=== PATIENT | female | born 1935 | race Caucasian/White ===

== ENCOUNTER → 2016-09-02 | Outpatient (CLI) | payer MEDICARE, BC ==
--- NOTE | 2016-09-02 13:47 | MR ---
EXAMINATION TYPE: MR brain wo con DATE OF EXAM: 09/02/2016 1:38 PM COMPARISON: Prior MRI brain March 26, 2013. HISTORY: Cerebral meningioma per order. TECHNIQUE: Multiplanar, multisequence imaging of the brain and brainstem is performed without IV cont rast. FINDINGS: Diffusion weighted images demonstrate no evidence of a recent infarct or other diffusion abnormality. There is no worrisome extra-axial fluid collection. There is ventricular and sulcal prominence consis tent with mild diffuse age-related cerebral atrophy. There are scattered foci of T2 hyperintensity se en throughout the white matter bilaterally. Lesions are nonspecific in appearance and distribution bu t most likely on basis of product of chronic small vessel ischemic change. There is stable 1.1 x 0.9 cm high right frontal extra-axial lesion on axial image 27 felt to reflect small meningioma. Midline structures demonstrate normal morphology. The craniocervical junction appears within normal limits. Normal vascular flow voids are present. The visualized sinuses are clear and the globes are i ntact. IMPRESSION: 1. Mild diffuse cerebral atrophy with mild to moderate chronic small vessel ischemic change redemonst rated felt stable. Small 1 cm high right frontal extra-axial lesion presumed meningioma felt stable.
== END ==
LOC: RADMRIMAIN 13:00
PROVIDERS: ATTEND Psychiatry & Neurology Neurology
DX: D32.0 Benign neoplasm of cerebral meninges (principal); G31.9 Degenerative disease of nervous system, unspecified; I67.82 Cerebral ischemia
CPT/HCPCS: 70551

== ENCOUNTER 2016-12-16 20:01 | Observation (INO) | payer MEDICARE, BC ==
[2016-12-16] MEDS ORDERED: SODIUM CHLORIDE 0.9% 1,000 ML IV STA (20:45)
[2016-12-16] MEDS ORDERED: LORazepam 0.5 MG TAB PO SCH (21:00)
--- NOTE | 2016-12-16 21:33 | XR ---
EXAMINATION TYPE: XR chest 2V DATE OF EXAM: 12/16/2016 COMPARISON: 02/11/2016 HISTORY: Shortness of breath TECHNIQUE: Frontal and lateral views of the chest are obtained. FINDINGS: Scattered senescent parenchymal changes noted. Hyperinflation compatible with COPD. No evidence for infiltrate. No evidence for atelectasis. Heart size is stable. Mediastinal structures are stable and grossly unremarkable. No evidence for hilar prominence. Degenerative changes dorsal spine. IMPRESSION: 1. No evidence for acute pulmonary disease.
[2016-12-16] MEDS ORDERED: LORazepam 0.5 MG TAB PO STA (22:25)
[2016-12-16 22:27] LABS: Basophils % (A) 0 %; CH 30.4; CHCM 33.6; Eosinophils # (A) 0.4 k/uL (0-0.7); Eosinophils % (A) 4 %; HCT 43.5 % (34.0-46.0); HDW 2.23; HGB 14.5 gm/dL (11.4-16.0); Luc # (Auto) 0.14; Luc % (Auto) 2; Lymphocytes # (A) 2.4 k/uL (1.0-4.8); Lymphocytes % (A) 25 %; MCH 30.2 pg (25.0-35.0); MCHC 33.3 g/dL (31.0-37.0); MCV 90.7 fL (80.0-100.0); Mean Platelet Volume 6.6; Monocytes # (A) 0.6 k/uL (0-1.0); Monocytes % (A) 7 %; Neutrophils # (A) 5.8 k/uL (1.3-7.7); Neutrophils % (A) 63 %; RDW 14.8 % (11.5-15.5); WBC 9.3 k/uL (3.8-10.6); WBC (Perox) 8.99
[2016-12-16 22:39] LABS: INR 0.9 (<1.2); Partial Thromboplastin Time 25.4 sec (22.0-30.0); Prothrombin Time 9.7 sec (9.0-12.0)
[2016-12-16 22:45] LABS: ALT 20 U/L (9-52); AST 26 U/L (14-36); Alkaline Phosphatase 75 U/L (38-126); Anion Gap 8 mmol/L; Blood Urea Nitrogen 20 mg/dL (7-17); Calcium 8.6 mg/dL (8.4-10.2); Carbon Dioxide 20 mmol/L (22-30); Chloride 103 mmol/L (98-107); Glucose 92 mg/dL (74-99); Non-African American GFR(MDRD) 52 (>60 ml/min/1.73 sqM); Potassium 4.4 mmol/L (3.5-5.1); Sodium 131 mmol/L (137-145); Total Bilirubin 0.4 mg/dL (0.2-1.3); Total Protein 6.1 g/dL (6.3-8.2)
--- NOTE | 2016-12-16 23:00 | ED ---
General Adult HPI - General Chief complaint: Extremity Problem,Nontraumatic Stated complaint: lightheaded/nausea/SOB Time Seen by Provider: 12/16/16 20:32 Source: patient Mode of arrival: ambulatory Limitations: no limitations - History of Present Illness Initial comments: Complaining of shortness of breath, nausea, pedal or swelling. He stated that shortness of breath is minimal exertion also with deep breaths she denies any chest pain as such it only happens when she takes a deep breath. Pressure has been high she was being treated for high blood pressure in the past and she did discontinue her Catapres Catapres back in September. Her blood pressure at home is around 1:30 systolic. She denies any headaches or neck stiffness does have a chest pain no abdominal pain no frequency urgency dysuria - Related Data Home Medications Medication Instructions Recorded Confirmed Aspirin [Adult Low Dose Aspirin EC] 162 mg PO DAILY 02/04/16 12/16/16 Cholecalciferol [Vitamin D3] 5,000 unit PO DAILY 02/04/16 12/16/16 Cyanocobalamin [Vitamin B-12] 1,000 mcg PO DAILY 02/04/16 12/16/16 Famotidine 20 mg PO BID 02/04/16 12/16/16 Thyroid,Pork [[place] Thyroid] 60 mg PO DAILY 02/04/16 12/16/16 Pravastatin Sodium [Pravachol] 40 mg PO HS 02/05/16 12/16/16 ALPRAZolam [Xanax] 0.125 mg PO DAILY PRN 12/16/16 12/16/16 Multivitamins, Thera [Multivitamin 1 tab PO DAILY 12/16/16 12/16/16 (formulary)] Allergies Allergy/AdvReac Type Severity Reaction Status Date / Time Iodinated Contrast- Oral and AdvReac Severe kidney Verified 12/16/16 20:16 IV Dye failure [Iodinated Contrast Media - IV Dye] omeprazole [From Prilosec] AdvReac Severe kidney Verified 12/16/16 20:16 failure omeprazole magnesium AdvReac Severe kidney Verified 12/16/16 20:16 [From Prilosec] failure Review of Systems ROS Statement: Those systems with pertinent positive or pertinent negative responses have been documented in the HPI. ROS Other: All systems not noted in ROS Statement are negative. 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 History of Any Multi-Drug Resistant Organisms: None Reported Past Surgical History: Appendectomy, Hysterectomy Past Anesthesia/Blood Transfusion Reactions: No Reported Reaction Past Psychological History: Anxiety Smoking Status: Former smoker Past Alcohol Use History: None Reported Past Drug Use History: None Reported - Past Family History Mother Family Medical History: No Reported History Additional Family Medical History / Comment(s): of heart disease "hole in the heart" at age 29 Father Family Medical History: Myocardial Infarction ([place]) Additional Family Medical History / Comment(s): at age 67 of heart attack General Exam - General Exam Comments Initial Comments: General: The patient is awake and alert, in no distress, and does not appear acutely ill. She has is 15 Skin: Skin is warm and dry and no rashes or lesions are noted. Eye: Pupils are equal, round and reactive to light, extra-ocular movements are intact; there is normal conjunctiva bilaterally. Ears, nose, mouth and throat: There are moist mucous membranes and no oral lesions. Neck: The neck is supple, there is no tenderness or JVD. Cardiovascular: There is a regular rate and rhythm. No murmur, rub or gallop is appreciated. Respiratory: To auscultation bilateral, decrease breath sounds Gastrointestinal: Soft, non-distended, non-tender abdomen without masses or organomegaly noted. There is no rebound or guarding present. Bowel sounds are unremarkable. Back: There is no tenderness to palpation in the midline. There is no obvious deformity. Musculoskeletal: Normal ROM, no tenderness, There is no pedal edema. There is no calf tenderness or swelling. No cords were appreciated. Neurological: CN II-XII intact, Cranial nerves III through XII are intact. There are no obvious motor or sensory deficits. Coordination appears grossly intact. Speech is normal. Psychiatric: Cooperative, appropriate mood & affect, normal judgment. Limitations: no limitations Course Vital Signs 12/16/16 12/16/16 12/16/16 20:03 20:23 22:18 Temperature 98.4 F 97.7 F 97.3 F L Pulse Rate 88 77 68 Respiratory 18 17 18 Rate Blood Pressure 186/89 172/82 O2 Sat by Pulse 96 97 97 Oximetry 12/16/16 22:41 Temperature Pulse Rate 73 Respiratory 17 Rate Blood Pressure 175/81 O2 Sat by Pulse 96 Oximetry [birth year]1929 she continued to feel a bit of a chest pressure no her troponin and d -dimer are unremarkable social chest x-ray and considering her risk factors she be observed in the next 24 hours Lovenox 1 mg/kg instead of heparinizing and cardiology consult and warm EKG Findings - EKG Comments: EKG Findings:: EKG is sinus rhythm with a first-degree AV block, ventricular rate is 80 FL interval is 218 QRS duration is 142 QT/QTc is 44/464 and 56 EKG shows some left axis axis deviation right bundle branch block medical hypertrophy with repolarization abnormalities noticed T-wave inversion in lead aVF I do notice some widening of the QRS complex was normal right bundle branch block as well no ST elevation or ST depression noticed this EKG Medical Decision Making - Lab Data Result diagrams: 12/16/16 22:05 12/16/16 22:05 Lab Results 12/16/16 12/16/16 12/16/16 Range/Units 22:00 22:05 22:05 WBC 9.3 (3.8-10.6) k/uL RBC 4.80 (3.80-5.40) m/uL Hgb 14.5 (11.4-16.0) gm/dL Hct 43.5 (34.0-46.0) % MCV 90.7 (80.0-100.0) fL MCH 30.2 (25.0-35.0) pg MCHC 33.3 (31.0-37.0) g/dL RDW 14.8 (11.5-15.5) % Plt Count 232 (150-450) k/uL Neutrophils % 63 % Lymphocytes % 25 % Monocytes % 7 % Eosinophils % 4 % Basophils % 0 % Neutrophils # 5.8 (1.3-7.7) k/uL Lymphocytes # 2.4 (1.0-4.8) k/uL Monocytes # 0.6 (0-1.0) k/uL Eosinophils # 0.4 (0-0.7) k/uL Basophils # 0.0 (0-0.2) k/uL PT (9.0-12.0) sec INR (<1.2) APTT (22.0-30.0) sec D-Dimer 0.28 (<0.60) mg/L FEU Sodium (137-145) mmol/L Potassium (3.5-5.1) mmol/L Chloride (98-107) mmol/L Carbon Dioxide (22-30) mmol/L Anion Gap mmol/L BUN (7-17) mg/dL Creatinine (0.52-1.04) mg/dL Est GFR (MDRD) Af Amer (>60 ml/min/1.73 sqM) Est GFR (MDRD) Non-Af (>60 ml/min/1.73 sqM) Glucose (74-99) mg/dL Calcium (8.4-10.2) mg/dL Total Bilirubin (0.2-1.3) mg/dL AST (14-36) U/L ALT (9-52) U/L Alkaline Phosphatase (38-126) U/L Total Creatine Kinase 42 (30-135) U/L CK-MB (CK-2) 0.7 (0.0-2.4) ng/mL CK-MB (CK-2) Rel Index 1.7 Troponin I <0.012 (0.000-0.034) ng/mL NT-Pro-B Natriuret Pep pg/mL Total Protein (6.3-8.2) g/dL Albumin (3.5-5.0) g/dL 12/16/16 12/16/16 12/16/16 Range/Units 22:05 22:05 22:05 WBC (3.8-10.6) k/uL RBC (3.80-5.40) m/uL Hgb (11.4-16.0) gm/dL Hct (34.0-46.0) % MCV (80.0-100.0) fL MCH (25.0-35.0) pg MCHC (31.0-37.0) g/dL RDW (11.5-15.5) % Plt Count (150-450) k/uL Neutrophils % % Lymphocytes % % Monocytes % % Eosinophils % % Basophils % % Neutrophils # (1.3-7.7) k/uL Lymphocytes # (1.0-4.8) k/uL Monocytes # (0-1.0) k/uL Eosinophils # (0-0.7) k/uL Basophils # (0-0.2) k/uL PT 9.7 (9.0-12.0) sec INR 0.9 (<1.2) APTT 25.4 (22.0-30.0) sec D-Dimer (<0.60) mg/L FEU Sodium 131 L (137-145) mmol/L Potassium 4.4 (3.5-5.1) mmol/L Chloride 103 (98-107) mmol/L Carbon Dioxide 20 L (22-30) mmol/L Anion Gap 8 mmol/L BUN 20 H (7-17) mg/dL Creatinine 1.02 (0.52-1.04) mg/dL Est GFR (MDRD) Af Amer >60 (>60 ml/min/1.73 sqM) Est GFR (MDRD) Non-Af 52 (>60 ml/min/1.73 sqM) Glucose 92 (74-99) mg/dL Calcium 8.6 (8.4-10.2) mg/dL Total Bilirubin 0.4 (0.2-1.3) mg/dL AST 26 (14-36) U/L ALT 20 (9-52) U/L Alkaline Phosphatase 75 (38-126) U/L Total Creatine Kinase (30-135) U/L CK-MB (CK-2) (0.0-2.4) ng/mL CK-MB (CK-2) Rel Index Troponin I (0.000-0.034) ng/mL NT-Pro-B Natriuret Pep 200 pg/mL Total Protein 6.1 L (6.3-8.2) g/dL Albumin 3.4 L (3.5-5.0) g/dL Disposition Clinical Impression: Dyspnea, Chest pressure Clinical Impression: (Ruled Out): Pleuritic chest pain Disposition: ADMITTED IP TO THIS [facility] Condition: Good Referrals: Josh Don MD [Primary Care Provider] - 1-2 days
[2016-12-16 23:25] LABS: Creatine Kinase 42 U/L (30-135)
[2016-12-16 23:37] LABS: Creatine Kinase MB 0.7 ng/mL (0.0-2.4); Troponin I <0.012 ng/mL (0.000-0.034)
[2016-12-16] MEDS ORDERED: SODIUM CHLORIDE 0.9% 1,000 ML IV SCH (23:45)
[2016-12-16] MEDS ORDERED: NITROGLYCERIN SL TABS 0.4 MG TAB SUBLINGUAL PRN (23:49)
[2016-12-16] MEDS ORDERED: MORPHINE SULFATE 2 MG/ML SYRINGE IVP PRN (23:49)
[2016-12-16] MEDS ORDERED: ALPRAZolam 0.25 MG TAB PO PRN (23:54)
[2016-12-16] MEDS ORDERED: ENOXAPARIN 80 MG/0.8 ML SYRINGE SQ STA (23:55)
[2016-12-17] MEDS: SODIUM CHLORIDE 0.9% 1,000 ML IV SCH ×2 (00:14→14:00)
[2016-12-17 01:06] VITALS: BMI 29.0
[2016-12-17 04:15] LABS: Cholesterol 167 mg/dL (<200); HDL Cholesterol 77 mg/dL (40-60)
[2016-12-17 04:16] VITALS: RESP 18
[2016-12-17 04:33] LABS: Creatine Kinase MB 0.9 ng/mL (0.0-2.4); Troponin I 0.012 ng/mL (0.000-0.034)
--- NOTE | 2016-12-17 08:18 | P.CRDCN ---
History of Present Illness Consult date: 12/17/16 History of present illness: This is a 81-year-old female with history of hypercholesterolemia and POTT syndrome, comes to the hospital with complaints of exertional shortness of breath and chest tightness. She claims that the symptoms have been going on for a while. Yesterday patient was at daughter's house and one of her relatives who works at [facility] suggested that she have cardiac evaluation. She also complains of some pedal swelling. She seemed to be comfortable at rest. No history of hypertension or diabetes. No history of any previous myocardial infarctions or strokes. Her EKGs showed evidence of right bundle-branch block with some intraventricular conduction delay. Cardiac enzymes 2 are negative. Patient is being scheduled for a nuclear stress test and echocardiogram. Further recommendations depend upon the findings and about test Review of Systems REVIEW OF SYSTEMS: CONSTITUTIONAL:. Patient is doing well. No complaints of fever or chills EYES: Denies diplopia, blurring of vision EARS, NOSE, MOUTH, THROAT: Denies headaches, denies sore throat. CARDIOVASCULAR: As per HPI RESPIRATORY: Denies shortness of breath, denies cough. GASTROINTESTINAL: Denies change in appetite, denies abdominal pain, denies diarrhea GENITOURINARY: Denies hematuria, denies infections. MUSKULOSKELETAL: Denies pain, denies swelling. Denies any cramps or claudication INTEGUMENTARY: Denies rash, denies eczema. NEUROLOGICAL: Denies focal weakness, or visual disturbance. Denies any dizziness or syncope PSYCHIATRIC: Denies anxiety, denies depression. HEMATOLOGIC/LYMPHATIC: Denies any bleeding, denies enlarged lymph nodes. 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 History of Any Multi-Drug Resistant Organisms: None Reported Past Surgical History: Appendectomy, Hysterectomy Past Anesthesia/Blood Transfusion Reactions: No Reported Reaction Smoking Status: Former smoker - Past Family History Mother Family Medical History: No Reported History Additional Family Medical History / Comment(s): of heart disease "hole in the heart" at age 29 Father Family Medical History: Myocardial Infarction ([place]) Additional Family Medical History / Comment(s): at age 67 of heart attack Medications and Allergies Home Medications Medication Instructions Recorded Confirmed Type Aspirin [Adult Low Dose Aspirin EC] 162 mg PO HS 02/04/16 12/17/16 History Cholecalciferol [Vitamin D3] 5,000 unit PO DAILY 02/04/16 12/17/16 History Cyanocobalamin [Vitamin B-12] 1,000 mcg PO DAILY 02/04/16 12/17/16 History Famotidine 20 mg PO BID 02/04/16 12/17/16 History Thyroid,Pork [[place] Thyroid] 60 mg PO DAILY 02/04/16 12/17/16 History Pravastatin Sodium [Pravachol] 40 mg PO HS 02/05/16 12/17/16 History ALPRAZolam [Xanax] 0.125 mg PO DAILY PRN 12/16/16 12/17/16 History Multivitamins, Thera [Multivitamin 1 tab PO DAILY 12/16/16 12/17/16 History (formulary)] Allergies Allergy/AdvReac Type Severity Reaction Status Date / Time Iodinated Contrast- Oral and AdvReac Severe kidney Verified 12/17/16 00:52 IV Dye failure [Iodinated Contrast Media - IV Dye] omeprazole [From Prilosec] AdvReac Severe kidney Verified 12/17/16 00:52 failure omeprazole magnesium AdvReac Severe kidney Verified 12/17/16 00:52 [From Prilosec] failure Physical Exam Vitals: Vital Signs Temp Pulse Pulse Resp BP BP Pulse Ox 12/17/16 07:47 98.1 F 63 18 131/71 94 L 12/17/16 04:00 98.1 F 71 18 140/73 93 L 12/17/16 00:12 97.5 F L 67 16 136/78 95 12/17/16 00:00 97.9 F 71 16 164/89 96 12/16/16 22:41 73 17 175/81 96 12/16/16 22:18 97.3 F L 68 18 172/82 97 12/16/16 20:23 97.7 F 77 17 97 12/16/16 20:03 98.4 F 88 18 186/89 96 Intake and Output 0712/17/16 12/17/16 22:59 06:59 14:59 Other: # Voids 1 Weight 81.647 kg 81.6 kg GENERAL EXAM: Patient is alert and oriented and doesn't appear to be in any acute distress HEENT: Normocephalic. Normal reaction of pupils, equal size, normal range of extraocular motion. No erythema or exudates in the throat. NECK: No masses, no nuchal rigidity. CHEST: No chest wall deformity. LUNGS: . Axid the falls HEART: S1 and S2 normal with no audible mumurs or gallops. Regular rhythm, femorals equal on both sides.. ABDOMEN: No hepatosplenomegaly, normal bowel sounds, no guarding or rigidity. SKIN: No rashes CENTRAL NERVOUS SYSTEM: No focal deficits. EXTREMITIES: No cyanosis, clubbing or edema. Results 12/16/16 22:05 12/16/16 22:05 Cardiac Enzymes 12/16/16 12/16/16 12/17/16 Range/Units 22:05 22:05 03:41 AST 26 (14-36) U/L CK-MB (CK-2) 0.7 0.9 (0.0-2.4) ng/mL Troponin I <0.012 0.012 (0.000-0.034) ng/mL Coagulation 12/16/16 Range/Units 22:05 PT 9.7 (9.0-12.0) sec APTT 25.4 (22.0-30.0) sec Lipids 12/17/16 Range/Units 03:41 Triglycerides 126 (<150) mg/dL Cholesterol 167 (<200) mg/dL HDL Cholesterol 77 H (40-60) mg/dL CBC 12/16/16 Range/Units 22:05 WBC 9.3 (3.8-10.6) k/uL RBC 4.80 (3.80-5.40) m/uL Hgb 14.5 (11.4-16.0) gm/dL Hct 43.5 (34.0-46.0) % Plt Count 232 (150-450) k/uL Comprehensive Metabolic Panel 12/16/16 Range/Units 22:05 Sodium 131 L (137-145) mmol/L Potassium 4.4 (3.5-5.1) mmol/L Chloride 103 (98-107) mmol/L Carbon Dioxide 20 L (22-30) mmol/L BUN 20 H (7-17) mg/dL Creatinine 1.02 (0.52-1.04) mg/dL Glucose 92 (74-99) mg/dL Calcium 8.6 (8.4-10.2) mg/dL AST 26 (14-36) U/L ALT 20 (9-52) U/L Alkaline Phosphatase 75 (38-126) U/L Total Protein 6.1 L (6.3-8.2) g/dL Albumin 3.4 L (3.5-5.0) g/dL Current Medications Generic Name Dose Route Start Last Admin Trade Name Freq PRN Reason Stop Dose Admin Alprazolam 0.125 mg 12/16/16 23:54 Xanax PO DAILY PRN Anxiety Aspirin 325 mg 12/17/16 09:00 Aspirin PO DAILY [facility] Cholecalciferol 5,000 unit 12/17/16 09:00 Vitamin D3 PO DAILY [facility] Cyanocobalamin 1,000 mcg 12/17/16 09:00 Vitamin B-12 PO DAILY [facility] Famotidine 20 mg 12/17/16 09:00 Pepcid PO BID [facility] Sodium Chloride 1,000 mls @ 50 mls/hr 12/16/16 20:45 12/16/16 21:40 Saline 0.9% IV 12/17/16 16:44 50 mls/hr .Q20H STA Administration Sodium Chloride 1,000 mls @ 100 mls/hr 12/16/16 23:15 12/17/16 00:14 Saline 0.9% IV 100 mls/hr .Q10H [facility] Administration Sodium Chloride 1,000 mls @ 100 mls/hr 12/16/16 23:45 12/17/16 01:10 Saline 0.9% IV Not Given .Q10H [facility] Morphine Sulfate 2 mg 12/16/16 23:49 Morphine Sulfate (Inj) IVP Q5M PRN Chest Pain Multivitamins 1 each 12/17/16 09:00 Theragran PO DAILY [facility] Nitroglycerin 0.4 mg 12/16/16 23:49 Nitrostat SUBLINGUAL Q5M PRN Chest Pain Pravastatin Sodium 40 mg 12/17/16 21:00 Pravachol PO HS [facility] Thyroid 60 mg 12/17/16 09:00 [place] Thyroid PO DAILY [facility] Intake and Output 12/16/16 12/17/16 12/17/16 22:59 06:59 14:59 Other: # Voids 1 Weight 81.647 kg 81.6 kg 12/16/16 22:05 12/16/16 22:05 EKG Interpretations (text) Sinus rhythm with a right bundle block and intraventricular conduction delay Assessment and Plan (1) Chest pressure Status: Acute (2) Dyspnea Status: Acute (3) Hyperlipidemia Status: Acute (4) Pott disease Status: Acute Plan: Patient's symptoms of exertional shortness of breath and chest tightness, may be suggestive of exertional angina. Patient is going to be evaluated to a nuclear stress test and echocardiogram. Further recommendation will depend on the clinical course.
[2016-12-17] MEDS ORDERED: AMINOPHYLLINE 500 MG/20 ML VIAL IV PRN (08:22)
[2016-12-17] MEDS ORDERED: REGADENOSON 0.4 MG/5 ML SYRINGE IV ONE (08:22)
[2016-12-17] MEDS ORDERED: MULTIVITAMINS, THERA 1 EACH TAB PO SCH (09:00)
[2016-12-17] MEDS ORDERED: CYANOCOBALAMIN 500 MCG TAB PO SCH (09:00)
[2016-12-17] MEDS ORDERED: THYROID, PORK 30 MG TAB PO SCH (09:00)
[2016-12-17] MEDS ORDERED: ASPIRIN 325 MG TAB PO SCH (09:00)
[2016-12-17] MEDS ORDERED: FAMOTIDINE 20 MG TAB PO SCH (09:00)
[2016-12-17] MEDS ORDERED: CHOLECALCIFEROL 1,000 UNIT TAB PO SCH (09:00)
--- NOTE | 2016-12-17 12:21 | P.STRESS ---
- Stress Test Note Stress Test Results/Findings: Exam Performed: NM stress lexiscan cardiolite Exam Date: 12/17/16 Reason for Exam: CP Height: 5 ft 6 in Weight: 81.6 kg Protocol: Lexiscan/Cardiolite Stage: Duration of Exercise: Resting Heart Rate: 83 Resting Blood Pressure: 133/82 Maximum Achieved Heart Rate: 118 Maximum Achieved Blood Pressure: 152/94 85% PMHR: 100% PMHR: METS: Technologist Comment: Stress Test Results/Findings: Patient received Lexiscan injection over a period of [address] segment depression suggestive of ischemia was noted resting EKG shows normal sinus rhythm with a QRS morphology suggestive for right bundle branch block pattern was noted the results of the nuclear study will follow.
[2016-12-17 12:55] VITALS: BP 185/83; PULSE 69; TEMP 97.8
--- NOTE | 2016-12-17 13:07 | NM ---
EXAMINATION TYPE: NM stress lexiscan cardiolite DATE OF EXAM: 12/17/2016 COMPARISON: Chest x-ray 12/16/2016 HISTORY: Exertional chest pain and shortness of breath TECHNIQUE: After the intravenous administration of 10.2 mCi Tc 99m Sestamibi - Cardiolite resting SP ECT images acquired 45 minutes post injection. The patient received 0.4mg Lexiscan, 26.4 mCi Tc 99m Sestamibi - Stress images obtained [address] injection FINDINGS: Review of stress and rest SPECT images demonstrates decreased uptake along the inferolateral left michael tricle on stress and rest images more so on rest than on stress. Gated analysis shows normal wall mot ion with an estimated left ventricular ejection fraction of 73 %. IMPRESSION: No scintigraphic evidence for reversible ischemia. Findings suggest previous infarction. The consider echocardiographic correlation for elevated ejection fraction.
[2016-12-17 13:19] LABS: Creatine Kinase 46 U/L (30-135)
--- NOTE | 2016-12-17 13:32 | ECHOF ---
Referral Reason:Chest pain and cardiomyopathy MEASUREMENTS -------- HEIGHT: 167.6 cm WEIGHT: 81.6 kg BP: IVSd: 1.2 cm (0.6 - 1.1) LVIDd: 2.1 cm (3.9 - 5.3) LVPWd: 1.2 cm (0.6 - 1.1) IVSs: 1.3 cm LVIDs: 1.6 cm LVPWs: 1.3 cm Ao Diam: 3.6 cm (2.0 - 3.7) AV Cusp: 2.0 cm (1.5 - 2.6) LA Diam: 2.3 cm (2.7 - 3.8) MV E Mack: 0.47 m/s MV DecT: 139 ms MV A Mack: 0.83 m/s MV E/A Ratio: 0.57 AR PHT: 306 ms RAP: 5.00 mmHg RVSP: 8.86 mmHg FINDINGS -------- Sinus rhythm. This was a technically difficult study with suboptimal views. There is mild concentric left ventricular hypertrophy. Overall left ventricular systolic function is low-normal with, an EF between 50 - 55 %. The right ventricle is normal in size and function. The left atrium is normal in size. The right atrium is normal in size. 1.5mg of Definity was utilized for enhancement of images The aortic valve is trileaflet, and appears structurally normal. No aortic stenosis or regurgitation. Trace amount of aortic regurgitation. The mitral valve leaflets are mildly thickened. There is trace mitral regurgitation. Trace tricuspid regurgitation present. The right ventricular systolic pressure, as measured by Doppler, is 8.86mmHg. Pulmonic valve appears structurally normal. The aortic root size is normal. The pericardium is normal. CONCLUSIONS -------- 1. Sinus rhythm. 2. Trace amount of aortic regurgitation. 3. The mitral valve leaflets are mildly thickened. 4. There is trace mitral regurgitation. 5. Trace tricuspid regurgitation present. 6. The right ventricular systolic pressure, as measured by Doppler, is 8.86mmHg. 7. Pulmonic valve appears structurally normal. 8. The aortic root size is normal. 9. The pericardium is normal. 10. This was a technically difficult study with suboptimal views. 11. There is mild concentric left ventricular hypertrophy. 12. Overall left ventricular systolic function is low-normal with, an EF between 50 - 55 %. 13. The right ventricle is normal in size and function. 14. The left atrium is normal in size. 15. The right atrium is normal in size. 16. 1.5mg of Definity was utilized for enhancement of images 17. The aortic valve is trileaflet, and appears structurally normal. No aortic stenosis or regurgitation. [employer] BED WORKER: Francine Ritchie RDCS
[2016-12-17 13:33] LABS: Creatine Kinase MB 0.9 ng/mL (0.0-2.4); Troponin I <0.012 ng/mL (0.000-0.034)
--- NOTE | 2016-12-17 14:12 | P.HPIM ---
History of Present Illness This is a 81-year-old female with history of hypercholesterolemia and POTT syndrome, comes to the hospital with complaints of exertional shortness of breath and chest tightness. Patient's symptoms has been going on for more than any of his face, patient also has some lightheadedness mild chest pain very likely pains.. Yesterday patient was at daughter's house and one of her relatives who works at [facility] suggested that she have cardiac evaluation. She also complains of some pedal edema. She seemed to be comfortable at rest. No history of hypertension or diabetes. No history of any previous myocardial infarctions or strokes. Her EKGs showed evidence of right bundle-branch block with some intraventricular conduction delay. Cardiac enzymes 3 are negative. Patient underwent stress test which did not show any new inducible ischemia. If cleared by cardiology after these results patient will be discharged today. Patient's chest pain is noncardiac in nature not associated with food, denied any excessive diaphoresis associated with chest pain. Review of Systems REVIEW OF SYSTEMS: CONSTITUTIONAL: No fever, no malaise, no fatigue. HEENT: No recent visual problems or hearing problems. Denied any sore throat. CARDIOVASCULAR: As mentioned in HPI PULMONARY: no cough, no hemoptysis. GASTROINTESTINAL: No diarrhea, no nausea, no vomiting, no abdominal pain. Normoactive bowel sounds. NEUROLOGICAL: No headaches, no weakness, no numbness. HEMATOLOGICAL: Denies any bleeding or petechiae. GENITOURINARY: Denies any burning micturition, frequency, or urgency. MUSCULOSKELETAL/RHEUMATOLOGICAL: Denies any joint pain, swelling, or any muscle pain. ENDOCRINE: Denies any polyuria or polydipsia. The rest of the 14-point review of systems is negative. 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 History of Any Multi-Drug Resistant Organisms: None Reported Past Surgical History: Appendectomy, Hysterectomy Past Anesthesia/Blood Transfusion Reactions: No Reported Reaction Smoking Status: Former smoker - Past Family History Mother Family Medical History: No Reported History Additional Family Medical History / Comment(s): of heart disease "hole in the heart" at age 29 Father Family Medical History: Myocardial Infarction ([place]) Additional Family Medical History / Comment(s): at age 67 of heart attack Medications and Allergies Home Medications Medication Instructions Recorded Confirmed Type Aspirin [Adult Low Dose Aspirin EC] 162 mg PO HS 02/04/16 12/17/16 History Cholecalciferol [Vitamin D3] 5,000 unit PO DAILY 02/04/16 12/17/16 History Cyanocobalamin [Vitamin B-12] 1,000 mcg PO DAILY 02/04/16 12/17/16 History Famotidine 20 mg PO BID 02/04/16 12/17/16 History Thyroid,Pork [[place] Thyroid] 60 mg PO DAILY 02/04/16 12/17/16 History Pravastatin Sodium [Pravachol] 40 mg PO HS 02/05/16 12/17/16 History ALPRAZolam [Xanax] 0.125 mg PO DAILY PRN 12/16/16 12/17/16 History Multivitamins, Thera [Multivitamin 1 tab PO DAILY 12/16/16 12/17/16 History (formulary)] Allergies Allergy/AdvReac Type Severity Reaction Status Date / Time Iodinated Contrast- Oral and AdvReac Severe kidney Verified 12/17/16 00:52 IV Dye failure [Iodinated Contrast Media - IV Dye] omeprazole [From Prilosec] AdvReac Severe kidney Verified 12/17/16 00:52 failure omeprazole magnesium AdvReac Severe kidney Verified 12/17/16 00:52 [From Prilosec] failure Physical Exam Vitals: Vital Signs Temp Pulse Pulse Resp BP BP BP 12/17/16 12:00 97.8 F 69 18 185/83 12/17/16 07:47 98.1 F 63 18 131/71 12/17/16 04:00 98.1 F 71 18 140/73 12/17/16 00:12 97.5 F L 67 16 136/78 12/17/16 00:00 97.9 F 71 16 164/89 12/16/16 22:41 73 17 175/81 12/16/16 22:18 97.3 F L 68 18 172/82 12/16/16 20:23 97.7 F 77 17 12/16/16 20:03 98.4 F 88 18 186/89 Pulse Ox 12/17/16 12:00 95 12/17/16 07:47 94 L 12/17/16 04:00 93 L 12/17/16 00:12 95 12/17/16 00:00 96 12/16/16 22:41 96 12/16/16 22:18 97 12/16/16 20:23 97 12/16/16 20:03 96 Intake and Output 12/16/16 12/17/16 12/17/16 22:59 06:59 14:59 Other: # Voids 1 Weight 81.647 kg 81.6 kg PHYSICAL EXAMINATION: GENERAL: The patient is alert and oriented x3, not in any acute distress. Well developed, well nourished. HEENT: Pupils are round and equally reacting to light. EOMI. No scleral icterus. No conjunctival pallor. Normocephalic, atraumatic. No pharyngeal erythema. No thyromegaly. CARDIOVASCULAR: S1 and S2 present. No murmurs, rubs, or gallops. PULMONARY: Chest is clear to auscultation, no wheezing or crackles. ABDOMEN: Soft, nontender, nondistended, normoactive bowel sounds. No palpable organomegaly. MUSCULOSKELETAL: No joint swelling or deformity. EXTREMITIES: No cyanosis, clubbing, or pedal edema. NEUROLOGICAL: Gross neurological examination did not reveal any focal deficits. SKIN: No rashes. Results CBC & Chem 7: 12/16/16 22:05 12/16/16 22:05 Labs: Abnormal Lab Results - Last 24 Hours (Table) 12/16/16 12/17/16 Range/Units 22:05 03:41 Sodium 131 L (137-145) mmol/L Carbon Dioxide 20 L (22-30) mmol/L BUN 20 H (7-17) mg/dL Total Protein 6.1 L (6.3-8.2) g/dL Albumin 3.4 L (3.5-5.0) g/dL HDL Cholesterol 77 H (40-60) mg/dL Thrombosis Risk Factor Assmnt - Choose All That Apply Each Risk Factor Represents 2 Points: Age 61-74 years Thrombosis Risk Factor Assessment Total Risk Factor Score: 2 Thrombosis Risk Factor Assessment Level: Low Risk Assessment and Plan Plan: #1 multiple nonspecific symptoms including minimal chest pain, shortness of breath, mild lightheadedness: Rule out acute coronary syndromes patient underwent stress test which appears to be negative her symptoms may be related to her postural orthostatic tachycardia syndrome. #2 mild hyponatremia: Etiology is unknown and appears to have chronic hyponatremia patient will followed nephrology as outpatient. #3 CVA /TIA in the past next and #4 hypothyroidism #5 gastroesophageal reflux disease For above-mentioned chronic medical problems patient will continue her home medications and patient will follow-up with Dr. Rodrigez and primary care physician as an outpatient.
--- NOTE | 2016-12-17 14:13 | P.DS ---
Providers Date of admission: 12/16/16 23:54 Attending physician: Sung Simental Consults: 12/16/16 23:49 Consult Physician Urgent Consulting Provider: Christina Delgado Consult Reason/Comments: chest pressure, shortness of breath Do you want consulting provider notified?: Yes Primary care physician: Josh Sifuentes [facility] Course: Please refer to HPI Patient Condition at Discharge: Good Plan - Discharge Summary New Discharge Prescriptions: No Action Cyanocobalamin [Vitamin B-12] 1,000 mcg PO DAILY Cholecalciferol [Vitamin D3] 5,000 unit PO DAILY Famotidine 20 mg PO BID Aspirin [Adult Low Dose Aspirin EC] 162 mg PO HS Thyroid,Pork [[place] Thyroid] 60 mg PO DAILY Pravastatin Sodium [Pravachol] 40 mg PO HS Multivitamins, Thera [Multivitamin (formulary)] 1 tab PO DAILY ALPRAZolam [Xanax] 0.125 mg PO DAILY PRN PRN Reason: Anxiety Discharge Medication List Aspirin [Adult Low Dose Aspirin EC] 162 mg PO HS 02/04/16 [History] Cholecalciferol [Vitamin D3] 5,000 unit PO DAILY 02/04/16 [History] Cyanocobalamin [Vitamin B-12] 1,000 mcg PO DAILY 02/04/16 [History] Famotidine 20 mg PO BID 02/04/16 [History] Thyroid,Pork [[place] Thyroid] 60 mg PO DAILY 02/04/16 [History] Pravastatin Sodium [Pravachol] 40 mg PO HS 02/05/16 [History] ALPRAZolam [Xanax] 0.125 mg PO DAILY PRN 12/16/16 [History] Multivitamins, Thera [Multivitamin (formulary)] 1 tab PO DAILY 12/16/16 [History ] Follow up Appointment(s)/Referral(s): Josh Don MD [Primary Care Provider] - 3 Days Discharge Disposition: HOME SELF-CARE
[2016-12-17] MEDS ORDERED: PRAVASTATIN SODIUM 40 MG TAB PO SCH (21:00)
[2016-12-18] MEDS ORDERED: FAMOTIDINE 20 MG TAB PO SCH (09:00)
== END 2016-12-17 15:15 | disposition home or self-care (01) ==
LOC: EC 20:01 → 3OBS 23:54
PROVIDERS: ADMIT Hospitalist; ATTEND Hospitalist
DX: R07.89 Other chest pain (principal); R06.02 Shortness of breath; E78.5 Hyperlipidemia, unspecified; R42 Dizziness and giddiness; K21.9 Gastro-esophageal reflux disease without esophagitis; G43.909 Migraine, unspecified, not intractable, without status migrainosus; F41.9 Anxiety disorder, unspecified; K58.9 Irritable bowel syndrome, unspecified; E87.1 Hypo-osmolality and hyponatremia; E03.9 Hypothyroidism, unspecified; E78.00 Pure hypercholesterolemia, unspecified; Z79.82 Long term (current) use of aspirin; Z79.899 Other long term (current) drug therapy; Z88.8 Allergy status to other drugs, medicaments and biological substances; Z91.041 Radiographic dye allergy status; Z86.73 Personal history of transient ischemic attack (TIA), and cerebral infarction without residual deficits; Z87.891 Personal history of nicotine dependence; Z82.49 Family history of ischemic heart disease and other diseases of the circulatory system; R00.0 Tachycardia, unspecified
CPT/HCPCS: 96372; 99285; 36415; 93005; 93017; 85379; 83880; 80061; 80053; 82550 ×2; 82553 ×2; 84484 ×2; 85025; 85610; 85730; 71020; 78452; G0378 ×2; C8929; A9500; J1650; Q9957; J2785; 93306

== ENCOUNTER 2016-12-19 10:52 | Observation (INO) | payer MEDICARE, BC ==
[2016-12-19] MEDS ORDERED: ASPIRIN 81 MG CHEW PO STA (11:21)
[2016-12-19] MEDS ORDERED: METOCLOPRAMIDE 5 MG/ML 2 ML VIAL IVP STA (11:21)
[2016-12-19] MEDS ORDERED: NITROGLYCERIN OINT 1 INCH/GM PACKET TOPICAL STA (11:21)
--- NOTE | 2016-12-19 11:29 | ED ---
General Adult HPI - General Chief complaint: Chest Pain Stated complaint: Chest pain Time Seen by Provider: 12/19/16 11:14 Source: patient, family, RN notes reviewed Mode of arrival: wheelchair Limitations: no limitations - History of Present Illness Initial comments: Patient is a pleasant 81-year-old female presenting to the emergency department for not feeling well. Patient states symptoms started 5 days ago. Symptoms are somewhat worse. Patient has tightness in her chest under the breast that radiates posteriorly. Patient states it is only mild at this time. Patient was short of breath this morning, that has resolved. Patient is somewhat nauseated. No diaphoresis. Patient does have a headache. Headache is chronic for over 4 years. Patient has had previous MRI of the brain. - Related Data Home Medications Medication Instructions Recorded Confirmed Aspirin [Adult Low Dose Aspirin EC] 162 mg PO HS 02/04/16 12/17/16 Cholecalciferol [Vitamin D3] 5,000 unit PO DAILY 02/04/16 12/17/16 Cyanocobalamin [Vitamin B-12] 1,000 mcg PO DAILY 02/04/16 12/17/16 Famotidine 20 mg PO BID 02/04/16 12/17/16 Thyroid,Pork [[place] Thyroid] 60 mg PO DAILY 02/04/16 12/17/16 Pravastatin Sodium [Pravachol] 40 mg PO HS 02/05/16 12/17/16 ALPRAZolam [Xanax] 0.125 mg PO DAILY PRN 12/16/16 12/17/16 Multivitamins, Thera [Multivitamin 1 tab PO DAILY 12/16/16 12/17/16 (formulary)] Allergies Allergy/AdvReac Type Severity Reaction Status Date / Time Iodinated Contrast- Oral and AdvReac Severe kidney Verified 12/19/16 11:08 IV Dye failure [Iodinated Contrast Media - IV Dye] omeprazole [From Prilosec] AdvReac Severe kidney Verified 12/19/16 11:08 failure omeprazole magnesium AdvReac Severe kidney Verified 12/19/16 11:08 [From Prilosec] failure Review of Systems ROS Statement: Those systems with pertinent positive or pertinent negative responses have been documented in the HPI. ROS Other: All systems not noted in ROS Statement are negative. Constitutional: Denies: fever Eyes: Denies: eye pain ENT: Denies: ear pain Respiratory: Reports: dyspnea. Denies: cough Cardiovascular: Reports: chest pain Endocrine: Reports: fatigue Gastrointestinal: Reports: nausea. 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 History of Any Multi-Drug Resistant Organisms: None Reported Past Surgical History: Appendectomy, Hysterectomy Past Anesthesia/Blood Transfusion Reactions: No Reported Reaction Past Psychological History: Anxiety Smoking Status: Former smoker Past Alcohol Use History: None Reported Past Drug Use History: None Reported - Past Family History Mother Family Medical History: No Reported History Additional Family Medical History / Comment(s): of heart disease "hole in the heart" at age 29 Father Family Medical History: Myocardial Infarction ([place]) Additional Family Medical History / Comment(s): at age 67 of heart attack General Exam Limitations: no limitations General appearance: alert, in no apparent distress Head exam: Present: atraumatic Eye exam: Present: normal appearance, PERRL, EOMI. Absent: nystagmus ENT exam: Present: normal oropharynx Neck exam: Present: normal inspection Respiratory exam: Present: normal lung sounds bilaterally. Absent: chest wall tenderness Cardiovascular Exam: Present: regular rate, normal rhythm Expanded Peripheral pulses: 2+: Radial (R), Radial (L), Dorsalis Pedis (R), Dorsalis Pedis (L) GI/Abdominal exam: Present: soft. Absent: distended, tenderness Extremities exam: Present: normal inspection. Absent: pedal edema, calf tenderness Neurological exam: Present: alert, CN II-XII intact. Absent: motor sensory deficit Expanded Speech: Present: fluid speech Cranial nerves: EOM's Intact: Normal, Facial Sensation: Normal Sensory exam: Upper Extremity Light Touch: Normal, Lower Extremity Light Touch: Normal Motor strength exam: RUE: 5, LUE: 5, RLE: 5, LLE: 5 Eye Response: (4) open spontaneously Motor Response: (6) obeys commands Verbal Response: (5) oriented Psychiatric exam: Present: normal affect, normal mood Skin exam: Present: normal color Course Vital Signs 12/19/16 12/19/16 11:05 12:43 Temperature 98.2 F 97.0 F L Pulse Rate 75 76 Respiratory 18 17 Rate Blood Pressure 175/84 192/88 O2 Sat by Pulse 97 95 Oximetry EKG Findings - EKG Comments: EKG Findings:: Normal sinus rhythm 77. WA 200. QRS 142. QT 408. QTC 461. Left axis. Right bundle branch block. Left anterior fascicular block. LVH. No acute ST change. Medical Decision Making - Medical Decision Making Patient reevaluated and resting comfortably in bed. Patient states she does feel better. Patient and family updated on results and plan. Case was discussed with Dr. Simental, who will admit for Dr. Don. - Lab Data Result diagrams: 12/19/16 11:32 12/19/16 11:32 Lab Results 12/19/16 12/19/16 12/19/16 Range/Units 11:32 11:32 11:32 WBC 8.3 (3.8-10.6) k/uL RBC 5.00 (3.80-5.40) m/uL Hgb 14.8 (11.4-16.0) gm/dL Hct 45.5 (34.0-46.0) % MCV 91.1 (80.0-100.0) fL MCH 29.5 (25.0-35.0) pg MCHC 32.4 (31.0-37.0) g/dL RDW 14.6 (11.5-15.5) % Plt Count 236 (150-450) k/uL Neutrophils % 64 % Lymphocytes % 25 % Monocytes % 5 % Eosinophils % 4 % Basophils % 0 % Neutrophils # 5.3 (1.3-7.7) k/uL Lymphocytes # 2.1 (1.0-4.8) k/uL Monocytes # 0.5 (0-1.0) k/uL Eosinophils # 0.3 (0-0.7) k/uL Basophils # 0.0 (0-0.2) k/uL PT (9.0-12.0) sec INR (<1.2) APTT (22.0-30.0) sec D-Dimer (<0.60) mg/L FEU Sodium 132 L (137-145) mmol/L Potassium 4.3 (3.5-5.1) mmol/L Chloride 103 (98-107) mmol/L Carbon Dioxide 20 L (22-30) mmol/L Anion Gap 9 mmol/L BUN 21 H (7-17) mg/dL Creatinine 0.99 (0.52-1.04) mg/dL Est GFR (MDRD) Af Amer >60 (>60 ml/min/1.73 sqM) Est GFR (MDRD) Non-Af 54 (>60 ml/min/1.73 sqM) Glucose 89 (74-99) mg/dL Calcium 9.0 (8.4-10.2) mg/dL Magnesium 2.0 (1.6-2.3) mg/dL Total Bilirubin 0.5 (0.2-1.3) mg/dL AST 27 (14-36) U/L ALT 22 (9-52) U/L Alkaline Phosphatase 72 (38-126) U/L Total Creatine Kinase 62 (30-135) U/L CK-MB (CK-2) 1.1 (0.0-2.4) ng/mL CK-MB (CK-2) Rel Index 1.8 Troponin I <0.012 (0.000-0.034) ng/mL NT-Pro-B Natriuret Pep pg/mL Total Protein 6.4 (6.3-8.2) g/dL Albumin 3.7 (3.5-5.0) g/dL Amylase 101 (30-110) U/L Lipase 76 (23-300) U/L 12/19/16 12/19/16 Range/Units 11:32 11:32 WBC (3.8-10.6) k/uL RBC (3.80-5.40) m/uL Hgb (11.4-16.0) gm/dL Hct (34.0-46.0) % MCV (80.0-100.0) fL MCH (25.0-35.0) pg MCHC (31.0-37.0) g/dL RDW (11.5-15.5) % Plt Count (150-450) k/uL Neutrophils % % Lymphocytes % % Monocytes % % Eosinophils % % Basophils % % Neutrophils # (1.3-7.7) k/uL Lymphocytes # (1.0-4.8) k/uL Monocytes # (0-1.0) k/uL Eosinophils # (0-0.7) k/uL Basophils # (0-0.2) k/uL PT 9.9 (9.0-12.0) sec INR 1.0 (<1.2) APTT 26.2 (22.0-30.0) sec D-Dimer 0.23 (<0.60) mg/L FEU Sodium (137-145) mmol/L Potassium (3.5-5.1) mmol/L Chloride (98-107) mmol/L Carbon Dioxide (22-30) mmol/L Anion Gap mmol/L BUN (7-17) mg/dL Creatinine (0.52-1.04) mg/dL Est GFR (MDRD) Af Amer (>60 ml/min/1.73 sqM) Est GFR (MDRD) Non-Af (>60 ml/min/1.73 sqM) Glucose (74-99) mg/dL Calcium (8.4-10.2) mg/dL Magnesium (1.6-2.3) mg/dL Total Bilirubin (0.2-1.3) mg/dL AST (14-36) U/L ALT (9-52) U/L Alkaline Phosphatase (38-126) U/L Total Creatine Kinase (30-135) U/L CK-MB (CK-2) (0.0-2.4) ng/mL CK-MB (CK-2) Rel Index Troponin I (0.000-0.034) ng/mL NT-Pro-B Natriuret Pep 139 pg/mL Total Protein (6.3-8.2) g/dL Albumin (3.5-5.0) g/dL Amylase (30-110) U/L Lipase (23-300) U/L - Radiology Data Radiology results: image reviewed (Chest x-ray shows no acute process.) Disposition Clinical Impression: Chest pain Disposition: ADMITTED IP TO THIS [facility] Referrals: Josh Don MD [Primary Care Provider] - 1-2 days Decision Time: 12:48
[2016-12-19 11:49] LABS: Basophils % (A) 0 %; CH 30.3; CHCM 33.4; Eosinophils # (A) 0.3 k/uL (0-0.7); Eosinophils % (A) 4 %; HCT 45.5 % (34.0-46.0); HDW 2.25; HGB 14.8 gm/dL (11.4-16.0); Luc # (Auto) 0.14; Luc % (Auto) 2; Lymphocytes # (A) 2.1 k/uL (1.0-4.8); Lymphocytes % (A) 25 %; MCH 29.5 pg (25.0-35.0); MCHC 32.4 g/dL (31.0-37.0); MCV 91.1 fL (80.0-100.0); Mean Platelet Volume 6.8; Monocytes # (A) 0.5 k/uL (0-1.0); Monocytes % (A) 5 %; Neutrophils # (A) 5.3 k/uL (1.3-7.7); Neutrophils % (A) 64 %; RDW 14.6 % (11.5-15.5); WBC 8.3 k/uL (3.8-10.6); WBC (Perox) 8.14
[2016-12-19 12:00] LABS: ALT 22 U/L (9-52); AST 27 U/L (14-36); Alkaline Phosphatase 72 U/L (38-126); Amylase 101 U/L (30-110); Anion Gap 9 mmol/L; Blood Urea Nitrogen 21 mg/dL (7-17); Carbon Dioxide 20 mmol/L (22-30); Chloride 103 mmol/L (98-107); Glucose 89 mg/dL (74-99); Non-African American GFR(MDRD) 54 (>60 ml/min/1.73 sqM); Potassium 4.3 mmol/L (3.5-5.1); Sodium 132 mmol/L (137-145); Total Bilirubin 0.5 mg/dL (0.2-1.3); Total Protein 6.4 g/dL (6.3-8.2)
[2016-12-19 12:02] LABS: Partial Thromboplastin Time 26.2 sec (22.0-30.0); Prothrombin Time 9.9 sec (9.0-12.0)
[2016-12-19 12:11] LABS: Creatine Kinase 62 U/L (30-135)
[2016-12-19 12:25] LABS: Creatine Kinase MB 1.1 ng/mL (0.0-2.4); Troponin I <0.012 ng/mL (0.000-0.034)
--- NOTE | 2016-12-19 12:37 | XR ---
EXAMINATION TYPE: XR chest 2V DATE OF EXAM: 12/19/2016 COMPARISON: Prior chest x-ray 12/16/2016 HISTORY: Chest pain TECHNIQUE: Frontal and lateral views of the chest are obtained. FINDINGS: Heart size is noted to be prominent. Patient is rotated which may accentuate appearance. N o pneumonia, pneumothorax, or pleural effusion. There are overlying cardiac leads. IMPRESSION: No acute cardiopulmonary process.
[2016-12-19] MEDS ORDERED: NITROGLYCERIN SL TABS 0.4 MG TAB SUBLINGUAL PRN (12:48)
[2016-12-19 14:20] VITALS: BMI 28.6
[2016-12-19] MEDS ORDERED: ALPRAZolam 0.25 MG TAB PO PRN (15:31)
[2016-12-19] MEDS: NITROGLYCERIN OINT 1 INCH/GM PACKET TOPICAL SCH (18:42)
[2016-12-19 19:17] LABS: Creatine Kinase 56 U/L (30-135)
[2016-12-19 19:31] LABS: Creatine Kinase MB 1.2 ng/mL (0.0-2.4); Troponin I <0.012 ng/mL (0.000-0.034)
[2016-12-19] MEDS: FAMOTIDINE 20 MG TAB PO SCH (20:44)
[2016-12-19] MEDS: FLUDROCORTISONE 0.1 MG TAB PO SCH (20:45)
[2016-12-19] MEDS: SODIUM CHLORIDE TAB 1 GM TAB PO SCH (20:45)
[2016-12-19] MEDS ORDERED: PRAVASTATIN SODIUM 40 MG TAB PO SCH (21:00)
[2016-12-19] MEDS ORDERED: NON-FORMULARY DRUG (Aspirin [Adult Low Dose Aspirin Ec] 162 MG) PO SCH (21:00)
[2016-12-20 00:46] LABS: Creatine Kinase 48 U/L (30-135)
[2016-12-20 01:00] LABS: Creatine Kinase MB 1.3 ng/mL (0.0-2.4); Troponin I <0.012 ng/mL (0.000-0.034)
[2016-12-20 03:15] LABS: Cholesterol 185 mg/dL (<200); HDL Cholesterol 80 mg/dL (40-60)
[2016-12-20] MEDS: NITROGLYCERIN OINT 1 INCH/GM PACKET TOPICAL SCH ×2 (06:27→15:26)
[2016-12-20] MEDS ORDERED: THYROID, PORK 30 MG TAB PO SCH (06:30)
[2016-12-20] MEDS ORDERED: ENOXAPARIN 40 MG/0.4 ML SYRINGE SQ SCH (09:00)
[2016-12-20] MEDS ORDERED: ASPIRIN 325 MG TAB PO SCH (09:00)
[2016-12-20] MEDS ORDERED: HYDROCHLOROTHIAZIDE 12.5 MG CAP PO SCH (09:00)
--- NOTE | 2016-12-20 10:05 | HP ---
DATE OF ADMISSION: 12/19/16 PRESENTING COMPLAINT: Chest pressure. HISTORY OF PRESENTING COMPLAINT: This is a very pleasant 81 [address] of Dr[address] Don. The patient was initially seen here in the hospital back in December of last year. The patient has been orthostatic for several years. The patient did have a tilt table test done then. It was positive. Diagnosed to have autonomic dysfunction. Put on Catapres patch. The patient was then sent down to see someone in the [place] area by her family doctor and was then taken off the Catapres patch. The patient remains to be significantly orthostatic. ( ) no other medications were added. The patient was here four days ago in the hospital. Episode of chest pressure, shortness of breath. Did undergo nuclear stress test that was negative and an echocardiogram showed preserved LV function. The patient yet again today presented with episodes of shortness of breath, some chest pressure, felt dizzy, lightheaded and decided to come in to see if anything else was coming on. The pressure was in the center of the chest going to the left side. Lasted for a short few minutes. No perspiration. The patients other chronic stable medical conditions include GERD, hypothyroid, hypercholesterolemia, urine incontinence. REVIEW OF SYSTEMS: Constitutional: Tired. HEENT: None. Respiratory: None. Cardiovascular: As above. Gastrointestinal: Heartburn. Genitourinary: As above. Musculoskeletal: None. Dermatological: None. Hematological: None. Lymphatics: None. Psychiatric: None. Neurological: As above. PAST MEDICAL HISTORY: GERD. Hypothyroid. Hypercholesterolemia. Urinary stress incontinence. Autonomic dysfunction. PAST SURGICAL: Appendectomy. Hysterectomy. SOCIAL HISTORY: The patient stopped smoking 30 years ago. Smoked for about 10 years. . No alcohol. FAMILY HISTORY: Heart disease. Home medications: 1. [place] thyroid 60 mg po daily. 2. Pravachol 40 mg q.h.s. 3. Multivitamins one tablet po daily. 4. Pepcid 20 mg b.i.d. 5. Vitamin B12 500 mcg po daily. 6. Vitamin D3 500 units po daily. 7. Aspirin 162 mg q.h.s. 8. Xanax 0.25 po daily prn. ALLERGIES: IV CONTRAST DYE, PRILOSEC, MAGNESIUM. On examination, vital signs on presentation: Temperature 98.2. Pulse 75. Respiratory rate 18. Blood pressure 135/84. Pulse ox 97% on room air. GENERAL APPEARANCE: Average build. BMI 28%. Sitting up in bed. Comfortable. EYES: Pupils equal. Conjunctivae normal. Oral cavity normal. NECK: JVD not raised. Mass not palpable. RESPIRATORY: Effort normal. LUNGS: Clear. CARDIOVASCULAR: First and second sounds normal. No edema. ABDOMEN: Soft, nontender. Liver and spleen not palpable. LYMPHATICS: No lymph nodes palpable in the neck and axillae. PSYCHIATRIC: Alert and oriented times three. Mood and affect normal. NEUROLOGICAL: Pupils equal. Cranial nerves grossly intact. Power and sensation grossly intact. INVESTIGATIONS: White count 8.3, hemoglobin 14.8. Sodium 132. Potassium 4.3. BUN 21. Creatinine 0.99. ASSESSMENT: 1. Episode of chest pain, shortness of breath, in a patient who recently had a negative stress test. Cannot have a cardiac catheterization because of severe contrast dye and does not want to have the same. 2. Mild hyponatremia, could be hyposmolar. 3. Chronic orthostatic hypotension with autonomic dysfunction. 4. Gastroesophageal reflux disease. 5. Hypothyroidism. 6. Hypercholesterolemia. 7. Chronic urinary stress incontinence. PLAN: The patients home medications will be resumed. We will add Florinef again to see if that helps. Actually maybe add some salt tablets to see if that helps. Care was discussed with the patient and family at the bedside. Cardiology was consulted. Copy to Dr. Don. JULIAN
[2016-12-20] MEDS: FLUDROCORTISONE 0.1 MG TAB PO SCH (11:07)
[2016-12-20] MEDS: SODIUM CHLORIDE TAB 1 GM TAB PO SCH (11:09)
[2016-12-20] MEDS: FAMOTIDINE 20 MG TAB PO SCH (11:09)
[2016-12-20] MEDS ORDERED: CYANOCOBALAMIN 500 MCG TAB PO SCH (12:00)
[2016-12-20] MEDS ORDERED: CHOLECALCIFEROL 1,000 UNIT TAB PO SCH (12:00)
[2016-12-20] MEDS ORDERED: MULTIVITAMINS, THERA 1 EACH TAB PO SCH (12:00)
[2016-12-20 12:06] VITALS: BP 158/82; PULSE 81; RESP 16; TEMP 98
--- NOTE | 2016-12-20 16:26 | P.CRDCN ---
History of Present Illness Consult date: 12/20/16 History of present illness: This 81-year-old female was recently in the hospital with complaints of chest pain. Patient was evaluated by echocardiogram and nuclear stress test which showed normal function. Patient was discharged home in a stable condition. Patient came back with complaints of left-sided chest pain which is located on the left lower chest radiating to the back. Patient was looking very pale. She is also very sweaty. Because of ongoing symptoms patient came to the emergency room. EKGs and cardiac enzymes are so far negative. Patient is given option of having cardiac catheterization for definitive diagnosis. She is also advised to consider a computed tomography scan to rule out pulmonary emboli. Patient and family refused to have any more tests. Patient decided to go home. Follow-up with Dr. 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, hypothyroid History of Any Multi-Drug Resistant Organisms: None Reported Past Surgical History: Appendectomy, Hysterectomy Additional Past Surgical History / Comment(s): partial hysterectomy Past Anesthesia/Blood Transfusion Reactions: No Reported Reaction Past Psychological History: Anxiety, Depression Additional Psychological History / Comment(s): "anxiety attacks" Smoking Status: Former smoker Past Alcohol Use History: None Reported Additional Past Alcohol Use History / Comment(s): smoked for 10 years, quit age 29 Past Drug Use History: None Reported - Past Family History Mother Family Medical History: No Reported History Additional Family Medical History / Comment(s): of heart disease "hole in the heart" at age 29 Father Family Medical History: Myocardial Infarction ([place]) Additional Family Medical History / Comment(s): at age 67 of heart attack Medications and Allergies Home Medications Medication Instructions Recorded Confirmed Type Aspirin [Adult Low Dose Aspirin EC] 162 mg PO HS 02/04/16 12/19/16 History Cholecalciferol [Vitamin D3] 5,000 unit PO DAILY 02/04/16 12/19/16 History Cyanocobalamin [Vitamin B-12] 500 mcg PO DAILY 02/04/16 12/19/16 History Famotidine 20 mg PO BID 02/04/16 12/19/16 History Thyroid,Pork [[place] Thyroid] 60 mg PO DAILY 02/04/16 12/19/16 History Pravastatin Sodium [Pravachol] 40 mg PO HS 02/05/16 12/19/16 History ALPRAZolam [Xanax] 0.25 mg PO TID PRN 12/16/16 12/19/16 History Multivitamins, Thera [Multivitamin 1 tab PO DAILY 12/16/16 12/19/16 History (formulary)] Allergies Allergy/AdvReac Type Severity Reaction Status Date / Time Iodinated Contrast- Oral and AdvReac Severe kidney Verified 12/19/16 11:08 IV Dye failure [Iodinated Contrast Media - IV Dye] omeprazole [From Prilosec] AdvReac Severe kidney Verified 12/19/16 11:08 failure omeprazole magnesium AdvReac Severe kidney Verified 12/19/16 11:08 [From [facility]] failure Physical Exam Vitals: Vital Signs Temp Pulse Resp BP Pulse Ox 12/20/16 12:00 98.0 F 81 16 158/82 96 12/20/16 08:00 97.9 F 73 18 162/85 95 12/20/16 07:51 66 18 12/20/16 04:00 97.5 F L 66 18 151/86 95 12/20/16 00:00 98.0 F 90 18 165/89 95 12/19/16 20:00 97.8 F 68 18 167/91 95 Intake and Output 12/20/16 12/20/16 12/20/16 06:59 14:59 22:59 Other: Voiding Method Toilet Toilet # Voids 0 Weight 80.6 kg GENERAL EXAM: Patient is alert and oriented and doesn't appear to be in any acute distress HEENT: Normocephalic. Normal reaction of pupils, equal size, normal range of extraocular motion. No erythema or exudates in the throat. NECK: No masses, no nuchal rigidity. CHEST: No chest wall deformity. LUNGS: Equal air entry with no crackles or wheeze. HEART: S1 and S2 normal with no audible mumurs or gallops. Regular rhythm, femorals equal on both sides.. ABDOMEN: No hepatosplenomegaly, normal bowel sounds, no guarding or rigidity. SKIN: No rashes CENTRAL NERVOUS SYSTEM: No focal deficits. EXTREMITIES: No cyanosis, clubbing or edema. Results 12/19/16 11:32 12/19/16 11:32 Cardiac Enzymes 12/19/16 12/20/16 Range/Units 18:44 00:04 CK-MB (CK-2) 1.2 1.3 (0.0-2.4) ng/mL Troponin I <0.012 <0.012 (0.000-0.034) ng/mL Lipids 12/19/16 Range/Units 11:32 Triglycerides 149 (<150) mg/dL Cholesterol 185 (<200) mg/dL HDL Cholesterol 80 H (40-60) mg/dL Intake and Output 12/20/16 12/20/16 12/20/16 06:59 14:59 22:59 Other: Voiding Method Toilet Toilet # Voids 0 Weight 80.6 kg 12/19/16 11:32 12/19/16 11:32 EKG Interpretations (text) Sinus rhythm with a right bundle branch block and left axis deviation Assessment and Plan (1) Chest pain Status: Acute (2) Dyspnea Status: Acute (3) Pott disease Status: Acute Plan: Patient's EKGs and cardiac enzymes are stable. Patient doesn't want to have any other testing or evaluation. Patient could be discharged home. Follow-up with in the cardiology office.
--- NOTE | 2016-12-20 19:37 | P.DS ---
Providers Date of admission: 12/19/16 12:48 Expected date of discharge: 12/20/16 Attending physician: Woody Starr Consults: 12/19/16 12:48 Consult Physician Urgent Consulting Provider: Doug Dale Consult Reason/Comments: cp Do you want consulting provider notified?: Yes Primary care physician: [facility] Course: FINAL DIAGNOSES: -Chest pain, shortness of breath, and a patient who recently had negative stress test. Unable to have a cardiac catheterization due to severe contrast dye ALLERGY does not want the same. -Mild hyponatremia, could be hypoosmolar. -Chronic orthostatic hypotension with autonomic discussed function. -Gastroesophageal reflux disease. -Hypothyroidism. -Hypercholesterolemia. -Chronic urinary stress incontinence HOSPTIAL COURSE: This an 81-year-old female who presented to the emergency department with chest pressure and shortness of breath, dizzy lightheadedness. Patient had been seen 4 days earlier for the same received a stress test which was negative and an echocardiogram showed preserved LV function. Home medications were resumed, Florinef was added along with sodium tabs, cardiology was consulted. Patient did not feel as though she wanted to take the Florinef or the sodium tabs and refused both. EKG and cardiac enzymes are stable and patient does not want to have any further testing or evaluation done per cardiology. Patient was noted to have a small amount of lower extremity edema for which Toby wraps were recommended or support hosiery's. Patient is ambulatory in the room and delcid is tolerating her diet moving her bowels and as such patient is stable for discharge home PHYSICAL EXAM: CARDIOVASCULAR: First and second sounds noted trace edema to lower extremities RESPIRATORY: Respiratory effort normal, lung sounds diminished bilaterally. DISPOSITION: Stable for discharge to the care of her family Patient was seen and examined by nurse practitioner Kristen Ambrose in all elements of the case discussed with attending Dr. Starr Patient Condition at Discharge: Stable Plan - Discharge Summary New Discharge Prescriptions: New Nitroglycerin Sl Tabs [Nitrostat] 0.4 mg SUBLINGUAL Q5M PRN #20 tab PRN Reason: Chest Pain Lisinopril [Prinivil] 10 mg PO BID #60 tab Continue Cyanocobalamin [Vitamin B-12] 500 mcg PO DAILY Cholecalciferol [Vitamin D3] 5,000 unit PO DAILY Famotidine 20 mg PO BID Aspirin [Adult Low Dose Aspirin EC] 162 mg PO HS Thyroid,Pork [[place] Thyroid] 60 mg PO DAILY Pravastatin Sodium [Pravachol] 40 mg PO HS Multivitamins, Thera [Multivitamin (formulary)] 1 tab PO DAILY ALPRAZolam [Xanax] 0.25 mg PO TID PRN PRN Reason: Anxiety Discharge Medication List Aspirin [Adult Low Dose Aspirin EC] 162 mg PO HS 02/04/16 [History] Cholecalciferol [Vitamin D3] 5,000 unit PO DAILY 02/04/16 [History] Cyanocobalamin [Vitamin B-12] 500 mcg PO DAILY 02/04/16 [History] Famotidine 20 mg PO BID 02/04/16 [History] Thyroid,Pork [[place] Thyroid] 60 mg PO DAILY 02/04/16 [History] Pravastatin Sodium [Pravachol] 40 mg PO HS 02/05/16 [History] ALPRAZolam [Xanax] 0.25 mg PO TID PRN 12/16/16 [History] Multivitamins, Thera [Multivitamin (formulary)] 1 tab PO DAILY 12/16/16 [History ] Lisinopril [Prinivil] 10 mg PO BID #60 tab 12/20/16 [Rx] Nitroglycerin Sl Tabs [Nitrostat] 0.4 mg SUBLINGUAL Q5M PRN #20 tab 12/20/16 [Rx ] Follow up Appointment(s)/Referral(s): Doug Dale MD [STAFF PHYSICIAN] - 1 Week Josh Don MD [Primary Care Provider] - 1-2 days Ambulatory/Diagnostic Orders: Basic Metabolic Panel [LAB.AMB] Time Frame: 1 Week, Location: Determined By Patient Discharge Disposition: HOME SELF-CARE
--- NOTE | 2016-12-23 22:13 | DS ---
ATTENDING NOTE: This patient seen and examined by me today. Discussed the care with my nurse practitioner, Marco Ajoe. The patient presented with chest pain. She was seen by cardiology. ( ) to have cardiac catheterization because of her renal failure in the past. The patient was given Florinef. Did not want to take that. She was blood pressure going too high. She has had extensive workup with orthostatic including positive tilt table test in the past. Seen by Dr. Delgado. The patient will follow-up with cardiology in the office. No further episodes of chest pain. Could be esophageal spasm too. Care was discussed with the patient and the family at the bedside. On examination, lungs are clear. First and second sounds normal. Follow-up with Dr. Dale and Dr. Don. D/C planning more than 35 minutes. JULIAN
== END 2016-12-20 15:30 | disposition home or self-care (01) ==
LOC: EC 10:52 → 3OBS 12:48
PROVIDERS: ADMIT Hospitalist; ATTEND Hospitalist
DX: R07.89 Other chest pain (principal); R06.02 Shortness of breath; E87.1 Hypo-osmolality and hyponatremia; E03.9 Hypothyroidism, unspecified; K21.9 Gastro-esophageal reflux disease without esophagitis; E78.00 Pure hypercholesterolemia, unspecified; I95.1 Orthostatic hypotension; N39.3 Stress incontinence (female) (male); F41.9 Anxiety disorder, unspecified; G43.909 Migraine, unspecified, not intractable, without status migrainosus; K58.9 Irritable bowel syndrome, unspecified; I45.2 Bifascicular block; R42 Dizziness and giddiness; Z79.82 Long term (current) use of aspirin; Z91.041 Radiographic dye allergy status; Z79.899 Other long term (current) drug therapy; Z88.8 Allergy status to other drugs, medicaments and biological substances; Z86.73 Personal history of transient ischemic attack (TIA), and cerebral infarction without residual deficits; Z87.891 Personal history of nicotine dependence; Z82.49 Family history of ischemic heart disease and other diseases of the circulatory system
CPT/HCPCS: 96372; 96374; 99285; 36415; 93005; 85379; 83880; 80061; 80053; 82150; 82550 ×2; 82553 ×2; 83690; 83735; 84484 ×2; 85025; 85610; 85730; 71020; G0378 ×2; J2765; J1650

== ENCOUNTER → 2017-09-09 | Outpatient (CLI) | payer MEDICARE, BC ==
[2017-09-09 15:44] LABS: HCT 45.5 % (34.0-46.0); HGB 14.8 gm/dL (11.4-16.0); MCH 29.2 pg (25.0-35.0); MCHC 32.5 g/dL (31.0-37.0); MCV 89.9 fL (80.0-100.0); Mean Platelet Volume 6.6; Platelet Count 269 k/uL (150-450); RBC 5.07 m/uL (3.80-5.40); RDW 14.2 % (11.5-15.5)
[2017-09-09 15:49] LABS: Appearance,Urine Clear (Clear); Bilirubin,Urine Negative (Negative); Blood,Urine Negative (Negative); Color,Urine Light Yellow; Glucose,Urine (UA) Negative (Negative); Ketones,Urine Negative (Negative); Leukocyte Esterase,Urine Trace (Negative); Nitrite,Urine Negative (Negative); PH, Urine 6.5 (5.0-8.0); Protein,Urine Negative (Negative); Specific Gravity,Urine 1.006 (1.001-1.035); Urobilinogen,Urine <2.0 mg/dL (<2.0); WBC,Urine <1 /hpf (0-5)
[2017-09-09 15:53] LABS: Calcium 9.5 mg/dL (8.4-10.2); Magnesium 2.2 mg/dL (1.6-2.3); Potassium 5.1 mmol/L (3.5-5.1); Uric Acid 4.5 mg/dL (3.7-7.4)
[2017-09-09 18:21] LABS: Creatinine,Urine Random 33.5 mg/dL
[2017-09-09 18:42] LABS: Iron Saturation 19.81 (12.00-45.00)
[2017-09-09 18:51] LABS: Vitamin D 25 Hydroxy 30.9 ng/mL (30.0-100.0)
[2017-09-09 20:42] LABS: Parathyroid Hormone Intact 35.5 pg/mL (14.0-72.0)
== END | disposition home or self-care (01) ==
LOC: LABWHC1 15:14
PROVIDERS: ATTEND Nurse Practitioner Family
DX: E55.9 Vitamin D deficiency, unspecified (principal); N18.3 Chronic kidney disease, stage 3 (moderate); D63.1 Anemia in chronic kidney disease; M10.9 Gout, unspecified; R80.9 Proteinuria, unspecified; N39.0 Urinary tract infection, site not specified; E21.3 Hyperparathyroidism, unspecified
CPT/HCPCS: 36415; 80048; 81001; 82306; 82570; 82728; 83540; 83550; 83735; 83970; 84100; 84156; 84550; 85027

== ENCOUNTER → 2017-10-15 | Outpatient (CLI) | payer MEDICARE, BC ==
[2017-10-15 14:17] LABS: Calcium 9.4 mg/dL (8.4-10.2); Potassium 4.6 mmol/L (3.5-5.1)
== END | disposition home or self-care (01) ==
LOC: LABWHC1 13:17
PROVIDERS: ATTEND Internal Medicine Nephrology
DX: N18.3 Chronic kidney disease, stage 3 (moderate) (principal)
CPT/HCPCS: 36415; 80048

== ENCOUNTER 2018-06-07 19:30 | Emergency (ER) | payer BC, MEDICARE ==
--- NOTE | 2018-06-07 21:12 | ED ---
General Adult HPI - General Chief complaint: Abdominal Pain Stated complaint: Constipated Time Seen by Provider: 06/07/18 20:50 Source: patient, family, RN notes reviewed Mode of arrival: wheelchair Limitations: no limitations - History of Present Illness Initial comments: Patient is a pleasant 82-year-old female presenting to the emergency department complaining of constipation. Last bowel movement was approximately 5-6 days ago. Patient is having some cramping of her lower abdomen. Patient is starting to get some minimal nausea. No vomiting. No fevers. This is not a chronic problem for her. Patient has not tried medication home. - Related Data Home Medications Medication Instructions Recorded Confirmed Aspirin [Adult Low Dose Aspirin EC] 162 mg PO HS 02/04/16 06/07/18 Cholecalciferol [Vitamin D3] 5,000 unit PO DAILY 02/04/16 06/07/18 Cyanocobalamin [Vitamin B-12] 500 mcg PO DAILY 02/04/16 06/07/18 Famotidine 20 mg PO BID 02/04/16 06/07/18 Thyroid,Pork [[place] Thyroid] 60 mg PO DAILY 02/04/16 06/07/18 Pravastatin Sodium [Pravachol] 40 mg PO HS 02/05/16 06/07/18 Cefuroxime Axetil [Ceftin] 500 mg PO BID 06/07/18 06/07/18 Clonidine (Unknown Dose) 1 tab PO BID 06/07/18 06/07/18 Testosterone Cypionate 100 mg IM Q21D 06/07/18 06/07/18 [Depo-Testosterone] Allergies Allergy/AdvReac Type Severity Reaction Status Date / Time Iodinated Contrast- Oral and AdvReac Severe kidney Verified 06/07/18 20:31 IV Dye failure [Iodinated Contrast Media - IV Dye] omeprazole [From Prilosec] AdvReac Severe kidney Verified 06/07/18 20:31 failure omeprazole magnesium AdvReac Severe kidney Verified 06/07/18 20:31 [From Prilosec] failure ciprofloxacin [From Cipro] AdvReac Kidney Verified 06/07/18 20:31 Failure Review of Systems ROS Statement: Those systems with pertinent positive or pertinent negative responses have been documented in the HPI. ROS Other: All systems not noted in ROS Statement are negative. 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, hypothyroid, History of Any Multi-Drug Resistant Organisms: None Reported Past Surgical History: Appendectomy, Hysterectomy Additional Past Surgical History / Comment(s): partial hysterectomy Past Anesthesia/Blood Transfusion Reactions: No Reported Reaction Past Psychological History: Anxiety, Depression Smoking Status: Former smoker Past Alcohol Use History: None Reported Past Drug Use History: None Reported - Past Family History Mother Family Medical History: No Reported History Additional Family Medical History / Comment(s): of heart disease "hole in the heart" at age 29 Father Family Medical History: Myocardial Infarction ([place]) Additional Family Medical History / Comment(s): at age 67 of heart attack General Exam Limitations: no limitations General appearance: alert, in no apparent distress Head exam: Present: atraumatic Eye exam: Present: normal appearance, PERRL ENT exam: Present: normal oropharynx Neck exam: Present: normal inspection Respiratory exam: Present: normal lung sounds bilaterally Cardiovascular Exam: Present: regular rate, normal rhythm Expanded Peripheral pulses: 2+: Dorsalis Pedis (R), Dorsalis Pedis (L) GI/Abdominal exam: Present: tenderness (Mild suprapubic tenderness), hyperactive bowel sounds. Absent: soft, distended, guarding, rebound, rigid, pulsatile mass Rectal exam: Present: hemorrhoids (Nonthrombosed large external hemorrhoid), other (Patient does have high stool in the vault that is unable to be removed with manual disimpaction.). Absent: bloody stool, tenderness Extremities exam: Present: normal inspection. Absent: pedal edema, calf tenderness Neurological exam: Present: alert Psychiatric exam: Present: normal affect, normal mood Skin exam: Present: normal color Course Vital Signs 06/07/18 19:32 Temperature 97.9 F Pulse Rate 112 H Respiratory 17 Rate Blood Pressure 186/90 O2 Sat by Pulse 97 Oximetry Medical Decision Making - Medical Decision Making Following enema patient had a large bowel movement and does feel much better. Abdomen is soft and nontender. Patient is comfortable with discharge home. Daughter adds that this is a somewhat chronic condition for her. - Radiology Data Radiology results: image reviewed (Abdominal x-ray shows constipation pattern) Disposition Clinical Impression: Constipation Disposition: HOME SELF-CARE Condition: Stable Instructions: High Fiber Diet (ED), Constipation (ED) Additional Instructions: Please follow-up with primary care physician in the next couple days for recheck. Continue prunes as needed. Consider Metamucil or Colace. Return for fever, abdominal pain, unable to have bowel movement, worsening symptoms or other concerns. Is patient prescribed a controlled substance at d/c from ED?: No Referrals: Josh Don MD [Primary Care Provider] - 1-2 days Time of Disposition: 23:21
--- NOTE | 2018-06-07 21:13 | XR ---
EXAMINATION TYPE: XR abdomen 2V DATE OF EXAM: 06/07/2018 COMPARISON: 06/11/2013 HISTORY: Constipation for 5 days, pain TECHNIQUE: 2 upright views FINDINGS: The visualized lung bases and pleural spaces are negative. No pneumoperitoneum. No pneumatosis. The bowel gas pattern is unremarkable. However, there appears to be rectal stool impaction, and also excessive sigmoid and descending colon stool. No definite acute soft tissue or skeletal findings. IMPRESSION: Constipation pattern.
[2018-06-07 23:40] VITALS: BP 168/94; PULSE 96; RESP 18; TEMP 98.2
== END 2018-06-07 23:30 | disposition home or self-care (01) ==
LOC: EC 19:30
DX: K59.00 Constipation, unspecified (principal); K21.9 Gastro-esophageal reflux disease without esophagitis; E03.9 Hypothyroidism, unspecified; Z87.19 Personal history of other diseases of the digestive system; Z86.73 Personal history of transient ischemic attack (TIA), and cerebral infarction without residual deficits; Z90.49 Acquired absence of other specified parts of digestive tract; Z90.710 Acquired absence of both cervix and uterus; Z87.891 Personal history of nicotine dependence; Z79.82 Long term (current) use of aspirin; Z79.890 Hormone replacement therapy; Z79.899 Other long term (current) drug therapy; Z91.041 Radiographic dye allergy status; Z88.8 Allergy status to other drugs, medicaments and biological substances; Z88.1 Allergy status to other antibiotic agents
CPT/HCPCS: 74018; 99284

== ENCOUNTER 2022-08-28 13:03 | Emergency (ER) | payer MEDICARE, BC ==
[2022-08-28 13:18] VITALS: TEMP 98.1
--- NOTE | 2022-08-28 14:03 | ED ---
General Adult HPI - General Chief complaint: Recheck/Abnormal Lab/Rx Stated complaint: abnormal EKG - sent by pcp Time Seen by Provider: 08/28/22 13:21 Source: patient, RN notes reviewed, old records reviewed Mode of arrival: ambulatory Limitations: no limitations - History of Present Illness Initial comments: 86 yo female presenting for abnormal EKG. She was seen by her primary care physician for generalized achiness and swelling to the left leg and left arm. Patient was noted to have an abnormal EKG which is a paced rhythm and the patient does have a history of pacemaker. - Related Data Home Medications Medication Instructions Recorded Confirmed Famotidine [Pepcid] 20 mg PO QAM 04/25/19 08/28/22 Apixaban [Eliquis] 5 mg PO BID 08/28/22 08/28/22 Cholecalciferol [Vitamin D3 (125 125 mcg PO DAILY 08/28/22 08/28/22 Mcg = 5000 Iu)] Docusate [Colace] 100 mg PO DAILY 08/28/22 08/28/22 Levothyroxine Sodium [Synthroid] 88 mcg PO DAILY 08/28/22 08/28/22 amLODIPine [Norvasc] 5 mg PO DAILY 08/28/22 08/28/22 bisacodyL [Dulcolax] 10 mg RECTAL DIRECTED 08/28/22 08/28/22 carvediloL [Coreg] 6.25 mg PO BID 08/28/22 08/28/22 Allergies Allergy/AdvReac Type Severity Reaction Status Date / Time nitroglycerin Allergy Unknown Verified 08/28/22 14:56 Iodinated Contrast Media AdvReac Severe kidney Verified 08/28/22 14:56 [Iodinated Contrast Media - failure IV Dye] omeprazole [From Prilosec] AdvReac Severe kidney Verified 08/28/22 14:56 failure omeprazole magnesium AdvReac Severe kidney Verified 08/28/22 14:56 [From Prilosec] failure ciprofloxacin [From Cipro] AdvReac Kidney Verified 08/28/22 14:56 Failure fludrocortisone AdvReac KIDNEY Verified 08/28/22 14:56 [From Florinef] ISSUES Iodine and Iodide Containing AdvReac kidney Verified 08/28/22 14:56 Produc issues sodium phosphate AdvReac Unknown Verified 08/28/22 14:56 [From Fleet Enema] Review of Systems ROS Statement: Those systems with pertinent positive or pertinent negative responses have been documented in the HPI. ROS Other: All systems not noted in ROS Statement are negative. Past Medical History Past Medical History: CVA/TIA, Eye Disorder, GERD/Reflux, Hyperlipidemia, Hypertension, Renal Disease, Sleep Apnea/CPAP/BIPAP, Thyroid Disorder Additional Past Medical History / Comment(s): See Dr Moreno's H&P. "heart skips a beat once in a while" palpitations. TIA's, POTS syndrome,dysotonia. R enal disease stage 3. sleep apnea has machine. macular degeneration lt eye History of Any Multi-Drug Resistant Organisms: None Reported Past Surgical History: Appendectomy, Hysterectomy Additional Past Surgical History / Comment(s): cataract surgery, bowel resection Past Anesthesia/Blood Transfusion Reactions: No Reported Reaction Past Psychological History: Anxiety, Depression Smoking Status: Never smoker Past Alcohol Use History: None Reported Past Drug Use History: None Reported - Past Family History Mother Family Medical History: No Reported History Additional Family Medical History / Comment(s): of heart disease "hole in the heart" at age 29 Father Family Medical History: Myocardial Infarction ([place]) Additional Family Medical History / Comment(s): at age 67 of heart attack General Exam Limitations: no limitations General appearance: alert, in no apparent distress Head exam: Present: atraumatic, normocephalic Eye exam: Present: normal appearance, PERRL ENT exam: Present: normal exam Neck exam: Present: normal inspection. Absent: tenderness, meningismus Respiratory exam: Present: normal lung sounds bilaterally. Absent: respiratory distress, wheezes Cardiovascular Exam: Present: regular rate, normal rhythm GI/Abdominal exam: Present: soft. Absent: distended, tenderness, guarding Extremities exam: Present: other (Edema to the left upper extremity and left lower extremity) Neurological exam: Present: alert, oriented X3, CN II-XII intact. Absent: motor sensory deficit Psychiatric exam: Present: normal affect, normal mood Skin exam: Present: warm, dry, intact Course Vital Signs 08/28/22 13:14 Temperature 98.1 F Pulse Rate 77 Respiratory 16 Rate Blood Pressure 171/77 O2 Sat by Pulse 97 Oximetry EKG Findings - EKG Comments: EKG Findings:: EKG: Paced rhythm rate of 80, atrial pacer with IN interval 127, QRS duration 209, QTC 490 Medical Decision Making - Medical Decision Making Was pt. sent in by a medical professional or institution (NELY Gutierrez, [employer], urgent care, hospital, or [facility]...) When possible be specific @ -No Did you speak to anyone other than the patient for history (EMS, parent, family, police, friend...)? What history was obtained from this source @ -No Did you review nursing and triage notes (agree or disagree)? Why? @ -I reviewed and agree with nursing and triage notes Were old charts reviewed (outside hosp., previous admission, EMS record, old EKG, old radiological studies, urgent care reports/EKG's, [facility] records)? Report findings @ -No old charts were reviewed Differential Diagnosis (chest pain, altered mental status, abdominal pain women, abdominal pain men, vaginal bleeding, weakness, fever, dyspnea, syncope, headache, dizziness, GI bleed, back pain, seizure, CVA, palpatations, mental health, musculoskeletal)? @ -[Fluid overload, DVT EKG interpreted by me (3pts min.). @ -As above X-rays interpreted by me (1pt min.). @ -None done CT interpreted by me (1pt min.). @ -None done U/S interpreted by me (1pt. min.). @ -Negative for DVT What testing was considered but not performed or refused? (CT, X-rays, U/S, labs)? Why? @ -None What meds were considered but not given or refused? Why? @ -None Did you discuss the management of the patient with other professionals (professionals i.e. NELY Gutierrez, [employer], lab, RT, psych nurse, rn social services, shellfish weigher, teacher, school resource officer, rn case management)? Give summary @ -No Was smoking cessation discussed for >3mins.? @ -No Was critical care preformed (if so, how long)? @ -No Were there social determinants of health that impacted care today? How? (Homelessness, low income, unemployed, alcoholism, drug addiction, transportation, low edu. Level, literacy, decrease access to med. care, prison, rehab)? @ -No Was there de-escalation of care discussed even if they declined (Discuss DNR or withdrawal of care, Hospice)? DNR status @ -No What co-morbidities impacted this encounter? (DM, HTN, Smoking, COPD, CAD, Cancer, CVA, ARF, Chemo, Hep., AIDS, mental health diagnosis, sleep apnea, morbi d obesity)? @ -None Was patient admitted / discharged? Hospital course, mention meds given and route, prescriptions, significant lab abnormalities, going to OR and other pertinent info. @ -86-year-old female with edema to the left arm and left leg. Negative for DVT. She was sent in for abnormal EKG but this is a paced rhythm and prior EKGs were sinus prior to the placement of her pacemaker. She has normal CBC, normal CMP, normal kidney function. Her swelling is been present for several months. I do feel she can continue to follow as an outpatient she has referral to both urology and nephrology. Undiagnosed new problem with uncertain prognosis? @ -No Drug Therapy requiring intensive monitoring for toxicity (Heparin, Nitro, Insulin, Cardizem)? @ -No Were any procedures done? @ -No Diagnosis/symptom? @ -Dependent edema Acute, or Chronic, or Acute on Chronic? @ -Acute Uncomplicated (without systemic symptoms) or Complicated (systemic symptoms)? @ -Complicated Side effects of treatment? @ -No Exacerbation, Progression, or Severe Exacerbation? @ -No Poses a threat to life or bodily function? How? (Chest pain, [place], [place], pneumonia, PE, COPD, DKA, ARF, appy, cholecystitis, CVA, Diverticulitis, Homicidal, Suicidal, threat to staff... and all critical care pts) @ -No - Lab Data Result diagrams: 08/28/22 14:30 08/28/22 14:30 Lab Results 08/28/22 08/28/22 08/28/22 Range/Units 14:30 14:30 14:30 WBC 6.8 (3.8-10.6) k/uL RBC 4.26 (3.80-5.40) m/uL Hgb 12.9 (11.4-16.0) gm/dL Hct 39.5 (34.0-46.0) % MCV 92.8 (80.0-100.0) fL MCH 30.4 (25.0-35.0) pg MCHC 32.7 (31.0-37.0) g/dL RDW 13.8 (11.5-15.5) % Plt Count 220 (150-450) k/uL MPV 6.8 Neutrophils % 62 % Lymphocytes % 28 % Monocytes % 7 % Eosinophils % 3 % Basophils % 0 % Neutrophils # 4.2 (1.3-7.7) k/uL Lymphocytes # 1.9 (1.0-4.8) k/uL Monocytes # 0.4 (0-1.0) k/uL Eosinophils # 0.2 (0-0.7) k/uL Basophils # 0.0 (0-0.2) k/uL Sodium 137 (137-145) mmol/L Potassium 4.0 (3.5-5.1) mmol/L Chloride 106 (98-107) mmol/L Carbon Dioxide 25 (22-30) mmol/L Anion Gap 6 mmol/L BUN 21 H (7-17) mg/dL Creatinine 0.98 (0.52-1.04) mg/dL Est GFR (CKD-EPI)AfAm 60 (>60 ml/min/1.73 sqM) Est GFR (CKD-EPI)NonAf 52 (>60 ml/min/1.73 sqM) Glucose 95 (74-99) mg/dL Calcium 8.8 (8.4-10.2) mg/dL Total Bilirubin 0.5 (0.2-1.3) mg/dL AST 25 (14-36) U/L ALT 13 (4-34) U/L Alkaline Phosphatase 56 (38-126) U/L NT-Pro-B Natriuret Pep 1600 pg/mL Total Protein 6.3 (6.3-8.2) g/dL Albumin 3.5 (3.5-5.0) g/dL Disposition Clinical Impression: Dependent edema Disposition: HOME SELF-CARE Condition: Fair Instructions (If sedation given, give patient instructions): Edema (ED) Is patient prescribed a controlled substance at d/c from ED?: No Referrals: Josh Don MD [Primary Care Provider] - 1-2 days Time of Disposition: 16:14
[2022-08-28 14:41] LABS: Basophils % (A) 0 %; Eosinophils # (A) 0.2 k/uL (0-0.7); Eosinophils % (A) 3 %; HCT 39.5 % (34.0-46.0); HGB 12.9 gm/dL (11.4-16.0); Lymphocytes # (A) 1.9 k/uL (1.0-4.8); Lymphocytes % (A) 28 %; MCH 30.4 pg (25.0-35.0); MCHC 32.7 g/dL (31.0-37.0); MCV 92.8 fL (80.0-100.0); Mean Platelet Volume 6.8; Monocytes # (A) 0.4 k/uL (0-1.0); Monocytes % (A) 7 %; Neutrophils # (A) 4.2 k/uL (1.3-7.7); Neutrophils % (A) 62 %; Platelet Count 220 k/uL (150-450); RBC 4.26 m/uL (3.80-5.40); RDW 13.8 % (11.5-15.5); WBC 6.8 k/uL (3.8-10.6)
[2022-08-28 14:59] LABS: Albumin 3.5 g/dL (3.5-5.0); Calcium 8.8 mg/dL (8.4-10.2); Total Bilirubin 0.5 mg/dL (0.2-1.3); Total Protein 6.3 g/dL (6.3-8.2)
--- NOTE | 2022-08-28 15:51 | US ---
EXAMINATION TYPE: US venous doppler duplex LE LT DATE OF EXAM: 08/28/2022 3:43 PM COMPARISON: NONE CLINICAL HISTORY: swelling. No redness. Patient states swelling. On blood thinners. SIDE PERFORMED: Left TECHNIQUE: The lower extremity deep venous system is examined utilizing real time linear array sonog contreras with graded compression, doppler sonography and color-flow sonography. VESSELS IMAGED: Common Femoral Vein Deep Femoral Vein Greater Saphenous Vein * Femoral Vein Popliteal Vein Small Saphenous Vein * Proximal Calf Veins (* superficial vessels) Grayscale, color doppler, spectral doppler imaging performed of the deep veins of the lower extremity . There is normal flow, compressibility, vascular waveforms. Left Leg: Negative for DVT IMPRESSION: No ultrasound evidence for deep venous thrombosis of the left lower extremity.
--- NOTE | 2022-08-28 15:52 | US ---
EXAMINATION TYPE: US venous doppler duplex UE LT DATE OF EXAM: 08/28/2022 COMPARISON: NONE CLINICAL HISTORY: swelling. Patient states swelling. No redness. On blood thinners. SIDE PERFORMED: Left Grayscale, color doppler, spectral doppler imaging performed of the deep veins of the upper extremity including internal jugular, subclavian, axillary, brachial, basilic, cephalic, radial, ulnar veins. There is normal flow, compressibility and vascular waveforms. Left Arm: Negative for DVT IMPRESSION: No ultrasound evidence for deep venous thrombosis of the left upper cavity.
[2022-08-28 17:02] VITALS: BP 160/81; PULSE 72; RESP 18
== END 2022-08-28 17:02 | disposition home or self-care (01) ==
LOC: EC 13:03
DX: R60.9 Edema, unspecified (principal); I10 Essential (primary) hypertension; E07.9 Disorder of thyroid, unspecified; G47.30 Sleep apnea, unspecified; F41.9 Anxiety disorder, unspecified; F32.A Depression, unspecified; Z86.73 Personal history of transient ischemic attack (TIA), and cerebral infarction without residual deficits; Z79.01 Long term (current) use of anticoagulants; Z79.890 Hormone replacement therapy; Z79.899 Other long term (current) drug therapy; Z88.6 Allergy status to analgesic agent; Z88.8 Allergy status to other drugs, medicaments and biological substances; Z91.041 Radiographic dye allergy status
CPT/HCPCS: 36415; 80053; 83880; 85025; 93005; 99284

== ENCOUNTER 2023-03-11 14:49 | Inpatient (IN) | payer MEDICARE, BC ==
[2023-03-11 16:03] LABS: Basophils % (A) 0 %; Eosinophils # (A) 0.2 k/uL (0-0.7); Eosinophils % (A) 3 %; HCT 44.6 % (34.0-46.0); HGB 14.6 gm/dL (11.4-16.0); Lymphocytes # (A) 2.3 k/uL (1.0-4.8); Lymphocytes % (A) 29 %; MCH 30.9 pg (25.0-35.0); MCHC 32.7 g/dL (31.0-37.0); MCV 94.6 fL (80.0-100.0); Mean Platelet Volume 8.2; Monocytes # (A) 0.5 k/uL (0-1.0); Monocytes % (A) 6 %; Neutrophils # (A) 4.8 k/uL (1.3-7.7); Neutrophils % (A) 60 %; Platelet Count 189 k/uL (150-450); RBC 4.71 m/uL (3.80-5.40); RDW 14.1 % (11.5-15.5)
[2023-03-11 16:14] LABS: Partial Thromboplastin Time 27.3 sec (22.0-30.0); Prothrombin Time 10.7 sec (10.0-12.5)
[2023-03-11 16:22] LABS: ALT 13 U/L (4-34); AST 26 U/L (14-36); African American GFR (CKD) 55 (>60 ml/min/1.73 sqM); Albumin 3.8 g/dL (3.5-5.0); Alkaline Phosphatase 65 U/L (38-126); Anion Gap 10 mmol/L; Blood Urea Nitrogen 28 mg/dL (7-17); Calcium 9.1 mg/dL (8.4-10.2); Carbon Dioxide 21 mmol/L (22-30); Chloride 105 mmol/L (98-107); Glucose 91 mg/dL (74-99); Magnesium 2.1 mg/dL (1.6-2.3); Non-African American GFR(CKD) 48 (>60 ml/min/1.73 sqM); Potassium 4.6 mmol/L (3.5-5.1); Sodium 136 mmol/L (137-145); Total Bilirubin 0.5 mg/dL (0.2-1.3); Total Protein 6.6 g/dL (6.3-8.2)
--- NOTE | 2023-03-11 16:29 | XR ---
EXAMINATION TYPE: XR chest 2V DATE OF EXAM: 03/11/2023 COMPARISON: 04/28/2019 HISTORY: Shortness of breath TECHNIQUE: Frontal and lateral views of the chest are obtained. FINDINGS: Scattered senescent parenchymal changes noted. Hyperinflation compatible with COPD. No evidence for infiltrate. No evidence for atelectasis. Heart size is stable. Mediastinal structures are stable and grossly unremarkable. No evidence for hilar prominence. Degenerative changes dorsal spine. IMPRESSION: 1. No evidence for acute pulmonary disease.
[2023-03-11] MEDS ORDERED: MORPHINE SULFATE 4 MG/ML SYRINGE IV PRN (17:44)
[2023-03-11] MEDS ORDERED: NALOXONE 0.4 MG/ML 1 ML VIAL IV PRN (17:44)
[2023-03-11] MEDS ORDERED: ONDANSETRON 4 MG/2 ML VIAL IVP PRN (17:44)
--- NOTE | 2023-03-11 17:49 | ED ---
Chest Pain HPI - General Chief Complaint: Chest Pain Stated Complaint: possible heart blockage Source: patient, RN notes reviewed, old records reviewed, Caregiver Mode of arrival: ambulatory Limitations: no limitations - History of Present Illness Initial Comments: This is a 79-year-old female to the emergency department for evaluation today. Patient presents today for evaluation regards to chest pain. Patient has no persistent chest pain here in the ER. Patient does have chest pain shortness of breath without other significant findings. Patient was sent to the ER for e valuation regards to need for cardiac catheterization MD Complaint: chest pain -: days(s) Onset: during rest, during exertion Pain Location: substernal, left chest Severity: moderate Severity scale (1-10): 7 Quality: heaviness Consistency: intermittent Improves With: nothing Worsens With: exertion Anginal Symptoms: diaphoresis, dyspnea Other Symptoms: palpitations Treatments Prior to Arrival: none - Related Data Home Medications Medication Instructions Recorded Confirmed Famotidine [Pepcid] 20 mg PO DAILY 04/25/19 03/11/23 Apixaban [Eliquis] 5 mg PO BID 08/28/22 03/11/23 Docusate [Colace] 100 mg PO DAILY 08/28/22 03/11/23 Levothyroxine Sodium [Synthroid] 100 mcg PO DAILY 03/11/23 03/11/23 Pravastatin Sodium [Pravachol] 40 mg PO HS 03/11/23 03/11/23 Previous Rx's Medication Instructions Recorded Aspirin 81 mg PO DAILY #30 tab 03/18/23 Dapagliflozin Propanediol [Farxiga] 10 mg PO DAILY #30 tablet 03/18/23 Sacubitril/Valsartan [Entresto 24 1 each PO BID #60 tab 03/18/23 mg-26 mg Tablet] Allergies Allergy/AdvReac Type Severity Reaction Status Date / Time nitroglycerin Allergy Unknown Verified 03/11/23 19:18 Iodinated Contrast Media AdvReac Severe kidney Verified 03/11/23 19:18 [Iodinated Contrast Media - failure IV Dye] omeprazole [From Prilosec] AdvReac Severe kidney Verified 03/11/23 19:18 failure omeprazole magnesium AdvReac Severe kidney Verified 03/11/23 19:18 [From Prilosec] failure ciprofloxacin [From Cipro] AdvReac Kidney Verified 03/11/23 19:18 Failure fludrocortisone AdvReac KIDNEY Verified 03/11/23 19:18 [From Florinef] ISSUES Iodine and Iodide Containing AdvReac kidney Verified 03/11/23 19:18 Produc issues sodium phosphate AdvReac Unknown Verified 03/11/23 19:18 [From Fleet Enema] Review of Systems ROS Statement: Those systems with pertinent positive or pertinent negative responses have been documented in the HPI. ROS Other: All systems not noted in ROS Statement are negative. Past Medical History Past Medical History: CVA/TIA, Eye Disorder, GERD/Reflux, Hyperlipidemia, Hypertension, Renal Disease, Sleep Apnea/CPAP/BIPAP, Thyroid Disorder Additional Past Medical History / Comment(s): "heart skips a beat once in a while" palpitations. TIA's, POTS syndrome,dysotonia. Renal disease stage 3. sleep apnea has machine. macular degeneration lt eye History of Any Multi-Drug Resistant Organisms: None Reported Past Surgical History: Appendectomy, Hysterectomy Additional Past Surgical History / Comment(s): cataract surgery, bowel resection Past Anesthesia/Blood Transfusion Reactions: No Reported Reaction Past Psychological History: Anxiety, Depression Smoking Status: Never smoker Past Alcohol Use History: None Reported Past Drug Use History: None Reported - Past Family History Mother Family Medical History: No Reported History Additional Family Medical History / Comment(s): of heart disease "hole in the heart" at age 29 Father Family Medical History: Myocardial Infarction ([place]) Additional Family Medical History / Comment(s): at age 67 of heart attack General Exam Limitations: no limitations General appearance: alert, in no apparent distress, anxious Head exam: Present: atraumatic, normocephalic, normal inspection Eye exam: Present: normal appearance, PERRL, EOMI. Absent: scleral icterus, conjunctival injection, periorbital swelling ENT exam: Present: normal exam, mucous membranes moist Neck exam: Present: normal inspection. Absent: tenderness, meningismus, lymphadenopathy Respiratory exam: Present: normal lung sounds bilaterally. Absent: respiratory distress, wheezes, rales, rhonchi, stridor Cardiovascular Exam: Present: regular rate, normal rhythm, normal heart sounds. Absent: systolic murmur, diastolic murmur, rubs, gallop, clicks GI/Abdominal exam: Present: soft, normal bowel sounds. Absent: distended, tenderness, guarding, rebound, rigid Extremities exam: Present: normal inspection, full ROM, normal capillary refill. Absent: tenderness, pedal edema, joint swelling, calf tenderness Back exam: Present: normal inspection Neurological exam: Present: alert, oriented X3, CN II-XII intact Psychiatric exam: Present: normal affect, normal mood Skin exam: Present: warm, dry, intact, normal color. Absent: rash Course Vital Signs 03/11/23 14:56 Temperature 98.2 F Pulse Rate 78 Respiratory 16 Rate Blood Pressure 184/115 O2 Sat by Pulse 97 Oximetry - Reevaluation(s) Reevaluation #1: 03/11/23 17:46 Medical records reviewed Reevaluation #2: 03/11/23 17:46 Patient symptoms unchanged Reevaluation #3: 03/11/23 17:46 Patient informed results questions answered Reevaluation #4: 03/11/23 17:46 Was pt. sent in by a medical professional or institution (, PA, STORE TEAM MEMBER, urgent care, hospital, or skilled nursing...) When possible be specific @ -no Did you speak to anyone other than the patient for history (EMS, parent, family, police, friend...)? What history was obtained from this source @ -no Did you review nursing and triage notes (agree or disagree)? Why? @ -agree Are old charts reviewed (outside hosp., previous admission, EMS record, old EKG, old radiological studies, urgent care reports/EKG's, skilled nursing records)? Report findings @ -yes Differential Diagnosis (chest pain, altered mental status, abdominal pain women, abdominal pain men, vaginal bleeding, weakness, fever, dyspnea, syncope, headache, dizziness, GI bleed, back pain, seizure, CVA, palpatations, mental health, musculoskeletal)? @ -prior EKG interpreted by me (3pts min.). @ -yes X-rays interpreted by me (1pt min.). @ -yes CT interpreted by me (1pt min.). @ -no U/S interpreted by me (1pt. min.). @ -no What testing was considered but not performed or refused? (CT, X-rays, U/S, labs)? Why? @ -none What meds were considered but not given or refused? Why? @ -none Did you discuss the management of the patient with other professionals (professionals i.e. , PA, STORE TEAM MEMBER, lab, RT, psych nurse, addiction social worker, online marketing analyst, teacher, credit compliance officer, counseling case manager)? Give summary @ -no Was smoking cessation discussed for >3mins.? @ -no Was critical care preformed (if so, how long)? @ -yes31 Were there social determinants of health that impacted care today? How? (Homelessness, low income, unemployed, alcoholism, drug addiction, transportation, low edu. Level, literacy, decrease access to med. care, alf, rehab)? @ -none Was there de-escalation of care discussed even if they declined (Discuss DNR or withdrawal of care, Hospice)? DNR status @ -no What co-morbidities impacted this encounter? (DM, HTN, Smoking, COPD, CAD, Cancer, CVA, ARF, Chemo, Hep., AIDS, mental health diagnosis, sleep apnea, morbid obesity)? @ -none Was patient admitted / discharged? Hospital course, mention meds given and route, prescriptions, significant lab abnormalities, going to OR and other pertinent info. @ - 87 female to the emergency department for evaluation. Patient sent in for cardiac catheterization. Patient does have mild troponin leak here in the ER persistent chest pain and unstable angina and outpatient basis. Patient is having persistent chest pain or exertional shortness of breath Admitted Undiagnosed new problem with uncertain prognosis? @ -no Drug Therapy requiring intensive monitoring for toxicity (Heparin, Nitro, Insulin, Cardizem)? @ -no Were any procedures done? @ -no Diagnosis/symptom? @ -Chest pain, ACS Acute, or Chronic, or Acute on Chronic? @ -Acute Uncomplicated (without systemic symptoms) or Complicated (systemic symptoms)? @ -Complicated Side effects of treatment? @ -no Exacerbation, Progression, or Severe Exacerbation? @ -exacerbation Poses a threat to life or bodily function? How? (Chest pain, [place], [place], pneumonia, PE, COPD, DKA, ARF, appy, cholecystitis, CVA, Diverticulitis, Homicidal, Suicidal, threat to staff... and all critical care pts) @ -yes if ACS Reevaluation #5: 03/11/23 17:46 Differential Chest Pain: Stable Angina, Unstable Angina, STEMI, NSTEMI Aortic Dissection, Pneumothorax, Musculoskeletal, Esophageal Spasm GERD, Cholecystitis, Pancreatitis, Zoster, this is not meant to be an all-inclusive list. - Consultations Consultation #1: Spoke with sound physicians who agree to admit this patient Chest Pain MDM - MDM 87 female to the emergency department for evaluation. Patient sent in for cardiac catheterization. Patient does have mild troponin leak here in the ER persistent chest pain and unstable angina and outpatient basis. Patient is having persistent chest pain or exertional shortness of breath Critical Care Time Critical Care Time: Yes Total Critical Care Time: 31 Disposition Clinical Impression: Chest pain, Chest pressure, Pre-syncope, Dyspnea, Unstable angina Disposition: ADMITTED IP TO THIS HOSP Condition: Stable Is patient prescribed a controlled substance at d/c from ED?: No Time of Disposition: 17:45
[2023-03-11] MEDS: SODIUM CHLORIDE 0.9% 1,000 ML IV SCH (18:14)
[2023-03-11] MEDS ORDERED: HEPARIN SODIUM 1,000 UN/ML (10ML VL) IV PRN (18:32)
[2023-03-11] MEDS ORDERED: HEPARIN SODIUM 1,000 UN/ML (10ML VL) IV ONE (18:32)
[2023-03-11] MEDS ORDERED: ASPIRIN 81 MG PO STA (18:32)
[2023-03-11] MEDS ORDERED: HEPARIN SOD,PORK IN 0.45% NACL 25,000 UNIT in 0.45% NACL 1 250ML.BAG IV SCH (18:45)
[2023-03-11] MEDS: carvediloL 6.25 MG TAB PO SCH (23:13)
[2023-03-11] MEDS: VALSARTAN 80 MG TAB PO SCH (23:13)
[2023-03-11] MEDS: APIXABAN 5 MG TAB PO SCH (23:13)
[2023-03-11] MEDS: PRAVASTATIN SODIUM 40 MG TAB PO SCH (23:14)
--- NOTE | 2023-03-12 01:20 | P.HPIM ---
History of Present Illness H&P Date: 03/11/23 Chief Complaint: chest pain 87 year old female with hypertension , hypothyroid , history of CVA she is coming in today for sudden onset chest pain. She reports a one-month h istory of progressively getting weaker with progressive exertional dyspnea. However today she experienced epigastric pain 6 out of 10 in severity which was later radiating to the jaw was not associated with any nausea vomiting or profuse sweating. Denies any palpitations patient does have a pacemaker. Pain resolved on its own after a few minutes however she grew concerned and decided to come in for evaluation to rule out an acute coronary syndrome patient denies any recent travel or diagnoses of cancer denies any history of blood clots. Patient denies any tobacco smoking illicit drugs or heavy alcohol. Patient does have history of A. fib for which she takes Eliquis she status post pacemaker She otherwise denies any fevers or chills denies any upper respiratory infection symptoms denies any cough or any nose denies any nausea vomiting changes in bowel or urinary habits denies any GI bleeding She is feeling fine at time of my evaluation however concerned regarding that episode of epigastric pain that she was complaining about this morning review of systems Pertinent positives as noted in HPI. All other systems were reviewed and are negative on exam Constitutional: No acute distress, conversant, pleasant Eyes: Anicteric sclerae, moist conjunctiva, Pupils equal round reactive to light ENMT: NC/AT Oropharynx clear, no erythema, or exudates Neck: Supple, no masses, or JVD No carotid bruits No thyromegaly Lungs: Clear to auscultation Clear to percussion Normal respiratory effort, no accessory muscle use Cardiovascular: Heart regular in rate and rhythm, No murmurs, gallops, or rubs No peripheral edema Abdominal: Soft Nontender, no guarding, rebound or rigidity Abdomen moving with respiration Normoactive bowel sounds No hepatomegaly, No splenomegaly No palpable mass No abdominal wall hernia noted Extremities: No digital cyanosis No clubbing Pedal pulses intact and symmetrical Radial pulses intact and symmetrical No calf tenderness Psychiatric: Alert and oriented to person, place and time Appropriate affect fair judgement Neuro Muscles Strength 5/5 in all 4 extremities Sensation to light touch grossly present throughout Cranial nerves II-XII grossly intact Lymphatics: no palpable cervical or supraclavicular lymph nodes 87-year-old female with A. fib status post pacemaker on Eliquis, hypertension coming in for epigastric pain radiating to the jaws with progressive shortness of breath I discussed the case with the ED doctor I accepted the admission for chest pain to rule out acute coronary syndrome with anticipated length of stay more than 2 midnights Atypical chest pain Rule out acute coronary syndrome EKG showing paced rhythm Troponins flat 0.382 Cardiology consult Discontinue heparin drip initiated in the ED. Restart patient Eliquis 5 mg by mouth twice a day Continue with aspirin and Park statin Continue with Coreg 6.25 mg by mouth twice a day Chest x-ray showing no acute pathology Hypertension, uncontrolled Continue with Coreg 6.25 mg by mouth twice a day Continue with Cozaar 1080 mg by mouth twice a day When necessary clonidine for systolic blood pressure above 180 Paroxysmal A. fib status post pacemaker Continue with Eliquis 5 mg by mouth twice a day Continue with Coreg Chronic kidney disease stage III, stable Blood work overall unremarkable showing sodium 136 potassium 4.6 BUN 28 creatinine 1.05 Monitor urine output Avoid nephrotoxic meds Full code DVT prophylaxis currently on Eliquis for A. fib Past Medical History Past Medical History: CVA/TIA, Eye Disorder, GERD/Reflux, Hyperlipidemia, Hypertension, Renal Disease, Sleep Apnea/CPAP/BIPAP, Thyroid Disorder Additional Past Medical History / Comment(s): "heart skips a beat once in a while" palpitations. TIA's, POTS syndrome,dysotonia. Renal disease stage 3. sleep apnea has machine. macular degeneration lt eye History of Any Multi-Drug Resistant Organisms: None Reported Past Surgical History: Appendectomy, Hysterectomy Additional Past Surgical History / Comment(s): cataract surgery, bowel resection Past Anesthesia/Blood Transfusion Reactions: No Reported Reaction Past Psychological History: Anxiety, Depression Smoking Status: Never smoker Past Alcohol Use History: None Reported Past Drug Use History: None Reported - Past Family History Mother Family Medical History: No Reported History Additional Family Medical History / Comment(s): of heart disease "hole in the heart" at age 29 Father Family Medical History: Myocardial Infarction ([place]) Additional Family Medical History / Comment(s): at age 67 of heart attack Medications and Allergies Home Medications Medication Instructions Recorded Confirmed Type Famotidine [Pepcid] 20 mg PO DAILY 04/25/19 03/11/23 History Apixaban [Eliquis] 5 mg PO BID 08/28/22 03/11/23 History Docusate [Colace] 100 mg PO DAILY 08/28/22 03/11/23 History carvediloL [Coreg] 6.25 mg PO BID 08/28/22 03/11/23 History Valsartan [Diovan] 80 mg PO BID 10/08/22 03/11/23 History Levothyroxine Sodium [Synthroid] 100 mcg PO DAILY 03/11/23 03/11/23 History Pravastatin Sodium [Pravachol] 40 mg PO HS 03/11/23 03/11/23 History Allergies Allergy/AdvReac Type Severity Reaction Status Date / Time nitroglycerin Allergy Unknown Verified 03/11/23 19:18 Iodinated Contrast Media AdvReac Severe kidney Verified 03/11/23 19:18 [Iodinated Contrast Media - failure IV Dye] omeprazole [From Prilosec] AdvReac Severe kidney Verified 03/11/23 19:18 failure omeprazole magnesium AdvReac Severe kidney Verified 03/11/23 19:18 [From Prilosec] failure ciprofloxacin [From Cipro] AdvReac Kidney Verified 03/11/23 19:18 Failure fludrocortisone AdvReac KIDNEY Verified 03/11/23 19:18 [From Florinef] ISSUES Iodine and Iodide Containing AdvReac kidney Verified 03/11/23 19:18 Produc issues sodium phosphate AdvReac Unknown Verified 03/11/23 19:18 [From Fleet Enema] Physical Exam Vitals: Vital Signs Temp Pulse Resp BP Pulse Ox 03/11/23 14:56 98.2 F 78 16 184/115 97 Intake and Output 03/11/23 03/11/23 03/11/23 06:59 14:59 22:59 Other: Weight 74.843 kg Results CBC & Chem 7: 03/11/23 15:02 03/11/23 15:02 Labs: Abnormal Lab Results - Last 24 Hours (Table) 03/11/23 03/11/23 03/11/23 Range/Units 15:02 15:02 18:08 Sodium 136 L (137-145) mmol/L Carbon Dioxide 21 L (22-30) mmol/L BUN 28 H (7-17) mg/dL Creatinine 1.05 H (0.52-1.04) mg/dL Troponin I 0.038 H* 0.038 H* (0.000-0.034) ng/mL 03/11/23 Range/Units 20:55 Sodium (137-145) mmol/L Carbon Dioxide (22-30) mmol/L BUN (7-17) mg/dL Creatinine (0.52-1.04) mg/dL Troponin I 0.061 H* (0.000-0.034) ng/mL
[2023-03-12] MEDS: LEVOTHYROXINE 100 MCG TAB PO SCH (06:05)
[2023-03-12] MEDS: APIXABAN 5 MG TAB PO SCH (07:41)
[2023-03-12] MEDS ORDERED: ASPIRIN 325 MG TAB PO SCH (09:00)
[2023-03-12 09:16] LABS: Basophils % (A) 0 %; Eosinophils # (A) 0.2 k/uL (0-0.7); Eosinophils % (A) 3 %; HGB 13.8 gm/dL (11.4-16.0); Lymphocytes # (A) 1.7 k/uL (1.0-4.8); Lymphocytes % (A) 30 %; MCH 30.4 pg (25.0-35.0); MCHC 32.1 g/dL (31.0-37.0); MCV 94.5 fL (80.0-100.0); Mean Platelet Volume 7.6; Monocytes # (A) 0.4 k/uL (0-1.0); Monocytes % (A) 7 %; Neutrophils # (A) 3.4 k/uL (1.3-7.7); Neutrophils % (A) 59 %; Platelet Count 170 k/uL (150-450); RBC 4.55 m/uL (3.80-5.40); RDW 14.1 % (11.5-15.5); WBC 5.7 k/uL (3.8-10.6)
[2023-03-12] MEDS: carvediloL 6.25 MG TAB PO SCH ×2 (09:30→20:23)
[2023-03-12] MEDS: FAMOTIDINE 20 MG TAB PO SCH (09:30)
[2023-03-12] MEDS: DOCUSATE 100 MG CAP PO SCH (09:30)
[2023-03-12 09:31] LABS: ALT 12 U/L (4-34); AST 23 U/L (14-36); African American GFR (CKD) 55 (>60 ml/min/1.73 sqM); Albumin 3.2 g/dL (3.5-5.0); Alkaline Phosphatase 47 U/L (38-126); Anion Gap 7 mmol/L; Blood Urea Nitrogen 25 mg/dL (7-17); Calcium 8.8 mg/dL (8.4-10.2); Carbon Dioxide 21 mmol/L (22-30); Chloride 107 mmol/L (98-107); Glucose 92 mg/dL (74-99); Magnesium 2.1 mg/dL (1.6-2.3); Non-African American GFR(CKD) 48 (>60 ml/min/1.73 sqM); Potassium 4.2 mmol/L (3.5-5.1); Sodium 135 mmol/L (137-145); Total Bilirubin 0.6 mg/dL (0.2-1.3); Total Protein 5.9 g/dL (6.3-8.2)
[2023-03-12] MEDS: VALSARTAN 80 MG TAB PO SCH ×2 (09:31→20:23)
[2023-03-12] MEDS ORDERED: HEPARIN SODIUM 1,000 UN/ML (10ML VL) IV PRN (09:49)
--- NOTE | 2023-03-12 10:29 | P.CRDCN ---
History of Present Illness History of present illness: HISTORY OF PRESENT ILLNESS: This is a 87-year-old female with a past medical history significant for sinus bradycardia with previous pacemaker, nonobstructive coronary artery disease, hypertension, hyperlipidemia, paroxysmal atrial fibrillation, and valvular heart disease. Patient follows in the office with Dr. Moreno. We have been asked to see the patient in consultation for unstable angina. Patient examined at the bedside. Patient states she has been feeling short of breath for the past couple weeks. She states over the last 2 days her breathing has gotten worse the point where she feels that she is gasping for air. She stopped into her PCP office yesterday with her daughter to see if she could be evaluated and she was directed to come to the emergency room. The patient continues to report mild shortness of breath this morning. She denies any chest pain or pressure. It is noted that the patient saw Dr. Moreno in October 2022 and patient was recommended to undergo cardiac catheterization secondary to decreased LV function of 30% as well as progression of her aortic insufficiency. The patient states she was unsure if she wanted to have this performed as she developed acute renal failure with her prior cardiac catheter irritation in 2008 and she sought a second opinion. [facility] a [facility] and apparently a stress test was recommended. * EKG reveals paced rhythm * Chest xray negative for acute process * Laboratory data: WBC 5.7. Hemoglobin 13.8. Platelet count 170. Sodium 136. Potassium 4.6. BUN 28. Creatinine 1.05. Magnesium 2.1. Troponin 0.038. 0.03. 0.061. * Current home cardiac medications include Eliquis 5 mg twice a day, valsartan 80 mg twice a day, carvedilol 6.25 mg twice a day, Pravachol 40 mg at night * Most recent echocardiogram obtained in September 2022 revealed ejection fraction 30%, global LV hypokinesis, moderate aortic regurgitation, trace to mild tricuspid regurgitation, and moderate mitral regurgitation * Cardiac catheterization history: 2008 revealing 40% lesion of the mid LAD REVIEW OF SYSTEMS: At the time of my exam: CONSTITUTIONAL: Denies fever or chills. HEENT: Denies blurred vision, vision changes, or eye pain. Denies hemoptysis CARDIOVASCULAR: Denies chest pain. + orthopnea. Denies PND. Denies palpitations RESPIRATORY: + shortness of breath. GASTROINTESTINAL: Denies abdominal pain. Denies nausea or vomiting. HEMATOLOGIC: Denies bleeding disorders. GENITOURINARY: Denies any blood in urine. SKIN: Denies pruitis. Denies rash. PHYSICAL EXAM: VITAL SIGNS: Reviewed. GENERAL: Well-developed in no acute distress. HEENT: Head is normocephalic. Pupils are equal, round. Sclerae anicteric. Mucous membranes of the mouth are moist. Neck supple. No JVD or thyromegaly LUNGS: Respirations even and unlabored. Lungs with bibasilar crackles noted HEART: Regular rate and rhythm. S1 and S2 heard. Systolic and diastolic murmur noted. ABDOMEN: Soft. Nondistended. Nontender. EXTREMITIES: Normal range of motion. No clubbing or cyanosis. Peripheral pulses intact. No lower extremity edema NEUROLOGIC: Awake and alert. Oriented x 3. ASSESSMENT: Progressive shortness of breath Cardiomyopathy, EF 30%, ischemic versus nonischemic Acute CHF with decreased EF Nonobstructive coronary artery disease with known 40% mid LAD lesion Abnormal troponins, flat, do not suspect Type I [place] Paroxysmal atrial fibrillation History of biventricular pacemaker implantation Hypertension Hyperlipidemia Valvular heart disease including moderate AI and moderate MR PLAN: Repeat 2D echo to assess LV function and severity of valvular disease Continue current cardiac medications Hold Eliquis. Begin IV Heparin. Begin IV Lasix 40 mg every 12 hours Daily weights, accurate I&O, and monitoring of kidney function Obtain BNP Add aspirin 81 mg daily and Farxiga 10mg daily Patient and her daughter would like to think about proceeding with cardiac catheterization and will let us know when they make a decision Further recommendations pending patient's course Nurse practitioner note has been reviewed by physician. Signing provider agrees with the documented findings, assessment, and plan of care. Past Medical History Past Medical History: CVA/TIA, Eye Disorder, GERD/Reflux, Hyperlipidemia, Hypertension, Renal Disease, Sleep Apnea/CPAP/BIPAP, Thyroid Disorder Additional Past Medical History / Comment(s): "heart skips a beat once in a while" palpitations. TIA's, POTS syndrome,dysotonia. Renal disease stage 3. sleep apnea has machine. macular degeneration lt eye History of Any Multi-Drug Resistant Organisms: None Reported Past Surgical History: Appendectomy, Hysterectomy Additional Past Surgical History / Comment(s): cataract surgery, bowel resection Past Anesthesia/Blood Transfusion Reactions: No Reported Reaction Type of Cardiac Device: Biventricular Pacemaker Device Placement Date:: 05/04/2022 Past Psychological History: Anxiety, Depression Smoking Status: Never smoker Past Alcohol Use History: None Reported Past Drug Use History: None Reported - Past Family History Mother Family Medical History: No Reported History Additional Family Medical History / Comment(s): of heart disease "hole in the heart" at age 29 Father Family Medical History: Myocardial Infarction ([place]) Additional Family Medical History / Comment(s): at age 67 of heart attack Medications and Allergies Home Medications Medication Instructions Recorded Confirmed Type Famotidine [Pepcid] 20 mg PO DAILY 04/25/19 03/11/23 History Apixaban [Eliquis] 5 mg PO BID 08/28/22 03/11/23 History Docusate [Colace] 100 mg PO DAILY 08/28/22 03/11/23 History carvediloL [Coreg] 6.25 mg PO BID 08/28/22 03/11/23 History Valsartan [Diovan] 80 mg PO BID 10/08/22 03/11/23 History Levothyroxine Sodium [Synthroid] 100 mcg PO DAILY 03/11/23 03/11/23 History Pravastatin Sodium [Pravachol] 40 mg PO HS 03/11/23 03/11/23 History Allergies Allergy/AdvReac Type Severity Reaction Status Date / Time nitroglycerin Allergy Unknown Verified 03/11/23 19:18 Iodinated Contrast Media AdvReac Severe kidney Verified 03/11/23 19:18 [Iodinated Contrast Media - failure IV Dye] omeprazole [From Prilosec] AdvReac Severe kidney Verified 03/11/23 19:18 failure omeprazole magnesium AdvReac Severe kidney Verified 03/11/23 19:18 [From Prilosec] failure ciprofloxacin [From Cipro] AdvReac Kidney Verified 03/11/23 19:18 Failure fludrocortisone AdvReac KIDNEY Verified 03/11/23 19:18 [From Florinef] ISSUES Iodine and Iodide Containing AdvReac kidney Verified 03/11/23 19:18 Produc issues sodium phosphate AdvReac Unknown Verified 03/11/23 19:18 [From Fleet Enema] Physical Exam Vitals: Vital Signs Temp Pulse Pulse Resp BP BP Pulse Ox 03/12/23 04:00 98 F 60 16 160/88 95 03/12/23 02:00 60 16 03/12/23 00:00 98.1 F 60 16 146/63 96 03/11/23 21:43 98 F 65 16 151/73 95 03/11/23 14:56 98.2 F 78 16 184/115 97 Intake and Output 03/11/23 03/12/23 03/12/23 22:59 06:59 14:59 Other: # Voids 1 Weight 74.843 kg Results 03/12/23 08:15 03/12/23 08:15 Cardiac Enzymes 03/11/23 03/11/23 03/11/23 Range/Units 15:02 15:02 18:08 AST 26 (14-36) U/L Troponin I 0.038 H* 0.038 H* (0.000-0.034) ng/mL 03/11/23 Range/Units 20:55 AST (14-36) U/L Troponin I 0.061 H* (0.000-0.034) ng/mL Coagulation 03/11/23 Range/Units 15:02 PT 10.7 (10.0-12.5) sec APTT 27.3 (22.0-30.0) sec CBC 03/11/23 Range/Units 15:02 WBC 8.0 (3.8-10.6) k/uL RBC 4.71 (3.80-5.40) m/uL Hgb 14.6 (11.4-16.0) gm/dL Hct 44.6 (34.0-46.0) % Plt Count 189 (150-450) k/uL Comprehensive Metabolic Panel 03/11/23 Range/Units 15:02 Sodium 136 L (137-145) mmol/L Potassium 4.6 (3.5-5.1) mmol/L Chloride 105 (98-107) mmol/L Carbon Dioxide 21 L (22-30) mmol/L BUN 28 H (7-17) mg/dL Creatinine 1.05 H (0.52-1.04) mg/dL Glucose 91 (74-99) mg/dL Calcium 9.1 (8.4-10.2) mg/dL AST 26 (14-36) U/L ALT 13 (4-34) U/L Alkaline Phosphatase 65 (38-126) U/L Total Protein 6.6 (6.3-8.2) g/dL Albumin 3.8 (3.5-5.0) g/dL Current Medications Generic Name Dose Route Start Last Admin Trade Name Freq PRN Reason Stop Dose Admin Apixaban 5 mg 03/11/23 22:00 03/12/23 07:41 Apixaban 5 Mg Tab PO Not Given BID [facility] Protocol Carvedilol 6.25 mg 03/11/23 22:00 03/11/23 23:13 Carvedilol 6.25 Mg Tab PO 6.25 mg BID UZMA Administration Docusate Sodium 100 mg 03/12/23 09:00 Docusate 100 Mg Cap PO DAILY UZMA Famotidine 20 mg 03/12/23 09:00 Famotidine 20 Mg Tab PO DAILY [facility] Sodium Chloride 1,000 mls @ 20 mls/hr 03/11/23 17:45 03/11/23 18:14 Saline 0.9% IV 20 mls/hr .Q24H UZMA Administration Levothyroxine Sodium 100 mcg 03/12/23 06:30 03/12/23 06:05 Levothyroxine 100 Mcg Tab PO 100 mcg DAILY@0630 U[facility]MA Administration Morphine Sulfate 4 mg 03/11/23 17:44 Morphine Sulfate 4 Mg/Ml Syringe IV Q4HR PRN Severe Pain (Scale 7 to 10) Naloxone HCl 0.2 mg 03/11/23 17:44 Naloxone 0.4 Mg/Ml 1 Ml Vial IV Q2M PRN Opioid Reversal Ondansetron HCl 4 mg 03/11/23 17:44 Ondansetron 4 Mg/2 Ml Vial IVP Q8HR PRN Nausea And Vomiting Pravastatin Sodium 40 mg 03/11/23 22:00 03/11/23 23:14 Pravastatin Sodium 40 Mg Tab PO 40 mg HS [facility]ZMA Administration Valsartan 80 mg 03/11/23 22:00 03/11/23 23:13 Valsartan 80 Mg Tab PO 80 mg BID UZMA Administration Intake and Output 03/11/23 03/12/23 03/12/23 22:59 06:59 14:59 Other: # Voids 1 Weight 74.843 kg 03/11/23 15:02 03/11/23 15:02
--- NOTE | 2023-03-12 10:42 | P.NPCON ---
History of Present Illness - Reason for Consult chronic renal failure - History of Present Illness Patient is an 87-year-old female with history of chronic kidney disease NKF stage IIIa with baseline creatinine around 0.9-1 mg/dL. Etiology is nephrosclerosis and history of acute interstitial nephritis status post treatment with prednisone many years ago. Next Patient is admitted to the hospital with complaints of increased fatigue, shortness of breath and occasional chest pain after exertion. Serum creatinine staying at 1.0 mg/dL. Troponin was borderline at 0.038 and 0.061. Patient is being for followed by cardiology. IV heparin is discontinued. No significant complaints today. Cardiology awaiting records from [facility]. Review of Systems As per HPI Past Medical History Past Medical History: CVA/TIA, Eye Disorder, GERD/Reflux, Hyperlipidemia, Hypertension, Renal Disease, Sleep Apnea/CPAP/BIPAP, Thyroid Disorder Additional Past Medical History / Comment(s): "heart skips a beat once in a while" palpitations. TIA's, POTS syndrome,dysotonia. Renal disease stage 3. sleep apnea has machine. macular degeneration lt eye History of Any Multi-Drug Resistant Organisms: None Reported Past Surgical History: Appendectomy, Hysterectomy Additional Past Surgical History / Comment(s): cataract surgery, bowel resection Past Anesthesia/Blood Transfusion Reactions: No Reported Reaction Type of Cardiac Device: Biventricular Pacemaker Device Placement Date:: 05/04/2022 Past Psychological History: Anxiety, Depression Smoking Status: Never smoker Past Alcohol Use History: None Reported Past Drug Use History: None Reported - Past Family History Mother Family Medical History: No Reported History Additional Family Medical History / Comment(s): of heart disease "hole in the heart" at age 29 Father Family Medical History: Myocardial Infarction ([place]) Additional Family Medical History / Comment(s): at age 67 of heart attack Medications and Allergies Home Medications Medication Instructions Recorded Confirmed Type Famotidine [Pepcid] 20 mg PO DAILY 04/25/19 03/11/23 History Apixaban [Eliquis] 5 mg PO BID 08/28/22 03/11/23 History Docusate [Colace] 100 mg PO DAILY 08/28/22 03/11/23 History carvediloL [Coreg] 6.25 mg PO BID 08/28/22 03/11/23 History Valsartan [Diovan] 80 mg PO BID 10/08/22 03/11/23 History Levothyroxine Sodium [Synthroid] 100 mcg PO DAILY 03/11/23 03/11/23 History Pravastatin Sodium [Pravachol] 40 mg PO HS 03/11/23 03/11/23 History Allergies Allergy/AdvReac Type Severity Reaction Status Date / Time nitroglycerin Allergy Unknown Verified 03/11/23 19:18 Iodinated Contrast Media AdvReac Severe kidney Verified 03/11/23 19:18 [Iodinated Contrast Media - failure IV Dye] omeprazole [From Prilosec] AdvReac Severe kidney Verified 03/11/23 19:18 failure omeprazole magnesium AdvReac Severe kidney Verified 03/11/23 19:18 [From Prilosec] failure ciprofloxacin [From Cipro] AdvReac Kidney Verified 03/11/23 19:18 Failure fludrocortisone AdvReac KIDNEY Verified 03/11/23 19:18 [From Florinef] ISSUES Iodine and Iodide Containing AdvReac kidney Verified 03/11/23 19:18 Produc issues sodium phosphate AdvReac Unknown Verified 03/11/23 19:18 [From Fleet Enema] Physical Exam Vitals: Vital Signs Temp Pulse Pulse Resp BP BP Pulse Ox 03/12/23 10:27 68 17 03/12/23 08:00 98.1 F 61 18 155/71 94 L 03/12/23 04:00 98 F 60 16 160/88 95 03/12/23 02:00 60 16 03/12/23 00:00 98.1 F 60 16 146/63 96 03/11/23 21:43 98 F 65 16 151/73 95 03/11/23 14:56 98.2 F 78 16 184/115 97 Intake and Output 03/11/23 03/12/23 03/12/23 22:59 06:59 14:59 Other: # Voids 1 2 Weight 74.843 kg Patient is awake, comfortable, no acute distress Examination of the heart S1 and S2 Examination of the lungs bilateral breath sounds are heard Abdomen is soft nontender Examination of the lower extremities shows no evidence of edema DESIGN VERIFICATION ENGINEER exam grossly intact Results - Lab Results Most recent lab results Calcium 8.8 mg/dL (8.4-10.2) 03/12/23 08:15 Phosphorus 4.0 mg/dL (2.5-4.5) 03/12/23 08:15 Magnesium 2.1 mg/dL (1.6-2.3) 03/12/23 08:15 03/12/23 08:15 03/12/23 08:15 Assessment and Plan Assessment: 1. Chronic kidney disease NKF stage III secondary to nephrosclerosis and history of acute interstitial nephritis status post prednisone many years ago. Serum creatinine at baseline 2. Chest pain rule out cardiac ischemia. Troponins at 0.061. Patient is being followed by cardiology. Awaiting records from outside facility. 3. Hypertension with CK D stage IIIa Plan: Repeat labs in a.m. Patient is maintained on IV Lasix. Monitor electrolytes and renal function closely. Okay to proceed with cardiac catheterization if indicated from cardiology standpoint. Thank you for the consultation. We will continue to follow the patient with you during her hospitalization.
[2023-03-12] MEDS: DAPAGLIFLOZIN PROPANEDIOL 10 MG TABLET PO SCH (10:48)
[2023-03-12] MEDS: FUROSEMIDE 10 MG/ML 4 ML VIAL IV SCH ×2 (10:48→20:22)
[2023-03-12] MEDS: HEPARIN SOD,PORK IN 0.45% NACL 25,000 UNIT in 0.45% NACL 1 250ML.BAG IV SCH (10:52)
[2023-03-12] MEDS: ASPIRIN 81 MG PO SCH (10:59)
--- NOTE | 2023-03-12 11:44 | P.PN ---
Subjective Progress Note Date: 03/12/23 Hospital course: Patient is a very pleasant 87-year-old female with a past medical history of paroxysmal atrial fibrillation status post pacemaker placement on anticoagulation with Eliquis, HFrEFwith EF of 30%,, hypertension, hyperlipidemia, GERD, hypothyroidism, stage IIIa CKD, obstructive sleep apnea CPAP dependent nightly, macular degeneration, and previous TIAs. She presented to the emergency department with a chief complaint of chest pain. Patient reports progressively worsening chest pain 1 month progressively worsening. She underwent full evaluation in the emergency department. CBC and coagulation profile were unremarkable. BMP showing mild hypocarbia with bicarb of 21 and renal function consistent with stage III chronic kidney disease with BUN of 28, creatinine of 1.05, and GFR 48 with baseline creatinine of 1.0. Liver profile unremarkable. Magnesium normal findings at 2.1. Troponin was elevated at 0.038. EKG revealing a ventricular paced rhythm at 69 bpm upon personal review and interpretation. Chest x-ray completed in radiology report reviewed stating no evidence for acute cardiopulmonary process. Outpatient Echocardiogram completed September 2022 revealed severely reduced EF of 30% with global left ventricular hypokinesis, dilated left atrium, moderate aortic regurgitation, and moderate mitral regurgitation. Patient admitted under our services with consultation to cardiology. Physical exam: Vital signs reviewed and stable. General: Nontoxic, no distress and appears stated age. Derm: Skin warm and dry, normal coloration for ethnicity. Head: Atraumatic, normocephalic and symmetric. Eyes: EOMs intact, no lid lag, and anicteric sclera Mouth: no lip lesions, mucus membranes moist Cardiovascular: regular rate and rhythm with normal S1S2, systolic murmur, positive posterior tibial pulses bilaterally, and cap refill < 2 seconds. Lungs: Respirations even, regular, and unlabored on room air. Lungs CTA bilaterally, no rhonchi, no rales, no wheezing, and no accessory muscle usage. Abdominal: soft, nontender to palpation, no guarding, no appreciable organomegaly Ext: ROM intact. No gross muscle atrophy, no edema, no contractures Neuro: Speech clear, face symmetrical and CN II-XII grossly intact with no noted focal neuro deficits Psych: Alert and oriented to person, place, time, and situation. Appropriate and pleasant affect. Assessment and Plan of Care: Acute on chronic HFrEF with EF of 30% Elevated troponins Paroxysmal atrial fibrillation status post pacemaker placement Hypertension Hyperlipidemia Moderate aortic regurgitation Moderate mitral regurgitation Hypothyroidism Stage IIIa chronic kidney disease Previous TIAs -Cardiology following, appreciate further recommendations -Patient to remain on continuous Telemetry monitoring -Continue low intensity heparin infusion at 12 units/kg/hour -Troponins trended overnight resulting in 0.038, 0.038, and 0.061. -ProBNP elevated at 4210 -Patient to continue daily medication regimen with valsartan 80 mg twice daily, levothyroxine 100 g daily, Farxiga 10 mg daily, Coreg 6.25 mg twice daily, and aspirin 81 mg daily. -Cardiology started patient on Lasix 40 mg IVP every 12 hours. -Patient placed on strict I's and O's and daily weights. -Echocardiogram to be completed -Renal function currently at baseline with BUN of 28, creatinine 1.05, and GFR 48 with baseline creatinine around 1.0. We will continue to monitor renal function and electrolytes closely while patient remains on IV diuresis. Orders place for morning BMP and magnesium. We will follow up with these results and place additional orders as indicated based upon these findings. Obstructive sleep apnea -Order placed for patient to continue CPAP nightly and while napping. Data and imaging reviewed: Vital signs reviewed. Blood pressure 155/71, heart rate 61, respiratory rate 18, temp 98.1F, SpO2 of 94% on room air. Labs reviewed. CBC unremarkable. BMP showing hypocarbia with bicarb of 21 and stable renal function with BUN of 25, creatinine 1.05, and GFR 40 with baseline creatinine of 1.0. Liver profile normal findings. Troponins trended overnight resulting in 0.038, 0.038, and 0.061. ProBNP was elevated at 4210. CODE STATUS: Full code DVT prophylaxis: Heparin Discussed with: Patient, patient's daughter at bedside, and RN Anticipated discharge date: Clinical course to determine Anticipated discharge place: Home Patient was seen independently by Nurse Pracitioner. This document was prepared using [employer]Water dictation software. Please allow for errors in radiologic technology teacher, while rare they do occur. I reviewed the documentation as provided by the AARTI above, who is the original author of this note. I agree with the documented assessment and plan, with the following changes: none Objective - Vital Signs Vital signs: Vital Signs Temp 98.1 F 03/12/23 08:00 Pulse 61 03/12/23 08:00 Resp 18 03/12/23 08:00 BP 155/71 03/12/23 08:00 Pulse Ox 94 L 03/12/23 08:00 FiO2 Intake & Output 03/11/23 03/12/23 03/12/23 18:59 06:59 18:59 Weight 74.843 kg 74.843 kg Other: # Voids 1 - Labs CBC & Chem 7: 03/12/23 08:15 03/12/23 08:15 Labs: Abnormal Lab Results - Last 24 Hours (Table) 03/11/23 03/11/23 03/11/23 Range/Units 15:02 15:02 18:08 Sodium 136 L (137-145) mmol/L Carbon Dioxide 21 L (22-30) mmol/L BUN 28 H (7-17) mg/dL Creatinine 1.05 H (0.52-1.04) mg/dL Troponin I 0.038 H* 0.038 H* (0.000-0.034) ng/mL Total Protein (6.3-8.2) g/dL Albumin (3.5-5.0) g/dL 03/11/23 03/12/23 Range/Units 20:55 08:15 Sodium 135 L (137-145) mmol/L Carbon Dioxide 21 L (22-30) mmol/L BUN 25 H (7-17) mg/dL Creatinine 1.05 H (0.52-1.04) mg/dL Troponin I 0.061 H* (0.000-0.034) ng/mL Total Protein 5.9 L (6.3-8.2) g/dL Albumin 3.2 L (3.5-5.0) g/dL
[2023-03-12 13:51] LABS: Partial Thromboplastin Time 31.3 sec (22.0-30.0); Prothrombin Time 11.3 sec (10.0-12.5)
--- NOTE | 2023-03-12 18:28 | CA ---
Transthoracic Echo Report Name: Lissa Ma Age: 87 Gender: F : 1935 Exam Date: 03/12/2023 15:44 Exam Location: [place] [facility] Ht (in): 65 Wt (lb): 165 Ordering Physician: Candy Gamboa Attending/Referring Phys: [id number], [employer] Classroom Teacher Quynh Leung RDCS Procedure CPT: Indications: LV function, elevated trops, hx AI Cardiac Hx: Technical Quality: Fair Contrast 1: Total Dose (mL): Contrast 2: Total Dose (mL): MEASUREMENTS (Male / Female) Normal Values 2D ECHO LV Diastolic Diameter PLAX 5.5 cm 4.2 - 5.9 / 3.9 - 5.3 cm LV Systolic Diameter PLAX 4.0 cm IVS Diastolic Thickness 1.3 cm 0.6 - 1.0 / 0.6 - 0.9 cm LVPW Diastolic Thickness 1.2 cm 0.6 - 1.0 / 0.6 - 0.9 cm LV Relative Wall Thickness 0.5 RV Internal Dim ED PLAX 2.7 cm LA Systolic Diameter LX 4.0 cm 3.0 - 4.0 / 2.7 - 3.8 cm LV Diastolic Volume MOD 4C 105.9 cm??? LV Systolic Volume MOD 4C 67.8 cm??? LV Ejection Fraction MOD 4C 36.0 % LV Cardiac Index MOD 4C 1242.8 cm???/min???m??? LV Diastolic Length 4C 7.7 cm LV Systolic Length 4C 7.6 cm LV Diastolic Volume MOD 2C 78.8 cm??? LV Systolic Volume MOD 2C 42.5 cm??? LV Ejection Fraction MOD 2C 46.1 % LV Cardiac Index MOD 2C 1184.0 cm???/min???m??? LV Diastolic Length 2C 8.5 cm LV Systolic Length 2C 7.8 cm LA Volume 47.0 cm??? 18 - 58 / 22 - 52 cm??? LA Volume Index 25.1 cm???/m??? 16 - 28 cm???/m??? M-MODE Aortic Root Diameter MM 3.8 cm MV E Point Septal Separation 0.8 cm AV Cusp Separation MM 1.9 cm DOPPLER AV Peak Velocity 116.0 cm/s AV Peak Gradient 5.4 mmHg AI Peak Velocity 292.1 cm/s AI Peak Gradient 34.1 mmHg AI Pressure Half Time 891.3 ms MV Area PHT 1.7 cm??? Mitral E Point Velocity 31.6 cm/s Mitral A Point Velocity 82.4 cm/s Mitral E to A Ratio 0.4 MV Deceleration Time 455.4 ms MV E' Velocity 3.4 cm/s Mitral E to MV E' Ratio 9.2 TR Peak Velocity 33.6 cm/s TR Peak Gradient 0.5 mmHg FINDINGS Left Ventricle Left ventricular ejection fraction is estimated at 25-30 %. Moderately increased septal wall thickness. Mildly increased posterior wall thickness. Mildly increased left ventricular diastolic diameter. Right Ventricle Normal right ventricular size. Unable to estimate the right ventricular systolic pressure. Right Atrium Normal right atrial size. Left Atrium Mildly increased left atrial diameter. Mitral Valve Moderate thickening/calcification of the posterior mitral valve leaflet. Mild mitral regurgitation. Aortic Valve Trileaflet aortic valve. Aortic valve sclerosis. Mild aortic regurgitation. Tricuspid Valve Structurally normal tricuspid valve. No tricuspid regurgitation. Pulmonic Valve Structurally normal pulmonic valve. Trace to mild pulmonic regurgitation. Pericardium No pericardial effusion. Aorta Mild aortic dilatation at the level of the sinuses of valsalva 38 mm CONCLUSIONS Severe LV dysfunction Previewed by: Dr. Colt Moreno MD (Electronically Signed) Final Date: 12 March 2023 18:27
[2023-03-12] MEDS: SODIUM CHLORIDE 0.9% 1,000 ML IV SCH (18:48)
[2023-03-12] MEDS: PRAVASTATIN SODIUM 40 MG TAB PO SCH (20:23)
[2023-03-13] MEDS: LEVOTHYROXINE 100 MCG TAB PO SCH (06:01)
[2023-03-13] MEDS: carvediloL 6.25 MG TAB PO SCH ×2 (07:48→20:00)
[2023-03-13] MEDS: ASPIRIN 81 MG PO SCH (07:48)
[2023-03-13] MEDS: VALSARTAN 80 MG TAB PO SCH (07:48)
[2023-03-13] MEDS: DOCUSATE 100 MG CAP PO SCH (07:48)
[2023-03-13] MEDS: DAPAGLIFLOZIN PROPANEDIOL 10 MG TABLET PO SCH (07:48)
[2023-03-13] MEDS: HEPARIN SOD,PORK IN 0.45% NACL 25,000 UNIT in 0.45% NACL 1 250ML.BAG IV SCH (07:49)
[2023-03-13] MEDS: FUROSEMIDE 10 MG/ML 4 ML VIAL IV SCH (07:49)
[2023-03-13] MEDS: FAMOTIDINE 20 MG TAB PO SCH (07:49)
--- NOTE | 2023-03-13 12:06 | P.PN ---
Subjective Patient is seen for follow-up for chronic kidney disease NKF stage IIIa with baseline creatinine around 0.9-1 mg/dL. Renal function is at baseline No significant complaints today. Currently maintained on IV Lasix Echocardiogram showed ejection fraction 25-30%. Currently maintained on farxiga and angiotensin receptor blockers. Objective - Vital Signs Vital signs: Vital Signs Temp 97.5 F L 03/13/23 11:30 Pulse 86 03/13/23 11:30 Resp 16 03/13/23 11:30 BP 111/72 03/13/23 11:30 Pulse Ox 96 03/13/23 11:30 FiO2 Intake & Output 03/12/23 03/13/23 03/13/23 18:59 06:59 18:59 Intake Total 655.262 74.743 78.631 Output Total 1500 1725 Balance -844.738 -1650.257 78.631 Weight 71.1 kg 68.2 kg Intake: IV 10 Invasive Line 1 10 Intake, IV Titration 65.262 74.743 68.631 Amount Heparin Sod,Pork in 0.45% 65.262 74.743 68.631 NaCl 25,000 unit In 0.45 % NaCl 1 250ml.bag @ 12 UNITS/KG/HR 8.981 mls/hr IV .Q24H [facility] Rx#: [id number] Oral 590 Output: Urine 1500 1725 Other: # Voids 2 - Exam Patient is awake, comfortable, no acute distress Examination of the heart S1 and S2 Examination of the lungs bilateral breath sounds are heard Abdomen is soft nontender Examination of the lower extremities shows no evidence of edema PRODUCTION CREW SUPERVISOR exam grossly intact - Labs CBC & Chem 7: 03/12/23 08:15 03/12/23 08:15 Labs: Abnormal Lab Results - Last 24 Hours (Table) 03/12/23 03/12/23 03/13/23 Range/Units 12:22 17:11 00:36 APTT 31.3 H 37.9 H 49.4 H (22.0-30.0) sec Assessment and Plan Assessment: 1. Chronic kidney disease NKF stage III secondary to nephrosclerosis and history of acute interstitial nephritis status post prednisone many years ago. Serum creatinine at baseline 2. Chest pain rule out cardiac ischemia. Troponins at 0.061. Patient is being followed by cardiology. Awaiting records from outside facility. 3. Hypertension with CK D stage IIIa 4. Mild volume overload maintained on IV Lasix 5. 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 Okay to proceed with cardiac catheterization if indicated from cardiology standpoint.
[2023-03-13 12:32] LABS: Basophils % (A) 0 %; Eosinophils # (A) 0.2 k/uL (0-0.7); Eosinophils % (A) 2 %; HCT 46.4 % (34.0-46.0); Lymphocytes % (A) 26 %; MCH 30.7 pg (25.0-35.0); MCHC 32.3 g/dL (31.0-37.0); MCV 95.3 fL (80.0-100.0); Mean Platelet Volume 8.3; Monocytes # (A) 0.6 k/uL (0-1.0); Monocytes % (A) 8 %; Neutrophils # (A) 4.6 k/uL (1.3-7.7); Neutrophils % (A) 61 %; Platelet Count 166 k/uL (150-450); RBC 4.87 m/uL (3.80-5.40); RDW 14.4 % (11.5-15.5); WBC 7.5 k/uL (3.8-10.6)
[2023-03-13 12:45] LABS: Partial Thromboplastin Time 52.2 sec (22.0-30.0)
[2023-03-13 13:18] LABS: African American GFR (CKD) 45 (>60 ml/min/1.73 sqM); Anion Gap 11 mmol/L; Blood Urea Nitrogen 34 mg/dL (7-17); Carbon Dioxide 21 mmol/L (22-30); Chloride 102 mmol/L (98-107); Glucose 112 mg/dL (74-99); Magnesium 2.1 mg/dL (1.6-2.3); Non-African American GFR(CKD) 39 (>60 ml/min/1.73 sqM); Sodium 134 mmol/L (137-145)
[2023-03-13 13:31] LABS: Potassium 3.7 mmol/L (3.5-5.1)
--- NOTE | 2023-03-13 15:49 | P.PN ---
Subjective Progress Note Date: 03/13/23 Hospital course: Patient is a very pleasant 87-year-old female with a past medical history of paroxysmal atrial fibrillation status post pacemaker placement on anticoagulation with Eliquis, HFrEFwith EF of 30%,, hypertension, hyperlipidemia, GERD, hypothyroidism, stage IIIa CKD, obstructive sleep apnea CPAP dependent nightly, macular degeneration, and previous TIAs. She presented to the emergency department with a chief complaint of chest pain. Patient reports progressively worsening chest pain 1 month progressively worsening. She underwent full evaluation in the emergency department. CBC and coagulation profile were unremarkable. BMP showing mild hypocarbia with bicarb of 21 and renal function consistent with stage III chronic kidney disease with BUN of 28, creatinine of 1.05, and GFR 48 with baseline creatinine of 1.0. Liver profile unremarkable. Magnesium normal findings at 2.1. Troponin was elevated at 0.038. EKG revealing a ventricular paced rhythm at 69 bpm upon personal review and interpretation. Chest x-ray completed in radiology report reviewed stating no evidence for acute cardiopulmonary process. Outpatient Echocardiogram completed September 2022 revealed severely reduced EF of 30% with global left ventricular hypokinesis, dilated left atrium, moderate aortic regurgitation, and moderate mitral regurgitation. Patient admitted under our services with consultation to cardiology. Physical exam: Patient was seen and fully evaluated at bedside this morning. She was sitting in chair visiting with daughter. Patient reports 2 episodes this morning of feeling a pressure in her chest. She reports one episode was just after taking her morning medications and one episode was while sitting in the chair talking with her daughter. Currently patient denies having any complaints including headache, lightheadedness, dizziness, chest pain, palpitations, or shortness of breath. She remains on IV heparin. Vital signs reviewed and stable. General: Nontoxic, no distress and appears stated age. Derm: Skin warm and dry, normal coloration for ethnicity. Head: Atraumatic, normocephalic and symmetric. Eyes: EOMs intact, no lid lag, and anicteric sclera Mouth: no lip lesions, mucus membranes moist Cardiovascular: regular rate and rhythm with normal S1S2, systolic murmur, positive posterior tibial pulses bilaterally, and cap refill < 2 seconds. Lungs: Respirations even, regular, and unlabored on room air. Lungs CTA bilaterally, no rhonchi, no rales, no wheezing, and no accessory muscle usage. Abdominal: soft, nontender to palpation, no guarding, no appreciable organomegaly Ext: ROM intact. No gross muscle atrophy, no edema, no contractures Neuro: Speech clear, face symmetrical and CN II-XII grossly intact with no noted focal neuro deficits Psych: Alert and oriented to person, place, time, and situation. Appropriate and pleasant affect. Assessment and Plan of Care: Acute on chronic HFrEF with EF of 25-30% Elevated troponins Paroxysmal atrial fibrillation status post pacemaker placement Hypertension Hyperlipidemia Moderate aortic regurgitation Moderate mitral regurgitation Previous TIAs -Cardiology following, appreciate further recommendations -Patient to remain on continuous Telemetry monitoring -Continue low intensity heparin infusion at 12 units/kg/hour with continued close monitoring of PTT to maintain a goal therapeutic range between 44 and 79 seconds. PTT currently therapeutic at 52.2. -Patient to continue daily medication regimen with valsartan 80 mg twice daily, Farxiga 10 mg daily, Coreg 6.25 mg twice daily, and aspirin 81 mg daily. -Continue Lasix 40 mg IVP every 12 hours. -Continue close monitoring of I's and O's and daily weights. -Echocardiogram revealed severe systolic dysfunction with EF of 25-30%. Obstructive sleep apnea -Order placed for patient to continue CPAP nightly and while napping. Hypothyroidism -Continue daily medication regimen with levothyroxine 100 g daily, Stage IIIa chronic kidney disease, stable and at baseline Data and imaging reviewed: Vital signs reviewed. Blood pressure 133/77, heart rate 60, respiratory rate 16, temp 97.8F, SpO2 93% on room air. Labs reviewed. CBC unremarkable. PTT therapeutic at 52.2. BMP revealing mild hyponatremia with sodium of 134, hypocarbia with bicarb of 21, and slight elevation of renal function with BUN of 34, creatinine 1.24, GFR of 39. CODE STATUS: Full code DVT prophylaxis: Heparin Discussed with: Patient and RN Anticipated discharge date: Clinical course to determine Anticipated discharge place: Home Patient was seen independently by Nurse Pracitioner. This document was prepared using [employer] dictation software. Please allow for errors in fuse coiler, while rare they do occur. Agustín Masterson NP rendered care for this patient independently, reviewed the findings and plan as documented in the note above. I did not physically speak with or examine the patient on this date. Objective - Vital Signs Vital signs: Vital Signs Temp 97.8 F 03/13/23 07:45 Pulse 60 03/13/23 07:46 Resp 16 03/13/23 07:46 BP 133/77 03/13/23 07:45 Pulse Ox 93 L 03/13/23 07:45 FiO2 Intake & Output 03/12/23 03/13/23 03/13/23 18:59 06:59 18:59 Intake Total 655.262 74.743 78.631 Output Total 1500 1725 Balance -844.738 -1650.257 78.631 Weight 71.1 kg 68.2 kg Intake: IV 10 Invasive Line 1 10 Intake, IV Titration 65.262 74.743 68.631 Amount Heparin Sod,Pork in 0.45% 65.262 74.743 68.631 NaCl 25,000 unit In 0.45 % NaCl 1 250ml.bag @ 12 UNITS/KG/HR 8.981 mls/hr IV .Q24H [facility] Rx#: [id number] Oral 590 Output: Urine 1500 1725 Other: # Voids 2 - Labs CBC & Chem 7: 03/13/23 10:47 03/13/23 10:47 Labs: Abnormal Lab Results - Last 24 Hours (Table) 03/12/23 03/12/23 03/12/23 Range/Units 08:15 12:22 17:11 APTT 31.3 H 37.9 H (22.0-30.0) sec Sodium 135 L (137-145) mmol/L Carbon Dioxide 21 L (22-30) mmol/L BUN 25 H (7-17) mg/dL Creatinine 1.05 H (0.52-1.04) mg/dL Total Protein 5.9 L (6.3-8.2) g/dL Albumin 3.2 L (3.5-5.0) g/dL 03/13/23 Range/Units 00:36 APTT 49.4 H (22.0-30.0) sec Sodium (137-145) mmol/L Carbon Dioxide (22-30) mmol/L BUN (7-17) mg/dL Creatinine (0.52-1.04) mg/dL Total Protein (6.3-8.2) g/dL Albumin (3.5-5.0) g/dL
--- NOTE | 2023-03-13 16:08 | P.PN ---
Subjective Progress Note Date: 03/13/23 SUBJECTIVE: Patient is seen and examined at bedside the same. He she is hemodynamics stable. Blood pressure 98/63, heart rate 64 beats minute. Hemoglobin 11, creatinine 1.2 On admission she had mildly elevated troponin 0.03, 0.03, 0.08 Echo Showed an EF of 25-30%, moderate aortic regurgitation PHYSICAL EXAMINATION Vital signs reviewed. Head: Normocephalic. Eyes: Sclerae nonicteric. Neck: Brisk carotid upstroke, no jugular venous distention. Lungs: Clear to auscultation. Heart: Regular rate and rhythm, S1-S2, diastolic murmur left sternal border. Abdomen: Soft nontender, positive bowel sounds no organomegaly. 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 EF 25-30% Moderate aortic insufficiency, moderate MR Paroxysmal atrial fibrillation Status post PPM next and hypertension excellent his lipidemia next line PLAN Continue IV heparin drip Continue aspirin, atorvastatin The IV Lasix after today's dose. Start torsemide 20 mg by mouth from tomorrow Discontinue losartan. Start Entresto bid Continue Farxiga Plan for heart catheterization Wednesday with Dr. Paulino Objective - Vital Signs Vital signs: Vital Signs Temp 98.0 F 03/13/23 15:53 Pulse 85 03/13/23 15:53 Resp 16 03/13/23 15:53 BP 125/79 03/13/23 15:53 Pulse Ox 96 03/13/23 15:53 FiO2 Intake & Output 03/12/23 03/13/23 03/13/23 18:59 06:59 18:59 Intake Total 655.262 74.743 88.631 Output Total 1500 1725 600 Balance -844.738 -1650.257 -511.369 Weight 71.1 kg 68.2 kg Intake: IV 20 Invasive Line 1 20 Intake, IV Titration 65.262 74.743 68.631 Amount Heparin Sod,Pork in 0.45% 65.262 74.743 68.631 NaCl 25,000 unit In 0.45 % NaCl 1 250ml.bag @ 12 UNITS/KG/HR 8.981 mls/hr IV .Q24H [facility] Rx#: [id number] Oral 590 Output: Urine 1500 1725 600 Other: # Voids 2 - Labs CBC & Chem 7: 03/13/23 10:47 03/13/23 10:47 Labs: Abnormal Lab Results - Last 24 Hours (Table) 03/12/23 03/13/23 03/13/23 Range/Units 17:11 00:36 10:47 Hct (34.0-46.0) % APTT 37.9 H 49.4 H (22.0-30.0) sec Sodium 134 L (137-145) mmol/L Carbon Dioxide 21 L (22-30) mmol/L BUN 34 H (7-17) mg/dL Creatinine 1.24 H (0.52-1.04) mg/dL Glucose 112 H (74-99) mg/dL 03/13/23 03/13/23 Range/Units 10:47 10:47 Hct 46.4 H (34.0-46.0) % APTT 52.2 H (22.0-30.0) sec Sodium (137-145) mmol/L Carbon Dioxide (22-30) mmol/L BUN (7-17) mg/dL Creatinine (0.52-1.04) mg/dL Glucose (74-99) mg/dL
[2023-03-13] MEDS: SODIUM CHLORIDE 0.9% 1,000 ML IV SCH (18:07)
[2023-03-13] MEDS: PRAVASTATIN SODIUM 40 MG TAB PO SCH (20:00)
[2023-03-13] MEDS: SACUBITRIL/VALSARTAN 24 MG-26 MG TABLET PO SCH (20:00)
[2023-03-14] MEDS: LEVOTHYROXINE 100 MCG TAB PO SCH (06:34)
[2023-03-14] MEDS: SACUBITRIL/VALSARTAN 24 MG-26 MG TABLET PO SCH ×2 (07:32→20:13)
[2023-03-14] MEDS: ASPIRIN 81 MG PO SCH (07:32)
[2023-03-14] MEDS: DOCUSATE 100 MG CAP PO SCH (07:33)
[2023-03-14] MEDS: DAPAGLIFLOZIN PROPANEDIOL 10 MG TABLET PO SCH (07:33)
[2023-03-14] MEDS: carvediloL 6.25 MG TAB PO SCH ×2 (07:33→20:13)
[2023-03-14] MEDS ORDERED: TORSEMIDE 20 MG TAB PO SCH (09:00)
[2023-03-14] MEDS: HEPARIN SOD,PORK IN 0.45% NACL 25,000 UNIT in 0.45% NACL 1 250ML.BAG IV SCH (10:02)
[2023-03-14 10:33] LABS: African American GFR (CKD) 28 (>60 ml/min/1.73 sqM); Anion Gap 14 mmol/L; Blood Urea Nitrogen 49 mg/dL (7-17); Carbon Dioxide 20 mmol/L (22-30); Chloride 102 mmol/L (98-107); Glucose 165 mg/dL (74-99); Magnesium 2.2 mg/dL (1.6-2.3); Non-African American GFR(CKD) 24 (>60 ml/min/1.73 sqM); Potassium 3.8 mmol/L (3.5-5.1); Sodium 136 mmol/L (137-145)
--- NOTE | 2023-03-14 11:31 | P.PN ---
Subjective Patient is seen for follow-up for chronic kidney disease NKF stage IIIa with baseline creatinine around 0.9-1 mg/dL. Patient is complaining of increased weakness today. Blood pressure is on the lower side. Patient also states that she is not able to void/empty bladder completely. Serum creatinine increased to 1.8 mg/dL today. There are plans for possible cardiac catheterization tomorrow. At this time given the significant worsening in renal function I would hold cardiac cath in a.m. unless absolutely indicated. Objective - Vital Signs Vital signs: Vital Signs Temp 98.6 F 03/14/23 07:29 Pulse 73 03/14/23 07:30 Resp 16 03/14/23 07:30 BP 111/70 03/14/23 07:29 Pulse Ox 95 03/14/23 07:29 FiO2 Intake & Output 03/13/23 03/14/23 03/14/23 18:59 06:59 18:59 Intake Total 88.631 20 440 Output Total 600 200 Balance -511.369 20 240 Intake: IV 20 20 10 Invasive Line 1 20 20 10 Intake, IV Titration 68.631 250 Amount Heparin Sod,Pork in 0.45% 68.631 250 NaCl 25,000 unit In 0.45 % NaCl 1 250ml.bag @ 12 UNITS/KG/HR 8.981 mls/hr IV .Q24H [facility] Rx#: [id number] Oral 180 Output: Urine 600 200 - Exam Patient is awake, comfortable, no acute distress Examination of the heart S1 and S2 Examination of the lungs bilateral breath sounds are heard Abdomen is soft nontender Examination of the lower extremities shows no evidence of edema PNEUMATIC TESTER exam grossly intact - Labs CBC & Chem 7: 03/13/23 10:47 03/14/23 07:28 Labs: Abnormal Lab Results - Last 24 Hours (Table) 03/13/23 03/13/23 03/13/23 Range/Units 10:47 10:47 10:47 Hct 46.4 H (34.0-46.0) % APTT 52.2 H (22.0-30.0) sec Sodium 134 L (137-145) mmol/L Carbon Dioxide 21 L (22-30) mmol/L BUN 34 H (7-17) mg/dL Creatinine 1.24 H (0.52-1.04) mg/dL Glucose 112 H (74-99) mg/dL 03/14/23 03/14/23 Range/Units 07:28 07:28 Hct (34.0-46.0) % APTT 60.8 H (22.0-30.0) sec Sodium 136 L (137-145) mmol/L Carbon Dioxide 20 L (22-30) mmol/L BUN 49 H (7-17) mg/dL Creatinine 1.86 H (0.52-1.04) mg/dL Glucose 165 H (74-99) mg/dL Assessment and Plan Assessment: 1. Chronic kidney disease NKF stage III secondary to nephrosclerosis and history of acute interstitial nephritis status post prednisone many years ago. 2. Chest pain rule out cardiac ischemia. Troponins at 0.061. Patient is being followed by cardiology. Awaiting records from outside facility. 3. Hypertension with CK D stage IIIa 4. Mild volume overload maintained on IV Lasix 5. Cardiomyopathy with EF of 25-30% maintained on farxiga and ARBs 6. Acute kidney injury, multifactorial including some degree of hypoperfusion in the setting of use of ARBs and SGLT2 i as well as diuresis. Plan: Hold diuretics Hold for farxiga Recommend to hold cardiac catheterization in a.m. given the significant worsening in renal function. We can possibly proceed with it on 05/16/2023 Repeat labs in a.m. Check orthostatics Check post void residual
--- NOTE | 2023-03-14 14:17 | P.PN ---
Subjective Progress Note Date: 03/14/23 Hospital course: Patient is a very pleasant 87-year-old female with a past medical history of paroxysmal atrial fibrillation status post pacemaker placement on anticoagulation with Eliquis, HFrEFwith EF of 30%,, hypertension, hyperlipidemia, GERD, hypothyroidism, stage IIIa CKD, obstructive sleep apnea CPAP dependent nightly, macular degeneration, and previous TIAs. She presented to the emergency department with a chief complaint of chest pain. Patient reports progressively worsening chest pain 1 month progressively worsening. She underwent full evaluation in the emergency department. CBC and coagulation profile were unremarkable. BMP showing mild hypocarbia with bicarb of 21 and renal function consistent with stage III chronic kidney disease with BUN of 28, creatinine of 1.05, and GFR 48 with baseline creatinine of 1.0. Liver profile unremarkable. Magnesium normal findings at 2.1. Troponin was elevated at 0.038. EKG revealing a ventricular paced rhythm at 69 bpm upon personal review and interpretation. Chest x-ray completed in radiology report reviewed stating no evidence for acute cardiopulmonary process. Outpatient Echocardiogram completed September 2022 revealed severely reduced EF of 30% with global left ventricular hypokinesis, dilated left atrium, moderate aortic regurgitation, and moderate mitral regurgitation. Patient admitted under our services with consultation to cardiology. Physical exam: Patient was seen and fully evaluated at bedside this morning. Currently patient denies having any complaints including headache, lightheadedness, dizziness, chest pain, palpitations, or shortness of breath. She remains on IV heparin. Vital signs reviewed and stable. General: Nontoxic, no distress and appears stated age. Derm: Skin warm and dry, normal coloration for ethnicity. Head: Atraumatic, normocephalic and symmetric. Eyes: EOMs intact, no lid lag, and anicteric sclera Mouth: no lip lesions, mucus membranes moist Cardiovascular: regular rate and rhythm with normal S1S2, systolic murmur, positive posterior tibial pulses bilaterally, and cap refill < 2 seconds. Lungs: Respirations even, regular, and unlabored on room air. Lungs CTA bilaterally, no rhonchi, no rales, no wheezing, and no accessory muscle usage. Abdominal: soft, nontender to palpation, no guarding, no appreciable organomegaly Ext: ROM intact. No gross muscle atrophy, no edema, no contractures Neuro: Speech clear, face symmetrical and CN II-XII grossly intact with no noted focal neuro deficits Psych: Alert and oriented to person, place, time, and situation. Appropriate and pleasant affect. Assessment and Plan of Care: Acute on chronic HFrEF with EF of 25-30% Elevated troponins Acute kidney injury on stage IIIa chronic kidney disease Paroxysmal atrial fibrillation status post pacemaker placement Hypertension Hyperlipidemia Moderate aortic regurgitation Moderate mitral regurgitation Previous TIAs -Cardiology following, patient was initially scheduled for cardiac cath tomorrow morning, however secondary to acute kidney injury, nephrology recommending holding cardiac cath tommor morning unless absolutely indicated. recommending continuation of heparin infusion and discontinuing valsartan and starting patient on Entresto 24/26 mg tablets twice daily. -Nephrology following for acute kidney injury recommending to hold off on cardiac cath and hold diuretics and Farxiga. -Patient to remain on continuous Telemetry monitoring -Continue low intensity heparin infusion at 12 units/kg/hour with continued close monitoring of PTT to maintain a goal therapeutic range between 44 and 79 seconds. PTT is therapeutic at 60.8 -Patient to continue daily medication regimen with Entresto 24/26 mg tablets twice daily, Coreg 6.25 mg twice daily, and aspirin 81 mg daily. -Continue close monitoring of I's and O's and daily weights. -Echocardiogram revealed severe systolic dysfunction with EF of 25-30%. Obstructive sleep apnea -Continue CPAP nightly and while napping. Hypothyroidism -Continue daily medication regimen with levothyroxine 100 g daily, Data and imaging reviewed: Vital signs reviewed. Blood pressure 111/70, heart rate 73, respiratory rate 16, temp 98.6 to be chronic, and SpO2 of 95% on room air. Labs reviewed. PTT is therapeutic at 60.8. BMP revealing worsening renal function with BUN of 49, creatinine 1.86, and GFR of 24, patient was started on Entresto yesterday and discussed with cardiology and instructed to hold diuretics and Farxiga and continue with Entresto at this time. Nephrology following as well. CODE STATUS: Full code DVT prophylaxis: Heparin Discussed with: Patient, Change Management Administrator and RN Anticipated discharge date: Clinical course to determine Anticipated discharge place: Home Patient was seen independently by Nurse Pracitioner. This document was prepared using [employer] dictation software. Please allow for errors in associate brand manager, while rare they do occur. Agustín Masterson NP rendered care for this patient independently, reviewed the findings and plan as documented in the note above. I did not physically speak with or examine the patient on this date. Objective - Vital Signs Vital signs: Vital Signs Temp 98.6 F 03/14/23 07:29 Pulse 73 03/14/23 07:30 Resp 16 03/14/23 07:30 BP 111/70 03/14/23 07:29 Pulse Ox 95 03/14/23 07:29 FiO2 Intake & Output 03/13/23 03/14/23 03/14/23 18:59 06:59 18:59 Intake Total 88.631 20 10 Output Total 600 Balance -511.369 20 10 Intake: IV 20 20 10 Invasive Line 1 20 20 10 Intake, IV Titration 68.631 Amount Heparin Sod,Pork in 0.45% 68.631 NaCl 25,000 unit In 0.45 % NaCl 1 250ml.bag @ 12 UNITS/KG/HR 8.981 mls/hr IV .Q[facility]H [facility] Rx#: [id number] Output: Urine 600 - Labs CBC & Chem 7: 03/13/23 10:47 03/14/23 07:28 Labs: Abnormal Lab Results - Last 24 Hours (Table) 03/13/23 03/13/23 03/13/23 Range/Units 10:47 10:47 10:47 Hct 46.4 H (34.0-46.0) % APTT 52.2 H (22.0-30.0) sec Sodium 134 L (137-145) mmol/L Carbon Dioxide 21 L (22-30) mmol/L BUN 34 H (7-17) mg/dL Creatinine 1.24 H (0.52-1.04) mg/dL Glucose 112 H (74-99) mg/dL 03/14/23 Range/Units 07:28 Hct (34.0-46.0) % APTT 60.8 H (22.0-30.0) sec Sodium (137-145) mmol/L Carbon Dioxide (22-30) mmol/L BUN (7-17) mg/dL Creatinine (0.52-1.04) mg/dL Glucose (74-99) mg/dL
[2023-03-14] MEDS: SODIUM CHLORIDE 0.9% 1,000 ML IV SCH (17:16)
--- NOTE | 2023-03-14 19:06 | P.PN ---
Subjective Progress Note Date: 03/14/23 SUBJECTIVE: Patient is seen and examined at bedside the same. He she is hemodynamics stable. BBP 127/78, heart rate 70 beats a minute Lab shows creatinine of 1.86. Yesterday it was 1.24 On admission she had mildly elevated troponin 0.03, 0.03, 0.08 Echo Showed an EF of 25-30%, moderate aortic regurgitation PHYSICAL EXAMINATION Vital signs reviewed. Head: Normocephalic. Eyes: Sclerae nonicteric. Neck: Brisk carotid upstroke, no jugular venous distention. Lungs: Clear to auscultation. Heart: Regular rate and rhythm, S1-S2, diastolic murmur left sternal border. Abdomen: Soft nontender, positive bowel sounds no organomegaly. 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 EF 25-30% Moderate aortic insufficiency, moderate MR Paroxysmal atrial fibrillation Status post PPM next and hypertension excellent his lipidemia next line PLAN Discontinue IV heparin drip as she is completed 48 hours Continue aspirin, atorvastatin Hold diuretics and Farxiga due to worsening kidney function Continue interest 24/26 mg twice a day Due to worsening creatinine function, we will defer cardiac catheterization until kidney function improves. Cardiac cath with Dr. Paulino once kidney function is better Objective - Vital Signs Vital signs: Vital Signs Temp 97.3 F L 03/14/23 15:06 Pulse 63 03/14/23 15:06 Resp 16 03/14/23 15:06 BP 94/59 03/14/23 15:06 Pulse Ox 94 L 03/14/23 15:06 FiO2 Intake & Output 03/14/23 03/14/23 03/15/23 06:59 18:59 06:59 Intake Total 20 630 Output Total 500 Balance 20 130 Intake: IV 20 20 Invasive Line 1 20 20 Intake, IV Titration 250 Amount Heparin Sod,Pork in 0.45% 250 NaCl 25,000 unit In 0.45 % NaCl 1 250ml.bag @ 12 UNITS/KG/HR 8.981 mls/hr IV .Q24H [facility] Rx#: [id number] Oral 360 Output: Urine 500 - Labs CBC & Chem 7: 03/13/23 10:47 03/14/23 07:28 Labs: Abnormal Lab Results - Last 24 Hours (Table) 03/14/23 03/14/23 Range/Units 07:28 07:28 APTT 60.8 H (22.0-30.0) sec Sodium 136 L (137-145) mmol/L Carbon Dioxide 20 L (22-30) mmol/L BUN 49 H (7-17) mg/dL Creatinine 1.86 H (0.52-1.04) mg/dL Glucose 165 H (74-99) mg/dL
[2023-03-14] MEDS: PRAVASTATIN SODIUM 40 MG TAB PO SCH (20:13)
[2023-03-15] MEDS: LEVOTHYROXINE 100 MCG TAB PO SCH (06:07)
[2023-03-15 08:24] LABS: HCT 47.6 % (34.0-46.0); HGB 15.1 gm/dL (11.4-16.0); MCH 30.2 pg (25.0-35.0); MCHC 31.8 g/dL (31.0-37.0); Mean Platelet Volume 8.2; Platelet Count 187 k/uL (150-450); RBC 5.01 m/uL (3.80-5.40); RDW 14.6 % (11.5-15.5); WBC 8.9 k/uL (3.8-10.6)
[2023-03-15 08:31] LABS: ALT 11 U/L (4-34); AST 23 U/L (14-36); African American GFR (CKD) 30 (>60 ml/min/1.73 sqM); Albumin 3.6 g/dL (3.5-5.0); Alkaline Phosphatase 47 U/L (38-126); Anion Gap 11 mmol/L; Blood Urea Nitrogen 52 mg/dL (7-17); Calcium 8.8 mg/dL (8.4-10.2); Carbon Dioxide 22 mmol/L (22-30); Chloride 102 mmol/L (98-107); Glucose 110 mg/dL (74-99); Magnesium 2.4 mg/dL (1.6-2.3); Non-African American GFR(CKD) 26 (>60 ml/min/1.73 sqM); Potassium 3.9 mmol/L (3.5-5.1); Sodium 135 mmol/L (137-145); Total Bilirubin 0.7 mg/dL (0.2-1.3); Total Protein 6.4 g/dL (6.3-8.2)
[2023-03-15] MEDS: DOCUSATE 100 MG CAP PO SCH (09:13)
[2023-03-15] MEDS: ASPIRIN 81 MG PO SCH (09:13)
[2023-03-15] MEDS: carvediloL 6.25 MG TAB PO SCH (10:13)
[2023-03-15] MEDS: SACUBITRIL/VALSARTAN 24 MG-26 MG TABLET PO SCH (10:14)
--- NOTE | 2023-03-15 10:31 | P.PN ---
Subjective Progress Note Date: 03/15/23 SUBJECTIVE: Patient is seen and examined at bedside the same. He she is hemodynamics stable. BBP 127/78, heart rate 70 beats a minute Lab shows creatinine of 1.86. Yesterday it was 1.24 On admission she had mildly elevated troponin 0.03, 0.03, 0.08 Echo Showed an EF of 25-30%, moderate aortic regurgitation 03/15 Patient is seen today in follow-up. Blood pressure 129/81, heart rate is in the 70s and 80s, pulse ox 92% on 3 L and patient is afebrile. Telemetry is sinus rhythm. She states she has a tiny bit of chest pain that comes ang goes but in general is feeling much better. Discussed option of stress test tomorrow if renal function remains abnormal. PHYSICAL EXAMINATION Vital signs reviewed. Head: Normocephalic. Eyes: Sclerae nonicteric. Neck: Brisk carotid upstroke, no jugular venous distention. Lungs: Clear to auscultation. Heart: Regular rate and rhythm, S1-S2, diastolic murmur left sternal border. Abdomen: Soft nontender, positive bowel sounds no organomegaly. 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 EF 25-30% Moderate aortic insufficiency, moderate MR Paroxysmal atrial fibrillation Status post PPM next and hypertension excellent his lipidemia next line PLAN Continue aspirin, atorvastatin Hold diuretics and Farxiga due to worsening kidney function Entresto discontinued by nephrology due to kidney failure Coreg discontinued by nephrology due to hypotension Due to worsening creatinine function, we will defer cardiac catheterization until kidney function improves. Cardiac cath with Dr. Paulino once kidney function is better or possible stress test tomorrow. NPO after midnight. Nurse practitioner note has been reviewed, I agree with the documented findings and plan of care. Patient was seen and examined. Objective - Vital Signs Vital signs: Vital Signs Temp 97.8 F 03/15/23 04:00 Pulse 70 03/15/23 04:00 Resp 17 03/15/23 04:00 BP 116/66 03/15/23 04:00 Pulse Ox 95 03/15/23 04:00 FiO2 Intake & Output 03/14/23 03/15/23 03/15/23 18:59 06:59 18:59 Intake Total 630 Output Total 500 Balance 130 Weight 68.9 kg Intake: IV 20 Invasive Line 1 20 Intake, IV Titration 250 Amount Heparin Sod,Pork in 0.45% 250 NaCl 25,000 unit In 0.45 % NaCl 1 250ml.bag @ 12 UNITS/KG/HR 8.981 mls/hr IV .Q24H [facility] Rx#: [id number] Oral 360 Output: Urine 500 - Labs CBC & Chem 7: 03/15/23 07:12 03/15/23 07:12 Labs: Abnormal Lab Results - Last 24 Hours (Table) 03/14/23 03/14/23 Range/Units 07:28 07:28 APTT 60.8 H (22.0-30.0) sec Sodium 136 L (137-145) mmol/L Carbon Dioxide 20 L (22-30) mmol/L BUN 49 H (7-17) mg/dL Creatinine 1.86 H (0.52-1.04) mg/dL Glucose 165 H (74-99) mg/dL
[2023-03-15] MEDS: SODIUM CHLORIDE 0.9% 1,000 ML IV SCH (15:31)
--- NOTE | 2023-03-15 16:01 | P.PN ---
Subjective Progress Note Date: 03/15/23 (delayed charting seen at 1015) Patient is an 87-year-old female with known paroxysmal atrial fibrillation status post pacemaker on anticoagulation with Eliquis, HFrEF with ejection fraction 30%, hypertension, dyslipidemia, GERD, chronic kidney disease stage III, and multiple other comorbid conditions who presented to the emergency department with complaints of chest pain. The ER she underwent an extensive evaluation. Her initial troponin was 0.038, and EKG showed no signs of acute ischemia. She was subsequently admitted for further monitoring. Cardiology was consulted. Repeat echocardiogram showed worsening of her ejection fraction at 25-30% and plans were made for cardiac catheterization, unfortunately her creatinine began to increase necessitating nephrology consultation. Patient seen and examined at bedside with daughter present. She denies any chest pain, shortness breath, nausea, vomiting. She states her lower study edema is better than usual. Daughter reports her breathing is much better than at presentation. Vital signs reviewed General: [nontoxic], [no distress], [appears at stated age] Cardiovascular: [S1S2 reg], [no murmur], [positive posterior tibial pulse bilateral], Lungs: [CTA bilateral], [no rhonchi, no rales] , [no accessory muscle use] Abdominal: [soft], [ nontender to palpation], [no guarding], [no appreciable organomegaly] Ext: [no gross muscle atrophy], [trace edema b/l lower extremities], [no contractures] Neuro: [ CN II-XI grossly intact], [no focal neuro deficits] Psych: [Alert], [oriented], [appropriate affect] Assessment/Plan: Acute on chronic HFrEF with EF of 25-30% CHest Pain with elevated troponin Acute kidney injury on chronic kidney disease stage IIIa Paroxysmal atrial fibrillation status post pacemaker placement-- eliquis on hold pending cath Hypertension hx with decrease BP this morning. Hyperlipidemia - case discussed with cardio- stress test if unable to have cath in AM due to renal disfucntion, they agree with discontinuing entresto and will d/c coreg as well due to low BP - Nephrology note reviewed from 03/14: Hold off on cath until renal function stabilizes, cold Farxiga and diuretics, check orthostatics, check post-void residual - Pravachol 40 mg oral at night and aspirin 81 mg daily. - Strict I's and O's and daily weights. -Echocardiogram revealed severe systolic dysfunction with EF of 25-30%. - completed heparin gtt Obstructive sleep apnea -Continue CPAP with sleeping Hypothyroidism - levothyroxine 100 g daily, Imaging: None new Data Review: Labs reviewed included CBC, basic metabolic profile for sodium 135, BUN 52, creatinine 1.73, glucose of 110 DVT prophylaxis: Lovenox Anticipated discharge date: 24-[address]: Home This dictation was prepared using [employer] voice recognition software. Though every attempt is made to correct errors during dictation some may still exist. Objective - Vital Signs Vital signs: Vital Signs Temp 97.5 F L 03/15/23 15:30 Pulse 65 03/15/23 15:30 Resp 17 03/15/23 15:30 BP 117/77 03/15/23 15:30 Pulse Ox 95 03/15/23 15:30 FiO2 Intake & Output 03/14/23 03/15/23 03/15/23 18:59 06:59 18:59 Intake Total 630 360 Output Total 500 Balance 130 360 Weight 68.9 kg Intake: IV 20 Invasive Line 1 20 Intake, IV Titration 250 Amount Heparin Sod,Pork in 0.45% 250 NaCl 25,000 unit In 0.45 % NaCl 1 250ml.bag @ 12 UNITS/KG/HR 8.981 mls/hr IV .Q24H [facility] Rx#: [id number] Oral 360 360 Output: Urine 500 - Labs CBC & Chem 7: 03/15/23 07:12 03/15/23 07:12 Labs: Abnormal Lab Results - Last 24 Hours (Table) 03/15/23 03/15/23 Range/Units 07:12 07:12 Hct 47.6 H (34.0-46.0) % Sodium 135 L (137-145) mmol/L BUN 52 H (7-17) mg/dL Creatinine 1.73 H (0.52-1.04) mg/dL Glucose 110 H (74-99) mg/dL Magnesium 2.4 H (1.6-2.3) mg/dL
[2023-03-15] MEDS: PRAVASTATIN SODIUM 40 MG TAB PO SCH (20:01)
[2023-03-16] MEDS: LEVOTHYROXINE 100 MCG TAB PO SCH (05:51)
[2023-03-16] MEDS ORDERED: CAFFEINE CITRATE 60 MG/3 ML VIAL IV PRN (07:01)
[2023-03-16] MEDS ORDERED: AMINOPHYLLINE 500 MG/20 ML VIAL IV PRN (07:01)
[2023-03-16] MEDS ORDERED: REGADENOSON 0.4 MG/5 ML SYRINGE IV PRN (07:01)
[2023-03-16] MEDS: ENOXAPARIN 30 MG/0.3 ML SYRINGE SQ SCH (08:15)
[2023-03-16] MEDS: DOCUSATE 100 MG CAP PO SCH (08:15)
[2023-03-16] MEDS: ASPIRIN 81 MG PO SCH (08:15)
[2023-03-16 08:59] LABS: HCT 42.8 % (34.0-46.0); HGB 13.9 gm/dL (11.4-16.0); MCH 30.9 pg (25.0-35.0); MCHC 32.5 g/dL (31.0-37.0); MCV 94.9 fL (80.0-100.0); Mean Platelet Volume 8.3; Platelet Count 173 k/uL (150-450); RDW 14.6 % (11.5-15.5); WBC 7.2 k/uL (3.8-10.6)
[2023-03-16] MEDS ORDERED: ENOXAPARIN 40 MG/0.4 ML SYRINGE SQ SCH (09:00)
[2023-03-16 09:08] LABS: African American GFR (CKD) 35 (>60 ml/min/1.73 sqM); Anion Gap 8 mmol/L; Blood Urea Nitrogen 49 mg/dL (7-17); Calcium 8.4 mg/dL (8.4-10.2); Carbon Dioxide 24 mmol/L (22-30); Chloride 103 mmol/L (98-107); Glucose 97 mg/dL (74-99); Non-African American GFR(CKD) 30 (>60 ml/min/1.73 sqM); Potassium 3.6 mmol/L (3.5-5.1); Sodium 135 mmol/L (137-145)
--- NOTE | 2023-03-16 11:11 | P.PN ---
Subjective Patient is seen for follow-up for chronic kidney disease NKF stage IIIa with baseline creatinine around 0.9-1 mg/dL. Patient refused a stress test as she has had 2 previous bad experiences with episodes of syncope. Renal function continues to improve with serum creatinine down to 1.5 today. No significant complaints today. Objective - Vital Signs Vital signs: Vital Signs Temp 98 F 03/16/23 08:08 Pulse 78 03/16/23 08:08 Resp 15 03/16/23 08:08 BP 151/82 03/16/23 08:08 Pulse Ox 95 03/16/23 08:08 FiO2 Intake & Output 03/15/23 03/16/23 03/16/23 18:59 06:59 18:59 Intake Total 540 Balance 540 Weight 69.7 kg Intake: Oral 540 - Exam Patient is awake, comfortable, no acute distress Examination of the lower extremities shows no evidence of edema BUSINESS OBJECTS ARCHITECT exam grossly intact - Labs CBC & Chem 7: 03/16/23 06:44 03/16/23 06:44 Labs: Abnormal Lab Results - Last 24 Hours (Table) 03/16/23 Range/Units 06:44 Sodium 135 L (137-145) mmol/L BUN 49 H (7-17) mg/dL Creatinine 1.52 H (0.52-1.04) mg/dL Assessment and Plan Assessment: 1. Chronic kidney disease NKF stage III secondary to nephrosclerosis and history of acute interstitial nephritis status post prednisone many years ago. Baseline creatinine around 0.9-1 mg/dL 2. Chest pain rule out cardiac ischemia. Troponins at 0.061. Patient is being followed by cardiology. Awaiting records from outside facility. 3. Hypertension with CK D stage IIIa 4. Mild volume overload maintained on IV Lasix 5. Cardiomyopathy with EF of 25-30% entresto and farxiga on hold due to low BP and DARIAN 6. Acute kidney injury, multifactorial including some degree of hypoperfusion in the setting of use of ARBs and SGLT2 i as well as diuresis. Currently improving
--- NOTE | 2023-03-16 12:13 | P.PN ---
Subjective Progress Note Date: 03/16/23 SUBJECTIVE: Patient is seen and examined at bedside the same. He she is hemodynamics stable. BBP 127/78, heart rate 70 beats a minute Lab shows creatinine of 1.86. Yesterday it was 1.24 On admission she had mildly elevated troponin 0.03, 0.03, 0.08 Echo Showed an EF of 25-30%, moderate aortic regurgitation 03/15 Patient is seen today in follow-up. Blood pressure 129/81, heart rate is in the 70s and 80s, pulse ox 92% on 3 L and patient is afebrile. Telemetry is sinus rhythm. She states she has a tiny bit of chest pain that comes ang goes but in general is feeling much better. Discussed option of stress test tomorrow if renal function remains abnormal. 03/16 Repeat Creat 1.52. Patient was scheduled for Anabelle stress test but refused as she remembers having a bad reaction in the past with a stress test. BP 116/68, HR 69-70s, PO 96%. Patient states she still gets a little chest discomfort with activity. PHYSICAL EXAMINATION Vital signs reviewed. Head: Normocephalic. Eyes: Sclerae nonicteric. Neck: Brisk carotid upstroke, no jugular venous distention. Lungs: Clear to auscultation. Heart: Regular rate and rhythm, S1-S2, diastolic murmur left sternal border. Abdomen: Soft nontender, positive bowel sounds no organomegaly. 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 EF 25-30% Moderate aortic insufficiency, moderate MR Paroxysmal atrial fibrillation Status post PPM next and hypertension excellent his lipidemia next line PLAN Continue aspirin, atorvastatin Hold diuretics and Farxiga due to worsening kidney function Entresto discontinued by nephrology due to kidney failure Coreg discontinued by nephrology due to hypotension Cardiac cath with Dr. Paulino once kidney function is improved possibly tomorrow. NPO after midnight. Nurse practitioner note has been reviewed, I agree with the documented findings and plan of care. Patient was seen and examined. Objective - Vital Signs Vital signs: Vital Signs Temp 98 F 03/16/23 08:08 Pulse 78 03/16/23 08:08 Resp 15 03/16/23 08:08 BP 151/82 03/16/23 08:08 Pulse Ox 95 03/16/23 08:08 FiO2 Intake & Output 03/15/23 03/16/23 03/16/23 18:59 06:59 18:59 Intake Total 540 Balance 540 Weight 69.7 kg Intake: Oral 540 - Labs CBC & Chem 7: 03/16/23 06:44 03/16/23 06:44 Labs: Abnormal Lab Results - Last 24 Hours (Table) 03/16/23 Range/Units 06:44 Sodium 135 L (137-145) mmol/L BUN 49 H (7-17) mg/dL Creatinine 1.52 H (0.52-1.04) mg/dL
[2023-03-16] MEDS ORDERED: bisacodyL 10 MG SUPP RECTAL STA (16:34)
--- NOTE | 2023-03-16 19:31 | P.PN ---
Subjective Progress Note Date: 03/16/23 (delayed charting seen at 1110) Patient is an 87-year-old female with known paroxysmal atrial fibrillation status post pacemaker on anticoagulation with Eliquis, HFrEF with ejection fraction 30%, hypertension, dyslipidemia, GERD, chronic kidney disease stage III, and multiple other comorbid conditions who presented to the emergency department with complaints of chest pain. The ER she underwent an extensive evaluation. Her initial troponin was 0.038, and EKG showed no signs of acute ischemia. She was subsequently admitted for further monitoring. Cardiology was consulted. Repeat echocardiogram showed worsening of her ejection fraction at 25-30% and plans were made for cardiac catheterization, unfortunately her creatinine began to increase necessitating nephrology consultation. Patient seen and examined at bedside with daughter present. Her hearing aids are wet and currently not working. She denies any chest pain or shortness of breath. Plan is for cardiac cath in AM. Vital signs reviewed General: nontoxic, no distress, appears at stated age, [id number] Cardiovascular: S1S2 reg, no murmur, positive posterior tibial pulse bilateral, Lungs: CTA bilateral, no rhonchi, no rales , no accessory muscle use Abdominal: soft, nontender to palpation, no guarding, no appreciable organomegaly Ext: no gross muscle atrophy, trace edema b/l lower extremities, no contractures Neuro: CN II-XI grossly intact, no focal neuro deficits Psych: Alert, oriented, appropriate affect Assessment/Plan: Acute on chronic HFrEF with EF of 25-30% Chest Pain with elevated troponin Acute kidney injury on chronic kidney disease stage IIIa Paroxysmal atrial fibrillation status post pacemaker placement-- eliquis on hold pending cath Hypertension hx with decrease BP this morning. Hyperlipidemia -Nephrology note reviewed: Renal function improving, Entresto restarted -Cardiology note reviewed: Cardiac cath with Dr. Paulino possibly tomorrow if renal function continues to improve -Start low-dose IV fluids at 0.9 normal saline 50 mL/h at 2300 in anticipation of possible cardiac catheterization - Pravachol 40 mg oral at night and aspirin 81 mg daily. - Strict I's and O's and daily weights. - completed heparin gtt Constipation - dulcolax 10 gm ID X 1 now Obstructive sleep apnea -Continue CPAP with sleeping Hypothyroidism - levothyroxine 100 g daily, Imaging: None new Data Review: Lab report reviewed from today includes CBC and basic metabolic profile which are remarkable for sodium 135, creatinine 1.52 (down from 1.73), BUN of 49. DVT prophylaxis: Lovenox Anticipated discharge date: 24-[address]: Home This dictation was prepared using [employer] voice recognition software. Though every attempt is made to correct errors during dictation some may still exist. Objective - Vital Signs Vital signs: Vital Signs Temp 97.6 F 03/16/23 16:45 Pulse 68 03/16/23 16:45 Resp 18 03/16/23 16:45 BP 129/68 03/16/23 16:45 Pulse Ox 95 03/16/23 16:45 FiO2 Intake & Output 03/16/23 03/16/23 03/17/23 06:59 18:59 06:59 Intake Total 730 Balance 730 Weight 69.7 kg Intake: IV 10 Invasive Line 2 10 Oral 720 - Labs CBC & Chem 7: 03/16/23 06:44 03/16/23 06:44 Labs: Abnormal Lab Results - Last 24 Hours (Table) 03/16/23 Range/Units 06:44 Sodium 135 L (137-145) mmol/L BUN 49 H (7-17) mg/dL Creatinine 1.52 H (0.52-1.04) mg/dL
[2023-03-16] MEDS: SACUBITRIL/VALSARTAN 24 MG-26 MG TABLET PO SCH (20:13)
[2023-03-16] MEDS: PRAVASTATIN SODIUM 40 MG TAB PO SCH (20:13)
[2023-03-16] MEDS ORDERED: SODIUM CHLORIDE 0.9% 1,000 ML IV SCH (23:00)
[2023-03-17] MEDS: LEVOTHYROXINE 100 MCG TAB PO SCH (06:01)
[2023-03-17] MEDS: ENOXAPARIN 30 MG/0.3 ML SYRINGE SQ SCH (08:37)
[2023-03-17] MEDS: DOCUSATE 100 MG CAP PO SCH (08:37)
[2023-03-17] MEDS: ASPIRIN 81 MG PO SCH (08:37)
[2023-03-17] MEDS: SACUBITRIL/VALSARTAN 24 MG-26 MG TABLET PO SCH ×2 (08:37→20:31)
[2023-03-17 10:19] LABS: African American GFR (CKD) 43 (>60 ml/min/1.73 sqM); Anion Gap 12 mmol/L; Blood Urea Nitrogen 39 mg/dL (7-17); Carbon Dioxide 13 mmol/L (22-30); Chloride 110 mmol/L (98-107); Glucose 119 mg/dL (74-99); Non-African American GFR(CKD) 37 (>60 ml/min/1.73 sqM); Sodium 135 mmol/L (137-145)
[2023-03-17 10:20] LABS: Glucose,Whole Blood 100 mg/dL (70-110)
[2023-03-17 10:31] LABS: Potassium 4.6 mmol/L (3.5-5.1)
[2023-03-17] MEDS ORDERED: ATORVASTATIN 80 MG TAB PO STA (10:48)
[2023-03-17] MEDS ORDERED: ASPIRIN 325 MG TAB PO STA (10:48)
[2023-03-17] MEDS ORDERED: ALPRAZolam 0.5 MG TAB PO PRN (10:48)
[2023-03-17] MEDS ORDERED: ALPRAZolam 0.25 MG TAB PO PRN (10:48)
[2023-03-17] MEDS ORDERED: NITROGLYCERIN SL TABS 0.4 MG TAB SUBLINGUAL PRN (10:48)
[2023-03-17] MEDS ORDERED: ASPIRIN 81 MG PO STA (11:04)
[2023-03-17] MEDS ORDERED: VERAPAMIL 2.5 MG/ML 2 ML AMP ONE (11:47)
[2023-03-17] MEDS ORDERED: fentaNYL (PF) 50 MCG/ML 2 ML AMP ONE (11:47)
[2023-03-17] MEDS ORDERED: methylPREDNISolone SOD SUCCI 125 MG/2 ML VIAL ONE (12:10)
[2023-03-17] MEDS ORDERED: fentaNYL (PF) 50 MCG/ML 2 ML AMP IVP ONE (12:16)
[2023-03-17] MEDS ORDERED: methylPREDNISolone SOD SUCCI 125 MG/2 ML VIAL IVP ONE (12:16)
[2023-03-17] MEDS ORDERED: IV FLUID CONTINUATION 950 ML IV ONE (12:17)
[2023-03-17] MEDS ORDERED: LIDOCAINE 1% INJ 10MG/ML (5 ML VIAL-PF) SQ ONE (12:18)
[2023-03-17] MEDS ORDERED: HEPARIN SODIUM 1,000 UN/ML (10ML VL) ONE (12:19)
[2023-03-17] MEDS ORDERED: VERAPAMIL SYRINGE (5 MG/10 ML) INTRAARTER ONE (12:20)
[2023-03-17] MEDS ORDERED: MIDAZOLAM 2 MG/2 ML VIAL IVP ONE (12:20)
[2023-03-17] MEDS ORDERED: HEPARIN SODIUM 1,000 UN/ML (10ML VL) IVP ONE (12:27)
[2023-03-17] MEDS ORDERED: IOPAMIDOL-300 50ML BTL INJ ONE (12:30)
[2023-03-17] MEDS ORDERED: RX INFO: IV CONTRAST WAS GIVEN 1 EACH MISC MISCELLANE PRN (12:48)
--- NOTE | 2023-03-17 12:55 | P.CARDCATH ---
Date of Procedure: 03/17/23 Description of Procedure: Cardiac Catheterization: The patient is an 87-year-old female with a history of hypertension, hyperlipidemia who recently had evidence of worsening LV function and presented with CHF and mild troponin elevation. She had mild worsening in the renal functions after diuresis that improved gradually. Recommendations were made regarding cardiac catheterization, the risks and the complications were discussed with the patient who is in full understanding and agreement. 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 Using Xylocaine Anesthesia and modified Seldinger technique, a 6-Libyan sheath was introduced in the right radial artery . Subsequently, selective coronary angiography was performed using a 5-Libyan 3.5 bend Curtis catheter. Multiple views of the coronary artery including hemiaxial views were obtained. The 5-Libyan pigtail catheter was used to cross the aortic valve and LVEDP was calculated. Following that, catheter and sheath were remov ed. Hemostasis was obtained with deployment of vascular band . There was no immediate complication. Patient was returned to room in stable condition. Of note, the patient received a total of 3500 units of intravenous heparin as well as intra-arterial verapamil. Findings: Fluoroscopy: Significant calcification of the LAD was noted Left main: This is a large size vessel, bifurcating into LAD and left circumflex, left main has no obstructive disease LAD: This is a large size vessel, reaching to the apex with a wraparound the apex segment giving rise to a large diagonal branch. In the mid segment of the LAD there is a 20-30% plaque with mild aneurysmal formation after the diagonal branch takeoff, there is no significant progression compared to 2013 Left circumflex: This is a nondominant vessel, giving rise to 2 large obtuse marginal branch, the left circumflex has no obstructive disease RCA: This is a large vessel, bifurcating distally into PDA and PLV. The right coronary artery and its branches have no obstructive disease Left Ventriculogram: Not performed Hemodynamics: There was no gradient across the aortic valve, LVEDP was 12-16 mmHg Conclusion: 1. Calcified coronary arteries 2. Mild disease in the mid LAD with no progression compared to 2013 3. Right dominance 4. Normal LVEDP Recommendations: The patient cardiomyopathy appears to be nonischemic, I would maximize her medical therapy and depending on her renal functions further adjustment will be made. The findings and the recommendations were discussed with the patient and the family and they were in full understanding and agreement. Duration of sedation is 16 minutes.
[2023-03-17] MEDS: SODIUM CHLORIDE 0.9% 1,000 ML IV SCH ×3 (14:03→20:53)
--- NOTE | 2023-03-17 14:13 | P.PN ---
Subjective Progress Note Date: 03/17/23 (delayed charting seen at 0930) Patient is an 87-year-old female with known paroxysmal atrial fibrillation status post pacemaker on anticoagulation with Eliquis, HFrEF with ejection fraction 30%, hypertension, dyslipidemia, GERD, chronic kidney disease stage III, and multiple other comorbid conditions who presented to the emergency department with complaints of chest pain. The ER she underwent an extensive evaluation. Her initial troponin was 0.038, and EKG showed no signs of acute ischemia. She was subsequently admitted for further monitoring. Cardiology was consulted. Repeat echocardiogram showed worsening of her ejection fraction at 25-30% and plans were made for cardiac catheterization, unfortunately her creatinine began to increase necessitating nephrology consultation. With medication changes including holding her entresto, coreg, and farxiga. Her entresto was able to be restarted and Cr improved enough to proceed with cardiac cath. Patient seen and examined at bedside with daughter present. She does report some dizziness. She denies any chest pain or shortness of breath. Vital signs reviewed General: nontoxic, no distress, appears at stated age, YOCHA DEHE Cardiovascular: S1S2 reg, no murmur, positive posterior tibial pulse bilateral, Lungs: CTA bilateral, no rhonchi, no rales , no accessory muscle use Abdominal: soft, nontender to palpation, no guarding, no appreciable organomegaly Ext: no gross muscle atrophy, trace edema b/l lower extremities, no contractures Neuro: CN II-XI grossly intact, no focal neuro deficits Psych: Alert, oriented, appropriate affect Assessment/Plan: Acute on chronic HFrEF with EF of 25-30% Chest Pain with elevated troponin Acute kidney injury on chronic kidney disease stage IIIa, improving Paroxysmal atrial fibrillation status post pacemaker placement-- eliquis on hold pending cath Hypertension Hyperlipidemia -Await further nephro recs -Plan is for cardiac cath today - repeat BMP in AM - Pravachol 40 mg oral at night and aspirin 81 mg daily. - Strict I's and O's and daily weights. - entresot 24-46 mg twice daily - completed heparin gtt Obstructive sleep apnea -Continue CPAP with sleeping Hypothyroidism - levothyroxine 100 g daily, Imaging: None new Data Review: Labs reviewed included basic metabolic profile which was remarkable for chloride 110, carbon dioxide 13, BUN 39, creatinine 1.29 DVT prophylaxis: Lovenox Anticipated discharge date: 24-[address]: Home This dictation was prepared using [email or web address] voice recognition software. Though every attempt is made to correct errors during dictation some may still exist. Objective - Vital Signs Vital signs: Vital Signs Temp 97.8 F 03/17/23 11:30 Pulse 64 03/17/23 13:33 Resp 17 03/17/23 13:33 BP 137/51 03/17/23 13:33 Pulse Ox 98 03/17/23 13:33 FiO2 Intake & Output 03/16/23 03/17/23 03/17/23 18:59 06:59 18:59 Intake Total 730 20 210 Output Total 250 Balance 730 20 -40 Intake: IV 10 20 100 Invasive Line 2 10 20 Oral 720 110 Output: Urine 250 - Labs CBC & Chem 7: 03/16/23 06:44 03/17/23 08:43 Labs: Abnormal Lab Results - Last 24 Hours (Table) 03/17/23 Range/Units 08:43 Sodium 135 L (137-145) mmol/L Chloride 110 H (98-107) mmol/L Carbon Dioxide 13 L (22-30) mmol/L BUN 39 H (7-17) mg/dL Creatinine 1.29 H (0.52-1.04) mg/dL Glucose 119 H (74-99) mg/dL
--- NOTE | 2023-03-17 19:53 | P.PN ---
Subjective Patient is seen for follow-up for chronic kidney disease NKF stage IIIa with baseline creatinine around 0.9-1 mg/dL. Renal function continues to improve with serum creatinine down to 1.5 yesterday. Labs pending from today. No significant complaints today. Awaiting labs to decide regarding cath Objective - Vital Signs Vital signs: Vital Signs Temp 97.8 F 03/17/23 11:30 Pulse 67 03/17/23 16:00 Resp 16 03/17/23 16:00 BP 108/65 03/17/23 16:00 Pulse Ox 96 03/17/23 16:00 FiO2 Intake & Output 03/17/23 03/17/23 03/18/23 06:59 18:59 06:59 Intake Total 20 450 Output Total 250 Balance 20 200 Intake: IV 20 100 Invasive Line 2 20 Oral 350 Output: Urine 250 Other: # Bowel Movements 1 - Exam Patient is awake, comfortable, no acute distress Examination of the lower extremities shows no evidence of edema [employer]PER[employer]OR exam grossly intact - Labs CBC & Chem 7: 03/16/23 06:44 03/17/23 08:43 Labs: Abnormal Lab Results - Last 24 Hours (Table) 03/17/23 Range/Units 08:43 Sodium 135 L (137-145) mmol/L Chloride 110 H (98-107) mmol/L Carbon Dioxide 13 L (22-30) mmol/L BUN 39 H (7-17) mg/dL Creatinine 1.29 H (0.52-1.04) mg/dL Glucose 119 H (74-99) mg/dL Assessment and Plan Assessment: 1. Chronic kidney disease NKF stage III secondary to nephrosclerosis and history of acute interstitial nephritis status post prednisone many years ago. Baseline creatinine around 0.9-1 mg/dL 2. Chest pain rule out cardiac ischemia. Troponins at 0.061. Patient is being followed by cardiology. Cardiac cath today if cr is lower. 3. Hypertension with CK D stage IIIa 4. Mild volume overload maintained on IV Lasix 5. Cardiomyopathy with EF of 25-30% entresto and farxiga on hold due to low BP and DARIAN. Restarted Farxiga 2 days ago. 6. Acute kidney injury, multifactorial including some degree of hypoperfusion in the setting of use of ARBs and SGLT2 i as well as diuresis. Currently improving Plan: Continue farxiga Monitor for volume overload.
[2023-03-17] MEDS: PRAVASTATIN SODIUM 40 MG TAB PO SCH (20:31)
[2023-03-17] MEDS ORDERED: DEXTROSE 5% IN WATER 1,000 ML with SODIUM BICARB (1 MEQ/ML) 150 ML IV SCH (22:00)
[2023-03-18] MEDS: LEVOTHYROXINE 100 MCG TAB PO SCH (06:07)
[2023-03-18] MEDS ORDERED: HEPARIN SODIUM,PORCINE 10,000 UNIT in SODIUM CHLORIDE 0.9% 1,000 ML IRRIGATION PRN (07:00)
[2023-03-18] MEDS ORDERED: HEPARIN SODIUM,PORCINE (1 ML) 2,500 UNIT in SODIUM CHLORIDE 0.9% 250 ML IRRIGATION PRN (07:00)
[2023-03-18 07:37] LABS: African American GFR (CKD) 44 (>60 ml/min/1.73 sqM); Anion Gap 9 mmol/L; Blood Urea Nitrogen 40 mg/dL (7-17); Calcium 8.4 mg/dL (8.4-10.2); Carbon Dioxide 20 mmol/L (22-30); Chloride 105 mmol/L (98-107); Glucose 133 mg/dL (74-99); Non-African American GFR(CKD) 38 (>60 ml/min/1.73 sqM); Potassium 4.1 mmol/L (3.5-5.1); Sodium 134 mmol/L (137-145)
[2023-03-18 07:45] VITALS: RESP 18; TEMP 97.7
[2023-03-18] MEDS: DOCUSATE 100 MG CAP PO SCH (08:15)
[2023-03-18] MEDS: SACUBITRIL/VALSARTAN 24 MG-26 MG TABLET PO SCH (08:15)
[2023-03-18] MEDS: ENOXAPARIN 30 MG/0.3 ML SYRINGE SQ SCH (08:15)
[2023-03-18] MEDS: ASPIRIN 81 MG PO SCH (08:15)
[2023-03-18] MEDS ORDERED: DAPAGLIFLOZIN PROPANEDIOL 10 MG TABLET PO SCH (09:00)
[2023-03-18 11:11] VITALS: BMI 25.5
--- NOTE | 2023-03-18 11:33 | P.PN ---
Subjective Patient is seen for follow-up for chronic kidney disease NKF stage IIIa with baseline creatinine around 0.9-1 mg/dL. Renal function continues to improve with serum creatinine down to 1.2 yesterday. Status post cardiac cath which showed calcified coronary arteries with mild disease in LAD. No stent needed. No significant complaints today. Labs showed evidence of metabolic acidosis yesterday and patient was started on bicarb drip last night. Due to is improved to 20 today. Objective - Vital Signs Vital signs: Vital Signs Temp 97.7 F 03/18/23 07:38 Pulse 66 03/18/23 07:38 Resp 18 03/18/23 07:38 BP 113/60 03/18/23 07:38 Pulse Ox 93 L 03/18/23 07:38 FiO2 Intake & Output 03/17/23 03/18/23 03/18/23 18:59 06:59 18:59 Intake Total 450 118 Output Total 250 Balance 200 118 Weight 69.7 kg Intake: IV 100 Oral 350 118 Output: Urine 250 Other: # Bowel Movements 1 - Exam Patient is awake, comfortable, no acute distress Examination of the heart S1 and S2 Examination of the lungs bilateral breath sounds are heard Abdomen is soft nontender Examination of the lower extremities shows no evidence of edema [employer]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 Chronic kidney disease NKF stage III secondary to nephrosclerosis and history of acute interstitial nephritis status post prednisone many years ago. Baseline creatinine around 0.9-1 mg/dL 2. Chest pain rule out cardiac ischemia. Troponins at 0.061. Patient is being followed by cardiology. Cardiac cath today if cr is lower. 3. Hypertension with CK D stage IIIa 4. Mild volume overload maintained on IV Lasix 5. Cardiomyopathy with EF of 25-30% entresto and farxiga on hold due to low BP and DARIAN. Restarted Farxiga 2 days ago. 6. Acute kidney injury, multifactorial including some degree of hypoperfusion in the setting of use of ARBs and SGLT2 i as well as diuresis. Currently improving 7. Metabolic acidosis improved post bicarb drip Plan: Continue farxiga DC bicarb drip Follow-up as outpatient in 1 week with repeat labs to be done in one week. Patient is advised to monitor blood pressure at home. Monitor for volume overload as well .
[2023-03-18 12:32] VITALS: BP 110/66; PULSE 60
--- NOTE | 2023-03-18 18:08 | P.DS ---
Providers Date of admission: 03/11/23 17:45 Expected date of discharge: 03/18/23 Attending physician: Sushil Antonio MD Consults: 03/11/23 17:44 Consult Physician Routine Consulting Provider: Scooter Paulino Consult Reason/Comments: UA Do you want consulting provider notified?: Yes Consult Physician Routine Consulting Provider: Mary Alice Richardson Consult Reason/Comments: known Do you want consulting provider notified?: Yes Primary care physician: Josh Don Hospital Course: Discharge Diagnosis: Acute on chronic HFrEF with EF of 25-30% Chest Pain with elevated troponin Acute kidney injury on chronic kidney disease stage IIIa, improving Paroxysmal atrial fibrillation status post pacemaker placement Hypertension Hyperlipidemia Obstructive sleep apnea Hypothyroidism Hospital Course: Patient is an 87-year-old female with known paroxysmal atrial fibrillation status post pacemaker on anticoagulation with Eliquis, HFrEF with ejection fraction 30%, hypertension, dyslipidemia, GERD, chronic kidney disease stage III, and multiple other comorbid conditions who presented to the emergency department with complaints of chest pain. The ER she underwent an extensive evaluation. Her initial troponin was 0.038, and EKG showed no signs of acute ischemia. She was subsequently admitted for further monitoring. Cardiology was consulted. Repeat echocardiogram showed worsening of her ejection fraction at 25-30% and plans were made for cardiac catheterization, unfortunately her creatinine began to increase necessitating nephrology consultation. With medication changes including holding her entresto, coreg, and farxiga. Her entresto was able to be restarted and Cr improved enough to proceed with cardiac cath. She underwent cardiac catheterization on 03/17 which showed mild disease in the mid LAD with no progression compared to 2022. On the morning after Her renal function remained stable and she was determined appropriate for discharge. Follow-up: Patient will have a BMP in 1 week, Dr. Don in 2 days, Dr. Richardson in 1 week, Dr. Moreno in 1 week. New medications included aspirin 81 mg daily, Etresto, and Farxiga 10 mg daily. Patient seen and examined at bedside. Doing well, mild dizziness while stand that quickly resolves. No chest pain, no shortness of breath. Daughter at bedside and multiple questions answered. Vital signs reviewed and stable. General: nontoxic, no distress, appears at stated age Cardiovascular: S1S2 reg, no murmur, positive posterior tibial pulse bilateral, Lungs: CTA bilateral, no rhonchi, no rales , no accessory muscle use Abdominal: soft, nontender to palpation, no guarding, no appreciable organomegaly Ext: no gross muscle atrophy, no edema b/l lower extremities, no contractures Neuro: CN II-XI grossly intact, no focal neuro deficits Psych: Alert, oriented, appropriate affect A total of 42 minutes of time were spent preparing this complex discharge summary. Patient was discharged on 03/18/23. This dictation was prepared using [employer] voice recognition software. Though every attempt is made to correct errors during dictation some may still exist. Patient Condition at Discharge: Stable Plan - Discharge Summary New Discharge Prescriptions: New Aspirin 81 mg PO DAILY #30 tab Sacubitril/Valsartan [Entresto 24 mg-26 mg Tablet] 1 each PO BID #60 tab Dapagliflozin Propanediol [Farxiga] 10 mg PO DAILY #30 tablet Continue Famotidine [Pepcid] 20 mg PO DAILY Docusate [Colace] 100 mg PO DAILY Levothyroxine Sodium [Synthroid] 100 mcg PO DAILY Apixaban [Eliquis] 5 mg PO BID Pravastatin Sodium [Pravachol] 40 mg PO HS Discontinued Valsartan [Diovan] 80 mg PO BID carvediloL [Coreg] 6.25 mg PO BID Discharge Medication List Famotidine [Pepcid] 20 mg PO DAILY 04/25/19 [History] Apixaban [Eliquis] 5 mg PO BID 08/28/22 [History] Docusate [Colace] 100 mg PO DAILY 08/28/22 [History] Levothyroxine Sodium [Synthroid] 100 mcg PO DAILY 03/11/23 [History] Pravastatin Sodium [Pravachol] 40 mg PO HS 03/11/23 [History] Aspirin 81 mg PO DAILY #30 tab 03/18/23 [Rx] Dapagliflozin Propanediol [Farxiga] 10 mg PO DAILY #30 tablet 03/18/23 [Rx] Sacubitril/Valsartan [Entresto 24 mg-26 mg Tablet] 1 each PO BID #60 tab 03/18/23 [Rx] Follow up Appointment(s)/Referral(s): Colt Moreno MD [STAFF PHYSICIAN] - 03/25/23 11:00 am Mary Alice Richardson MD [STAFF PHYSICIAN] - 03/24/23 2:00 pm (Follow up at [place] office with [facility]. Appoitment from 04/07/2023 has been cancelled and changed to this appoitment. ) Josh Don MD [Primary Care Provider] - 03/26/23 1:30 pm Ambulatory/Diagnostic Orders: Basic Metabolic Panel [LAB.AMB] Time Frame: 1 Week, Location: None Selected Patient Instructions/Handouts: *Sur[facility] - After Heart Catheterization - License Inspector Instructions, Heart Healthy Diet (ED) Activity/Diet/Wound Care/Special Instructions: Activity: As tolerated Diet: Heart Healthy Special Instructions: Check weight daily and make a log Repeat kidney labs in 1 week Discharge Disposition: HOME SELF-CARE
== END 2023-03-18 13:31 | disposition home or self-care (01) | DRG 286 ==
LOC: EC 14:49 → 3SCARD 17:45
PROVIDERS: ADMIT Internal Medicine; ATTEND Internal Medicine
PROC: B2111ZZ Fluoroscopy of Multiple Coronary Arteries using Low Osmolar Contrast (ICD-10-PCS; principal; 2023-03-17 16:35)
PROC: 4A023N7 Measurement of Cardiac Sampling and Pressure, Left Heart, Percutaneous Approach (ICD-10-PCS; principal; 2023-03-17 16:35)
DX: I13.0 Hypertensive heart and chronic kidney disease with heart failure and stage 1 through stage 4 chronic kidney disease, or unspecified chronic kidney disease (principal); I50.23 Acute on chronic systolic (congestive) heart failure; N17.9 Acute kidney failure, unspecified; E87.20 Acidosis, unspecified; I25.110 Atherosclerotic heart disease of native coronary artery with unstable angina pectoris; I42.9 Cardiomyopathy, unspecified; I48.0 Paroxysmal atrial fibrillation; K59.00 Constipation, unspecified; N18.31 Chronic kidney disease, stage 3a; I25.84 Coronary atherosclerosis due to calcified coronary lesion; G47.33 Obstructive sleep apnea (adult) (pediatric); G90.A Postural orthostatic tachycardia syndrome [POTS]; I08.0 Rheumatic disorders of both mitral and aortic valves; E03.9 Hypothyroidism, unspecified; E78.5 Hyperlipidemia, unspecified; F32.A Depression, unspecified; R79.89 Other specified abnormal findings of blood chemistry; F41.9 Anxiety disorder, unspecified; Z79.01 Long term (current) use of anticoagulants; Z79.82 Long term (current) use of aspirin; Z79.890 Hormone replacement therapy; Z79.899 Other long term (current) drug therapy; Z82.49 Family history of ischemic heart disease and other diseases of the circulatory system; Z86.73 Personal history of transient ischemic attack (TIA), and cerebral infarction without residual deficits; Z95.0 Presence of cardiac pacemaker; Z71.3 Dietary counseling and surveillance; Z88.0 Allergy status to penicillin; Z91.041 Radiographic dye allergy status
CPT/HCPCS: 36415; 71046; 80048; 80053; 83735; 83880; 84100; 84484; 85025; 85027; 85610; 85730; 93005; 93306; 93458; 96374; 99291

== ENCOUNTER → 2023-05-12 | Outpatient (CLI) | payer MEDICARE, BC ==
[2023-05-12 18:40] LABS: ALT 12 U/L (8-44); AST 21 U/L (13-35); Albumin 3.9 g/dL (3.8-4.9); Albumin/Globulin Ratio 1.56 Ratio (1.60-3.17); Alkaline Phosphatase 55 U/L (41-126); BUN/Creat Ratio 21.15 Ratio (12.00-20.00); Blood Urea Nitrogen 27.5 mg/dL (9.0-27.0); Calcium 9.3 mg/dL (8.7-10.3); Carbon Dioxide 23.7 mmol/L (21.6-31.8); Chloride 105 mmol/L (96-109); Globulin 2.5 g/dL (1.6-3.3); Glucose 94 mg/dL (70-110); Potassium 4.1 mmol/L (3.5-5.5); Sodium 141 mmol/L (135-145); Total Bilirubin 0.4 mg/dL (0.3-1.2); Total Protein 6.4 g/dL (6.2-8.2)
== END | disposition home or self-care (01) ==
LOC: LABWHC1 14:01
PROVIDERS: ATTEND Family Medicine
DX: N18.30 Chronic kidney disease, stage 3 unspecified (principal)
CPT/HCPCS: 36415; 80053

== ENCOUNTER 2023-08-18 04:59 | Inpatient (IN) | payer MEDICARE, BC ==
--- NOTE | 2023-08-18 05:16 | ED ---
General Adult HPI - General Source: patient, EMS Mode of arrival: EMS <Sae Matos - Last Filed: 08/18/23 07:55> <Shady Coleman - Last Filed: 08/18/23 12:42> - General Chief complaint: Abdominal Pain Stated complaint: Abdominal Pain Time Seen by Provider: 08/18/23 05:10 - History of Present Illness Initial comments: Dictation was produced using [employer] dictation software. please excuse any grammatical, word or spelling errors. Chief Complaint: 87-year-old female with 1 day of epigastric abdominal pain History of Present Illness: Patient is an 87-year-old female presents to the emergency department 1 day of epigastric abdominal pain. Patient states that the pain started approximately 12 PM yesterday. Denies any nausea or vomiting. She has had 2 bowel movements since the onset of her pain. She localizes the pain to the epigastric area. Nonradiating. No associated diaphoresis. The ROS documented in this emergency department record has been reviewed and confirmed by me. Those systems with pertinent positive or negative responses have been documented in the HPI. All other systems are other negative and/or noncontributory. (Sae Matos) - Related Data Home Medications Medication Instructions Recorded Confirmed Famotidine [Pepcid] 20 mg PO DAILY 04/25/19 08/18/23 Apixaban [Eliquis] 5 mg PO BID 08/28/22 08/18/23 Pravastatin Sodium [Pravachol] 40 mg PO HS 03/11/23 08/18/23 Dibucaine 1 applic TOPICAL TID PRN 08/18/23 08/18/23 Furosemide [Lasix] 20 mg PO DAILY 08/18/23 08/18/23 Levothyroxine Sodium [Synthroid] 125 mcg PO DAILY 08/18/23 08/18/23 Sacubitril/Valsartan [Entresto 24 1 tab PO BID 08/18/23 08/18/23 mg-26 mg Tablet] Sodium Bicarbonate Tab 650 mg PO DAILY 08/18/23 08/18/23 carvediloL [Coreg] 3.125 mg PO BID 08/18/23 08/18/23 Previous Rx's Medication Instructions Recorded Dapagliflozin Propanediol [Farxiga] 10 mg PO DAILY #30 tablet 03/18/23 Allergies Allergy/AdvReac Type Severity Reaction Status Date / Time nitroglycerin Allergy Unknown Verified 08/18/23 09:51 Iodinated Contrast Media AdvReac Severe kidney Verified 08/18/23 09:51 [Iodinated Contrast Media - failure IV Dye] omeprazole [From Prilosec] AdvReac Severe kidney Verified 08/18/23 09:51 failure omeprazole magnesium AdvReac Severe kidney Verified 08/18/23 09:51 [From Prilosec] failure ciprofloxacin [From Cipro] AdvReac Kidney Verified 08/18/23 09:51 Failure fludrocortisone AdvReac KIDNEY Verified 08/18/23 09:51 [From Florinef] ISSUES Iodine and Iodide Containing AdvReac kidney Verified 08/18/23 09:51 Produc issues sodium phosphate AdvReac Unknown Verified 08/18/23 09:51 [From Fleet Enema] Review of Systems ROS Other: All systems not noted in ROS Statement are negative. <Sae Matos - Last Filed: 08/18/23 07:55> ROS Other: All systems not noted in ROS Statement are negative. <Shady Coleman - Last Filed: 08/18/23 12:42> ROS Statement: Those systems with pertinent positive or pertinent negative responses have been documented in the HPI. Past Medical History Past Medical History: CVA/TIA, Eye Disorder, GERD/Reflux, Hyperlipidemia, Hypertension, Renal Disease, Sleep Apnea/CPAP/BIPAP, Thyroid Disorder Additional Past Medical History / Comment(s): "heart skips a beat once in a while" palpitations. TIA's, POTS syndrome,dysotonia. Renal disease stage 3. sleep apnea has machine. macular degeneration lt eye History of Any Multi-Drug Resistant Organisms: None Reported Past Surgical History: Appendectomy, Hysterectomy Additional Past Surgical History / Comment(s): cataract surgery, bowel resection Past Anesthesia/Blood Transfusion Reactions: No Reported Reaction Type of Cardiac Device: Biventricular Pacemaker Device Placement Date:: 05/04/2022 Past Psychological History: Anxiety, Depression Smoking Status: Never smoker Past Alcohol Use History: None Reported Past Drug Use History: None Reported - Past Family History Mother Family Medical History: No Reported History Additional Family Medical History / Comment(s): of heart disease "hole in the heart" at age 29 Father Family Medical History: Myocardial Infarction (NM) Additional Family Medical History / Comment(s): at age 67 of heart attack <Sae Matos - Last Filed: 08/18/23 07:55> General Exam <Sae Matos - Last Filed: 08/18/23 07:55> - General Exam Comments Initial Comments: PHYSICAL EXAM: General Impression: Alert and oriented x3, not in acute distress HEENT: Normocephalic atraumatic, extra-ocular movements intact, pupils equal and reactive to light bilaterally, mucous membranes moist. Cardiovascular: Heart regular rate and rhythm Chest: Able to complete full sentences, no retractions, no tachypnea Abdomen: abdomen soft, no mild palpatory tenderness to the epigastric abdomen r, non-distended, no organomegaly Musculoskeletal: Pulses present and equal in all extremities, no peripheral edema Motor: no focal deficits noted Neurological: CN II-XII grossly intact, no focal motor or sensory deficits noted Skin: Intact with no visualized rashes Psych: Normal affect and mood (Sae Matos) Course Vital Signs 08/18/23 08/18/23 08/18/23 05:13 08:23 11:27 Temperature 97.6 F 97.9 F 97.8 F Pulse Rate 77 82 75 Respiratory 13 16 16 Rate Blood Pressure 161/92 120/66 129/84 O2 Sat by Pulse 96 92 L 95 Oximetry EKG Findings - EKG Comments: EKG Findings:: My EKG interpretation: Ventricular rate 76, paced rhythm, QRS 171, QTc 475. No TN prolongation, no QTC prolongation, no ST or T-wave changes noted. Significant artifact seen in the lateral precordial leads otherwise rest of EKG within acceptable limits <Sae Matos - Last Filed: 08/18/23 07:55> Medical Decision Making - Lab Data Result diagrams: 08/18/23 05:38 08/18/23 05:38 <Sae Matos - Last Filed: 08/18/23 07:55> - Lab Data Result diagrams: 08/18/23 05:38 08/18/23 05:38 <Shady Coleman - Last Filed: 08/18/23 12:42> - Medical Decision Making Was pt. sent in by a medical professional or institution (Dr., PA, TANK OFFICER, urgent care, hospital, or halfway...) When possible be specific @ -No Did you speak to anyone other than the patient for history (EMS, parent, family, police, friend...)? What history was obtained from this source @ -No Did you review nursing and triage notes (agree or disagree)? Why? @ -I reviewed and agree with nursing and triage notes Were old charts reviewed (outside hosp., previous admission, EMS record, old EKG , old radiological studies, urgent care reports/EKG's, halfway records)? Report findings @ -No old charts were reviewed Differential Diagnosis (chest pain, altered mental status, abdominal pain women, abdominal pain men, vaginal bleeding, musculoskeletal, weakness, fever, dyspnea, syncope, headache, dizziness, GI bleed, back pain, seizure, CVA, palpatations, mental health)? @ -Differential Abdominal Pain Women: Appendicitis, Cholecystitis, diverticulosis, ischemic bowel, pancreatitis, h epatitis, UTI, gastroenteritis, AAA, incarcerated hernia, bowel obstruction, constipation, inflammatory bowel, hepatitis, peptic ulcer disease, splenic infarction, perforated viscus, vulvitis, ovarian torsion, PID, kidney stone, placenta abruption, this is not meant to be an all-inclusive list EKG interpreted by me (3pts min.). @ -See above X-rays interpreted by me (1pt min.). @ -Chest x-ray is nonacute CT interpreted by me (1pt min.). @ -None done U/S interpreted by me (1pt. min.). @ -None done What testing was considered but not performed or refused? (CT, X-rays, U/S, labs)? Why? @ -None What meds were considered but not given or refused? Why? @ -None Did you discuss the management of the patient with other professionals (professionals i.e. NELY Gutierrez, TANK OFFICER, lab, RT, psych nurse, psychosocial rehabilitation counselor, wood form builder, teacher, ecological technical officer, sample case porter)? Give summary @ -No Was smoking cessation discussed for >3mins.? @ -No Was critical care preformed (if so, how long)? @ -No Were there social determinants of health that impacted care today? How? (Homelessness, low income, unemployed, alcoholism, drug addiction, transportation, low edu. Level, literacy, decrease access to med. care, fpc, rehab)? @ -No Was there de-escalation of care discussed even if they declined (Discuss DNR or withdrawal of care, Hospice)? DNR status @ -No What co-morbidities impacted this encounter? (DM, HTN, Smoking, COPD, CAD, Cancer, CVA, ARF, Chemo, Hep., AIDS, mental health diagnosis, sleep apnea, morbid obesity)? @ -None Was patient admitted / discharged? Hospital course, mention meds given and route , prescriptions, significant lab abnormalities, going to OR and other pertinent info. @ -87-year-old female presents to the emergency department with epigastric pain. Vital signs upon arrival are within acceptable limits. Laboratory evaluation obtained. Troponin elevated at 0.052. Patient does have recent elevated troponin. Pending CT imaging. Patient care signed out to Dr. Coleman at 8:00 AM Undiagnosed new problem with uncertain prognosis? @ -No Drug Therapy requiring intensive monitoring for toxicity (Heparin, Nitro, Insulin, Cardizem)? @ -No Were any procedures done? @ -No Diagnosis/symptom? Acute, or Chronic, or Acute on Chronic? Uncomplicated (without systemic symptoms) or Complicated (systemic symptoms)? @ -Epigastric pain (Sae Matos) Signed out to me pending results of imaging. Presents with epigastric abdominal pain. Labs returned remarkable for mild leukocytosis of 12.3. Patient has CKD which is at baseline. Troponin is minimally elevated to 0.052 which patient does have a recent history of dating to February 2023. She has no active chest pain. EKG was interpreted by prior physician as showing no signs of acute ischemia as it is a paced rhythm. Chest x-ray returned and was interpreted by myself as showing no obvious acute cardiopulmonary process. CT imaging of the abdomen pelvis also returned as interpreted by myself as showing no obvious acute process of the abdomen. Patient is having some prominent small bowel loops near the asked anastomoses. However patient is denying any change in bowel movements. Had 2 bowel movements yesterday that were normal for her. This could be chronic. Radiology was concerned that there may be some hydronephrosis and recommends ultrasound of the kidneys. Cholelithiasis present. No other obvious findings. On reevaluation, patient is pain-free with no symptoms. Abdomen is soft and not distended or tender at this time. I discussed with the patient and due to the elevated troponin I recommended admission. We also obtain ultrasound of the kidneys and bladder. Urinalysis and lactic acid also added on. Patient already received 324 mg of aspirin. Patient was in agreement this plan. Cardiology will be consulted. I spoke with the admitting physician, Dr. Grier of [facility] who accepted the admission. Diagnosis/symptom? @ -Elevated troponin, abdominal pain of unknown etiology Acute, or Chronic, or Acute on Chronic? @ -Acute Uncomplicated (without systemic symptoms) or Complicated (systemic symptoms)? @ -Complicated Side effects of treatment? @ -None Exacerbation, Progression, or Severe Exacerbation] @ -No Poses a threat to life or bodily function? @ -Yes (Shady Coleman) - Lab Data Lab Results 08/18/23 08/18/23 08/18/23 Range/Units 05:38 05:38 05:38 WBC 12.3 H (3.8-10.6) k/uL RBC 4.85 (3.80-5.40) m/uL Hgb 14.4 (11.4-16.0) gm/dL Hct 46.6 H (34.0-46.0) % MCV 96.3 (80.0-100.0) fL MCH 29.7 (25.0-35.0) pg MCHC 30.9 L (31.0-37.0) g/dL RDW 14.0 (11.5-15.5) % Plt Count 169 (150-450) k/uL MPV 8.3 Neutrophils % 78 % Lymphocytes % 15 % Monocytes % 5 % Eosinophils % 1 % Basophils % 0 % Neutrophils # 9.6 H (1.3-7.7) k/uL Lymphocytes # 1.9 (1.0-4.8) k/uL Monocytes # 0.6 (0-1.0) k/uL Eosinophils # 0.2 (0-0.7) k/uL Basophils # 0.0 (0-0.2) k/uL Sodium 138 (137-145) mmol/L Potassium 4.8 (3.5-5.1) mmol/L Chloride 111 H (98-107) mmol/L Carbon Dioxide 18 L (22-30) mmol/L Anion Gap 9 mmol/L BUN 32 H (7-17) mg/dL Creatinine 1.32 H (0.52-1.04) mg/dL Est GFR (CKD-EPI)AfAm 42 (>60 ml/min/1.73 sqM) Est GFR (CKD-EPI)NonAf 36 (>60 ml/min/1.73 sqM) Glucose 129 H (74-99) mg/dL Calcium 8.8 (8.4-10.2) mg/dL Total Bilirubin 1.1 (0.2-1.3) mg/dL AST 28 (14-36) U/L ALT 10 (4-34) U/L Alkaline Phosphatase 62 (38-126) U/L Troponin I 0.052 H* (0.000-0.034) ng/mL Total Protein 6.9 (6.3-8.2) g/dL Albumin 3.8 (3.5-5.0) g/dL Lipase 56 (23-300) U/L Disposition <Sae Matos - Last Filed: 08/18/23 07:55> Time of Disposition: 08:37 <Shady Coleman - Last Filed: 08/18/23 12:42> Clinical Impression: Abdominal pain of unknown etiology, Elevated troponin Disposition: ADMITTED IP TO THIS HOSP Condition: Stable
[2023-08-18 06:00] LABS: Basophils % (A) 0 %; Eosinophils # (A) 0.2 k/uL (0-0.7); Eosinophils % (A) 1 %; HCT 46.6 % (34.0-46.0); HGB 14.4 gm/dL (11.4-16.0); Lymphocytes # (A) 1.9 k/uL (1.0-4.8); Lymphocytes % (A) 15 %; MCH 29.7 pg (25.0-35.0); MCHC 30.9 g/dL (31.0-37.0); MCV 96.3 fL (80.0-100.0); Mean Platelet Volume 8.3; Monocytes # (A) 0.6 k/uL (0-1.0); Monocytes % (A) 5 %; Neutrophils # (A) 9.6 k/uL (1.3-7.7); Neutrophils % (A) 78 %; Platelet Count 169 k/uL (150-450); RBC 4.85 m/uL (3.80-5.40); WBC 12.3 k/uL (3.8-10.6)
[2023-08-18 06:10] LABS: ALT 10 U/L (4-34); AST 28 U/L (14-36); African American GFR (CKD) 42 (>60 ml/min/1.73 sqM); Albumin 3.8 g/dL (3.5-5.0); Alkaline Phosphatase 62 U/L (38-126); Anion Gap 9 mmol/L; Blood Urea Nitrogen 32 mg/dL (7-17); Calcium 8.8 mg/dL (8.4-10.2); Carbon Dioxide 18 mmol/L (22-30); Chloride 111 mmol/L (98-107); Glucose 129 mg/dL (74-99); Lipase 56 U/L (23-300); Non-African American GFR(CKD) 36 (>60 ml/min/1.73 sqM); Sodium 138 mmol/L (137-145); Total Bilirubin 1.1 mg/dL (0.2-1.3); Total Protein 6.9 g/dL (6.3-8.2)
[2023-08-18] MEDS: ONDANSETRON 4 MG/2 ML VIAL IVP STA (06:52)
[2023-08-18 06:53] LABS: Potassium 4.8 mmol/L (3.5-5.1)
[2023-08-18] MEDS: MORPHINE SULFATE 4 MG/ML SYRINGE IV STA (07:04)
[2023-08-18] MEDS: ASPIRIN 81 MG PO STA (07:05)
--- NOTE | 2023-08-18 07:17 | XR ---
EXAMINATION TYPE: XR chest 1V portable DATE OF EXAM: 08/18/2023 COMPARISON: 03/11/2023 INDICATION: Abdomen pain epigastric pain TECHNIQUE: Single frontal view of the chest is obtained. FINDINGS: The heart size is normal. Pacemaker overlies left chest. The pulmonary vasculature is normal. The lungs are clear. IMPRESSION: 1. No acute pulmonary process.
--- NOTE | 2023-08-18 08:12 | CT ---
EXAMINATION TYPE: CT abdomen pelvis wo con DATE OF EXAM: 08/18/2023 COMPARISON: None INDICATION: EPIGASTRIC PAIN DLP: 478.4 mGycm, Automated exposure control for dose reduction was used. CONTRAST: 0 mL of Isovue 300. Study performed without Oral Contrast TECHNIQUE: Axial images were obtained from above the diaphragm to the pubic rami in the axial plane a t 5 mm thick sections. Reconstructed images are reviewed on the computer in the coronal plane. FINDINGS: Limited CT sections are obtained the lung bases. Minimal bilateral pleural effusions are present, gr eater on the left. Some minimal adjacent compressive atelectasis may be present. Note is made of cor onary artery calcification. CT ABDOMEN: Liver: Normal Spleen: Normal Pancreas: Atrophic Adrenal glands: The adrenal glands are normal. Gallbladder: Gallstones present within the dependent gallbladder. Kidneys: No masses are evident. No hydronephrosis is present. Some inferior pole peripelvic cyst ma y be present on the right. Inferior pole left. Pelvic cysts versus hydronephrosis is present. No hydr oureter is evident. Aorta: Vascular calcification is within the aorta. Inferior vena cava: Normal. CT PELVIS: There is evidence of prior bowel surgery. There is mild prominence of small bowel loops in the left u pper quadrant. No focal stenosis is identified. The anastomosis however does appear to be a zone of t ransition without persistent stenosis. The study is without oral contrast limiting bowel evaluation. Scattered diverticuli within the sigmoid colon. Some mild diffuse increased mesenteric stranding with in the mid left pelvis of uncertain etiology. This does not appear directly related to the diverticul osis or a specific bowel. Appendix: Normal as visualized. This does not appear related to the mesenteric inflammatory changes w hich are more to the left of midline. Urinary bladder: Normal. Genitourinary structures: Uterus is not identified. Adnexal regions appear unremarkable. Osseous structures: No suspicious lytic or sclerotic lesions. Small amount of free fluid within the pelvis. IMPRESSION: 1. Prominent small bowel loops to the anastomosis. Focal stenosis is not identified although a calib er change and zone transition at the anastomosis appears to be present. 2. Nonspecific mesenteric stranding within the left hemipelvis not directly associated with the diver ticulosis of the appendix in the right hemipelvis. 3. Small amount of free fluid within the pelvis. 4. Cholelithiasis. 5. Pelvic cysts within the inferior poles bilateral kidneys. Hydronephrosis is not excluded on the le ft. Consider follow-up ultrasound kidneys.
[2023-08-18] MEDS ORDERED: NALOXONE 0.4 MG/ML 1 ML VIAL IV PRN (08:36)
[2023-08-18] MEDS ORDERED: HEPARIN SODIUM,PORCINE 5,000 UNIT/ML 1 ML VIAL SQ SCH (09:00)
[2023-08-18] MEDS: SODIUM CHLORIDE 0.9% 1,000 ML IV SCH (09:03)
--- NOTE | 2023-08-18 09:53 | US ---
EXAMINATION TYPE: US renals and bladder DATE OF EXAM: 08/18/2023 COMPARISON: 08/18/2023 CLINICAL INDICATION: Female, 87 years old with history of eval for hydronephrosis; Eval for hydro. Ab dominal pain. EXAM MEASUREMENTS: Right Kidney: 10.4 x 3.8 x 5.5 cm Left Kidney: 10.0 x 3.8 x 4.4 cm Limited due to overlying gas and patient bladder not very full for evaluation. Right Kidney: Small anechoic areas seen within the inferior pole, probable parapelvic cyst, hydroneph rosis vs other etiology. Left Kidney: Hydronephrosis seen Bladder: wnl as best seen Bilateral Jets seen: No IMPRESSION: Left hydronephrosis. Possible right hydronephrosis versus parapelvic cyst versus other etiology.
--- NOTE | 2023-08-18 10:18 | P.HPIM ---
History of Present Illness H&P Date: 08/18/23 History of Presenting Illness: Patient is a very pleasant 87-year-old female with a past medical history of CAD, chronic systolic heart failure with EF of 25 to 30%, nonischemic cardiomyopathy status post permanent pacemaker placement, paroxysmal atrial fibrillation on anticoagulation with Eliquis, hypertension, hyperlipidemia, hypothyroidism, GERD, previous TIA, stage IIIb chronic kidney disease, obstructive sleep apnea CPAP dependent, and history of bowel obstruction status post resection.. Patient presented to the emergency department with a chief complaint of abdominal pain. She reports awakening from sleep around midnight with severe pain in her upper abdomen accompanied by nausea and vomiting. Patient reports her bowel movements have never been normal sometimes going 3 to 4 days between, but states they have been at her baseline normal. She denies having any fevers, chills, diaphoresis, chest pain, palpitations, or shortness of breath. Patient reports pain is severe and persistent and despite given pain medication and antiemetic in the emergency department remains nauseous and had emesis in basin at bedside. She underwent evaluation in the emergency department. Vital signs upon arrival show blood pressure 161/92, heart rate 77, respiratory rate 13, temp 97.6 F, and SpO2 of 96% on room air. EKG was com pleted showing a ventricular paced rhythm at 76 bpm. Chest x-ray completed negative for acute cardiopulmonary process. CT abdomen and pelvis without contrast was completed revealing prominent small bowel loops near anastomosis, focal stenosis was not identified although a caliber change in zone transition at the anastomosis appears to be present, nonspecific mesenteric stranding within the left hemipelvis, small amount of free fluid within the pelvis, cholelithiasis, and renal cysts within the inferior poles of bilateral kidneys with concerns of hydronephrosis to the left kidney. Labs completed and reviewed. CBC showing leukocytosis with WBC count of 12.3. BMP revealing chloride 111, bicarb 18, anion gap 9, BUN 32, and creatinine of 1.32. Blood glucose was 129. Liver profile unremarkable. Troponin elevated at 0.052. Lipase normal findings at 56. Renal ultrasound completed revealing left-sided hydronephrosis with possible right hydronephrosis versus parapelvic cyst or other etiology. Patient admitted under our services and consults have been placed to cardiology for elevated troponin and significant cardiac history as well as consult to general surgery secondary to patient's persistently severe left upper and lower quadrant abdominal pain and concerns of ileus versus obst ruction and urology secondary to left-sided hydronephrosis. Review of systems: Pertinent positives and negatives as discussed in HPI, a complete review of systems was performed and all other systems are negative. Physical exam: Vital signs reviewed and stable. General: Nontoxic, no distress and appears stated age. Derm: Skin warm and dry, normal coloration for ethnicity. Head: Atraumatic, normocephalic and symmetric. Eyes: EOMs intact, no lid lag, and anicteric sclera Mouth: no lip lesions, mucus membranes moist Cardiovascular: regular rate and rhythm with normal S1S2, soft systolic murmur, positive posterior tibial pulses bilaterally, and cap refill < 2 seconds. Pacemaker left anterior chest. Lungs: Respirations even, regular, and unlabored on room air. Lungs CTA bilaterally, no rhonchi, no rales, no wheezing, and no accessory muscle usage. Abdominal: soft, patient with significant tenderness to left upper quadrant and left lower quadrant upon palpation. Mild tenderness reported to epigastric region. Ext: ROM intact. No gross muscle atrophy, no edema, no contractures Neuro: Speech clear, face symmetrical and CN II-XII grossly intact with no noted focal neuro deficits Psych: Alert and oriented to person, place, time, and situation. Appropriate and pleasant affect. Assessment and Plan of Care: Epigastric pain with Elevated trops, rule out acute coronary event History of CAD Chronic systolic heart failure with previous EF of 25 to 30% Nonischemic cardiomyopathy status post pacemaker placement Paroxysmal atrial fibrillation -Cardiology consulted, appreciate recommendations -Telemetry monitoring -Trend troponins -Aspirin 324 mg p.o. was given in the emergency department, patient to continue with Farxiga 10 mg daily, pravastatin 40 mg nightly, and Entresto 24-26 mg tablets twice daily. -Eliquis held at this time pending clearance from general surgeon to resume. Left upper and lower quadrant abdominal pain status post previous small bowel resection accompanied by nausea and vomiting. Rule out ileus vs obstruction -CT abdomen and pelvis revealing prominent small bowel loops near anastomosis, focal stenosis was not identified although a caliber change in zone transition at the anastomosis appears to be present, nonspecific mesenteric stranding within the left hemipelvis, small amount of free fluid within the pelvis, and cholelithiasis. -Patient reports history of bowel obstruction resulting in bowel resection by Dr. Justice 04/2022 -Order placed for Compazine 10 mg IVP secondary to persistent nausea. -Consult placed to general surgery -Clear liquid diet pending further recommendations from general surgeon. -Patient's Eliquis held pending clearance from general surgery to resume. Left-sided hydronephrosis Chronic kidney disease stage IIIb -CT abdomen and pelvis completed revealing renal cysts within the inferior poles of bilateral kidneys with concerns of hydronephrosis to the left kidney. -Order placed for urinalysis -Bladder scan to monitor for urinary retention and/or postvoid residuals. -Renal ultrasound completed revealing left-sided hydronephrosis with possible right hydronephrosis versus parapelvic cyst or other etiology. -Urology consulted, appreciate recommendations. Data and imaging reviewed: As stated above in HPI. The patient is admitted with an anticipated greater than 2 midnight stay for evaluation of elevated troponins and concerns of ileus versus small bowel obstruction. CODE STATUS: Full code DVT prophylaxis: TOMAS jolley and SCDs Anticipated discharge date: Clinical course to determine Anticipated discharge place: Clinical course to determine Patient was seen independently by Nurse Practitioner. This document was prepared using [employer] dictation software. Please allow for errors in card doffer while rare they do occur. Agustín Masterson NP rendered care for this patient independently, reviewed the findings and plan as documented in the note above. I did not physically speak with or examine the patient on this date. Past Medical History Past Medical History: CVA/TIA, Eye Disorder, GERD/Reflux, Hyperlipidemia, Hypertension, Renal Disease, Sleep Apnea/CPAP/BIPAP, Thyroid Disorder Additional Past Medical History / Comment(s): "heart skips a beat once in a while" palpitations. TIA's, POTS syndrome,dysotonia. Renal disease stage 3. sleep apnea has machine. macular degeneration lt eye History of Any Multi-Drug Resistant Organisms: None Reported Past Surgical History: Appendectomy, Hysterectomy Additional Past Surgical History / Comment(s): cataract surgery, bowel resection Past Anesthesia/Blood Transfusion Reactions: No Reported Reaction Type of Cardiac Device: Biventricular Pacemaker Device Placement Date:: 05/04/2022 Past Psychological History: Anxiety, Depression Smoking Status: Never smoker Past Alcohol Use History: None Reported Past Drug Use History: None Reported - Past Family History Mother Family Medical History: No Reported History Additional Family Medical History / Comment(s): of heart disease "hole in the heart" at age 29 Father Family Medical History: Myocardial Infarction ([place]) Additional Family Medical History / Comment(s): at age 67 of heart attack Medications and Allergies Home Medications Medication Instructions Recorded Confirmed Type Famotidine [Pepcid] 20 mg PO DAILY 04/25/19 08/18/23 History Apixaban [Eliquis] 5 mg PO BID 08/28/22 08/18/23 History Pravastatin Sodium [Pravachol] 40 mg PO HS 03/11/23 08/18/23 History Dapagliflozin Propanediol [Farxiga] 10 mg PO DAILY #30 tablet 03/18/23 08/18/23 Rx Dibucaine 1 applic TOPICAL TID PRN 08/18/23 08/18/23 History Furosemide [Lasix] 20 mg PO DAILY 08/18/23 08/18/23 History Levothyroxine Sodium [Synthroid] 125 mcg PO DAILY 08/18/23 08/18/23 History Sacubitril/Valsartan [Entresto 24 1 tab PO BID 08/18/23 08/18/23 History mg-26 mg Tablet] Sodium Bicarbonate Tab 650 mg PO DAILY 08/18/23 08/18/23 History carvediloL [Coreg] 3.125 mg PO BID 08/18/23 08/18/23 History Allergies Allergy/AdvReac Type Severity Reaction Status Date / Time nitroglycerin Allergy Unknown Verified 08/18/23 09:51 Iodinated Contrast Media AdvReac Severe kidney Verified 08/18/23 09:51 [Iodinated Contrast Media - failure IV Dye] omeprazole [From Prilosec] AdvReac Severe kidney Verified 08/18/23 09:51 failure omeprazole magnesium AdvReac Severe kidney Verified 08/18/23 09:51 [From Prilosec] failure ciprofloxacin [From Cipro] AdvReac Kidney Verified 08/18/23 09:51 Failure fludrocortisone AdvReac KIDNEY Verified 08/18/23 09:51 [From Florinef] ISSUES Iodine and Iodide Containing AdvReac kidney Verified 08/18/23 09:51 Produc issues sodium phosphate AdvReac Unknown Verified 08/18/23 09:51 [From Fleet Enema] Physical Exam Vitals: Vital Signs Temp Pulse Resp BP Pulse Ox 03/27/24 08:23 97.9 F 82 16 120/66 92 L 08/18/23 05:13 97.6 F 77 13 161/92 96 Intake and Output 08/17/23 08/18/23 08/18/23 22:59 06:59 14:59 Other: Weight 66.678 kg Results CBC & Chem 7: 08/18/23 05:38 08/18/23 05:38 Labs: Abnormal Lab Results - Last 24 Hours (Table) 08/18/23 08/18/23 08/18/23 Range/Units 05:38 05:38 05:38 WBC 12.3 H (3.8-10.6) k/uL Hct 46.6 H (34.0-46.0) % MCHC 30.9 L (31.0-37.0) g/dL Neutrophils # 9.6 H (1.3-7.7) k/uL Chloride 111 H (98-107) mmol/L Carbon Dioxide 18 L (22-30) mmol/L BUN 32 H (7-17) mg/dL Creatinine 1.32 H (0.52-1.04) mg/dL Glucose 129 H (74-99) mg/dL Troponin I 0.052 H* (0.000-0.034) ng/mL
[2023-08-18] MEDS: SODIUM BICARBONATE TAB 650 MG TAB PO SCH (11:30)
[2023-08-18] MEDS: carvediloL 3.125 MG TAB PO SCH (11:30)
[2023-08-18] MEDS: LEVOTHYROXINE 125 MCG TAB PO SCH (11:30)
[2023-08-18] MEDS: SACUBITRIL/VALSARTAN 24 MG-26 MG TABLET PO SCH (12:10)
[2023-08-18] MEDS: DAPAGLIFLOZIN PROPANEDIOL 10 MG TABLET PO SCH (12:10)
[2023-08-18] MEDS: ONDANSETRON 4 MG/2 ML VIAL IVP PRN (13:48)
[2023-08-18] MEDS: MORPHINE SULFATE 4 MG/ML SYRINGE IV PRN (13:48)
--- NOTE | 2023-08-18 16:39 | P.GSCN ---
History of Present Illness Consult date: 08/18/23 History of present illness: CHIEF COMPLAINT: Abdominal pain HISTORY OF PRESENT ILLNESS: This is a 87-year-old female who presented to the hospital with complaints of abdominal pain across the upper abdomen that radiated down into the lower abdomen. Patient reports that the pain woke her up around midnight. She did have vomiting. History was obtained from patient and family at bedside. Patient did report that the pain was similar to her prior bowel obstruction in which she required a bowel resection in [address] Justice. Patient reports having bowel movements and flatus. She had a CT scan abdomen and pelvis that did report prominent small bowel loops to the anastomosis. Nonspecific mesenteric stranding within the left hemipelvis. Patient had initially reported that the pain had improved since being in the hospital. She ate lunch and then had increase in abdominal pain. PAST MEDICAL HISTORY: See list. PAST SURGICAL HISTORY: See list. MEDICATIONS: See list. ALLERGIES: See list. SOCIAL HISTORY: No illicit drug use. REVIEW OF SYSTEMS: CONSTITUTIONAL: Denies fever or chills. HEENT: Denies blurred vision, vision changes, or eye pain. Denies hemoptysis ENDOCRINE: Denies heat or cold intolerance. CARDIOVASCULAR: Denies chest pain or pressure. RESPIRATORY: No shortness of breath. GASTROINTESTINAL: Denies abdominal pain. Denies nausea or vomiting. NEURO: Denies history of seizures. PSYCH: No depression or suicidal ideation HEMATOLOGIC: Denies bleeding disorders. LYMPHATIC: The patient denies any lumps and bumps around the neck. GENITOURINARY: Denies any blood in urine or increased urinary frequency. MUSCULOSKELETAL: Denies myalgias. Denies joint swelling. Denies decreased range of motion beyond patients baseline. SKIN: Denies pruitis. Denies rash. PHYSICAL EXAM: VITAL SIGNS: Reviewed GENERAL: Well-developed in no acute distress. HEENT: No sclera icterus. Extraocular movements grossly intact. Moist buccal mucosa. Head is atraumatic, normocephalic. Hears conversational speech. No nasal drainage. NECK: Supple without lymphadenopathy. CHEST: Non-labored respirations and equal bilateral excursions. CARDIOVASCULAR: Palpable 2+ radial pulses. ABDOMEN: Soft. Nondistended. Tender with palpation to the left of the umbilicus and near the suprapubic area. MUSCULOSKELETAL: No clubbing or cyanosis. NEUROLOGIC: No focal or lateralizing signs. Cranial nerves II through XII grossly intact. PSYCH: Appropriate affect. Alert and oriented to person, place and time. SKIN: Well perfused. Good skin turgor. LABORATORY DATA: WBC 12.3 Hgb 14.4 platelets 169 Sodium is 138 potassium 4.8 creatinine 1.32 Lactic acid 1.1 Troponins elevated LFTs and lipase normal IMAGING: CT scan abdomen and pelvis reports prominent small bowel loops to the anastomosis. Focal stenosis is not identified although a caliber change and zone transition at the anastomosis appears to be present. Nonspecific mesenteric stranding within the left hemipelvis not directly associated with the diverticulosis of the appendix in the right hemipelvis. Small amount of free fluid within the pelvis. Cholelithiasis. Pelvic cyst within the inferior poles bilateral kidneys. ASSESSMENT: 1. Possible small bowel obstruction. Prominent small bowel loops to the anastomosis noted 2. Prior history of small bowel obstruction with small bowel resection in 2021 3. Elevated troponins being evaluated by cardiology 4. History of atrial fibrillation on Eliquis at home PLAN: -Keep patient n.p.o. -Small bowel follow-through ordered for further evaluation of small bowel obstruction -Continue supportive care -Further recommendations forthcoming -Continue to hold Eliquis Physician [employer] Reset note has been reviewed by physician. Signing provider agrees with the documented findings, assessment, and plan of care. Past Medical History Past Medical History: CVA/TIA, Eye Disorder, GERD/Reflux, Hyperlipidemia, Hypertension, Renal Disease, Sleep Apnea/CPAP/BIPAP, Thyroid Disorder Additional Past Medical History / Comment(s): "heart skips a beat once in a while" palpitations. TIA's, POTS syndrome,dysotonia. Renal disease stage 3. sleep apnea has machine. macular degeneration lt eye History of Any Multi-Drug Resistant Organisms: None Reported Past Surgical History: Appendectomy, Hysterectomy Additional Past Surgical History / Comment(s): cataract surgery, bowel resection Past Anesthesia/Blood Transfusion Reactions: No Reported Reaction Type of Cardiac Device: Biventricular Pacemaker Device Placement Date:: 05/04/2022 Past Psychological History: Anxiety, Depression Smoking Status: Never smoker Past Alcohol Use History: None Reported Past Drug Use History: None Reported - Past Family History Mother Family Medical History: No Reported History Additional Family Medical History / Comment(s): of heart disease "hole in the heart" at age 29 Father Family Medical History: Myocardial Infarction ([place]) Additional Family Medical History / Comment(s): at age 67 of heart attack Medications and Allergies Home Medications Medication Instructions Recorded Confirmed Type Famotidine [Pepcid] 20 mg PO DAILY 04/25/19 08/18/23 History Apixaban [Eliquis] 5 mg PO BID 08/28/22 08/18/23 History Pravastatin Sodium [Pravachol] 40 mg PO HS 03/11/23 08/18/23 History Dapagliflozin Propanediol [Farxiga] 10 mg PO DAILY #30 tablet 03/18/23 08/18/23 Rx Dibucaine 1 applic TOPICAL TID PRN 08/18/23 08/18/23 History Furosemide [Lasix] 20 mg PO DAILY 08/18/23 08/18/23 History Levothyroxine Sodium [Synthroid] 125 mcg PO DAILY 08/18/23 08/18/23 History Sacubitril/Valsartan [Entresto 24 1 tab PO BID 08/18/23 08/18/23 History mg-26 mg Tablet] Sodium Bicarbonate Tab 650 mg PO DAILY 08/18/23 08/18/23 History carvediloL [Coreg] 3.125 mg PO BID 08/18/23 08/18/23 History Allergies Allergy/AdvReac Type Severity Reaction Status Date / Time nitroglycerin Allergy Unknown Verified 08/18/23 09:51 Iodinated Contrast Media AdvReac Severe kidney Verified 08/18/23 09:51 [Iodinated Contrast Media - failure IV Dye] omeprazole [From Prilosec] AdvReac Severe kidney Verified 08/18/23 09:51 failure omeprazole magnesium AdvReac Severe kidney Verified 08/18/23 09:51 [From Prilosec] failure ciprofloxacin [From Cipro] AdvReac Kidney Verified 08/18/23 09:51 Failure fludrocortisone AdvReac KIDNEY Verified 08/18/23 09:51 [From Florinef] ISSUES Iodine and Iodide Containing AdvReac kidney Verified 08/18/23 09:51 Produc issues sodium phosphate AdvReac Unknown Verified 08/18/23 09:51 [From Fleet Enema] Surgical - Exam Vital Signs Temp Pulse Resp BP Pulse Ox 97.6 F 77 13 161/92 96 08/18/23 05:13 08/18/23 05:13 08/18/23 05:13 08/18/23 05:13 08/18/23 05:13 Results - Labs 08/18/23 05:38 08/18/23 05:38 Abnormal Lab Results - Last 24 Hours (Table) 08/18/23 08/18/23 08/18/23 Range/Units 05:38 05:38 05:38 WBC 12.3 H (3.8-10.6) k/uL Hct 46.6 H (34.0-46.0) % MCHC 30.9 L (31.0-37.0) g/dL Neutrophils # 9.6 H (1.3-7.7) k/uL Chloride 111 H (98-107) mmol/L Carbon Dioxide 18 L (22-30) mmol/L BUN 32 H (7-17) mg/dL Creatinine 1.32 H (0.52-1.04) mg/dL Glucose 129 H (74-99) mg/dL Troponin I 0.052 H* (0.000-0.034) ng/mL 08/18/23 Range/Units 10:08 WBC (3.8-10.6) k/uL Hct (34.0-46.0) % MCHC (31.0-37.0) g/dL Neutrophils # (1.3-7.7) k/uL Chloride (98-107) mmol/L Carbon Dioxide (22-30) mmol/L BUN (7-17) mg/dL Creatinine (0.52-1.04) mg/dL Glucose (74-99) mg/dL Troponin I 0.084 H* (0.000-0.034) ng/mL Diabetes panel 08/18/23 Range/Units 05:38 Sodium 138 (137-145) mmol/L Potassium 4.8 (3.5-5.1) mmol/L Chloride 111 H (98-107) mmol/L Carbon Dioxide 18 L (22-30) mmol/L BUN 32 H (7-17) mg/dL Creatinine 1.32 H (0.52-1.04) mg/dL Glucose 129 H (74-99) mg/dL Calcium 8.8 (8.4-10.2) mg/dL AST 28 (14-36) U/L ALT 10 (4-34) U/L Alkaline Phosphatase 62 (38-126) U/L Total Protein 6.9 (6.3-8.2) g/dL Albumin 3.8 (3.5-5.0) g/dL Calcium panel 08/18/23 Range/Units 05:38 Calcium 8.8 (8.4-10.2) mg/dL Albumin 3.8 (3.5-5.0) g/dL Pituitary panel 08/18/23 Range/Units 05:38 Sodium 138 (137-145) mmol/L Potassium 4.8 (3.5-5.1) mmol/L Chloride 111 H (98-107) mmol/L Carbon Dioxide 18 L (22-30) mmol/L BUN 32 H (7-17) mg/dL Creatinine 1.32 H (0.52-1.04) mg/dL Glucose 129 H (74-99) mg/dL Calcium 8.8 (8.4-10.2) mg/dL Adrenal panel 08/18/23 Range/Units 05:38 Sodium 138 (137-145) mmol/L Potassium 4.8 (3.5-5.1) mmol/L Chloride 111 H (98-107) mmol/L Carbon Dioxide 18 L (22-30) mmol/L BUN 32 H (7-17) mg/dL Creatinine 1.32 H (0.52-1.04) mg/dL Glucose 129 H (74-99) mg/dL Calcium 8.8 (8.4-10.2) mg/dL Total Bilirubin 1.1 (0.2-1.3) mg/dL AST 28 (14-36) U/L ALT 10 (4-34) U/L Alkaline Phosphatase 62 (38-126) U/L Total Protein 6.9 (6.3-8.2) g/dL Albumin 3.8 (3.5-5.0) g/dL
[2023-08-18] MEDS: PROCHLORPERAZINE INJ 10 MG/2 ML VIAL IVP PRN (17:25)
[2023-08-18] MEDS ORDERED: HEPARIN SODIUM 1,000 UN/ML (10ML VL) IV PRN (18:59)
[2023-08-18 20:10] LABS: INR 0.9 (<1.2); Partial Thromboplastin Time 27.3 sec (22.0-30.0); Prothrombin Time 10.4 sec (10.0-12.5)
[2023-08-18] MEDS: HEPARIN SODIUM 1,000 UN/ML (10ML VL) IV ONE (20:37)
[2023-08-18] MEDS: HEPARIN SOD,PORK IN 0.45% NACL 25,000 UNIT in 0.45% NACL 1 250ML.BAG IV SCH (20:38)
[2023-08-18] MEDS: PRAVASTATIN SODIUM 40 MG TAB PO SCH (21:17)
[2023-08-18 23:49] LABS: Appearance,Urine Cloudy (Clear); Bacteria,Urine Few /hpf; Bilirubin,Urine Negative (Negative); Blood,Urine Small (Negative); Color,Urine Yellow; Glucose,Urine (UA) 4+ (Negative); Ketones,Urine 1+ (Negative); Leukocyte Esterase,Urine Large (Negative); Mucus,Urine Few /hpf; Nitrite,Urine Positive (Negative); PH, Urine 7.5 (5.0-8.0); Protein,Urine 1+ (Negative); RBC,Urine 4 /hpf (0-5); Squamous Epithelial Cell,Urine 3 /hpf (0-4); Urobilinogen,Urine <2.0 mg/dL (<2.0); WBC,Urine >182 /hpf (0-5)
--- NOTE | 2023-08-19 13:29 | P.CRDCN ---
History of Present Illness Consult date: 08/19/23 Reason for Consult (text): Elevated troponin History of present illness: History of present illness: This is an 87-year-old female previously seen by Dr. Moreno with past medical history of chronic systolic heart failure, mild coronary artery disease, hypertension, paroxysmal atrial fibrillation on Eliquis, sinus bradycardia status post pacemaker, chronic any disease, obstructive sleep apnea, history of previous bowel obstruction s/p resection. We have been asked to evaluate the patient for elevated troponins. Patient presented to the hospital due to abdominal pain that was concerning for bowel obstruction. She underwent a barium swallow this morning. Patient currently denies having any chest pain, no abdominal pain and no abdominal tenderness. Family give history that she was recently at [facility] and underwent LV lead placement as well as a new generator placement on 07/20/2023. This procedure required intervention to facilitate lead placement. She initially had lead placement done in 2019 that was not effective. She has had no previous stents. Pacemaker device is a [employer]. Patient is planning to follow-up with fur glazer Dr. Rashel Mcdaniel at [facility]. EKG ventricularly paced rhythm Chest x-ray: No acute process. CT of the abdomen pelvis: Prominent small bowel loops to the anastomosis. Focal stenosis is not identified although a caliber change in zone transition at the anastomosis appears to be present. Nonspecific mesenteric stranding in the left hemipelvis not directly associated with the diverticulosis of the appendix in the right hemipelvis. Small amount of free fluid within the pelvis. Cholelithiasis. Pelvic cyst within inferior poles bilateral kidneys. Hydronephrosis is not excluded on the left. Renal ultrasound revealed left hydronephrosis. Possible right hydronephrosis versus parapelvic cyst versus other etiology. WBC 12.3, hemoglobin 14.4, platelet count 169. INR 0.9. Sodium 138, potassium 4.8, chloride 111, CO2 18, BUN 32, creatinine 1.32. Glucose 129. Lactic acid 1.1. Calcium 8.8. Liver function test are normal. Troponins 0.052, 0.084, 0.105. Urinalysis cloudy nitrate positive, leukoesterase large, WBCs greater than 182. Home cardiac medications: Eliquis 5 mg twice daily, Coreg 3.125 mg twice daily, Farxiga 10 mg daily, Lasix 20 mg daily, pravastatin 40 mg at bedtime, Entresto 24 mg / 26 mg 1 tablet twice daily, also on levothyroxine 125 mcg daily. Cardiac catheterization performed on 03/17/[address] Paulion revealed calcified coronary arteries, mild disease in the mid LAD with no progression compared to 2012, right dominance, normal LVEDP. Echocardiogram performed 03/12/2023 reveals EF of 25 to 30%, mild aortic regurgitation. Review Of Systems: At the time of my exam: CONSTITUTIONAL: Denies fever or chills. HEENT: Denies blurred vision, vision changes, or eye pain. Denies hemoptysis CARDIOVASCULAR: Denies chest pain. Denies orthopnea. Denies PND. Denies palpitations RESPIRATORY: Denies shortness of breath. GASTROINTESTINAL: Denies abdominal pain. Denies nausea or vomiting. HEMATOLOGIC: Denies bleeding disorders. GENITOURINARY: Denies any blood in urine. SKIN: Denies pruitis. Denies rash. Physical examination: Gen: This is an 87-year-old female appears to be in no acute distress. VS: reviewed HEENT: Head is atraumatic, normocephalic. Pupils equal, round. Sclerae is anicteric. NECK: Supple. No JVD. LUNGS: Clear to auscultation. No wheezes or rhonchi. No intercostal retractions. HEART: Regular rate and rhythm. Systolic and diastolic murmur noted. ABDOMEN: Soft No tenderness upon palpation. EXTREMITIES: No pedal edema. No calf tenderness. NEUROLOGICAL: Patient is awake, alert and oriented x3. Assessment: Elevated troponins does not indicative of significant coronary injury No significant coronary artery disease seen on the cardiac catheterization performed in February Presented with abdominal pain rule out bowel obstruction Chronic systolic heart failure Hypertension Paroxysmal atrial fibrillation Sinus bradycardia status post pacemaker Chronic kidney disease Recent LV lead and new generator implantation requiring intervention to facilitate lead placement Plan: Resume patient's home cardiac medications Resume patient on Eliquis once cleared by general surgery Patient will follow-up with fur glazer at [facility] after discharge Cardiology will sign off this case and follow on an as-needed basis. Please reconsult for any new concerns. Thank you kindly for this consultation. Nurse practitioner note has been reviewed, I agree with documented findings and plan of care. Patient was seen and examined. Past Medical History Past Medical History: CVA/TIA, Eye Disorder, GERD/Reflux, Hyperlipidemia, Hypertension, Renal Disease, Sleep Apnea/CPAP/BIPAP, Thyroid Disorder Additional Past Medical History / Comment(s): Hx of TIA's, POTS syndrome, dysotonia, CKD stage 3b, sleep apnea uses cpap at night but not daily, macular degeneration left eye, original pacemaker placed by dr moreno 2020, 3 weeks ago 2023 patient had another procedure related to pacemaker at [facility] History of Any Multi-Drug Resistant Organisms: None Reported Past Surgical History: Appendectomy, Bowel Resection, Hysterectomy, Pacemaker Additional Past Surgical History / Comment(s): cataract surgery Past Anesthesia/Blood Transfusion Reactions: No Reported Reaction Type of Cardiac Device: Permanent Pacemaker Device Placement Date:: 2023 Past Psychological History: Anxiety, Depression Additional Psychological History / Comment(s): "anxiety attacks" Smoking Status: Never smoker Past Alcohol Use History: None Reported Additional Past Alcohol Use History / Comment(s): quit smoking 50 years ago Past Drug Use History: None Reported - Past Family History Mother Family Medical History: No Reported History Additional Family Medical History / Comment(s): of heart disease "hole in the heart" at age 29 Father Family Medical History: Myocardial Infarction ([place]) Additional Family Medical History / Comment(s): at age 67 of heart attack Medications and Allergies Home Medications Medication Instructions Recorded Confirmed Type Famotidine [Pepcid] 20 mg PO DAILY 04/25/19 08/18/23 History Apixaban [Eliquis] 5 mg PO BID 08/28/22 08/18/23 History Pravastatin Sodium [Pravachol] 40 mg PO HS 03/11/23 08/18/23 History Dapagliflozin Propanediol [Farxiga] 10 mg PO DAILY #30 tablet 03/18/23 08/18/23 Rx Dibucaine 1 applic TOPICAL TID PRN 08/18/23 08/18/23 History Furosemide [Lasix] 20 mg PO DAILY 08/18/23 08/18/23 History Levothyroxine Sodium [Synthroid] 125 mcg PO DAILY 08/18/23 08/18/23 History Sacubitril/Valsartan [Entresto 24 1 tab PO BID 08/18/23 08/18/23 History mg-26 mg Tablet] Sodium Bicarbonate Tab 650 mg PO DAILY 08/18/23 08/18/23 History carvediloL [Coreg] 3.125 mg PO BID 08/18/23 08/18/23 History Allergies Allergy/AdvReac Type Severity Reaction Status Date / Time nitroglycerin Allergy Unknown Verified 08/18/23 09:51 Iodinated Contrast Media AdvReac Severe kidney Verified 08/18/23 09:51 [Iodinated Contrast Media - failure IV Dye] omeprazole [From Prilosec] AdvReac Severe kidney Verified 08/18/23 09:51 failure omeprazole magnesium AdvReac Severe kidney Verified 08/18/23 09:51 [From Prilosec] failure ciprofloxacin [From Cipro] AdvReac Kidney Verified 08/18/23 09:51 Failure fludrocortisone AdvReac KIDNEY Verified 08/18/23 09:51 [From Florinef] ISSUES Iodine and Iodide Containing AdvReac kidney Verified 08/18/23 09:51 Produc issues sodium phosphate AdvReac Unknown Verified 08/18/23 09:51 [From Fleet Enema] Physical Exam Vitals: Vital Signs Temp Pulse Pulse Resp BP BP Pulse Ox 08/19/23 11:25 76 16 126/69 92 L 08/19/23 08:20 97.9 F 99 16 143/81 95 08/19/23 00:00 97.8 F 84 16 143/85 94 L 08/18/23 20:00 75 18 146/62 96 08/18/23 17:56 98.8 F 71 18 151/74 94 L 08/18/23 15:48 86 20 167/90 95 Intake and Output 08/18/23 08/19/23 08/19/23 22:59 06:59 14:59 Output Total 50 Balance -50 Output: Urine 50 Other: Voiding Method Toilet Toilet # Voids 1 1 Weight 66.678 kg Results 08/18/23 05:38 08/18/23 05:38 Cardiac Enzymes 08/18/23 Range/Units 13:52 Troponin I 0.105 H* (0.000-0.034) ng/mL Coagulation 08/18/23 08/18/23 Range/Units 19:40 22:53 PT 10.4 (10.0-12.5) sec APTT 27.3 87.9 H (22.0-30.0) sec Current Medications Generic Name Dose Route Start Last Admin Trade Name Freq PRN Reason Stop Dose Admin Carvedilol 3.125 mg 08/18/23 10:15 08/19/23 11:56 Carvedilol 3.125 Mg Tab PO 3.125 mg BID UZMA Administration Dapagliflozin 10 mg 08/18/23 10:15 08/19/23 11:56 Dapagliflozin Propanediol 10 Mg Tablet PO 10 mg DAILY UZMA Administration Heparin Sodium (Porcine) 0 unit 08/18/23 18:59 Heparin Sodium 1,000 Un/Ml (10ml Vl) IV PER PROTOCOL PRN Low PTT Protocol Sodium Chloride 1,000 mls @ 75 mls/hr 08/18/23 08:45 08/19/23 08:34 Saline 0.9% IV 75 mls/hr .[id number] UZMA Administration Heparin Sodium/Sodium Chloride 250 mls @ 8.001 mls/hr 08/18/23 19:00 08/18/23 20:38 25,000 unit/ Sodium Chloride IV 12 units/kg/hr .Q24H UZMA 8.001 mls/hr Administration Protocol 12 UNITS/KG/HR Ceftriaxone Sodium 2 gm/ 50 mls @ 100 mls/hr 08/19/23 09:00 08/19/23 08:35 Sodium Chloride IVPB 100 mls/hr Q24HR UZMA Administration Protocol Levothyroxine Sodium 125 mcg 08/18/23 10:15 08/19/23 11:56 Levothyroxine 125 Mcg Tab PO 125 mcg DAILY UZMA Administration Morphine Sulfate 4 mg 08/18/23 08:36 08/19/23 01:39 Morphine Sulfate 4 Mg/Ml Syringe IV 4 mg Q4HR PRN Administration Severe Pain (Scale 7 to 10) Naloxone HCl 0.2 mg 08/18/23 08:36 Naloxone 0.4 Mg/Ml 1 Ml Vial IV Q2M PRN Opioid Reversal Ondansetron HCl 4 mg 08/18/23 08:36 08/18/23 13:48 Ondansetron 4 Mg/2 Ml Vial IVP 4 mg Q8HR PRN Administration Nausea And Vomiting Pravastatin Sodium 40 mg 08/18/23 21:00 08/18/23 21:17 Pravastatin Sodium 40 Mg Tab PO 40 mg HS UZMA Administration Prochlorperazine Edisylate 10 mg 08/18/23 10:08 08/19/23 08:34 Prochlorperazine Inj 10 Mg/2 Ml Vial IVP 10 mg Q6H PRN Administration Nausea Sacubitril/Valsartan 1 each 08/18/23 10:15 08/19/23 11:56 Sacubitril/Valsartan 24 Mg-26 Mg Tablet PO 1 each BID UZMA Administration Sodium Bicarbonate 650 mg 08/18/23 10:15 08/19/23 11:56 Sodium Bicarbonate Tab 650 Mg Tab PO 650 mg DAILY UZMA Administration Intake and Output 08/18/23 08/19/23 08/19/23 22:59 06:59 14:59 Output Total 50 Balance -50 Output: Urine 50 Other: Voiding Method Toilet Toilet # Voids 1 1 Weight 66.678 kg 08/18/23 05:38 08/18/23 05:38
[2023-08-19 13:36] LABS: Basophils % (A) 0 %; Eosinophils % (A) 0 %; HCT 49.7 % (34.0-46.0); HGB 14.5 gm/dL (11.4-16.0); Hypochromasia Marked; Lymphocytes # (A) 1.2 k/uL (1.0-4.8); Lymphocytes % (A) 9 %; MCH 29.7 pg (25.0-35.0); MCHC 29.1 g/dL (31.0-37.0); Macrocytosis Slight; Monocytes # (A) 0.5 k/uL (0-1.0); Monocytes % (A) 4 %; Neutrophils # (A) 11.3 k/uL (1.3-7.7); Neutrophils % (A) 85 %; Platelet Count 144 k/uL (150-450); RBC 4.88 m/uL (3.80-5.40); RDW 13.8 % (11.5-15.5); WBC 13.3 k/uL (3.8-10.6)
--- NOTE | 2023-08-19 13:41 | P.PN ---
Subjective Progress Note Date: 08/19/23 Hospital course: Patient is a very pleasant 87-year-old female with a past medical history of CAD, chronic systolic heart failure with EF of 25 to 30%, nonischemic cardiomyopathy status post permanent pacemaker placement, paroxysmal atrial fi brillation on anticoagulation with Eliquis, hypertension, hyperlipidemia, hypothyroidism, GERD, previous TIA, stage IIIb chronic kidney disease, obstructive sleep apnea CPAP dependent, and history of bowel obstruction status post resection.. Patient presented to the emergency department with a chief complaint of abdominal pain. She reports awakening from sleep around midnight with severe pain in her upper abdomen accompanied by nausea and vomiting. Patient reports her bowel movements have never been normal sometimes going 3 to 4 days between, but states they have been at her baseline normal. She denies having any fevers, chills, diaphoresis, chest pain, palpitations, or shortness of breath. Patient reports pain is severe and persistent and despite given pain medication and antiemetic in the emergency department remains nauseous and had emesis in basin at bedside. She underwent evaluation in the emergency department. Vital signs upon arrival show blood pressure 161/92, heart rate 77, respiratory rate 13, temp 97.6 F, and SpO2 of 96% on room air. EKG was completed showing a ventricular paced rhythm at 76 bpm. Chest x-ray completed negative for acute cardiopulmonary process. CT abdomen and pelvis without contrast was completed revealing prominent small bowel loops near anastomosis, focal stenosis was not identified although a caliber change in zone transition at the anastomosis appears to be present, nonspecific mesenteric stranding within the left hemipelvis, small amount of free fluid within the pelvis, cholelithiasis, and renal cysts within the inferior poles of bilateral kidneys with concerns of hydronephrosis to the left kidney. Labs completed and reviewed. CBC showing leukocytosis with WBC count of 12.3. BMP revealing chloride 111, bicarb 18, anion gap 9, BUN 32, and creatinine of 1.32. Blood glucose was 129. Liver profile unremarkable. Troponin elevated at 0.052. Lipase normal findings at 56. Renal ultrasound completed revealing left-sided hydronephrosis with possible right hydronephrosis versus parapelvic cyst or other etiology. Patient admitted under our services and consults have been placed to cardiology for elevated troponin and significant cardiac history as well as consult to general surgery secondary to patient's persistently severe left upper and lower quadrant abdominal pain and concerns of ileus versus obstruction and urology secondary to left-sided hydronephrosis. Physical exam: Vital signs reviewed and stable. General: Nontoxic, no distress and appears stated age. Derm: Skin warm and dry, normal coloration for ethnicity. Head: Atraumatic, normocephalic and symmetric. Eyes: EOMs intact, no lid lag, and anicteric sclera Mouth: no lip lesions, mucus membranes moist Cardiovascular: regular rate and rhythm with normal S1S2, soft systolic murmur, positive posterior tibial pulses bilaterally, and cap refill < 2 seconds. Pacemaker left anterior chest. Lungs: Respirations even, regular, and unlabored on room air. Lungs CTA bilaterally, no rhonchi, no rales, no wheezing, and no accessory muscle usage. Abdominal: soft, tenderness to left upper quadrant and left lower quadrant upon palpation. Ext: ROM intact. No gross muscle atrophy, no edema, no contractures Neuro: Speech clear, face symmetrical and CN II-XII grossly intact with no noted focal neuro deficits Psych: Alert and oriented to person, place, time, and situation. Appropriate and pleasant affect. Assessment and Plan of Care: Elevated troponins, likely type II NSTEMI History of CAD Chronic systolic heart failure with previous EF of 25 to 30% Nonischemic cardiomyopathy status post pacemaker placement Paroxysmal atrial fibrillation -Cardiology evaluated, initially started patient on heparin infusion but ruling out acute coronary syndrome and discontinuing heparin infusion and recommending patient resume Eliquis once cleared by general surgeon. -Telemetry monitoring -Troponins trended resulting at 0.052, 0.084, and 0.105 -Patient to continue with carvedilol 3.125 mg twice daily, Farxiga 10 mg daily, pravastatin 40 mg nightly, and Entresto 24-26 mg tablets twice daily. -Eliquis held at this time pending clearance from general surgeon to resume. Abdominal pain accompanied by nausea and vomiting. Rule out small bowel obstruction History of small bowel obstruction status post bowel resection 2021 -CT abdomen and pelvis revealing prominent small bowel loops near anastomosis, focal stenosis was not identified although a caliber change in zone transition at the anastomosis appears to be present, nonspecific mesenteric stranding within the left hemipelvis, small amount of free fluid within the pelvis, and cholelithiasis. -Patient reports history of bowel obstruction resulting in bowel resection by Dr. Justice 04/2022 -Order placed for Compazine 10 mg IVP secondary to persistent nausea. -General surgery following placed order for small bowel follow-through and NG tube placement -NPO pending further recommendations from general surgeon. Left-sided hydronephrosis UTI Chronic kidney disease stage IIIb, stable at baseline -CT abdomen and pelvis completed revealing renal cysts within the inferior poles of bilateral kidneys with concerns of hydronephrosis to the left kidney. -Urinalysis positive for protein, glucose, ketones, blood, nitrates, leukocytes, and greater than 182 WBCs. -Patient started on Rocephin 2 g daily -Follow-up with urine culture results -Bladder scan to monitor for urinary retention and/or postvoid residuals. Straight catheterize as needed for retention greater than 350 cc. -Renal ultrasound completed revealing left-sided hydronephrosis with possible right hydronephrosis versus parapelvic cyst or other etiology. -Urology consulted, appreciate recommendations. Data and imaging reviewed: Urinalysis positive for infection. Awaiting morning labs to result. Patient was a difficult draw and labs were not drawn until late. Will follow-up on these results and place additional orders if indicated based upon these findings. Vital signs reviewed. Blood pressure 126/69, heart rate 76, respiratory rate 16, temp 97.9 F, and SpO2 of 92% on room air. CODE STATUS: Full code DVT prophylaxis: TOMAS jolley and Robert Anticipated discharge date: Clinical course to determine Anticipated discharge place: Clinical course to determine Patient was seen independently by Nurse Practitioner. This document was prepared using [employer] dictation software. Please allow for errors in plating machine operator while rare they do occur. Agustín Masterson NP rendered care for this patient independently, reviewed the fin dings and plan as documented in the note above. I did not physically speak with or examine the patient on this date. Objective - Vital Signs Vital signs: Vital Signs Temp 97.8 F 08/19/23 00:00 Pulse 84 08/19/23 00:00 Resp 16 08/19/23 00:00 BP 143/85 08/19/23 00:00 Pulse Ox 94 L 08/19/23 00:00 FiO2 Intake & Output 08/18/23 08/19/23 08/19/23 18:59 06:59 18:59 Output Total 50 Balance -50 Weight 66.678 kg Output: Urine 50 Other: Voiding Method Toilet # Voids 1 - Labs CBC & Chem 7: 08/19/23 13:01 08/19/23 15:35 Labs: Abnormal Lab Results - Last 24 Hours (Table) 08/18/23 08/18/23 08/18/23 Range/Units 10:08 13:52 22:53 APTT 87.9 H (22.0-30.0) sec Troponin I 0.084 H* 0.105 H* (0.000-0.034) ng/mL Urine Appearance (Clear) Urine Protein (Negative) Urine Glucose (UA) (Negative) Urine Ketones (Negative) Urine Blood (Negative) Urine Nitrite (Negative) Ur Leukocyte Esterase (Negative) Urine WBC (0-5) /hpf Urine Bacteria (None) /hpf Urine Mucus (None) /hpf 08/18/23 Range/Units 23:23 APTT (22.0-30.0) sec Troponin I (0.000-0.034) ng/mL Urine Appearance Cloudy H (Clear) Urine Protein 1+ H (Negative) Urine Glucose (UA) 4+ H (Negative) Urine Ketones 1+ H (Negative) Urine Blood Small H (Negative) Urine Nitrite Positive H (Negative) Ur Leukocyte Esterase Large H (Negative) Urine WBC >182 H (0-5) /hpf Urine Bacteria Few H (None) /hpf Urine Mucus Few H (None) /hpf
[2023-08-19 13:57] LABS: MCV 101.8 fL (80.0-100.0)
--- NOTE | 2023-08-19 14:45 | FL ---
EXAMINATION TYPE: FL small bowel follow through DATE OF EXAM: 08/19/2023 CLINICAL HISTORY: Abdominal TECHNIQUE: A single contrast small bowel follow through is performed utilizing barium. COMPARISON: 327 FINDINGS: Fine Arts Instructor image of the abdomen and injury to markedly dilated small bowel loops. Degenerative changes spine. The hips. There is cardiac leads. Severely delayed transit time with only minimal transit through the proximal small bowel at 4.5 hours . Findings are compatible with high-grade at least partial obstruction. IMPRESSION: Findings compatible with high-grade at least partial small bowel obstruction.
--- NOTE | 2023-08-19 16:09 | P.GSCN ---
History of Present Illness Consult date: 08/19/23 Reason for Consult: Hydronephrosis Requesting physician: Agustín Masterson History of present illness: The patient is an 87-year-old white female known to me. She has a history of stage IIIb chronic kidney disease, and has been treated for recurrent UTIs. Previous CT scan showed evidence of bilateral hydronephrosis. She was last seen in the office in September 2022. At that time, arrangements were made for her to undergo cystoscopy, bilateral retrograde pyelograms, possible ureteral stent insertion. She canceled that procedure has not and has not been seen since that time. Per the patient's daughter, the procedure was canceled due to the fact that a repeat ultrasound showed no evidence of hydronephrosis. She is now admitted with abdominal pain, nausea and vomiting. She has undergone a CT scan and renal ultrasound, showing evidence of hydronephrosis. The patient was recently hospitalized with congestive heart failure. She was treated with diuretics and lost 10 pounds. The patient's daughter states that her renal function has gradually declined. Review of Systems - Constitutional Denies chills, Denies fever - Gastrointestinal Reports abdominal pain, Reports nausea, Reports vomiting - Genitourinary Genitourinary: Denies flank pain, Denies hematuria Past Medical History Past Medical History: CVA/TIA, Eye Disorder, GERD/Reflux, Hyperlipidemia, H ypertension, Renal Disease, Sleep Apnea/CPAP/BIPAP, Thyroid Disorder Additional Past Medical History / Comment(s): Hx of TIA's, POTS syndrome, dysotonia, CKD stage 3b, sleep apnea uses cpap at night but not daily, macular degeneration left eye, original pacemaker placed by dr vargas 2020, 3 weeks ago 2023 patient had another procedure related to pacemaker at [facility] History of Any Multi-Drug Resistant Organisms: None Reported Past Surgical History: Appendectomy, Bowel Resection, Hysterectomy, Pacemaker Additional Past Surgical History / Comment(s): cataract surgery Past Anesthesia/Blood Transfusion Reactions: No Reported Reaction Type of Cardiac Device: Permanent Pacemaker Device Placement Date:: 2023 Past Psychological History: Anxiety, Depression Additional Psychological History / Comment(s): "anxiety attacks" Smoking Status: Never smoker Past Alcohol Use History: None Reported Additional Past Alcohol Use History / Comment(s): quit smoking 50 years ago Past Drug Use History: None Reported - Past Family History Mother Family Medical History: No Reported History Additional Family Medical History / Comment(s): of heart disease "hole in the heart" at age 29 Father Family Medical History: Myocardial Infarction ([place]) Additional Family Medical History / Comment(s): at age 67 of heart attack Medications and Allergies Home Medications Medication Instructions Recorded Confirmed Type Famotidine [Pepcid] 20 mg PO DAILY 04/25/19 08/18/23 History Apixaban [Eliquis] 5 mg PO BID 08/28/22 08/18/23 History Pravastatin Sodium [Pravachol] 40 mg PO HS 03/11/23 08/18/23 History Dapagliflozin Propanediol [Farxiga] 10 mg PO DAILY #30 tablet 03/18/23 08/18/23 Rx Dibucaine 1 applic TOPICAL TID PRN 08/18/23 08/18/23 History Furosemide [Lasix] 20 mg PO DAILY 08/18/23 08/18/23 History Levothyroxine Sodium [Synthroid] 125 mcg PO DAILY 08/18/23 08/18/23 History Sacubitril/Valsartan [Entresto 24 1 tab PO BID 08/18/23 08/18/23 History mg-26 mg Tablet] Sodium Bicarbonate Tab 650 mg PO DAILY 08/18/23 08/18/23 History carvediloL [Coreg] 3.125 mg PO BID 08/18/23 08/18/23 History Allergies Allergy/AdvReac Type Severity Reaction Status Date / Time nitroglycerin Allergy Unknown Verified 08/18/23 09:51 Iodinated Contrast Media AdvReac Severe kidney Verified 08/18/23 09:51 [Iodinated Contrast Media - failure IV Dye] omeprazole [From Prilosec] AdvReac Severe kidney Verified 08/18/23 09:51 failure omeprazole magnesium AdvReac Severe kidney Verified 08/18/23 09:51 [From Prilosec] failure ciprofloxacin [From Cipro] AdvReac Kidney Verified 08/18/23 09:51 Failure fludrocortisone AdvReac KIDNEY Verified 08/18/23 09:51 [From Florinef] ISSUES Iodine and Iodide Containing AdvReac kidney Verified 08/18/23 09:51 Produc issues sodium phosphate AdvReac Unknown Verified 08/18/23 09:51 [From Fleet Enema] Surgical - Exam Vital Signs Temp Pulse Resp BP Pulse Ox 97.6 F 77 13 161/92 96 08/18/23 05:13 08/18/23 05:13 08/18/23 05:13 08/18/23 05:13 08/18/23 05:13 - General well developed, well nourished, moderate distress - Respiratory normal respiratory effort - Abdomen Soft with left-sided tenderness. - Psychiatric oriented to time, oriented to person, oriented to place, speech is normal, memory intact Results - Labs 08/19/23 13:01 08/18/23 05:38 Abnormal Lab Results - Last 24 Hours (Table) 08/18/23 08/18/23 08/18/23 Range/Units 10:08 13:52 22:53 APTT 87.9 H (22.0-30.0) sec Troponin I 0.084 H* 0.105 H* (0.000-0.034) ng/mL Urine Appearance (Clear) Urine Protein (Negative) Urine Glucose (UA) (Negative) Urine Ketones (Negative) Urine Blood (Negative) Urine Nitrite (Negative) Ur Leukocyte Esterase (Negative) Urine WBC (0-5) /hpf Urine Bacteria (None) /hpf Urine Mucus (None) /hpf 08/18/23 Range/Units 23:23 APTT (22.0-30.0) sec Troponin I (0.000-0.034) ng/mL Urine Appearance Cloudy H (Clear) Urine Protein 1+ H (Negative) Urine Glucose (UA) 4+ H (Negative) Urine Ketones 1+ H (Negative) Urine Blood Small H (Negative) Urine Nitrite Positive H (Negative) Ur Leukocyte Esterase Large H (Negative) Urine WBC >182 H (0-5) /hpf Urine Bacteria Few H (None) /hpf Urine Mucus Few H (None) /hpf - Imaging CT scan - abdomen: report reviewed, image reviewed US - kidney/bladder: report reviewed Assessment and Plan Assessment: I have reviewed the patient's CT scan. There appears to be a parapelvic cyst inferiorly on the right side, and I do not believe that she has right hydronephrosis. There appears to be moderate left hydronephrosis. There is no ureteral dilation. (1) Unspecified hydronephrosis Current Visit: Yes Status: Acute Code(s): N13.30 - UNSPECIFIED HYDRONEPHROSIS SNOMED Code(s): 23440717 Plan: The patient appears to have left hydronephrosis of indeterminate etiology. This is not acute and I believe it is unrelated to the patient's current sy mptomatology. Her renal function has deteriorated, but again this can be due to multiple factors and is not necessarily related to the hydronephrosis. I intend to review office records. She may benefit from cystoscopy with retrograde pyelograms and possible stent placement, though I would not recommend this be done until her overall condition improves. Time with Patient: Greater than 30
[2023-08-19 16:48] LABS: African American GFR (CKD) 50 (>60 ml/min/1.73 sqM); Anion Gap 9 mmol/L; Blood Urea Nitrogen 32 mg/dL (7-17); Calcium 8.4 mg/dL (8.4-10.2); Carbon Dioxide 16 mmol/L (22-30); Chloride 113 mmol/L (98-107); Glucose 94 mg/dL (74-99); Non-African American GFR(CKD) 43 (>60 ml/min/1.73 sqM); Potassium 4.5 mmol/L (3.5-5.1); Sodium 138 mmol/L (137-145)
--- NOTE | 2023-08-20 08:11 | P.PN ---
Subjective Progress Note Date: 08/19/23 CHIEF COMPLAINT: Abdominal pain HISTORY OF PRESENT ILLNESS: The patient is a 87-year-old female admitted for elevated troponins including abdominal pain. She has personal history of bowel resection for bowel obstruction almost 2 years ago, 2021. She presents again with bowel obstruction. Completed small bowel follow-through yesterday. She denies any bowel movements. Family is at bedside. Patient had been seen by cardiology. Incidentally, patient a recent pacemaker placed 1 month ago. Patie nt is pending an echocardiogram. Blood thinners has been held. She is on heparin drip. ROS: No reports of nausea and vomiting. No bowel movements. No fevers or chills. No new chest pain. No productive sputum PHYSICAL EXAM: VITAL SIGNS: Reviewed CONSTITUTIONAL: Well developed and in no acute distress. EYES: Conjuctivae without sclera icterus. Extraocular movements grossly intact. HEAD, EARS, NOSE, THROAT: Moist buccal mucosa. Head is atraumatic, normocephalic. Hears conversational speech. No nasal drainage. RESPIRATORY: Non-labored respirations and equal bilateral excursions. CARDIOVASCULAR: Palpable 2+ radial pulses. ABDOMEN: No peritonitis. Mild tenderness. MUSCULOSKELETAL: No gross deformity of the lower extremities noted. No clubbing. No cyanosis. SKIN: Good skin turgor. Well perfused. NEUROLOGIC: Cranial nerves II through XII grossly intact. No focal or lateral izing signs. PSYCH: Appropriate affect. Alert and oriented to person, place and time. CLINICAL LABS: Reviewed. WBC elevated 12.3-13.3, leukocytosis. STUDIES: Small bowel follow-through independent review demonstrate contrast terminates within the small bowel without progression into the large colon. Findings are consistent with bowel obstruction. This is my independent interpretation. REPORTS: Radiology report also confirms bowel obstruction. ASSESSMENT: 1. Small bowel obstruction due to adhesions 2. Elevated troponins 3. Cardiac pacemaker in situ 4. History of bowel resection PLAN: 1. Extensive discussion with the patient and her family regarding management was reviewed. As patient presented with recent elevated troponins including recent pacemaker placement, options for conservative management was described. 2. Nasogastric tube tube decompression was reviewed including options for surgical intervention. 3. PICC line placement with TPN was described. 4. Surgical intervention pending clinical course was reviewed with anticipated surgical invention Wednesday 5. Patient is due for echocardiogram per discussion with her family and with risk of surgical intervention, agree with echocardiogram prior to surgical intervention Objective - Vital Signs Vital signs: Vital Signs Temp 98.4 F 08/20/23 04:00 Pulse 82 08/20/23 04:00 Resp 18 08/20/23 04:00 BP 140/78 08/20/23 04:00 Pulse Ox 94 L 08/20/23 04:00 FiO2 Intake & Output 08/19/23 08/20/23 08/20/23 18:59 06:59 18:59 Intake Total 169.088 80.912 Output Total 100 Balance 69.088 80.912 Intake: Intake, IV Titration 169.088 80.912 Amount Heparin Sod,Pork in 0.45% 169.088 80.912 NaCl 25,000 unit In 0.45 % NaCl 1 250ml.bag @ 12 UNITS/KG/HR 8.001 mls/hr IV .Q24H [facility] Rx#: [id number] Output: Urine 100 Other: Voiding Method Toilet Toilet # Voids 2 1 # Bowel Movements 0 1 - Labs CBC & Chem 7: 08/19/23 13:01 08/19/23 15:35 Labs: Abnormal Lab Results - Last 24 Hours (Table) 08/19/23 08/19/23 08/19/23 Range/Units 13:01 15:35 15:35 WBC 13.3 H (3.8-10.6) k/uL Hct 49.7 H (34.0-46.0) % MCV 101.8 H D (80.0-100.0) fL MCHC 29.1 L (31.0-37.0) g/dL Plt Count 144 L (150-450) k/uL Neutrophils # 11.3 H (1.3-7.7) k/uL APTT 31.3 H (22.0-30.0) sec Chloride 113 H (98-107) mmol/L Carbon Dioxide 16 L (22-30) mmol/L BUN 32 H (7-17) mg/dL Creatinine 1.14 H (0.52-1.04) mg/dL 08/19/23 Range/Units 23:56 WBC (3.8-10.6) k/uL Hct (34.0-46.0) % MCV (80.0-100.0) fL MCHC (31.0-37.0) g/dL Plt Count (150-450) k/uL Neutrophils # (1.3-7.7) k/uL APTT 36.7 H (22.0-30.0) sec Chloride (98-107) mmol/L Carbon Dioxide (22-30) mmol/L BUN (7-17) mg/dL Creatinine (0.52-1.04) mg/dL
--- NOTE | 2023-08-20 12:53 | P.PN ---
Subjective Progress Note Date: 08/20/23 CHIEF COMPLAINT: Abdominal pain HISTORY OF PRESENT ILLNESS: The patient is a 87-year-old female admitted for elevated troponins including small bowel obstruction. Patient has recent pacemaker placement approxi-1 month ago. Patient's daughter is at bedside. At the time of my assessment patient is getting her echocardiogram. Patient denies abdominal pain. She denies passage of flatus. She has a nasogastric tube. Output less than 200 cc. ROS: No reports of nausea and vomiting. No bowel movements. No fevers or chills. No new chest pain. No productive sputum PHYSICAL EXAM: VITAL SIGNS: Reviewed CONSTITUTIONAL: Well developed and in no acute distress. EYES: Conjuctivae without sclera icterus. Extraocular movements grossly intact. HEAD, EARS, NOSE, THROAT: Moist buccal mucosa. Head is atraumatic, normocephalic. Has troubles with hearing. Nasogastric tube bilious RESPIRATORY: Non-labored respirations and equal bilateral excursions. CARDIOVASCULAR: Palpable 2+ radial pulses. ABDOMEN: No peritonitis. Nontender MUSCULOSKELETAL: No gross deformity of the lower extremities noted. No clubbing. No cyanosis. SKIN: Good skin turgor. Well perfused. NEUROLOGIC: Cranial nerves II through XII grossly intact. No focal or lateralizing signs. PSYCH: Appropriate affect. Alert and oriented to person, place and time. CLINICAL LABS: Reviewed. PTT elevated ASSESSMENT: 1. Small bowel obstruction due to adhesions 2. Elevated troponins 3. Cardiac pacemaker in situ 4. History of bowel resection PLAN: 1. Recommend PICC line and TPN for prolonged n.p.o. status due to bowel obstruction 2. Anticipated surgical intervention Wednesday if no clinical improvement 3. In the interim, cardiac risk assessment pending due to recent pacemaker placement and recently elevated troponins 4. Patient and daughter's questions were addressed. Care plan reviewed. Objective - Vital Signs Vital signs: Vital Signs Temp 98.3 F 08/20/23 08:00 Pulse 86 08/20/23 08:00 Resp 18 08/20/23 08:00 BP 165/72 08/20/23 08:00 Pulse Ox 97 08/20/23 08:00 FiO2 Intake & Output 08/19/23 08/20/23 08/20/23 18:59 06:59 18:59 Intake Total 169.088 80.912 42.941 Output Total 100 Balance 69.088 80.912 42.941 Intake: Intake, IV Titration 169.088 80.912 42.941 Amount Heparin Sod,Pork in 0.45% 169.088 80.912 42.941 NaCl 25,000 unit In 0.45 % NaCl 1 250ml.bag @ 12 UNITS/KG/HR 8.001 mls/hr IV .Q24H [facility] Rx#: [id number] Output: Urine 100 Other: Voiding Method Toilet Toilet # Voids 2 1 1 # Bowel Movements 0 1 - Labs CBC & Chem 7: 08/19/23 13:01 08/19/23 15:35 Labs: Abnormal Lab Results - Last 24 Hours (Table) 08/19/23 08/19/23 08/19/23 Range/Units 13:01 15:35 15:35 WBC 13.3 H (3.8-10.6) k/uL Hct 49.7 H (34.0-46.0) % MCV 101.8 H D (80.0-100.0) fL MCHC 29.1 L (31.0-37.0) g/dL Plt Count 144 L (150-450) k/uL Neutrophils # 11.3 H (1.3-7.7) k/uL APTT 31.3 H (22.0-30.0) sec Chloride 113 H (98-107) mmol/L Carbon Dioxide 16 L (22-30) mmol/L BUN 32 H (7-17) mg/dL Creatinine 1.14 H (0.52-1.04) mg/dL 08/19/23 08/20/23 Range/Units 23:56 10:45 WBC (3.8-10.6) k/uL Hct (34.0-46.0) % MCV (80.0-100.0) fL MCHC (31.0-37.0) g/dL Plt Count (150-450) k/uL Neutrophils # (1.3-7.7) k/uL APTT 36.7 H 33.6 H (22.0-30.0) sec Chloride (98-107) mmol/L Carbon Dioxide (22-30) mmol/L BUN (7-17) mg/dL Creatinine (0.52-1.04) mg/dL
[2023-08-20 13:18] LABS: ALT 10 U/L (4-34); AST 23 U/L (14-36); African American GFR (CKD) 46 (>60 ml/min/1.73 sqM); Albumin 3.1 g/dL (3.5-5.0); Alkaline Phosphatase 51 U/L (38-126); Anion Gap 8 mmol/L; Blood Urea Nitrogen 33 mg/dL (7-17); Calcium 8.4 mg/dL (8.4-10.2); Carbon Dioxide 21 mmol/L (22-30); Chloride 111 mmol/L (98-107); Glucose 102 mg/dL (74-99); Magnesium 2.2 mg/dL (1.6-2.3); Non-African American GFR(CKD) 40 (>60 ml/min/1.73 sqM); Potassium 4.1 mmol/L (3.5-5.1); Sodium 140 mmol/L (137-145); Total Bilirubin 0.5 mg/dL (0.2-1.3)
--- NOTE | 2023-08-20 13:43 | P.NPCON ---
History of Present Illness - Reason for Consult chronic renal failure - History of Present Illness Reason for consultation: Chronic kidney disease History of present illness: Patient is 87-year-old female seen in renal consultation for chronic kidney disease. Patient has chronic kidney disease stage IIIb with baseline creatinine 1.1-1.3 secondary to biopsy-proven AIN. GFR is currently at baseline. Patient came to the hospital due to sudden onset abdominal pain and dry heaves which began Wednesday night. Patient came to the hospital for further evaluation. She was noted to have small bowel obstruction and is being followed by surgery. She is receiving IV fluids. Concern for potential left-sided hydronephrosis noted on CAT scan versus pelvic cyst. She has been voiding. Hemodynamically stable. No pain at this time. She has an NG tube. Denies use of nonsteroidals. She does take Lasix at home which is currently held. She is on Entresto. Patient has history of systolic CHF with ejection fraction of 25 to 30%. Vital signs are stable. General: No acute distress. HEENT: Head exam is unremarkable. NG tube noted. LUNGS: No audible rhonchi or wheezes. HEART: Rate and Rhythm are regular. ABDOMEN: Distention noted. EXTREMITITES: No edema. Past Medical History Past Medical History: CVA/TIA, Eye Disorder, GERD/Reflux, Hyperlipidemia, Hypertension, Renal Disease, Sleep Apnea/CPAP/BIPAP, Thyroid Disorder Additional Past Medical History / Comment(s): Hx of TIA's, POTS syndrome, dysotonia, CKD stage 3b, sleep apnea uses cpap at night but not daily, macular degeneration left eye, original pacemaker placed by dr vargas 2020, 3 weeks ago 2023 patient had another procedure related to pacemaker at [facility] History of Any Multi-Drug Resistant Organisms: None Reported Past Surgical History: Appendectomy, Bowel Resection, Hysterectomy, Pacemaker Additional Past Surgical History / Comment(s): cataract surgery Past Anesthesia/Blood Transfusion Reactions: No Reported Reaction Type of Cardiac Device: Permanent Pacemaker Device Placement Date:: 2023 Past Psychological History: Anxiety, Depression Additional Psychological History / Comment(s): "anxiety attacks" Smoking Status: Never smoker Past Alcohol Use History: None Reported Additional Past Alcohol Use History / Comment(s): quit smoking 50 years ago Past Drug Use History: None Reported - Past Family History Mother Family Medical History: No Reported History Additional Family Medical History / Comment(s): of heart disease "hole in the heart" at age 29 Father Family Medical History: Myocardial Infarction ([place]) Additional Family Medical History / Comment(s): at age 67 of heart attack Medications and Allergies Home Medications Medication Instructions Recorded Confirmed Type Famotidine [Pepcid] 20 mg PO DAILY 04/25/19 08/18/23 History Apixaban [Eliquis] 5 mg PO BID 08/28/22 08/18/23 History Pravastatin Sodium [Pravachol] 40 mg PO HS 03/11/23 08/18/23 History Dapagliflozin Propanediol [Farxiga] 10 mg PO DAILY #30 tablet 03/18/23 08/18/23 Rx Dibucaine 1 applic TOPICAL TID PRN 08/18/23 08/18/23 History Furosemide [Lasix] 20 mg PO DAILY 08/18/23 08/18/23 History Levothyroxine Sodium [Synthroid] 125 mcg PO DAILY 08/18/23 08/18/23 History Sacubitril/Valsartan [Entresto 24 1 tab PO BID 08/18/23 08/18/23 History mg-26 mg Tablet] Sodium Bicarbonate Tab 650 mg PO DAILY 08/18/23 08/18/23 History carvediloL [Coreg] 3.125 mg PO BID 08/18/23 08/18/23 History Allergies Allergy/AdvReac Type Severity Reaction Status Date / Time nitroglycerin Allergy Unknown Verified 08/18/23 09:51 Iodinated Contrast Media AdvReac Severe kidney Verified 08/18/23 09:51 [Iodinated Contrast Media - failure IV Dye] omeprazole [From Prilosec] AdvReac Severe kidney Verified 08/18/23 09:51 failure omeprazole magnesium AdvReac Severe kidney Verified 08/18/23 09:51 [From Prilosec] failure ciprofloxacin [From Cipro] AdvReac Kidney Verified 08/18/23 09:51 Failure fludrocortisone AdvReac KIDNEY Verified 08/18/23 09:51 [From Florinef] ISSUES Iodine and Iodide Containing AdvReac kidney Verified 08/18/23 09:51 Produc issues sodium phosphate AdvReac Unknown Verified 08/18/23 09:51 [From Fleet Enema] Physical Exam Vitals: Vital Signs Temp Pulse Resp BP Pulse Ox 08/20/23 08:00 98.3 F 86 18 165/72 97 08/20/23 04:00 98.4 F 82 18 140/78 94 L 08/20/23 02:00 70 08/20/23 00:00 98.5 F 70 18 138/71 08/19/23 19:56 98.1 F 73 18 138/76 08/19/23 15:35 97.8 F 88 16 145/76 93 L Intake and Output 08/19/23 08/20/23 08/20/23 22:59 06:59 14:59 Intake Total 169.088 80.912 42.941 Output Total 100 Balance 69.088 80.912 42.941 Intake: Intake, IV Titration 169.088 80.912 42.941 Amount Heparin Sod,Pork in 0.45% 169.088 80.912 42.941 NaCl 25,000 unit In 0.45 % NaCl 1 250ml.bag @ 12 UNITS/KG/HR 8.001 mls/hr IV .Q24H [facility] Rx#: [id number] Output: Urine 100 Other: Voiding Method Toilet Toilet Toilet # Voids 2 1 1 # Bowel Movements 0 1 Results - Lab Results Most recent lab results Calcium 8.4 mg/dL (8.4-10.2) 08/20/23 10:45 Phosphorus 4.0 mg/dL (2.5-4.5) 08/20/23 10:45 Magnesium 2.2 mg/dL (1.6-2.3) 08/20/23 10:45 08/19/23 13:01 08/20/23 10:45 Assessment and Plan Plan: Assessment: 1. Chronic kidney disease stage IIIb with baseline creatinine 1.1-1.3 secondary to biopsy-proven AIN. 2. Bowel obstruction being followed by surgery. Currently has NG tube. Potential surgery Wednesday. 3. Chronic systolic CHF ejection fraction of 25 to 30%. 4. UTI on antibiotics. 5. Questionable left-sided hydronephrosis. Seen by urology. Potential cystoscopy outpatient. 6. Hypertension with chronic kidney disease. Stable. Plan: Maintain IV fluids. Maintain Entresto for now as blood pressure stable. Stopped Farxiga in the setting of acute UTI. Avoid nephrotoxins. Continue to monitor renal function and urine output. Cleared for PICC line placement in the dominant arm. Patient needs a PICC line for TPN. Thank you for the consultation. I will continue to follow the patient with you during her hospital stay.
[2023-08-20] MEDS ORDERED: DEXTROSE 50% SYRINGE 50 ML IVP PRN ×2 (14:08)
--- NOTE | 2023-08-20 14:09 | P.PN ---
Subjective Progress Note Date: 08/20/23 Hospital course: Patient is a very pleasant 87-year-old female with a past medical history of CAD, chronic systolic heart failure with EF of 25 to 30%, nonischemic cardiomyopathy status post permanent pacemaker placement, paroxysmal atrial fi brillation on anticoagulation with Eliquis, hypertension, hyperlipidemia, hypothyroidism, GERD, previous TIA, stage IIIb chronic kidney disease, obstructive sleep apnea CPAP dependent, and history of bowel obstruction status post resection.. Patient presented to the emergency department with a chief complaint of abdominal pain. She reports awakening from sleep around midnight with severe pain in her upper abdomen accompanied by nausea and vomiting. Patient reports her bowel movements have never been normal sometimes going 3 to 4 days between, but states they have been at her baseline normal. She denies having any fevers, chills, diaphoresis, chest pain, palpitations, or shortness of breath. Patient reports pain is severe and persistent and despite given pain medication and antiemetic in the emergency department remains nauseous and had emesis in basin at bedside. She underwent evaluation in the emergency department. Vital signs upon arrival show blood pressure 161/92, heart rate 77, respiratory rate 13, temp 97.6 F, and SpO2 of 96% on room air. EKG was completed showing a ventricular paced rhythm at 76 bpm. Chest x-ray completed negative for acute cardiopulmonary process. CT abdomen and pelvis without contrast was completed revealing prominent small bowel loops near anastomosis, focal stenosis was not identified although a caliber change in zone transition at the anastomosis appears to be present, nonspecific mesenteric stranding within the left hemipelvis, small amount of free fluid within the pelvis, cholelithiasis, and renal cysts within the inferior poles of bilateral kidneys with concerns of hydronephrosis to the left kidney. Labs completed and reviewed. CBC showing leukocytosis with WBC count of 12.3. BMP revealing chloride 111, bicarb 18, anion gap 9, BUN 32, and creatinine of 1.32. Blood glucose was 129. Liver profile unremarkable. Troponin elevated at 0.052. Lipase normal findings at 56. Renal ultrasound completed revealing left-sided hydronephrosis with possible right hydronephrosis versus parapelvic cyst or other etiology. Patient admitted under our services and consults have been placed to cardiology for elevated troponin and significant cardiac history as well as consult to general surgery secondary to patient's persistently severe left upper and lower quadrant abdominal pain and concerns of ileus versus obstruction and urology secondary to left-sided hydronephrosis. Physical exam: Patient seen and fully evaluated at bedside this morning. She reports currently pain is controlled. She has been receiving IV morphine and has NG tube in place to low intermittent suction.. Patient denies any further episodes of vomiting she does report mild nausea intermittently but reports it is currently controlled. Vital signs reviewed and stable. General: Nontoxic, no distress and appears stated age. Derm: Skin warm and dry, normal coloration for ethnicity. Head: Atraumatic, normocephalic and symmetric. Eyes: EOMs intact, no lid lag, and anicteric sclera Mouth: no lip lesions, mucus membranes moist Cardiovascular: regular rate and rhythm with normal S1S2, soft systolic murmur, positive posterior tibial pulses bilaterally, and cap refill < 2 seconds. Pace maker left anterior chest. Lungs: Respirations even, regular, and unlabored on room air. Lungs CTA b ilaterally, no rhonchi, no rales, no wheezing, and no accessory muscle usage. Abdominal: soft, tenderness to left upper quadrant and left lower quadrant upon palpation. Ext: ROM intact. No gross muscle atrophy, no edema, no contractures Neuro: Speech clear, face symmetrical and CN II-XII grossly intact with no noted focal neuro deficits Psych: Alert and oriented to person, place, time, and situation. Appropriate and pleasant affect. Assessment and Plan of Care: Small bowel obstruction History of small bowel obstruction status post bowel resection 2021 -CT abdomen and pelvis revealing prominent small bowel loops near anastomosis, focal stenosis was not identified although a caliber change in zone transition at the anastomosis appears to be present, nonspecific mesenteric stranding within the left hemipelvis, small amount of free fluid within the pelvis, and cholelithiasis. -Patient reports history of bowel obstruction resulting in bowel resection by Dr. Justice 04/2022 -Continue Compazine 10 mg IVP secondary to persistent nausea. -Small bowel follow-through was completed consistent with small bowel obstruction. -NG tube was placed to low intermittent suction. -Continue with gentle IV fluid hydration with 0.9% normal saline at 75 cc/h pending initiation of TPN and lipids -Order placed for glycemic protocol with glucose checks every 6 hours while patient remains n.p.o. -General surgery following placed order for TPN and lipids -NPO pending further recommendations from general surgeon. Elevated troponins, likely type II NSTEMI History of CAD Chronic systolic heart failure with previous EF of 25 to 30% Nonischemic cardiomyopathy status post pacemaker placement Paroxysmal atrial fibrillation -Cardiology evaluated, initially started patient on heparin infusion but ruling out acute coronary syndrome and discontinuing heparin infusion and recommending patient resume Eliquis once cleared by general surgeon. -Telemetry monitoring -Troponins trended resulting at 0.052, 0.084, and 0.105 -Patient to continue with carvedilol 3.125 mg twice daily, Farxiga 10 mg daily, pravastatin 40 mg nightly, and Entresto 24-26 mg tablets twice daily. -Eliquis held at this time pending clearance from general surgeon to resume and patient was started on heparin infusion. Left-sided hydronephrosis UTI Chronic kidney disease stage IIIb, stable at baseline -CT abdomen and pelvis completed revealing renal cysts within the inferior poles of bilateral kidneys with concerns of hydronephrosis to the left kidney. -Urinalysis positive for protein, glucose, ketones, blood, nitrates, leukocytes, and greater than 182 WBCs. -Continue Rocephin 2 g daily -Follow-up with urine culture results -Bladder scan to monitor for urinary retention and/or postvoid residuals. Straight catheterize as needed for retention greater than 350 cc. -Renal ultrasound completed revealing left-sided hydronephrosis with possible right hydronephrosis versus parapelvic cyst or other etiology. -Urology consulted, appreciate recommendations. Data and imaging reviewed: Labs reviewed. BMP showing elevated chloride of 111, bicarb 21, and anion gap of 8 with renal function showing BUN of 33, creatinine 1.21, and GFR 40. Blood glucose 102. Liver profile unremarkable. Albumin remains low at 3.1. Vital signs reviewed. Blood pressure 165/72, heart rate 86, respiratory rate 18, temp 98.3 F, and SpO2 of 97% on room air. Small bowel follow through showing findings compatible with high-grade small bowel obstruction. CODE STATUS: Full code DVT prophylaxis: TOMAS jolley and YARELYs Anticipated discharge date: Clinical course to determine Anticipated discharge place: Clinical course to determine Patient was seen independently by Nurse Practitioner. This document was prepared using [employer] dictation software. Please allow for errors in repairer switchgear while rare they do occur. Agustín Zelalem, [employer] rendered care for this patient independently, reviewed the findings and plan as documented in the note above. I did not physically speak with or examine the patient on this date. Objective - Vital Signs Vital signs: Vital Signs Temp 98.5 F 08/20/23 00:00 Pulse 70 08/20/23 02:00 Resp 18 08/20/23 00:00 BP 138/71 08/20/23 00:00 Pulse Ox 93 L 08/19/23 15:35 FiO2 Intake & Output 08/19/23 08/20/23 08/20/23 18:59 06:59 18:59 Intake Total 169.088 80.912 Output Total 100 Balance 69.088 80.912 Intake: Intake, IV Titration 169.088 80.912 Amount Heparin Sod,Pork in 0.45% 169.088 80.912 NaCl 25,000 unit In 0.45 % NaCl 1 250ml.bag @ 12 UNITS/KG/HR 8.001 mls/hr IV .Q24H [facility] Rx#: [id number] Output: Urine 100 Other: Voiding Method Toilet Toilet # Voids 2 1 # Bowel Movements 0 1 - Labs CBC & Chem 7: 08/19/23 13:01 08/21/23 10:22 Labs: Abnormal Lab Results - Last 24 Hours (Table) 08/19/23 08/19/23 08/19/23 Range/Units 13:01 15:35 15:35 WBC 13.3 H (3.8-10.6) k/uL Hct 49.7 H (34.0-46.0) % MCV 101.8 H D (80.0-100.0) fL MCHC 29.1 L (31.0-37.0) g/dL Plt Count 144 L (150-450) k/uL Neutrophils # 11.3 H (1.3-7.7) k/uL APTT 31.3 H (22.0-30.0) sec Chloride 113 H (98-107) mmol/L Carbon Dioxide 16 L (22-30) mmol/L BUN 32 H (7-17) mg/dL Creatinine 1.14 H (0.52-1.04) mg/dL 08/19/23 Range/Units 23:56 WBC (3.8-10.6) k/uL Hct (34.0-46.0) % MCV (80.0-100.0) fL MCHC (31.0-37.0) g/dL Plt Count (150-450) k/uL Neutrophils # (1.3-7.7) k/uL APTT 36.7 H (22.0-30.0) sec Chloride (98-107) mmol/L Carbon Dioxide (22-30) mmol/L BUN (7-17) mg/dL Creatinine (0.52-1.04) mg/dL
[2023-08-20 15:19] VITALS: BMI 23.7
[2023-08-21 06:22] LABS: Glucose,Whole Blood 93 mg/dL (70-110)
[2023-08-21] MEDS: LIDOCAINE 1% INJ 10MG/ML (20 ML MDV) SQ ONE (08:38)
[2023-08-21] MEDS: MIDAZOLAM 2 MG/2 ML VIAL IVP ONE (08:39)
--- NOTE | 2023-08-21 09:34 | P.GSCN ---
History of Present Illness History of present illness: 87-year-old female patient was consulted for placement of a Sunshine catheter for hyper hyperpigmentation. Patient has history of chronic renal failure and bowel obstruction patient recently had a pacemaker placed on the left chest wall patient is on heparin we stopped the heparin scheduled for 5-[place] Medcomp Sunshine catheter. Patient was seen in her room neck is supple patient has NG tube Abdomen is soft nontender chest patient has a good and both lungs patient placed in left side Plan is placement of the Medcomp 5-[place] Sunshine catheter for hyperalimentation risk and complication discussed Past Medical History Past Medical History: CVA/TIA, Eye Disorder, GERD/Reflux, Hyperlipidemia, Hypertension, Renal Disease, Sleep Apnea/CPAP/BIPAP, Thyroid Disorder Additional Past Medical History / Comment(s): Hx of TIA's, POTS syndrome, dysotonia, CKD stage 3b, sleep apnea uses cpap at night but not daily, macular degeneration left eye, original pacemaker placed by dr vargas 2020, 3 weeks ago 2023 patient had another procedure related to pacemaker at [facility] History of Any Multi-Drug Resistant Organisms: None Reported Past Surgical History: Appendectomy, Bowel Resection, Hysterectomy, Pacemaker Additional Past Surgical History / Comment(s): cataract surgery Past Anesthesia/Blood Transfusion Reactions: No Reported Reaction Type of Cardiac Device: Permanent Pacemaker Device Placement Date:: 2023 Past Psychological History: Anxiety, Depression Additional Psychological History / Comment(s): "anxiety attacks" Smoking Status: Never smoker Past Alcohol Use History: None Reported Additional Past Alcohol Use History / Comment(s): quit smoking 50 years ago Past Drug Use History: None Reported - Past Family History Mother Family Medical History: No Reported History Additional Family Medical History / Comment(s): of heart disease "hole in the heart" at age 29 Father Family Medical History: Myocardial Infarction (MA) Additional Family Medical History / Comment(s): at age 67 of heart attack Medications and Allergies Home Medications Medication Instructions Recorded Confirmed Type Famotidine [Pepcid] 20 mg PO DAILY 04/25/19 08/18/23 History Apixaban [Eliquis] 5 mg PO BID 08/28/22 08/18/23 History Pravastatin Sodium [Pravachol] 40 mg PO HS 03/11/23 08/18/23 History Dapagliflozin Propanediol [Farxiga] 10 mg PO DAILY #30 tablet 03/18/23 08/18/23 Rx Dibucaine 1 applic TOPICAL TID PRN 08/18/23 08/18/23 History Furosemide [Lasix] 20 mg PO DAILY 08/18/23 08/18/23 History Levothyroxine Sodium [Synthroid] 125 mcg PO DAILY 08/18/23 08/18/23 History Sacubitril/Valsartan [Entresto 24 1 tab PO BID 08/18/23 08/18/23 History mg-26 mg Tablet] Sodium Bicarbonate Tab 650 mg PO DAILY 08/18/23 08/18/23 History carvediloL [Coreg] 3.125 mg PO BID 08/18/23 08/18/23 History Allergies Allergy/AdvReac Type Severity Reaction Status Date / Time nitroglycerin Allergy Unknown Verified 08/18/23 09:51 Iodinated Contrast Media AdvReac Severe kidney Verified 08/18/23 09:51 [Iodinated Contrast Media - failure IV Dye] omeprazole [From Prilosec] AdvReac Severe kidney Verified 08/18/23 09:51 failure omeprazole magnesium AdvReac Severe kidney Verified 08/18/23 09:51 [From Prilosec] failure ciprofloxacin [From Cipro] AdvReac Kidney Verified 08/18/23 09:51 Failure fludrocortisone AdvReac KIDNEY Verified 08/18/23 09:51 [From Florinef] ISSUES Iodine and Iodide Containing AdvReac kidney Verified 08/18/23 09:51 Produc issues sodium phosphate AdvReac Unknown Verified 08/18/23 09:51 [From Fleet Enema] Surgical - Exam Vital Signs Temp Pulse Resp BP Pulse Ox 97.6 F 77 13 161/92 96 08/18/23 05:13 08/18/23 05:13 08/18/23 05:13 08/18/23 05:13 08/18/23 05:13 Results - Labs 08/19/23 13:01 08/20/23 10:45 Abnormal Lab Results - Last 24 Hours (Table) 08/20/23 08/20/23 08/20/23 Range/Units 10:45 10:45 18:19 APTT 33.6 H 66.6 H (22.0-30.0) sec Chloride 111 H (98-107) mmol/L Carbon Dioxide 21 L (22-30) mmol/L BUN 33 H (7-17) mg/dL Creatinine 1.21 H (0.52-1.04) mg/dL Glucose 102 H (74-99) mg/dL Total Protein 6.0 L (6.3-8.2) g/dL Albumin 3.1 L (3.5-5.0) g/dL Microbiology - Last 24 Hours (Table) 08/19/23 15:35 Blood Culture - Preliminary Blood 08/19/23 15:35 Blood Culture - Preliminary Blood 08/19/23 18:14 Urine Culture - Final Urine,Voided Diabetes panel 08/20/23 Range/Units 10:45 Sodium 140 (137-145) mmol/L Potassium 4.1 (3.5-5.1) mmol/L Chloride 111 H (98-107) mmol/L Carbon Dioxide 21 L (22-30) mmol/L BUN 33 H (7-17) mg/dL Creatinine 1.21 H (0.52-1.04) mg/dL Glucose 102 H (74-99) mg/dL Calcium 8.4 (8.4-10.2) mg/dL AST 23 (14-36) U/L ALT 10 (4-34) U/L Alkaline Phosphatase 51 (38-126) U/L Total Protein 6.0 L (6.3-8.2) g/dL Albumin 3.1 L (3.5-5.0) g/dL Triglycerides 107.00 (0.00-149.00) mg/dL Calcium panel 08/20/23 Range/Units 10:45 Calcium 8.4 (8.4-10.2) mg/dL Phosphorus 4.0 (2.5-4.5) mg/dL Albumin 3.1 L (3.5-5.0) g/dL Pituitary panel 08/20/23 Range/Units 10:45 Sodium 140 (137-145) mmol/L Potassium 4.1 (3.5-5.1) mmol/L Chloride 111 H (98-107) mmol/L Carbon Dioxide 21 L (22-30) mmol/L BUN 33 H (7-17) mg/dL Creatinine 1.21 H (0.52-1.04) mg/dL Glucose 102 H (74-99) mg/dL Calcium 8.4 (8.4-10.2) mg/dL Adrenal panel 08/20/23 Range/Units 10:45 Sodium 140 (137-145) mmol/L Potassium 4.1 (3.5-5.1) mmol/L Chloride 111 H (98-107) mmol/L Carbon Dioxide 21 L (22-30) mmol/L BUN 33 H (7-17) mg/dL Creatinine 1.21 H (0.52-1.04) mg/dL Glucose 102 H (74-99) mg/dL Calcium 8.4 (8.4-10.2) mg/dL Total Bilirubin 0.5 (0.2-1.3) mg/dL AST 23 (14-36) U/L ALT 10 (4-34) U/L Alkaline Phosphatase 51 (38-126) U/L Total Protein 6.0 L (6.3-8.2) g/dL Albumin 3.1 L (3.5-5.0) g/dL
--- NOTE | 2023-08-21 09:37 | P.PCN ---
Description of Procedure: preoperative diagnosis or obstruction for hyperalimentation Procedure ultrasound-guided 5-[place] Medcomp Sunshine catheter placement right jugular approach Karly of the neck and chest was prepped and draped applied sterile manner 1% lidocaine were infiltrated and neck and chest area ultrasound-guided micropuncture and the right jugular vein micropuncture guidewire was passed and then tendon was created through the terminal be brought 5-[place] Medcomp catheter sheath was developed over the guidewire through the sheath we introdu elyssa the catheter tip of The superior vena cava at the junction flushed with heparin sent Hep-Lock secured with 3-0 nylon dressing applied patient are to the procedure well
--- NOTE | 2023-08-21 10:13 | XR ---
EXAMINATION TYPE: XR chest 1V confirm line [facility] DATE OF EXAM: 08/21/2023 COMPARISON: 08/18/2023 INDICATION: Line placement TECHNIQUE: Single frontal view of the chest is obtained. FINDINGS: The heart size is normal. The pulmonary vasculature is normal. The lungs are clear. No pneumothorax is evident. Right central venous catheter is in place tip in the distal superior vena cava region. Nasogastric tube transverses the thorax tip out of the field of view. Pacemaker overlie s the left chest. IMPRESSION: 1. No acute pulmonary process. 2. No pneumothorax post line placement, tip is in distal superior vena cava region
--- NOTE | 2023-08-21 10:51 | P.PN ---
Subjective Progress Note Date: 08/21/23 87-year-old female with a past medical history of CAD, CHF with EF of 25 to 30%, nonischemic cardiomyopathy status post permanent pacemaker placement, paroxysmal AFib on anticoagulation with Eliquis, hypertension, hyperlipidemia, hypothyroidism, GERD, previous TIA, stage IIIb CKD, MERE CPAP dependent, and history of bowel obstruction status post resection. Patient presented to the emergency department with a chief complaint of abdominal pain. She reports awakening from sleep around midnight with severe pain in her upper abdomen accompanied by nausea and vomiting. Patient reports her bowel movements have never been normal sometimes going 3 to 4 days between, but states they have been at her baseline normal. Vital signs upon arrival show BP 161/92, HR 77, RR 13, T 97.6 F, and SpO2 of 96% on room air. EKG showed a ventricular paced rhythm at 76 bpm. Chest x-ray negative for acute cardiopulmonary process. CT AP revealed prominent small bowel loops near anastomosis, caliber change in zone transition at the anastomosis appears to be present, nonspecific mesenteric stranding, with concerns of hydronephrosis to the left kidney. CBC showed WBC count of 12.3. CMP shows Cl 111, bicarb 18, anion gap 9, BUN 32, CR 1.32, glucose was 129. Troponin elevated at 0.052. Lipase normal findings at 56. UA positive nitrite large LE with > 182 WBCs. Renal ultrasound revealing left-sided hydronephrosis with possible right hydronephrosis versus parapelvic cyst or other etiology. Patient admitted under our services and consults have been placed to cardiology for elevated troponin and significant cardiac history as well as consult to general surgery secondary to patient's persistently severe left upper and lower quadrant abdominal pain and concerns of ileus versus obstruction and urology secondary to left-sided hydronephrosis. Underwent small bowel follow through consistent with SBO. NG tube inserted. Surgery recommending PICC like for TPN and surgical intervention on Wednesday if not improved. Troponins trended, 0.052, 0.084, and 0.105. Started on heparin drip and Cardiology consulted. Heparin drip discontinued by Cardiology suspecting type II NSTEMI, recommending outpatient follow up with [facility] Baler. Urology and Nephrology consulted for DARIAN and hydronephrosis, may benefit from cystoscopy with retrograde pyelogram and possible stent placement, not recommended until clinical condition improves. 08/20 Patient was seen and examined. Abdominal pain improved. No nausea or vomiting. Currently NPO with NG tube to suction. Plans for PICC line for TPN. Maintained on NS at 75 cc/hr. UCx 10-50k genital lida. BCx prelim negative so far. On Rocephin 2g IV QD (D3) for treatment of UTI. BMP and Mag pending. General: no distress, appears at stated age Derm: warm, dry Head: atraumatic, normocephalic, symmetric, NG tube to suction Eyes: EOMI, no lid lag, anicteric sclera Mouth: no lip lesion, mucus membranes moist Cardiovascular: S1S2 reg, no murmur Lungs: Clear to auscultation bilateral, no rhonchi, no rales , no accessory muscle use Abdominal: soft, hyperactive BS, no guarding, no appreciable organomegaly Ext: no gross muscle atrophy, no edema, no contractures Neuro: No focal neurologic deficits Psych: Alert and oriented Based on my assessment of this patient, this patient meets a high complexity level of care. Patient has an acute diagnosis of SBO complicated with hydronephrosis that poses a threat to life or bodily function. Small bowel obstruction: History of small bowel obstruction status post bowel resection 2021. Compazine 10 mg IVP PRN nausea. NG tube was placed to low intermittent suction. NS at 75 cc/h pending initiation of TPN. Surgery on board. Elevated troponins, likely type II NSTEMI: History of CAD. Resume Eliquis once cleared by general surgeon. Carvedilol 3.125 mg twice daily, pravastatin 40 mg nightly. Chronic systolic heart failure with previous EF of 25 to 30%: Carvedilol 3.125 mg twice daily and Entresto 24-26 mg tablets twice daily. Discontinue Farxiga in the setting of UTI. Nonischemic cardiomyopathy status post pacemaker placement Paroxysmal atrial fibrillation Left-sided hydronephrosis: Bladder scan to monitor for urinary retention and/or postvoid residuals. Straight catheterize as needed for retention greater than 350 cc. Urology on board. UTI: Continue Rocephin 2 g daily to complete a total of 7 days for complicated UTI (D3). CKD stage IIIb, stable at baseline: IVH as above. Nephrology on board. CODE STATUS: FULL CODE. DVT Prophylaxis: SCD GI Prophylaxis: Designated medical POA if patient is not able to make medical decisions for themselves: I have reviewed the following framing consultant notes: Surgery, Urology, Nephrology note. I have reviewed the results of the following tests: I have ordered the following tests: BMP and Mag is pending. I have discussed the care of this patient with the following independent historian: Daughter, RN. I have independently interpreted the following test below: I have discussed the management of this patient with the following physician: Objective - Vital Signs Vital signs: Vital Signs Temp 98.0 F 08/21/23 03:18 Pulse 79 08/21/23 03:18 Resp 18 08/21/23 03:18 BP 147/72 08/21/23 03:18 Pulse Ox 92 L 08/21/23 03:18 FiO2 Intake & Output 08/20/23 08/21/23 08/21/23 18:59 06:59 18:59 Intake Total 42.941 10 Output Total 250 Balance 42.941 -240 Weight 66.678 kg Intake: IV 10 Invasive Line 2 10 Intake, IV Titration 42.941 Amount Heparin Sod,Pork in 0.45% 42.941 NaCl 25,000 unit In 0.45 % NaCl 1 250ml.bag @ 12 UNITS/KG/HR 8.001 mls/hr IV .Q24H [facility] Rx#: [id number] Output: Gastric Drainage 250 Other: Voiding Method Bedside Commode Bedside Commode # Voids 1 1 - Labs CBC & Chem 7: 08/19/23 13:01 08/20/23 10:45 Labs: Abnormal Lab Results - Last 24 Hours (Table) 08/20/23 08/20/23 08/20/23 Range/Units 10:45 10:45 18:19 APTT 33.6 H 66.6 H (22.0-30.0) sec Chloride 111 H (98-107) mmol/L Carbon Dioxide 21 L (22-30) mmol/L BUN 33 H (7-17) mg/dL Creatinine 1.21 H (0.52-1.04) mg/dL Glucose 102 H (74-99) mg/dL Total Protein 6.0 L (6.3-8.2) g/dL Albumin 3.1 L (3.5-5.0) g/dL Microbiology - Last 24 Hours (Table) 08/19/23 15:35 Blood Culture - Preliminary Blood 08/19/23 15:35 Blood Culture - Preliminary Blood 08/19/23 18:14 Urine Culture - Final Urine,Voided
[2023-08-21 11:52] LABS: Glucose,Whole Blood 108 mg/dL (70-110)
--- NOTE | 2023-08-21 11:56 | P.PN ---
Subjective patient is seen for follow-up for chronic kidney disease. admitted with small bowel obstruction. She is currently with an NG tube. No significant complaints today. renal function is stable with serum creatinine at 1.1-1.2 mg/dL. Objective - Vital Signs Vital signs: Vital Signs Temp 98.0 F 08/21/23 03:18 Pulse 79 08/21/23 03:18 Resp 18 08/21/23 09:56 BP 142/70 08/21/23 09:56 Pulse Ox 94 L 08/21/23 09:56 FiO2 Intake & Output 08/20/23 08/21/23 08/21/23 18:59 06:59 18:59 Intake Total 42.941 217.059 Output Total 250 Balance 42.941 -32.941 Weight 66.678 kg Intake: IV 10 Invasive Line 2 10 Intake, IV Titration 42.941 207.059 Amount Heparin Sod,Pork in 0.45% 42.941 207.059 NaCl 25,000 unit In 0.45 % NaCl 1 250ml.bag @ 12 UNITS/KG/HR 8.001 mls/hr IV .Q24H [facility] Rx#: [id number] Output: Gastric Drainage 250 Other: Voiding Method Bedside Commode Bedside Commode # Voids 1 1 - Exam patient is awake, comfortable, no acute distress Examination of the heart S1 and S2 Examination of the lungs bilateral breath sounds are heard Abdomen is soft ,mild tenderness mid abdomen Examination of lower extremities shows no edema CORPORATE BUYER exam grossly intact - Labs CBC & Chem 7: 08/19/23 13:01 08/20/23 10:45 Labs: Abnormal Lab Results - Last 24 Hours (Table) 08/20/23 08/20/23 Range/Units 10:45 18:19 APTT 66.6 H (22.0-30.0) sec Chloride 111 H (98-107) mmol/L Carbon Dioxide 21 L (22-30) mmol/L BUN 33 H (7-17) mg/dL Creatinine 1.21 H (0.52-1.04) mg/dL Glucose 102 H (74-99) mg/dL Total Protein 6.0 L (6.3-8.2) g/dL Albumin 3.1 L (3.5-5.0) g/dL Microbiology - Last 24 Hours (Table) 08/19/23 15:35 Blood Culture - Preliminary Blood 08/19/23 15:35 Blood Culture - Preliminary Blood 08/19/23 18:14 Urine Culture - Final Urine,Voided Assessment and Plan Assessment: 1. Chronic kidney disease stage IIIb with baseline creatinine 1.1-1.3 secondary to biopsy-proven AIN. 2. Bowel obstruction being followed by surgery. Currently has NG tube. Potential surgery Wednesday. 3. Chronic systolic CHF ejection fraction of 25 to 30%. 4. UTI on antibiotics. 5. Questionable left-sided hydronephrosis. Seen by urology. Potential cystoscopy outpatient. 6. Hypertension with chronic kidney disease. Stable. Plan: continue IV fluids. Monitor closely due to history of CHF and cardiomyopathy. we can likely resume Farxiga in the next 1-2 days as urine culture is negative. Repeat labs in a.m.
[2023-08-21 12:11] LABS: African American GFR (CKD) 49 (>60 ml/min/1.73 sqM); Anion Gap 13 mmol/L; Blood Urea Nitrogen 37 mg/dL (7-17); Calcium 8.4 mg/dL (8.4-10.2); Carbon Dioxide 15 mmol/L (22-30); Chloride 113 mmol/L (98-107); Glucose 91 mg/dL (74-99); Magnesium 2.2 mg/dL (1.6-2.3); Non-African American GFR(CKD) 43 (>60 ml/min/1.73 sqM); Phosphorus 3.9 mg/dL (2.5-4.5); Potassium 3.7 mmol/L (3.5-5.1); Sodium 141 mmol/L (137-145)
--- NOTE | 2023-08-21 14:13 | IR ---
PICC Insertion: EXAMINATION TYPE: IR cvc insert central tunneled Intraoperative/procedural fluoroscopic services were provided. CLINICAL INDICATION:Female, 87 years old with history of leo catheter insertion, 1.2min fluoro, 1 .[id number]; , [facility] Total fluoroscopy time is 1.2 min. DAP: 1.0009 Gycm2 uGym2 Please see the operative/procedural note for further details.
[2023-08-21] MEDS: MVI, ADULT NO.4 WITH VIT K 10 ML, TRACE (CONC-1ML/DOSE) 1 ML in AMINO ACID 5%-D20W+LYTE... IV SCH (15:57)
[2023-08-21 17:53] LABS: Glucose,Whole Blood 125 mg/dL (70-110)
--- NOTE | 2023-08-21 20:28 | CA ---
Transthoracic Echo Report Name: Lissa Ma Age: 87 Gender: F : 1935 Exam Date: 08/20/2023 11:46 Exam Location: [place] [facility] Ht (in): 66 Wt (lb): 147 Ordering Physician: Salma Morgan MD Attending/Referring Phys: Eddie CHO Photoengraving Etcher Apprentice Quynh Leung RDCS Procedure CPT: Indications: Abnormal EKG, chest pain, pacemaker Cardiac Hx: pacemaker Technical Quality: Good Contrast 1: Total Dose (mL): Contrast 2: Total Dose (mL): MEASUREMENTS (Male / Female) Normal Values 2D ECHO LV Diastolic Diameter PLAX 5.7 cm 4.2 - 5.9 / 3.9 - 5.3 cm LV Systolic Diameter PLAX 3.9 cm IVS Diastolic Thickness 1.6 cm 0.6 - 1.0 / 0.6 - 0.9 cm LVPW Diastolic Thickness 1.3 cm 0.6 - 1.0 / 0.6 - 0.9 cm LV Relative Wall Thickness 0.5 RV Internal Dim ED PLAX 3.3 cm LA Systolic Diameter LX 3.2 cm 3.0 - 4.0 / 2.7 - 3.8 cm LV Diastolic Volume MOD 4C 131.9 cm??? LV Systolic Volume MOD 4C 61.1 cm??? LV Ejection Fraction MOD 4C 53.7 % LV Cardiac Index MOD 4C 3163.2 cm???/min???m??? LV Diastolic Length 4C 8.5 cm LV Systolic Length 4C 7.3 cm LV Diastolic Volume MOD 2C 68.5 cm??? LV Systolic Volume MOD 2C 45.7 cm??? LV Ejection Fraction MOD 2C 33.3 % LV Cardiac Index MOD 2C 1020.2 cm???/min???m??? LV Diastolic Length 2C 7.3 cm LV Systolic Length 2C 8.0 cm LA Volume 28.4 cm??? 18 - 58 / 22 - 52 cm??? LA Volume Index 16.1 cm???/m??? 16 - 28 cm???/m??? M-MODE Aortic Root Diameter MM 3.9 cm DOPPLER AV Peak Velocity 168.3 cm/s AV Peak Gradient 11.3 mmHg AV Mean Velocity 105.6 cm/s AV Mean Gradient 5.2 mmHg AV Velocity Time Integral 30.8 cm AI Peak Velocity 361.8 cm/s AI Peak Gradient 52.4 mmHg AI Pressure Half Time 653.6 ms LVOT Peak Velocity 119.6 cm/s LVOT Peak Gradient 5.7 mmHg MV Area PHT 2.7 cm??? Mitral E Point Velocity 79.3 cm/s Mitral A Point Velocity 96.6 cm/s Mitral E to A Ratio 0.8 MV Deceleration Time 281.8 ms MV E' Velocity 4.7 cm/s Mitral E to MV E' Ratio 17.0 FINDINGS Left Ventricle Left ventricular ejection fraction is estimated at 55-60 %. Moderately increased septal wall thickness. Moderately increased posterior wall thickness. Mildly increased left ventricular diastolic diameter. Apical inferior hypokinesis Right Ventricle Mild right ventricular dilatation. Unable to estimate the right ventricular systolic pressure. Right Atrium Normal right atrial size. Left Atrium Normal left atrial size. Mitral Valve Mitral valve thickened. Mild mitral annular calcification. Trace mitral regurgitation. Aortic Valve Trileaflet aortic valve. Mild aortic regurgitation. Tricuspid Valve Structurally normal tricuspid valve. No tricuspid regurgitation. Pulmonic Valve Structurally normal pulmonic valve. Trace pulmonic regurgitation. Pericardium No pericardial effusion. Aorta Mild aortic dilatation at the level of the sinuses of valsalva 39 mm CONCLUSIONS Left ventricular ejection fraction is estimated at 55-60 %. Mod LVH Mild aortic regurgitation. No pericardial effusion. Previewed by: Dr Boy Catalan (Electronically Signed) Final Date: 21 August 2023 20:27
[2023-08-21] MEDS: FAT EMULSION 20% 250 ML IV SCH (21:34)
[2023-08-21 23:55] LABS: Glucose,Whole Blood 129 mg/dL (70-110)
[2023-08-22] MEDS: ACETAMINOPHEN IV (For NPO) 1,000 MG in EMPTY BAG 1 BAG IVPB ONE (00:06)
--- NOTE | 2023-08-22 00:09 | P.PN ---
Subjective Progress Note Date: 08/21/23 Principal diagnosis: SBO, Cardiac Disease NO Flatus, NGT output minimal, still mildly distended. awaiting final cardiology recommendations. family at bed side Objective - Vital Signs Vital signs: Vital Signs Temp 97.5 F L 08/21/23 20:00 Pulse 75 08/21/23 20:00 Resp 16 08/21/23 20:00 BP 157/72 08/21/23 20:00 Pulse Ox 93 L 08/21/23 20:00 FiO2 Intake & Output 08/21/23 08/21/23 08/22/23 06:59 18:59 06:59 Intake Total 217.059 69.521 1000 Output Total 250 Balance -32.941 69.521 1000 Intake: IV 10 Invasive Line 2 10 Intake, IV Titration 207.059 69.521 1000 Amount Heparin Sod,Pork in 0.45% 207.059 69.521 NaCl 25,000 unit In 0.45 % NaCl 1 250ml.bag @ 12 UNITS/KG/HR 8.001 mls/hr IV .Q24H [facility] Rx#: [id number] Sodium Chloride 0.9% 1, 900 000 ml @ 75 mls/hr IV . [id number] [facility] Rx#:[id number] cefTRIAXone 2 gm In 100 Sodium Chloride 0.9% 50 ml @ 100 mls/hr IVPB Q24HR [facility] Rx#:[id number] Output: Gastric Drainage 250 Other: Voiding Method Bedside Commode Bedside Commode Bedside Commode # Voids 1 1 # Bowel Movements 1 - Constitutional General appearance: Present: cooperative, obese - EENT Eyes: Present: EOMI, PERRLA - Respiratory Respiratory: bilateral: CTA - Cardiovascular Rhythm: regular Heart sounds: normal: S1 - Gastrointestinal General gastrointestinal: Present: absent bowel sounds, distended, soft. Absent: rigid, tenderness, umbilical hernia - Labs CBC & Chem 7: 08/19/23 13:01 08/21/23 10:22 Labs: Abnormal Lab Results - Last 24 Hours (Table) 08/21/23 08/21/23 08/21/23 Range/Units 10:22 17:50 22:00 APTT 71.8 H (22.0-30.0) sec Chloride 113 H (98-107) mmol/L Carbon Dioxide 15 L (22-30) mmol/L BUN 37 H (7-17) mg/dL Creatinine 1.15 H (0.52-1.04) mg/dL POC Glucose (mg/dL) 125 H (70-110) mg/dL 08/21/23 Range/Units 23:52 APTT (22.0-30.0) sec Chloride (98-107) mmol/L Carbon Dioxide (22-30) mmol/L BUN (7-17) mg/dL Creatinine (0.52-1.04) mg/dL POC Glucose (mg/dL) 129 H (70-110) mg/dL Microbiology - Last 24 Hours (Table) 08/19/23 15:35 Blood Culture - Preliminary Blood 08/19/23 15:35 Blood Culture - Preliminary Blood 08/19/23 18:14 Urine Culture - Final Urine,Voided Assessment and Plan (1) Abdominal pain of unknown etiology Current Visit: Yes Status: Acute Code(s): R10.9 - UNSPECIFIED ABDOMINAL PAIN SNOMED Code(s): 944864220 Plan: await final cardiology recommendations Possible Surgery Wednesday if no improvement remains stable
[2023-08-22 05:51] LABS: Glucose,Whole Blood 120 mg/dL (70-110)
--- NOTE | 2023-08-22 09:25 | P.PN ---
Subjective Progress Note Date: 08/22/23 patient feels better. She has had flatus and a bowel movement. She states her abdominal pain is improved. On exam vital signs are stable. Abdomen soft. Patient will have her nasogastric tube removed today. She'll start on clears. Objective - Vital Signs Vital signs: Vital Signs Temp 97.9 F 08/22/23 04:00 Pulse 71 08/22/23 04:00 Resp 15 08/22/23 04:00 BP 140/61 08/22/23 04:00 Pulse Ox 94 L 08/22/23 04:00 FiO2 Intake & Output 08/21/23 08/22/23 08/22/23 18:59 06:59 18:59 Intake Total 69.521 1180.479 Output Total 150 Balance 69.521 1030.479 Intake: Intake, IV Titration 69.521 1180.479 Amount Heparin Sod,Pork in 0.45% 69.521 180.479 NaCl 25,000 unit In 0.45 % NaCl 1 250ml.bag @ 12 UNITS/KG/HR 8.001 mls/hr IV .Q24H [facility] Rx#: [id number] Sodium Chloride 0.9% 1, 900 000 ml @ 75 mls/hr IV . [id number] [facility] Rx#:[id number] cefTRIAXone 2 gm In 100 Sodium Chloride 0.9% 50 ml @ 100 mls/hr IVPB Q24HR [facility] Rx#:[id number] Output: Urine 150 Other: Voiding Method Bedside Commode Bedside Commode # Voids 1 # Bowel Movements 1 - Labs CBC & Chem 7: 08/19/23 13:01 08/21/23 10:22 Labs: Abnormal Lab Results - Last 24 Hours (Table) 08/21/23 08/21/23 08/21/23 Range/Units 10:22 17:50 22:00 APTT 71.8 H (22.0-30.0) sec Chloride 113 H (98-107) mmol/L Carbon Dioxide 15 L (22-30) mmol/L BUN 37 H (7-17) mg/dL Creatinine 1.15 H (0.52-1.04) mg/dL POC Glucose (mg/dL) 125 H (70-110) mg/dL 08/21/23 08/22/23 Range/Units 23:52 05:50 APTT (22.0-30.0) sec Chloride (98-107) mmol/L Carbon Dioxide (22-30) mmol/L BUN (7-17) mg/dL Creatinine (0.52-1.04) mg/dL POC Glucose (mg/dL) 129 H 120 H (70-110) mg/dL Microbiology - Last 24 Hours (Table) 08/19/23 15:35 Blood Culture - Preliminary Blood 08/19/23 15:35 Blood Culture - Preliminary Blood
--- NOTE | 2023-08-22 10:19 | P.PN ---
Subjective Progress Note Date: 08/22/23 87-year-old female with a past medical history of CAD, CHF with EF of 25 to 30%, nonischemic cardiomyopathy status post permanent pacemaker placement, paroxysmal AFib on anticoagulation with Eliquis, hypertension, hyperlipidemia, hypothyroidism, GERD, previous TIA, stage IIIb CKD, MERE CPAP dependent, and history of bowel obstruction status post resection. Patient presented to the emergency department with a chief complaint of abdominal pain. She reports awakening from sleep around midnight with severe pain in her upper abdomen accompanied by nausea and vomiting. Patient reports her bowel movements have never been normal sometimes going 3 to 4 days between, but states they have been at her baseline normal. Vital signs upon arrival show BP 161/92, HR 77, RR 13, T 97.6 F, and SpO2 of 96% on room air. EKG showed a ventricular paced rhythm at 76 bpm. Chest x-ray negative for acute cardiopulmonary process. CT AP revealed prominent small bowel loops near anastomosis, caliber change in zone transition at the anastomosis appears to be present, nonspecific mesenteric stranding, with concerns of hydronephrosis to the left kidney. CBC showed WBC count of 12.3. CMP shows Cl 111, bicarb 18, anion gap 9, BUN 32, CR 1.32, glucose was 129. Troponin elevated at 0.052. Lipase normal findings at 56. UA positive nitrite large LE with > 182 WBCs. Renal ultrasound revealing left-sided hydronephrosis with possible right hydronephrosis versus parapelvic cyst or other etiology. Patient admitted under our services and consults have been placed to cardiology for elevated troponin and significant cardiac history as well as consult to general surgery secondary to patient's persistently severe left upper and lower quadrant abdominal pain and concerns of ileus versus obstruction and urology secondary to left-sided hydronephrosis. Underwent small bowel follow through consistent with SBO. NG tube inserted. Surgery recommending PICC like for TPN and surgical intervention on Wednesday if not improved. Troponins trended, 0.052, 0.084, and 0.105. Started on heparin drip and Cardiology consulted. Heparin drip discontinued by Cardiology suspecting type II NSTEMI, recommending outpatient follow up with [facility]. Urology and Nephrology consulted for DARIAN and hydronephrosis, may benefit from cystoscopy with retrograde pyelogram and possible stent placement, not recommended until clinical condition improves. 08/20 Patient was seen and examined. Abdominal pain improved. No nausea or vomiting. Currently NPO with NG tube to suction. Plans for PICC line for TPN. Maintained on NS at 75 cc/hr. UCx 10-50k genital lida. BCx prelim negative so far. On Rocephin 2g IV QD (D3) for treatment of UTI. BMP Cl 113, bicarb 15, BUN 37, Cr 1.15, glu 129. Mag 2.2. 08/21 Patient was seen and examined. Abdominal pain improved. No nausea or vomiting. Currently NPO with NG tube to suction. Receiving TPN for nutrition. Surgery note reviewed, plans to DC NG tube and start CLD. BMP, Mag, Phos pending today. General: no distress, appears at stated age Derm: warm, dry Head: atraumatic, normocephalic, symmetric, NG tube to suction Eyes: EOMI, no lid lag, anicteric sclera Mouth: no lip lesion, mucus membranes moist Cardiovascular: S1S2 reg, no murmur Lungs: Clear to auscultation bilateral, no rhonchi, no rales , no accessory muscle use Abdominal: soft, hyperactive BS, no guarding, no appreciable organomegaly Ext: no gross muscle atrophy, no edema, no contractures Neuro: No focal neurologic deficits Psych: Alert and oriented Based on my assessment of this patient, this patient meets a high complexity level of care. Patient has an acute diagnosis of SBO complicated with hydronephrosis on TPN that poses a threat to life or bodily function. Small bowel obstruction: History of small bowel obstruction status post bowel resection 2021. Compazine 10 mg IVP PRN nausea. Plans to DC NG tube and start CLD today. NS at 50 cc/h. Surgery on board. Elevated troponins, likely type II NSTEMI: History of CAD. Resume Eliquis once cleared by general surgeon. Carvedilol 3.125 mg twice daily, pravastatin 40 mg nightly. Chronic systolic heart failure with previous EF of 25 to 30%: Carvedilol 3.125 mg twice daily and Entresto 24-26 mg tablets twice daily. Discontinue Farxiga in the setting of UTI. Nonischemic cardiomyopathy status post pacemaker placement Paroxysmal atrial fibrillation: Continue Heparin drip at 20 units/kg/hr. Resume Eliquis once cleared by general surgeon. Left-sided hydronephrosis: Bladder scan to monitor for urinary retention and/or postvoid residuals. Straight catheterize as needed for retention greater than 350 cc. Urology on board. UTI: Continue Rocephin 2 g daily to complete a total of 7 days for complicated UTI (D4). CKD stage IIIb, stable at baseline: IVH as above. Nephrology on board. CODE STATUS: FULL CODE. DVT Prophylaxis: SCD GI Prophylaxis: Designated medical POA if patient is not able to make medical decisions for themselves: I have reviewed the following technology consultant notes: Surgery, Urology, Nephrology note. I have reviewed the results of the following tests: I have ordered the following tests: BMP and Mag is pending. I have discussed the care of this patient with the following independent historian: HUSSAIN. I have independently interpreted the following test below: I have discussed the management of this patient with the following physician: Objective - Vital Signs Vital signs: Vital Signs Temp 97.5 F L 08/22/23 09:30 Pulse 69 08/22/23 09:30 Resp 15 08/22/23 09:30 BP 137/72 08/22/23 09:30 Pulse Ox 94 L 08/22/23 09:30 FiO2 Intake & Output 08/21/23 08/22/23 08/22/23 18:59 06:59 18:59 Intake Total 69.521 1180.479 Output Total 150 Balance 69.521 1030.479 Intake: Intake, IV Titration 69.521 1180.479 Amount Heparin Sod,Pork in 0.45% 69.521 180.479 NaCl 25,000 unit In 0.45 % NaCl 1 250ml.bag @ 12 UNITS/KG/HR 8.001 mls/hr IV .Q24H [facility] Rx#: [id number] Sodium Chloride 0.9% 1, 900 000 ml @ 75 mls/hr IV . [id number] [facility] Rx#:[id number] cefTRIAXone 2 gm In 100 Sodium Chloride 0.9% 50 ml @ 100 mls/hr IVPB Q24HR [facility] Rx#:[id number] Output: Urine 150 Other: Voiding Method Bedside Commode Bedside Commode # Voids 1 1 # Bowel Movements 1 1 - Labs CBC & Chem 7: 08/19/23 13:01 08/21/23 10:22 Labs: Abnormal Lab Results - Last 24 Hours (Table) 08/21/23 08/21/23 08/21/23 Range/Units 10:22 17:50 22:00 APTT 71.8 H (22.0-30.0) sec Chloride 113 H (98-107) mmol/L Carbon Dioxide 15 L (22-30) mmol/L BUN 37 H (7-17) mg/dL Creatinine 1.15 H (0.52-1.04) mg/dL POC Glucose (mg/dL) 125 H (70-110) mg/dL 08/21/23 08/22/23 Range/Units 23:52 05:50 APTT (22.0-30.0) sec Chloride (98-107) mmol/L Carbon Dioxide (22-30) mmol/L BUN (7-17) mg/dL Creatinine (0.52-1.04) mg/dL POC Glucose (mg/dL) 129 H 120 H (70-110) mg/dL Microbiology - Last 24 Hours (Table) 08/19/23 15:35 Blood Culture - Preliminary Blood 08/19/23 15:35 Blood Culture - Preliminary Blood
--- NOTE | 2023-08-22 11:02 | P.PN ---
Subjective patient is seen for follow-up for chronic kidney disease. admitted with small bowel obstruction. NG tube to be discontinued today. No significant complaints today. renal function is stable with serum creatinine at 1.1-1.2 mg/dL. patient is maintained on IV fluids and TPN Objective - Vital Signs Vital signs: Vital Signs Temp 97.5 F L 08/22/23 09:30 Pulse 69 08/22/23 09:30 Resp 15 08/22/23 09:30 BP 137/72 08/22/23 09:30 Pulse Ox 94 L 08/22/23 09:30 FiO2 Intake & Output 08/21/23 08/22/23 08/22/23 18:59 06:59 18:59 Intake Total 69.521 1180.479 Output Total 150 Balance 69.521 1030.479 Intake: Intake, IV Titration 69.521 1180.479 Amount Heparin Sod,Pork in 0.45% 69.521 180.479 NaCl 25,000 unit In 0.45 % NaCl 1 250ml.bag @ 12 UNITS/KG/HR 8.001 mls/hr IV .Q24H [facility] Rx#: [id number] Sodium Chloride 0.9% 1, 900 000 ml @ 75 mls/hr IV . [id number] [facility] Rx#:[id number] cefTRIAXone 2 gm In 100 Sodium Chloride 0.9% 50 ml @ 100 mls/hr IVPB Q24HR [facility] Rx#:[id number] Output: Urine 150 Other: Voiding Method Bedside Commode Bedside Commode # Voids 1 1 # Bowel Movements 1 1 - Exam patient is awake, comfortable, no acute distress Examination of the heart S1 and S2 Examination of the lungs bilateral breath sounds are heard Abdomen is soft ,mild tenderness mid abdomen Examination of lower extremities shows no edema INFORMATION ASSURANCE SPECIALIST exam grossly intact - Labs CBC & Chem 7: 08/19/23 13:01 08/21/23 10:22 Labs: Abnormal Lab Results - Last 24 Hours (Table) 08/21/23 08/21/23 08/21/23 Range/Units 10:22 17:50 22:00 APTT 71.8 H (22.0-30.0) sec Chloride 113 H (98-107) mmol/L Carbon Dioxide 15 L (22-30) mmol/L BUN 37 H (7-17) mg/dL Creatinine 1.15 H (0.52-1.04) mg/dL POC Glucose (mg/dL) 125 H (70-110) mg/dL 08/21/23 08/22/23 Range/Units 23:52 05:50 APTT (22.0-30.0) sec Chloride (98-107) mmol/L Carbon Dioxide (22-30) mmol/L BUN (7-17) mg/dL Creatinine (0.52-1.04) mg/dL POC Glucose (mg/dL) 129 H 120 H (70-110) mg/dL Microbiology - Last 24 Hours (Table) 08/19/23 15:35 Blood Culture - Preliminary Blood 08/19/23 15:35 Blood Culture - Preliminary Blood Assessment and Plan Assessment: 1. Chronic kidney disease stage IIIb with baseline creatinine 1.1-1.3 secondary to biopsy-proven AIN. 2. Bowel obstruction being followed by surgery. Currently has NG tube 3. Chronic systolic CHF ejection fraction of 25 to 30%. 4. UTI on antibiotics. 5. Questionable left-sided hydronephrosis. Seen by urology. Potential cystoscopy outpatient. 6. Hypertension with chronic kidney disease. Stable. Plan: continue IV fluids. decrease rate. Monitor closely due to history of CHF and cardiomyopathy. we can likely resume Farxiga in the next 1-2 days as urine culture is negative. Repeat labs in a.m.
[2023-08-22 12:08] LABS: Glucose,Whole Blood 126 mg/dL (70-110)
[2023-08-22 12:15] LABS: African American GFR (CKD) 59 (>60 ml/min/1.73 sqM); Anion Gap 6 mmol/L; Blood Urea Nitrogen 38 mg/dL (7-17); Calcium 7.9 mg/dL (8.4-10.2); Carbon Dioxide 19 mmol/L (22-30); Chloride 115 mmol/L (98-107); Glucose 147 mg/dL (74-99); Magnesium 2.2 mg/dL (1.6-2.3); Non-African American GFR(CKD) 51 (>60 ml/min/1.73 sqM); Phosphorus 2.7 mg/dL (2.5-4.5); Potassium 3.2 mmol/L (3.5-5.1); Sodium 140 mmol/L (137-145)
[2023-08-22] MEDS ORDERED: 1: MVI, ADULT NO.4 WITH VIT K 10 ML, TRACE (CONC-1ML/DOSE) 1 ML in AMINO ACID 5%-D20W+LY IV SCH (15:00)
--- NOTE | 2023-08-22 15:08 | P.PN ---
Subjective Progress Note Date: 08/22/23 Principal diagnosis: Left hydronephrosis The patient is hospitalized with a small bowel obstruction. She feels better today and is passing flatus. She has a history of chronic kidney disease stage IIIb secondary to biopsy-proven AIN. Her baseline serum creatinine level is 1.1-1.3. She has a history of questionable left hydronephrosis. She was scheduled to undergo cystoscopy with retrograde pyelograms and possible stent insertion for further evaluation in September 2022. However, a repeat ultrasound showed no evidence of hydronephrosis, so the procedure was canceled. CT scan performed during this hospitalization again suggests the presence of left hydronephrosis. I do not believe she has right hydronephrosis, but rather a right parapelvic cyst. Objective - Vital Signs Vital signs: Vital Signs Temp 98.0 F 08/21/23 03:18 Pulse 79 08/21/23 03:18 Resp 18 08/21/23 03:18 BP 147/72 08/21/23 03:18 Pulse Ox 92 L 08/21/23 03:18 FiO2 Intake & Output 08/20/23 08/21/23 08/21/23 18:59 06:59 18:59 Intake Total 42.941 10 Output Total 250 Balance 42.941 -240 Weight 66.678 kg Intake: IV 10 Invasive Line 2 10 Intake, IV Titration 42.941 Amount Heparin Sod,Pork in 0.45% 42.941 NaCl 25,000 unit In 0.45 % NaCl 1 250ml.bag @ 12 UNITS/KG/HR 8.001 mls/hr IV .Q24H [facility] Rx#: [id number] Output: Gastric Drainage 250 Other: Voiding Method Bedside Commode Bedside Commode # Voids 1 1 - Constitutional General appearance: Present: average body habitus, no acute distress (She) - Psychiatric Psychiatric: Present: A&O x's 3 - Labs CBC & Chem 7: 08/19/23 13:01 08/22/23 10:33 Labs: Abnormal Lab Results - Last 24 Hours (Table) 08/20/23 08/20/23 08/20/23 Range/Units 10:45 10:45 18:19 APTT 33.6 H 66.6 H (22.0-30.0) sec Chloride 111 H (98-107) mmol/L Carbon Dioxide 21 L (22-30) mmol/L BUN 33 H (7-17) mg/dL Creatinine 1.21 H (0.52-1.04) mg/dL Glucose 102 H (74-99) mg/dL Total Protein 6.0 L (6.3-8.2) g/dL Albumin 3.1 L (3.5-5.0) g/dL Microbiology - Last 24 Hours (Table) 08/19/23 15:35 Blood Culture - Preliminary Blood 08/19/23 15:35 Blood Culture - Preliminary Blood 08/19/23 18:14 Urine Culture - Final Urine,Voided Assessment and Plan Assessment: I have reviewed the patient's CT scan. There appears to be a parapelvic cyst inferiorly on the right side, and I do not believe that she has right hydronephrosis. There appears to be moderate left hydronephrosis. There is no ureteral dilation. (1) Unspecified hydronephrosis Current Visit: Yes Status: Acute Code(s): N13.30 - UNSPECIFIED HYDRONEPHROSIS SNOMED Code(s): 08811768 Plan: The patient appears to have left hydronephrosis of indeterminate etiology. This is not acute and is unrelated to the patient's current symptomatology. Her renal function is stable. I have reviewed her office records, and it appears that some studies suggest the presence of hydronephrosis while others show no evidence of hydronephrosis. I had a lengthy discussion with the patient and her daughter this morning, discussing the pros and cons of cystoscopy with retr ograde pyelograms and possible stent placement. This will be done electively once her condition has improved. She will follow-up with me as an outpatient if she chooses to proceed in this manner. Please notify us if we can be of any further assistance during this hospitalization.
[2023-08-22] MEDS: SODIUM ACETATE IV SCH (15:38)
[2023-08-22] MEDS: POTASSIUM ACETATE IV SCH (15:38)
[2023-08-22] MEDS: MAGNESIUM SULFATE IV SCH (15:38)
[2023-08-22] MEDS: [UNRECOGNIZED DRUG - OTHER] IV SCH (15:38)
[2023-08-22 18:09] LABS: Glucose,Whole Blood 129 mg/dL (70-110)
[2023-08-23 00:13] LABS: Glucose,Whole Blood 146 mg/dL (70-110)
[2023-08-23 06:27] LABS: Glucose,Whole Blood 145 mg/dL (70-110)
--- NOTE | 2023-08-23 09:57 | P.PN ---
Subjective patient is seen for follow-up for chronic kidney disease. admitted with small bowel obstruction. NG tube his out. No significant complaints today. renal function is stable with serum creatinine at 0.9 patient is maintained on IV fluids Objective - Vital Signs Vital signs: Vital Signs Temp 97.8 F 08/23/23 04:00 Pulse 74 08/23/23 04:00 Resp 18 08/23/23 04:00 BP 165/80 08/23/23 04:00 Pulse Ox 95 08/23/23 04:00 FiO2 Intake & Output 08/22/23 08/23/23 08/23/23 18:59 06:59 18:59 Intake Total 140 269.828 Balance 140 269.828 Intake: IV 20 Invasive Line 2 10 Invasive Line 3 10 Intake, IV Titration 249.828 Amount Heparin Sod,Pork in 0.45% 249.828 NaCl 25,000 unit In 0.45 % NaCl 1 250ml.bag @ 12 UNITS/KG/HR 8.001 mls/hr IV .Q24H [facility] Rx#: [id number] Oral 140 Other: Voiding Method Bedside Commode Bedside Commode # Voids 1 1 # Bowel Movements 2 1 - Exam patient is awake, comfortable, no acute distress Examination of the heart S1 and S2 Examination of the lungs bilateral breath sounds are heard Abdomen is soft ,mild tenderness mid abdomen Examination of lower extremities shows trace edema [employer] exam grossly intact - Labs CBC & Chem 7: 08/19/23 13:01 08/22/23 10:33 Labs: Abnormal Lab Results - Last 24 Hours (Table) 08/22/23 08/22/23 08/22/23 Range/Units 10:33 10:33 12:02 APTT 71.9 H (22.0-30.0) sec Potassium 3.2 L (3.5-5.1) mmol/L Chloride 115 H (98-107) mmol/L Carbon Dioxide 19 L (22-30) mmol/L BUN 38 H (7-17) mg/dL Glucose 147 H (74-99) mg/dL POC Glucose (mg/dL) 126 H (70-110) mg/dL Calcium 7.9 L (8.4-10.2) mg/dL 08/22/23 08/23/23 08/23/23 Range/Units 18:07 00:07 06:04 APTT (22.0-30.0) sec Potassium (3.5-5.1) mmol/L Chloride (98-107) mmol/L Carbon Dioxide (22-30) mmol/L BUN (7-17) mg/dL Glucose (74-99) mg/dL POC Glucose (mg/dL) 129 H 146 H 145 H (70-110) mg/dL Calcium (8.4-10.2) mg/dL Microbiology - Last 24 Hours (Table) 08/19/23 15:35 Blood Culture - Preliminary Blood 08/19/23 15:35 Blood Culture - Preliminary Blood Assessment and Plan Assessment: 1. Chronic kidney disease stage IIIb with baseline creatinine 1.1-1.3 secondary to biopsy-proven AIN.status post treatment with steroids many years ago. 2. Bowel obstruction being followed by surgery. Currently has NG tube 3. Chronic systolic CHF ejection fraction of 25 to 30%. 4. UTI on antibiotics. 5. Questionable left-sided hydronephrosis. Seen by urology. Potential cystoscopy outpatient. 6. Hypertension with chronic kidney disease. Stable. Plan: continue IV fluids. decrease rate. Monitor closely due to history of CHF and cardiomyopathy. we can likely resume Farxiga in the next 1-2 days as urine culture is negative. Repeat labs in a.m. physical therapy consult
--- NOTE | 2023-08-23 11:24 | P.PN ---
Subjective Progress Note Date: 08/23/23 87-year-old female with a past medical history of CAD, CHF with EF of 25 to 30%, nonischemic cardiomyopathy status post permanent pacemaker placement, paroxysmal AFib on anticoagulation with Eliquis, hypertension, hyperlipidemia, hypothyroidism, GERD, previous TIA, stage IIIb CKD, MERE CPAP dependent, and history of bowel obstruction status post resection. Patient presented to the emergency department with a chief complaint of abdominal pain. She reports awakening from sleep around midnight with severe pain in her upper abdomen accompanied by nausea and vomiting. Patient reports her bowel movements have never been normal sometimes going 3 to 4 days between, but states they have been at her baseline normal. Vital signs upon arrival show BP 161/92, HR 77, RR 13, T 97.6 F, and SpO2 of 96% on room air. EKG showed a ventricular paced rhythm at 76 bpm. Chest x-ray negative for acute cardiopulmonary process. CT AP revealed prominent small bowel loops near anastomosis, caliber change in zone transition at the anastomosis appears to be present, nonspecific mesenteric stranding, with concerns of hydronephrosis to the left kidney. CBC showed WBC count of 12.3. CMP shows Cl 111, bicarb 18, anion gap 9, BUN 32, CR 1.32, glucose was 129. Troponin elevated at 0.052. Lipase normal findings at 56. UA positive nitrite large LE with > 182 WBCs. Renal ultrasound revealing left-sided hydronephrosis with possible right hydronephrosis versus parapelvic cyst or other etiology. Patient admitted under our services and consults have been placed to cardiology for elevated troponin and significant cardiac history as well as consult to general surgery secondary to patient's persistently severe left upper and lower quadrant abdominal pain and concerns of ileus versus obstruction and urology secondary to left-sided hydronephrosis. Underwent small bowel follow through consistent with SBO. NG tube inserted. Surgery recommending PICC like for TPN and surgical intervention on Wednesday if not improved. Troponins trended, 0.052, 0.084, and 0.105. Started on heparin drip and Cardiology consulted. Heparin drip discontinued by Cardiology suspecting type II NSTEMI, recommending outpatient follow up with [facility] [employer]. Urology and Nephrology consulted for DARIAN and hydronephrosis, may benefit from cystoscopy with retrograde pyelogram and possible stent placement, not recommended until clinical condition improves. 08/20 Patient was seen and examined. Abdominal pain improved. No nausea or vomiting. Currently NPO with NG tube to suction. Plans for PICC line for TPN. Maintained on NS at 75 cc/hr. UCx 10-50k genital lida. BCx prelim negative so far. On Rocephin 2g IV QD (D3) for treatment of UTI. Maintained on heparin drip. BMP Cl 113, bicarb 15, BUN 37, Cr 1.15, glu 129. Mag 2.2. 08/21 Patient was seen and examined. Abdominal pain improved. No nausea or vomiting. Currently NPO with NG tube to suction. Receiving TPN for nutrition. Surgery note reviewed, plans to DC NG tube and start CLD. Maintained on heparin drip. BMP K 3.2, Cl 115, bicarb 19, BUN 38, glu 147, Ca 7.9. Mag 2.2. Phos 2.7. APTT 71.9. 08/22 Patient was seen and examined. Currently on CLD. 2 bowel movements so far. On Rocephin 2g IV QD (D4) for treatment of UTI. Maintained on heparin drip. APTT 60. BMP, Mag and Phos pending. General: no distress, appears at stated age Derm: warm, dry Head: atraumatic, normocephalic, symmetric Eyes: EOMI, no lid lag, anicteric sclera Mouth: no lip lesion, mucus membranes moist Cardiovascular: S1S2 reg, no murmur Lungs: Clear to auscultation bilateral, no rhonchi, no rales , no accessory muscle use Abdominal: soft, hyperactive BS, no guarding, no appreciable organomegaly Ext: no gross muscle atrophy, no edema, no contractures Neuro: No focal neurologic deficits Psych: Alert and oriented Based on my assessment of this patient, this patient meets a high complexity level of care. Patient has an acute diagnosis of SBO complicated with hydronephrosis on TPN that poses a threat to life or bodily function. Small bowel obstruction: History of small bowel obstruction status post bowel resection 2021. Compazine 10 mg IVP PRN nausea. Plans to DC NG tube and start CLD today. Continue TPN while monitoring electrolytes, Mag and Phos. NS at 50 cc/h. Surgery on board. Elevated troponins, likely type II NSTEMI: History of CAD. Resume Eliquis once cleared by general surgeon. Carvedilol 3.125 mg twice daily, pravastatin 40 mg nightly. Chronic systolic heart failure with previous EF of 25 to 30%: Carvedilol 3.125 mg twice daily and Entresto 24-26 mg tablets twice daily. Discontinue Farxiga in the setting of UTI. Nonischemic cardiomyopathy status post pacemaker placement Paroxysmal atrial fibrillation: Continue Heparin drip at 20 units/kg/hr while monitoring APTT. Resume Eliquis once cleared by general surgeon. Left-sided hydronephrosis: Bladder scan to monitor for urinary retention and/or postvoid residuals. Straight catheterize as needed for retention greater than 350 cc. Urology on board. UTI: Continue Rocephin 2 g daily to complete a total of 7 days for complicated UTI (D4). CKD stage IIIb, stable at baseline: IVH as above. Nephrology on board. CODE STATUS: FULL CODE. DVT Prophylaxis: Heparin drip. GI Prophylaxis: Designated medical POA if patient is not able to make medical decisions for themselves: I have reviewed the following network systems consultant notes: Surgery, Urology, Nephrology note. I have reviewed the results of the following tests: APTT. I have ordered the following tests: BMP, Mag, Phos is pending. I have discussed the care of this patient with the following independent historian: I have independently interpreted the following test below: I have discussed the management of this patient with the following physician: Objective - Vital Signs Vital signs: Vital Signs Temp 97.8 F 08/23/23 04:00 Pulse 74 08/23/23 04:00 Resp 18 08/23/23 04:00 BP 165/80 08/23/23 04:00 Pulse Ox 95 08/23/23 04:00 FiO2 Intake & Output 08/22/23 08/23/23 08/23/23 18:59 06:59 18:59 Intake Total 140 269.828 Balance 140 269.828 Intake: IV 20 Invasive Line 2 10 Invasive Line 3 10 Intake, IV Titration 249.828 Amount Heparin Sod,Pork in 0.45% 249.828 NaCl 25,000 unit In 0.45 % NaCl 1 250ml.bag @ 12 UNITS/KG/HR 8.001 mls/hr IV .Q24H [facility] Rx#: [id number] Oral 140 Other: Voiding Method Bedside Commode Bedside Commode # Voids 1 1 # Bowel Movements 2 1 - Labs CBC & Chem 7: 08/19/23 13:01 08/22/23 10:33 Labs: Abnormal Lab Results - Last 24 Hours (Table) 08/22/23 08/22/23 08/22/23 Range/Units 10:33 10:33 12:02 APTT 71.9 H (22.0-30.0) sec Potassium 3.2 L (3.5-5.1) mmol/L Chloride 115 H (98-107) mmol/L Carbon Dioxide 19 L (22-30) mmol/L BUN 38 H (7-17) mg/dL Glucose 147 H (74-99) mg/dL POC Glucose (mg/dL) 126 H (70-110) mg/dL Calcium 7.9 L (8.4-10.2) mg/dL 08/22/23 08/23/23 08/23/23 Range/Units 18:07 00:07 06:04 APTT (22.0-30.0) sec Potassium (3.5-5.1) mmol/L Chloride (98-107) mmol/L Carbon Dioxide (22-30) mmol/L BUN (7-17) mg/dL Glucose (74-99) mg/dL POC Glucose (mg/dL) 129 H 146 H 145 H (70-110) mg/dL Calcium (8.4-10.2) mg/dL Microbiology - Last 24 Hours (Table) 08/19/23 15:35 Blood Culture - Preliminary Blood 08/19/23 15:35 Blood Culture - Preliminary Blood
[2023-08-23 12:07] LABS: Glucose,Whole Blood 138 mg/dL (70-110)
[2023-08-23 13:50] LABS: African American GFR (CKD) 71 (>60 ml/min/1.73 sqM); Anion Gap 9 mmol/L; Blood Urea Nitrogen 35 mg/dL (7-17); Calcium 7.9 mg/dL (8.4-10.2); Carbon Dioxide 15 mmol/L (22-30); Chloride 116 mmol/L (98-107); Glucose 171 mg/dL (74-99); Magnesium 2.1 mg/dL (1.6-2.3); Non-African American GFR(CKD) 62 (>60 ml/min/1.73 sqM); Phosphorus 2.8 mg/dL (2.5-4.5); Potassium 3.3 mmol/L (3.5-5.1); Sodium 140 mmol/L (137-145)
--- NOTE | 2023-08-23 16:37 | P.PN ---
Subjective Progress Note Date: 08/23/23 CHIEF COMPLAINT: Abdominal pain HISTORY OF PRESENT ILLNESS: The patient is a 87-year-old female admitted for elevated troponins including small bowel obstruction. Over the weekend, patient started having bowel movements. She is passing flatus. In fact she is tolerating clear liquid diet. She denies any abdominal pain. Her daughter is at bedside. ROS: No reports of nausea and vomiting. No fevers or chills. No new chest pain. No productive sputum PHYSICAL EXAM: VITAL SIGNS: Reviewed CONSTITUTIONAL: Well developed and in no acute distress. EYES: Conjuctivae without sclera icterus. Extraocular movements grossly intact. HEAD, EARS, NOSE, THROAT: Moist buccal mucosa. Head is atraumatic, normocephalic. Has troubles with hearing. Nasogastric tube bilious RESPIRATORY: Non-labored respirations and equal bilateral excursions. CARDIOVASCULAR: Palpable 2+ radial pulses. ABDOMEN: No peritonitis. Nontender MUSCULOSKELETAL: No gross deformity of the lower extremities noted. No c lubbing. No cyanosis. SKIN: Good skin turgor. Well perfused. NEUROLOGIC: Cranial nerves II through XII grossly intact. No focal or lateralizing signs. PSYCH: Appropriate affect. Alert and oriented to person, place and time. CLINICAL LABS: Reviewed. ASSESSMENT: 1. Small bowel obstruction due to adhesions 2. Elevated troponins 3. Cardiac pacemaker in situ 4. History of bowel resection PLAN: 1. Clinically, her bowel obstruction is resolved and she is passing flatus and having bowel movement including tolerating diet. 2. Recommend advance diet from full liquid diet to low fiber diet in next 24 hours. 3. Surgery canceled due to patient clinical improvement Objective - Vital Signs Vital signs: Vital Signs Temp 97.8 F 08/23/23 08:35 Pulse 67 08/23/23 11:45 Resp 18 08/23/23 11:45 BP 148/68 08/23/23 11:45 Pulse Ox 94 L 08/23/23 11:45 FiO2 Intake & Output 08/22/23 08/23/23 08/23/23 18:59 06:59 18:59 Intake Total 140 269.828 240 Balance 140 269.828 240 Weight 66.678 kg Intake: IV 20 Invasive Line 2 10 Invasive Line 3 10 Intake, IV Titration 249.828 Amount Heparin Sod,Pork in 0.45% 249.828 NaCl 25,000 unit In 0.45 % NaCl 1 250ml.bag @ 12 UNITS/KG/HR 8.001 mls/hr IV .Q24H [facility] Rx#: [id number] Oral 140 240 Other: Voiding Method Bedside Commode Bedside Commode Bedside Commode # Voids 1 1 # Bowel Movements 2 1 - Labs CBC & Chem 7: 08/19/23 13:01 08/23/23 09:25 Labs: Abnormal Lab Results - Last 24 Hours (Table) 08/22/23 08/23/23 08/23/23 Range/Units 18:07 00:07 06:04 APTT (22.0-30.0) sec Potassium (3.5-5.1) mmol/L Chloride (98-107) mmol/L Carbon Dioxide (22-30) mmol/L BUN (7-17) mg/dL Glucose (74-99) mg/dL POC Glucose (mg/dL) 129 H 146 H 145 H (70-110) mg/dL Calcium (8.4-10.2) mg/dL 08/23/23 08/23/23 08/23/23 Range/Units 09:25 09:29 12:05 APTT 60.0 H (22.0-30.0) sec Potassium 3.3 L (3.5-5.1) mmol/L Chloride 116 H (98-107) mmol/L Carbon Dioxide 15 L (22-30) mmol/L BUN 35 H (7-17) mg/dL Glucose 171 H (74-99) mg/dL POC Glucose (mg/dL) 138 H (70-110) mg/dL Calcium 7.9 L (8.4-10.2) mg/dL Microbiology - Last 24 Hours (Table) 08/19/23 15:35 Blood Culture - Preliminary Blood 08/19/23 15:35 Blood Culture - Preliminary Blood
[2023-08-23 18:19] LABS: Glucose,Whole Blood 147 mg/dL (70-110)
[2023-08-23] MEDS: [UNRECOGNIZED DRUG - OTHER] IV SCH (21:23)
[2023-08-23] MEDS: MAGNESIUM SULFATE IV SCH (21:23)
[2023-08-23] MEDS: SODIUM ACETATE IV SCH (21:23)
[2023-08-23] MEDS: POTASSIUM ACETATE IV SCH (21:23)
[2023-08-24 00:17] LABS: Glucose,Whole Blood 132 mg/dL (70-110)
[2023-08-24] MEDS: POTASSIUM CHLORIDE 10 MEQ in WATER FOR INJECTION 1 100ML.BAG IVPB SCH (02:14)
[2023-08-24 06:05] LABS: Glucose,Whole Blood 136 mg/dL (70-110)
[2023-08-24] MEDS: APIXABAN 5 MG TAB PO SCH (10:29)
--- NOTE | 2023-08-24 10:37 | P.DS ---
Providers Date of admission: 08/19/23 12:06 Expected date of discharge: 08/24/23 Attending physician: Brad rGier MD Consults: 08/18/23 08:36 Consult Physician Routine Consulting Provider: [facility] Consult Reason/Comments: elevated troponin Do you want consulting provider notified?: Yes 08/18/23 12:32 Consult Physician Routine Consulting Provider: Salma Morgan Consult Reason/Comments: LUQ and LLL pain, nausea, and vomiting previous bowel resection Do you want consulting provider notified?: Yes 08/18/23 15:28 Consult Physician Routine Consulting Provider: Uriah Montiel Consult Reason/Comments: left sided hydronephrosis with concerns of right sided hydronephrosis Do you want consulting provider notified?: Yes 08/20/23 13:13 Consult Physician Routine Consulting Provider: Law Martinez Consult Reason/Comments: GFR <45 needs PICC Do you want consulting provider notified?: Yes Primary care physician: [facility] Course: 87-year-old female with a past medical history of CAD, CHF with EF of 25 to 30%, nonischemic cardiomyopathy status post permanent pacemaker placement, paroxysmal AFib on anticoagulation with Eliquis, hypertension, hyperlipidemia, hypothyroidism, GERD, previous TIA, stage IIIb CKD, MERE CPAP dependent, and history of bowel obstruction status post resection. Patient presented to the emergency department with a chief complaint of abdominal pain. She reports awakening from sleep around midnight with severe pain in her upper abdomen accompanied by nausea and vomiting. Patient reports her bowel movements have never been normal sometimes going 3 to 4 days between, but states they have been at her baseline normal. Vital signs upon arrival show BP 161/92, HR 77, RR 13, T 97.6 F, and SpO2 of 96% on room air. EKG showed a ventricular paced rhythm at 76 bpm. Chest x-ray negative for acute cardiopulmonary process. CT AP revealed prominent small bowel loops near anastomosis, caliber change in zone transition at the anastomosis appears to be present, nonspecific mesenteric stranding, with concerns of hydronephrosis to the left kidney. CBC showed WBC count of 12.3. CMP shows Cl 111, bicarb 18, anion gap 9, BUN 32, CR 1.32, glucose was 129. Troponin elevated at 0.052. Lipase normal findings at 56. UA positive nitrite large LE with > 182 WBCs. Renal ultrasound revealing left-sided hydronephrosis with possible right hydronephrosis versus parapelvic cyst or other etiology. Patient admitted under our services and consults have been placed to cardiology for elevated troponin and significant cardiac history as well as consult to general surgery secondary to patient's persistently severe left upper and lower quadrant abdominal pain and concerns of ileus versus obstruction and urology secondary to left-sided hydronephrosis. Underwent small bowel follow through consistent with SBO. NG tube inserted. Surgery recommending PICC like for TPN and surgical intervention on Wednesday if not improved. Troponins trended, 0.052, 0.084, and 0.105. Started on heparin drip and Cardiology consulted. Heparin drip discontinued by Cardiology suspecting type II NSTEMI, recommending outpatient follow up with [facility] [employer]. Urology and Nephrology consulted for DARIAN and hydronephrosis, may benefit from cystoscopy with retrograde pyelogram and possible stent placement, not recommended until clinical condition improves. 08/20 Patient was seen and examined. Abdominal pain improved. No nausea or vomiting. Currently NPO with NG tube to suction. Plans for PICC line for TPN. Maintained on NS at 75 cc/hr. UCx 10-50k genital lida. BCx prelim negative so far. On Rocephin 2g IV QD (D3) for treatment of UTI. Maintained on heparin drip. BMP Cl 113, bicarb 15, BUN 37, Cr 1.15, glu 129. Mag 2.2. 08/21 Patient was seen and examined. Abdominal pain improved. No nausea or vomiting. Currently NPO with NG tube to suction. Receiving TPN for nutrition. Surgery note reviewed, plans to DC NG tube and start CLD. Maintained on heparin drip. BMP K 3.2, Cl 115, bicarb 19, BUN 38, glu 147, Ca 7.9. Mag 2.2. Phos 2.7. APTT 71.9. 08/22 Patient was seen and examined. Currently on CLD. 2 bowel movements so far. On Rocephin 2g IV QD (D5) for treatment of UTI. Maintained on heparin drip. APTT 60. BMP K 3.3 Cl 116 bicarb 15 BUN 35, glu 171, Ca 7.9. Mag 2.1. Phos 2.8. 08/23 Patient was seen and examined. CLD advanced to low fiber diet. No N/V. No abdominal pain. On Rocephin 2g IV QD (D6) for treatment of UTI. Discussed with Surgery, no further workup or management, DC TPN, OK with switching back to Eliquis. Patient and family prefers to go home, will spend a couple days with daughter. Low suspicion for UTI, will stop antibiotics. Follow up with Urology in the outpatient setting for possible cystoscopy with retrograde pyelogram and possible stent placement. General: no distress, appears at stated age Derm: warm, dry Head: atraumatic, normocephalic, symmetric Eyes: EOMI, no lid lag, anicteric sclera Mouth: no lip lesion, mucus membranes moist Cardiovascular: S1S2 reg, no murmur Lungs: Clear to auscultation bilateral, no rhonchi, no rales , no accessory muscle use Abdominal: soft, + BS, no guarding, no appreciable organomegaly Ext: no gross muscle atrophy, no edema, no contractures Neuro: No focal neurologic deficits Psych: Alert and oriented Discharge Diagnosis: Small bowel obstruction Elevated troponins, likely type II NSTEMI Chronic systolic heart failure with previous EF of 25 to 30% Nonischemic cardiomyopathy status post pacemaker placement Paroxysmal atrial fibrillation Left-sided hydronephrosis UTI CKD stage IIIb, stable at baseline This complex discharge took 35 minutes to complete. Patient Condition at Discharge: Stable Plan - Discharge Summary Discharge Rx Participant: Yes New Discharge Prescriptions: No Action Famotidine [Pepcid] 20 mg PO DAILY Levothyroxine Sodium [Synthroid] 125 mcg PO DAILY carvediloL [Coreg] 3.125 mg PO BID Furosemide [Lasix] 20 mg PO DAILY Apixaban [Eliquis] 5 mg PO BID Pravastatin Sodium [Pravachol] 40 mg PO HS Dapagliflozin Propanediol [Farxiga] 10 mg PO DAILY #30 tablet Dibucaine 1 applic TOPICAL TID PRN PRN Reason: Itching Sacubitril/Valsartan [Entresto 24 mg-26 mg Tablet] 1 tab PO BID Sodium Bicarbonate Tab 650 mg PO DAILY Discharge Medication List Famotidine [Pepcid] 20 mg PO DAILY 04/25/19 [History] Apixaban [Eliquis] 5 mg PO BID 08/28/22 [History] Pravastatin Sodium [Pravachol] 40 mg PO HS 03/11/23 [History] Dapagliflozin Propanediol [Farxiga] 10 mg PO DAILY #30 tablet 03/18/23 [Rx] Dibucaine 1 applic TOPICAL TID PRN 08/18/23 [History] Furosemide [Lasix] 20 mg PO DAILY 08/18/23 [History] Levothyroxine Sodium [Synthroid] 125 mcg PO DAILY 08/18/23 [History] Sacubitril/Valsartan [Entresto 24 mg-26 mg Tablet] 1 tab PO BID 08/18/23 [History] Sodium Bicarbonate Tab 650 mg PO DAILY 08/18/23 [History] carvediloL [Coreg] 3.125 mg PO BID 08/18/23 [History] Follow up Appointment(s)/Referral(s): None,Stated [REFERRING] - 1-2 days Rashel Mcdaniel MD [REFERRING] - 1 Week
[2023-08-24 11:17] LABS: African American GFR (CKD) 76 (>60 ml/min/1.73 sqM); Anion Gap 7 mmol/L; Blood Urea Nitrogen 31 mg/dL (7-17); Carbon Dioxide 19 mmol/L (22-30); Chloride 112 mmol/L (98-107); Glucose 115 mg/dL (74-99); Magnesium 2.1 mg/dL (1.6-2.3); Non-African American GFR(CKD) 66 (>60 ml/min/1.73 sqM); Phosphorus 2.9 mg/dL (2.5-4.5); Potassium 3.6 mmol/L (3.5-5.1); Sodium 138 mmol/L (137-145)
[2023-08-24 12:07] VITALS: BP 138/71; PULSE 71; RESP 18; TEMP 97.1
--- NOTE | 2023-08-24 15:25 | P.PN ---
Subjective Progress Note Date: 08/24/23 CHIEF COMPLAINT: Small bowel obstruction HISTORY OF PRESENT ILLNESS: Patient admitted to the hospital small bowel obstruction. She was managed conservatively. She has had multiple bowel movements. She is tolerating advancement of diet. Denies any abdominal pain. Afebrile. PHYSICAL EXAM: VITAL SIGNS: Reviewed GENERAL: Well-developed in no acute distress. HEENT: No sclera icterus. Extraocular movements grossly intact. Moist buccal mucosa. Head is atraumatic, normocephalic. Hears conversational speech. No nasal drainage. NECK: Supple without lymphadenopathy. CHEST: Non-labored respirations and equal bilateral excursions. CARDIOVASCULAR: Palpable 2+ radial pulses. ABDOMEN: Soft. Nondistended. Nontender. MUSCULOSKELETAL: No clubbing or cyanosis. NEUROLOGIC: No focal or lateralizing signs. Cranial nerves II through XII grossly intact. PSYCH: Appropriate affect. Alert and oriented to person, place and time. SKIN: Well perfused. Good skin turgor. ASSESSMENT: 1. Small bowel obstruction due to adhesions 2. Elevated troponins 3. Cardiac pacemaker in situ 4. History of bowel resection PLAN: -Small bowel obstruction has resolved. Managed conservatively. She is to lerating low fiber diet. -Patient can be discharged from surgical standpoint Physician Service Operations Manager note has been reviewed by physician. Signing provider agrees with the documented findings, assessment, and plan of care. Objective - Vital Signs Vital signs: Vital Signs Temp 97.1 F L 08/24/23 11:48 Pulse 71 08/24/23 11:48 Resp 18 08/24/23 11:48 BP 138/71 08/24/23 11:48 Pulse Ox 93 L 08/24/23 11:48 FiO2 Intake & Output 08/23/23 08/24/23 08/24/23 18:59 06:59 18:59 Intake Total 240 1340 118 Output Total 400 Balance 240 940 118 Weight 66.678 kg Intake: Intake, IV Titration 800 Amount Heparin Sod,Pork in 0.45% 250 NaCl 25,000 unit In 0.45 % NaCl 1 250ml.bag @ 12 UNITS/KG/HR 8.001 mls/hr IV .Q24H [facility] Rx#: [id number] Potassium Chloride 10 meq 200 In Water For Injection 1 100ml.bag @ 100 mls/hr IVPB Q1H [facility] Rx#: [id number] Sodium Chloride 0.9% 1, 350 000 ml @ 50 mls/hr IV . Q20H [facility] Rx#:[id number] Oral 240 540 118 Output: Urine 200 Post Void Residual 200 Other: Voiding Method Bedside Commode Bedside Commode Bedside Commode # Voids 3 1 1 # Bowel Movements 1 - Labs CBC & Chem 7: 08/19/23 13:01 08/24/23 08:44 Labs: Abnormal Lab Results - Last 24 Hours (Table) 08/23/23 08/23/23 08/24/23 Range/Units 09:25 18:17 00:04 APTT (22.0-30.0) sec Potassium 3.3 L (3.5-5.1) mmol/L Chloride 116 H (98-107) mmol/L Carbon Dioxide 15 L (22-30) mmol/L BUN 35 H (7-17) mg/dL Glucose 171 H (74-99) mg/dL POC Glucose (mg/dL) 147 H 132 H (70-110) mg/dL Calcium 7.9 L (8.4-10.2) mg/dL 08/24/23 08/24/23 08/24/23 Range/Units 06:01 08:44 08:44 APTT 63.5 H (22.0-30.0) sec Potassium (3.5-5.1) mmol/L Chloride 112 H (98-107) mmol/L Carbon Dioxide 19 L (22-30) mmol/L BUN 31 H (7-17) mg/dL Glucose 115 H (74-99) mg/dL POC Glucose (mg/dL) 136 H (70-110) mg/dL Calcium 8.0 L (8.4-10.2) mg/dL
--- NOTE | 2023-08-24 18:36 | P.PN ---
Subjective patient is seen for follow-up for chronic kidney disease. admitted with small bowel obstruction. No significant complaints today. renal function is stable with serum creatinine at 0.9 patient is maintained on IV fluids Objective - Vital Signs Vital signs: Vital Signs Temp 97.1 F L 08/24/23 11:48 Pulse 71 08/24/23 11:48 Resp 18 08/24/23 11:48 BP 138/71 08/24/23 11:48 Pulse Ox 93 L 08/24/23 11:48 FiO2 Intake & Output 08/23/23 08/24/23 08/24/23 18:59 06:59 18:59 Intake Total 240 1340 118 Output Total 400 Balance 240 940 118 Weight 66.678 kg Intake: Intake, IV Titration 800 Amount Heparin Sod,Pork in 0.45% 250 NaCl 25,000 unit In 0.45 % NaCl 1 250ml.bag @ 12 UNITS/KG/HR 8.001 mls/hr IV .Q24H [facility] Rx#: [id number] Potassium Chloride 10 meq 200 In Water For Injection 1 100ml.bag @ 100 mls/hr IVPB Q1H [facility] Rx#: [id number] Sodium Chloride 0.9% 1, 350 000 ml @ 50 mls/hr IV . 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 - Labs CBC & Chem 7: 08/19/23 13:01 08/24/23 08:44 Labs: Abnormal Lab Results - Last 24 Hours (Table) 08/24/23 08/24/23 08/24/23 Range/Units 00:04 06:01 08:44 APTT 63.5 H (22.0-30.0) sec Chloride (98-107) mmol/L Carbon Dioxide (22-30) mmol/L BUN (7-17) mg/dL Glucose (74-99) mg/dL POC Glucose (mg/dL) 132 H 136 H (70-110) mg/dL Calcium (8.4-10.2) mg/dL 08/24/23 Range/Units 08:44 APTT (22.0-30.0) sec Chloride 112 H (98-107) mmol/L Carbon Dioxide 19 L (22-30) mmol/L BUN 31 H (7-17) mg/dL Glucose 115 H (74-99) mg/dL POC Glucose (mg/dL) (70-110) mg/dL Calcium 8.0 L (8.4-10.2) mg/dL Assessment and Plan Assessment: 1. Chronic kidney disease stage IIIb with baseline creatinine 1.1-1.3 secondary to biopsy-proven AIN.status post treatment with steroids many years ago. 2. Bowel obstruction being followed by surgery. Currently has NG tube 3. Chronic systolic CHF ejection fraction of 25 to 30%. 4. UTI on antibiotics. 5. Questionable left-sided hydronephrosis. Seen by urology. Potential cystoscopy outpatient. 6. Hypertension with chronic kidney disease. Stable. Plan: Okay to discharge home from nephrology standpoint. Resume home dose of diuretics post discharge
== END 2023-08-24 12:53 | disposition home or self-care (01) | DRG 388 ==
LOC: EC 04:59 → 3SCARD 08:36 → OBSVTOIN 08-19 12:06
PROVIDERS: ADMIT Student in an Organized Health Care Education/Training Program; ATTEND Student in an Organized Health Care Education/Training Program
PROC: 0D9670Z Drainage of Stomach with Drainage Device, Via Natural or Artificial Opening (ICD-10-PCS; 2023-08-19)
PROC: 02HV33Z Insertion of Infusion Device into Superior Vena Cava, Percutaneous Approach (ICD-10-PCS; principal; 2023-08-21 08:30)
DX: K56.50 Intestinal adhesions [bands], unspecified as to partial versus complete obstruction (principal); I21.A1 Myocardial infarction type 2; I13.0 Hypertensive heart and chronic kidney disease with heart failure and stage 1 through stage 4 chronic kidney disease, or unspecified chronic kidney disease; I50.22 Chronic systolic (congestive) heart failure; I42.8 Other cardiomyopathies; N13.6 Pyonephrosis; N18.32 Chronic kidney disease, stage 3b; Z87.891 Personal history of nicotine dependence; E03.9 Hypothyroidism, unspecified; E78.5 Hyperlipidemia, unspecified; G47.30 Sleep apnea, unspecified; K21.9 Gastro-esophageal reflux disease without esophagitis; F32.A Depression, unspecified; F41.0 Panic disorder [episodic paroxysmal anxiety]; G90.A Postural orthostatic tachycardia syndrome [POTS]; I25.10 Atherosclerotic heart disease of native coronary artery without angina pectoris; I48.0 Paroxysmal atrial fibrillation; Z79.01 Long term (current) use of anticoagulants; Z79.84 Long term (current) use of oral hypoglycemic drugs; Z79.890 Hormone replacement therapy; Z79.899 Other long term (current) drug therapy; Z82.49 Family history of ischemic heart disease and other diseases of the circulatory system; Z86.73 Personal history of transient ischemic attack (TIA), and cerebral infarction without residual deficits; Z87.440 Personal history of urinary (tract) infections; Z95.0 Presence of cardiac pacemaker; Z28.21 Immunization not carried out because of patient refusal; Z88.8 Allergy status to other drugs, medicaments and biological substances; Z88.1 Allergy status to other antibiotic agents; Z91.041 Radiographic dye allergy status
CPT/HCPCS: 36415; 36556; 71045; 74176; 74250; 76770; 80048; 80053; 81001; 82330; 83605; 83690; 83735; 84100; 84478; 84484; 85025; 85610; 85730; 87040; 87086; 93005; 93306; 96361; 96374; 96375; 96376; 99285

== ENCOUNTER → 2023-09-14 | Outpatient (CLI) | payer MEDICARE, BC ==
[2023-09-14 19:06] LABS: Basophils # (A) 0.03 X 10*3/uL (0.00-0.10); Basophils % (A) 0.4 %; Eosinophils % (A) 1.4 %; HCT 38.7 % (37.2-46.3); HGB 12.3 g/dL (12.0-15.0); Lymphocytes # (A) 2.46 X 10*3/uL (0.90-5.00); Lymphocytes % (A) 34.1 %; MCHC 31.8 g/dL (32.0-37.0); MCV 94.4 FL (80.0-97.0); Mean Platelet Volume 10.8 FL (9.5-12.2); Monocytes % (A) 9.7 %; NRBC Per 100 WBC 0 X 10*3/uL (0.00-0.01); Platelet Count 255 X 10*3/uL (140-440); RDW 15.2 % (11.5-14.5); WBC 7.22 X 10*3/uL (4.50-10.00)
[2023-09-14 21:54] LABS: Albumin 3.6 g/dL (3.8-4.9); BUN/Creat Ratio 16.36 Ratio (12.00-20.00); Calcium 8.8 mg/dL (8.7-10.3); Carbon Dioxide 26.8 mmol/L (21.6-31.8); Chloride 105 mmol/L (96-109); Ferritin 61.7 ng/mL (10.0-291.0); Glucose 113 mg/dL (70-110); Iron 45 UG/DL (50-170); Magnesium 2.2 mg/dL (1.5-2.4); Phosphorus 3.5 mg/dL (2.4-5.1); Potassium 3.7 mmol/L (3.5-5.5); Sodium 142 mmol/L (135-145); Total Iron Binding Capacity 298 UG/DL (228-460); Uric Acid 3.5 mg/dL (2.9-7.7)
[2023-09-15 05:13] LABS: Appearance,Urine Clear (Clear); Bilirubin,Urine Negative (Negative); Blood,Urine Negative (Negative); Color,Urine Dark Yellow (Yellow); Ketones,Urine Trace (Negative); Nitrite,Urine Negative (Negative); PH, Urine 6.5; Specific Gravity,Urine 1.032 (1.001-1.030)
[2023-09-15 05:18] LABS: Bacteria,Urine None Seen (None Seen)
== END | disposition home or self-care (01) ==
LOC: LABWHC1 13:42
PROVIDERS: ATTEND Internal Medicine Nephrology
DX: N25.81 Secondary hyperparathyroidism of renal origin (principal); N18.31 Chronic kidney disease, stage 3a; D63.1 Anemia in chronic kidney disease; E55.9 Vitamin D deficiency, unspecified; M10.9 Gout, unspecified; N39.0 Urinary tract infection, site not specified; R80.9 Proteinuria, unspecified
CPT/HCPCS: 36415; 80048; 81001; 82040; 82043; 82306; 82570; 82728; 83540; 83550; 83735; 83970; 84100; 84550; 85025

== ENCOUNTER 2024-08-05 14:35 | Inpatient (IN) | payer MEDICARE, BC ==
[2024-08-05 15:34] LABS: Basophils % (A) 0 %; Eosinophils # (A) 0.1 k/uL (0-0.7); Eosinophils % (A) 1 %; HCT 44.3 % (34.0-46.0); Lymphocytes # (A) 0.5 k/uL (1.0-4.8); Lymphocytes % (A) 8 %; MCH 30.3 pg (25.0-35.0); MCHC 31.6 g/dL (31.0-37.0); MCV 95.9 fL (80.0-100.0); Mean Platelet Volume 7.6; Monocytes # (A) 0.4 k/uL (0-1.0); Monocytes % (A) 6 %; Neutrophils # (A) 5.6 k/uL (1.3-7.7); Neutrophils % (A) 84 %; Platelet Count 126 k/uL (150-450); RBC 4.62 m/uL (3.80-5.40); RDW 14.5 % (11.5-15.5); WBC 6.6 k/uL (3.8-10.6)
[2024-08-05] MEDS: methylPREDNISolone SOD SUCCI 125 MG/2 ML VIAL IV STA (15:34)
[2024-08-05] MEDS: ACETAMINOPHEN TAB 500 MG TAB PO STA (15:34)
[2024-08-05 15:43] LABS: ALT 14 U/L (4-34); AST 29 U/L (14-36); African American GFR (CKD) 47 (>60 ml/min/1.73 sqM); Albumin 3.7 g/dL (3.5-5.0); Alkaline Phosphatase 44 U/L (38-126); Anion Gap 11 mmol/L; Blood Urea Nitrogen 28 mg/dL (7-17); Calcium 8.8 mg/dL (8.4-10.2); Carbon Dioxide 18 mmol/L (22-30); Chloride 107 mmol/L (98-107); Glucose 113 mg/dL (74-99); Non-African American GFR(CKD) 41 (>60 ml/min/1.73 sqM); Potassium 3.9 mmol/L (3.5-5.1); Sodium 136 mmol/L (137-145); Total Protein 6.4 g/dL (6.3-8.2)
[2024-08-05 15:50] LABS: Partial Thromboplastin Time 27.1 sec (22.0-30.0); Prothrombin Time 11.2 sec (10.0-12.5)
[2024-08-05 15:53] LABS: NT-Pro-B-Type Natriuretic Pept 3420 pg/mL
[2024-08-05 16:19] LABS: Influenza A Detected (Not Detectd); Influenza B Not Detected (Not Detectd); RSV Not Detected (Not Detectd)
[2024-08-05] MEDS: IPRATROPIUM-ALBUTEROL 3 ML NEB INHALATION STA (16:39)
--- NOTE | 2024-08-05 17:01 | XR ---
EXAMINATION TYPE: XR chest 2V DATE OF EXAM: 08/05/2024 4:54 PM COMPARISON: 08/21/2023 CLINICAL INDICATION: Female, 88 years old with history of difficulty breathing: Shortness of breath TECHNIQUE: XR chest 2V views of the chest are obtained. FINDINGS: Scattered senescent parenchymal changes noted. Hyperinflation compatible with COPD. No evidence for infiltrate. No evidence for atelectasis. Heart size is stable. Mediastinal structures are stable and grossly unremarkable. No evidence for hilar prominence. Degenerative changes dorsal spine. IMPRESSION: 1. No evidence for acute pulmonary disease. [facility], , 08/05/2024 4:59 PM
[2024-08-05] MEDS ORDERED: NALOXONE 0.4 MG/ML 1 ML VIAL IV PRN (17:24)
[2024-08-05] MEDS ORDERED: IPRATROPIUM-ALBUTEROL 3 ML NEB INHALATION PRN (17:29)
--- NOTE | 2024-08-05 17:29 | ED ---
URI HPI - General Chief Complaint: Upper Respiratory Infection Stated Complaint: cough JARON Time Seen by Provider: 08/05/24 14:59 Source: patient Mode of arrival: wheelchair Limitations: no limitations - History of Present Illness Initial Comments: 88-year-old female presenting with chief complaint of cough and shortness of breath. Patient has had worsening cough and shortness of breath for about 5 days now. She also admits to chills and bodyaches. She has had increased generalized weakness and fatigue. Patient lives with her who she is the primary caregiver for. Remote history of smoking. Admits to fever. No chest pain. No nausea, vomiting, diarrhea, abdominal pain. Patient is brought in by her son and [id number], they state they were not made aware she was sick until today and decided to bring her in. - Related Data Home Medications Medication Instructions Recorded Confirmed Famotidine [Pepcid] 20 mg PO DAILY 04/25/19 08/05/24 Apixaban [Eliquis] 5 mg PO BID 08/28/22 08/05/24 Levothyroxine Sodium [Synthroid] 125 mcg PO DAILY 08/18/23 08/05/24 Sodium Bicarbonate Tab 325 mg PO DAILY 08/18/23 08/05/24 Cholecalciferol [Vitamin D3 (25 50 mcg PO DAILY 08/05/24 08/05/24 Mcg = 1000 Iu)] Dapagliflozin Propanediol [Farxiga] 5 mg PO DAILY 08/05/24 08/05/24 Hydrocortisone Suppository 25 mg RECTAL HS 08/05/24 08/05/24 [Anusol-Hc] Rosuvastatin [Crestor] 10 mg PO HS 08/05/24 08/05/24 Valsartan [Diovan] 80 mg PO BID 08/05/24 08/05/24 Allergies Allergy/AdvReac Type Severity Reaction Status Date / Time nitroglycerin Allergy Unknown Verified 08/05/24 18:17 Iodinated Contrast Media AdvReac Severe kidney Verified 08/05/24 18:17 [Iodinated Contrast Media - failure IV Dye] omeprazole [From Prilosec] AdvReac Severe kidney Verified 08/05/24 18:17 failure omeprazole magnesium AdvReac Severe kidney Verified 08/05/24 18:17 [From Prilosec] failure ciprofloxacin [From Cipro] AdvReac Kidney Verified 08/05/24 18:17 Failure fludrocortisone AdvReac KIDNEY Verified 08/05/24 18:17 [From Florinef] ISSUES Iodine and Iodide Containing AdvReac kidney Verified 08/05/24 18:17 Produc issues sodium phosphate AdvReac Unknown Verified 08/05/24 18:17 [From Fleet Enema] Review of Systems ROS Statement: Those systems with pertinent positive or pertinent negative responses have been documented in the HPI. ROS Other: All systems not noted in ROS Statement are negative. Past Medical History Past Medical History: CVA/TIA, Eye Disorder, GERD/Reflux, Hyperlipidemia, Hypertension, Renal Disease, Sleep Apnea/CPAP/BIPAP, Thyroid Disorder Additional Past Medical History / Comment(s): Hx of TIA's, POTS syndrome, dysotonia, CKD stage 3b, sleep apnea uses cpap at night but not daily, macular degeneration left eye, original pacemaker placed by dr vargas 2020, 3 weeks ago 2023 patient had another procedure related to pacemaker at [facility] History of Any Multi-Drug Resistant Organisms: None Reported Past Surgical History: Appendectomy, Bowel Resection, Hysterectomy, Pacemaker Additional Past Surgical History / Comment(s): cataract surgery Past Anesthesia/Blood Transfusion Reactions: No Reported Reaction Type of Cardiac Device: Permanent Pacemaker Device Placement Date:: 2023 Past Psychological History: Anxiety, Depression Smoking Status: Never smoker Past Alcohol Use History: None Reported Past Drug Use History: None Reported - Past Family History Mother Family Medical History: No Reported History Additional Family Medical History / Comment(s): of heart disease "hole in the heart" at age 29 Father Family Medical History: Myocardial Infarction ([place]) Additional Family Medical History / Comment(s): at age 67 of heart attack General Exam Limitations: no limitations General appearance: alert, in no apparent distress Head exam: Present: atraumatic, normocephalic, normal inspection Eye exam: Present: normal appearance, EOMI Neck exam: Present: normal inspection. Absent: meningismus Respiratory exam: Present: rhonchi. Absent: respiratory distress, wheezes, r ales, stridor Cardiovascular Exam: Present: regular rate, normal rhythm, normal heart sounds. Absent: systolic murmur, diastolic murmur, rubs, gallop, clicks Extremities exam: Present: pedal edema Neurological exam: Present: alert, oriented X3 Psychiatric exam: Present: normal affect, normal mood Skin exam: Present: normal color Course Vital Signs 08/05/24 08/05/24 08/05/24 14:54 16:39 16:47 Temperature 101.6 F H Pulse Rate 88 75 82 Respiratory 20 Rate Blood Pressure 188/70 O2 Sat by Pulse 94 L Oximetry 08/05/24 08/05/24 16:49 17:25 Temperature 98.4 F Pulse Rate 87 Respiratory 19 Rate Blood Pressure 148/66 O2 Sat by Pulse 94 L Oximetry Medical Decision Making - Medical Decision Making Was pt. sent in by a medical professional or institution (, PA, APPLIANCE INSTALLER, urgent care, hospital, or fpc...) When possible be specific @ -No Did you speak to anyone other than the patient for history (EMS, parent, family, police, friend...)? What history was obtained from this source @ -Son and [id number] Did you review nursing and triage notes (agree or disagree)? Why? @ -I reviewed and agree with nursing and triage notes Were old charts reviewed (outside hosp., previous admission, EMS record, old E KG, old radiological studies, urgent care reports/EKG's, fpc records)? Report findings @ -No old charts were reviewed Differential Diagnosis (chest pain, altered mental status, abdominal pain women, abdominal pain men, vaginal bleeding, weakness, fever, dyspnea, syncope, headache, dizziness, GI bleed, back pain, seizure, CVA, palpatations, mental health, musculoskeletal)? @ -MDM Differential Dyspnea: Coronary syndrome, arrhythmia, tamponade, asthma, COPD, pulmonary embolism, pneumonia, pneumothorax, pulmonary effusion, anaphylaxis, diabetic ketoacidosis, flailed chest, pulmonary contusion, diaphragmatic rupture, anemia, neuromuscular this is not meant to be an all-inclusive list. EKG interpreted by me (3pts min.). @ -EKG shows electronic ventricular pacemaker. Ventricular rate 87. [place] interval 24. QRS 1. QT 402. QTc 447 X-rays interpreted by me (1pt min.). @ -Chest x-ray shows no acute cardiopulmonary process CT interpreted by me (1pt min.). @ -None done U/S interpreted by me (1pt. min.). @ -None done What testing was considered but not performed or refused? (CT, X-rays, U/S, labs)? Why? @ -None What meds were considered but not given or refused? Why? @ -None Did you discuss the management of the patient with other professionals (professionals i.e. , PA, APPLIANCE INSTALLER, lab, RT, psych nurse, social service worker, attorney lawyer, teacher, court security officer, case hardener)? Give summary @ -With Dr. Muller who accepts admission Was smoking cessation discussed for >3mins.? @ -No Was critical care preformed (if so, how long)? @ -No Were there social determinants of health that impacted care today? How? (Homelessness, low income, unemployed, alcoholism, drug addiction, trans portation, low edu. Level, literacy, decrease access to med. care, prison, rehab)? @ -No Was there de-escalation of care discussed even if they declined (Discuss DNR or withdrawal of care, Hospice)? DNR status @ -Discussed patient's preference for CODE STATUS, patient conveys that she elects for CPR and intubation if needed at this time What co-morbidities impacted this encounter? (DM, HTN, Smoking, COPD, CAD, Cancer, CVA, ARF, Chemo, Hep., AIDS, mental health diagnosis, sleep apnea, morbid obesity)? @ -None Was patient admitted / discharged? Hospital course, mention meds given and route, prescriptions, significant lab abnormalities, going to OR and other pertinent info. @ -88-year-old female presenting with chief complaint of cough, shortness of breath, generalized weakness. Has been worsening for 5 days. History and physical examination are conducted. Patient is treated with Solu-Medrol and DuoNeb. No leukocytosis or anemia. She is positive for influenza A, we will treat with Tamiflu. Chest x-ray shows no acute process. Troponin 0.120, patient has chronically elevated troponin dating back to February. BNP 3420. BUN 28 creatinine 1.18, this is consistent with the patient's baseline of CKD. Patient is feeling a bit better after breathing treatment but her symptoms are not totally alleviated. Concerned that she cannot care for herself at home, they do not feel safe sending her home at this time. Patient will be admitted for continued breathing treatments and steroids as well as Tamiflu and PT and OT. Patient is agreeable with this plan. I discussed case with my attending Dr. Roskopp Undiagnosed new problem with uncertain prognosis? @ -No Drug Therapy requiring intensive monitoring for toxicity (Heparin, Nitro, Insulin, Cardizem)? @ -No Were any procedures done? @ -No Diagnosis/symptom? @ -Influenza, generalized weakness Acute, or Chronic, or Acute on Chronic? @ -Acute Uncomplicated (without systemic symptoms) or Complicated (systemic symptoms)? @ -Complicated Side effects of treatment? @ -No Exacerbation, Progression, or Severe Exacerbation? @ -No Poses a threat to life or bodily function? How? (Chest pain, USA, NE, pneumonia, PE, COPD, DKA, ARF, appy, cholecystitis, CVA, Diverticulitis, Homicidal, Suicidal, threat to staff... and all critical care pts) @ -Yes - Lab Data Result diagrams: 08/05/24 15:20 08/05/24 15:20 Lab Results 08/05/24 08/05/24 08/05/24 Range/Units 15:20 15:20 15:20 WBC 6.6 (3.8-10.6) k/uL RBC 4.62 (3.80-5.40) m/uL Hgb 14.0 (11.4-16.0) gm/dL Hct 44.3 (34.0-46.0) % MCV 95.9 (80.0-100.0) fL MCH 30.3 (25.0-35.0) pg MCHC 31.6 (31.0-37.0) g/dL RDW 14.5 (11.5-15.5) % Plt Count 126 L (150-450) k/uL MPV 7.6 Neutrophils % 84 % Lymphocytes % 8 % Monocytes % 6 % Eosinophils % 1 % Basophils % 0 % Neutrophils # 5.6 (1.3-7.7) k/uL Lymphocytes # 0.5 L (1.0-4.8) k/uL Monocytes # 0.4 (0-1.0) k/uL Eosinophils # 0.1 (0-0.7) k/uL Basophils # 0.0 (0-0.2) k/uL PT 11.2 (10.0-12.5) sec INR 1.0 (<1.2) APTT 27.1 (22.0-30.0) sec Sodium 136 L (137-145) mmol/L Potassium 3.9 (3.5-5.1) mmol/L Chloride 107 (98-107) mmol/L Carbon Dioxide 18 L (22-30) mmol/L Anion Gap 11 mmol/L BUN 28 H (7-17) mg/dL Creatinine 1.18 H (0.52-1.04) mg/dL Est GFR (CKD-EPI)AfAm 47 (>60 ml/min/1.73 sqM) Est GFR (CKD-EPI)NonAf 41 (>60 ml/min/1.73 sqM) Glucose 113 H (74-99) mg/dL Calcium 8.8 (8.4-10.2) mg/dL Magnesium 2.0 (1.6-2.3) mg/dL Total Bilirubin 1.0 (0.2-1.3) mg/dL AST 29 (14-36) U/L ALT 14 (4-34) U/L Alkaline Phosphatase 44 (38-126) U/L Troponin I (0.000-0.034) ng/mL NT-Pro-B Natriuret Pep 3420 pg/mL Total Protein 6.4 (6.3-8.2) g/dL Albumin 3.7 (3.5-5.0) g/dL Influenza Type A (PCR) (Not Detectd) Influenza Type B (PCR) (Not Detectd) RSV (PCR) (Not Detectd) SARS-CoV-2 (PCR) (Not Detectd) 08/05/24 08/05/24 Range/Units 15:20 15:40 WBC (3.8-10.6) k/uL RBC (3.80-5.40) m/uL Hgb (11.4-16.0) gm/dL Hct (34.0-46.0) % MCV (80.0-100.0) fL MCH (25.0-35.0) pg MCHC (31.0-37.0) g/dL RDW (11.5-15.5) % Plt Count (150-450) k/uL MPV Neutrophils % % Lymphocytes % % Monocytes % % Eosinophils % % Basophils % % Neutrophils # (1.3-7.7) k/uL Lymphocytes # (1.0-4.8) k/uL Monocytes # (0-1.0) k/uL Eosinophils # (0-0.7) k/uL Basophils # (0-0.2) k/uL PT (10.0-12.5) sec INR (<1.2) APTT (22.0-30.0) sec Sodium (137-145) mmol/L Potassium (3.5-5.1) mmol/L Chloride (98-107) mmol/L Carbon Dioxide (22-30) mmol/L Anion Gap mmol/L BUN (7-17) mg/dL Creatinine (0.52-1.04) mg/dL Est GFR (CKD-EPI)AfAm (>60 ml/min/1.73 sqM) Est GFR (CKD-EPI)NonAf (>60 ml/min/1.73 sqM) Glucose (74-99) mg/dL Calcium (8.4-10.2) mg/dL Magnesium (1.6-2.3) mg/dL Total Bilirubin (0.2-1.3) mg/dL AST (14-36) U/L ALT (4-34) U/L Alkaline Phosphatase (38-126) U/L Troponin I 0.120 H* (0.000-0.034) ng/mL NT-Pro-B Natriuret Pep pg/mL Total Protein (6.3-8.2) g/dL Albumin (3.5-5.0) g/dL Influenza Type A (PCR) Detected A (Not Detectd) Influenza Type B (PCR) Not Detected (Not Detectd) RSV (PCR) Not Detected (Not Detectd) SARS-CoV-2 (PCR) Not Detected (Not Detectd) Disposition Clinical Impression: Influenza A, Weakness Disposition: ADMITTED IP TO THIS HOSP Condition: Fair Time of Disposition: 17:29
[2024-08-05] MEDS: SODIUM CHLORIDE 0.9% 1,000 ML IV SCH (17:49)
[2024-08-05] MEDS ORDERED: bisacodyL 5 MG TABLET.DR PO PRN (18:23)
--- NOTE | 2024-08-05 18:25 | P.HPIM ---
History of Present Illness H&P Date: 08/05/24 Patient is a 88-year-old female with past medical history of CAD, nonischemic cardiomyopathy, sinus bradycardia status post pacemaker placement, HFrEF EF 25 to 30%, history of chronically elevated troponins, paroxysmal A-fib on Eliquis, HTN, HLD, hypothyroidism, history of TIA, GERD, stage IIIb CKD, MERE on CPAP, history of bowel obstruction s/p resection, who presented to the ER with cheryle rtness of breath, generalized weakness, fever, cough, symptoms started several days ago, her is also sick at home. Patient reports chronically decreased appetite, no changes in bowel habits, no dysuria. Her cough is nonproductive, she gets short of breath with exertion, she does have chronic lower extremity edema left more than right, which is unchanged, denies PND, orthopnea. On arrival febrile with temperature of 101.6, heart rate in 80s, BP 148/66, satting at 94% on room air. Lab work showed no leukocytosis, normal hemoglobin, platelet count decreased 126, previously normal 1 year ago, coagulation panel normal, sodium 136, potassium 3.9, bicarb 18, creatinine 1.18, at baseline, glucose 113, troponin 0.120, previously was at around 0.105, BNP 3420, lower than in 2022 -4211. Katia yvan positive for influenza A. EKG independently reviewed, showed paced rhythm, chest x-ray reviewed independently with no evidence of acute process, signs of COPD Patient shortness of breath improved but not resolved after breathing treatment, she will be admitted for further management of acute influenza A infection accompanied by generalized weakness and shortness of breath, PT OT evaluation, continue Tamiflu Pertinent positives and negatives as discussed in HPI, a complete review of systems was performed and all other systems are negative. Patient seen and examined at bedside. Vital signs reviewed General: nontoxic, no distress, appears at stated age, hard of hearing Derm: warm, dry Head: atraumatic, normocephalic, symmetric Eyes: EOMI, no lid lag, anicteric sclera, pupils equal round reactive to light ENT: Nose and ears atraumatic Neck: No thyromegaly, supple Mouth: no lip lesion, mucus membranes moist Cardiovascular: S1S2 reg, no murmur, no edema Lungs: clear to auscultation bilateral, no rhonchi, no rales, no wheeze, no accessory muscle use Abdominal: soft, nontender to palpation, no guarding, no appreciable organomegaly Ext: no gross muscle atrophy, muscle strength muscle strength 5 out of 5 in all 4 extremities, no contractures, bilateral lower extremity edema left more than right, chronic per patient and her family Neuro: CN II-XII grossly intact Psych: Alert, oriented, appropriate affect Assessment/Plan: Acute influenza A infection Generalized weakness secondary to above Shortness of breath limiting activity secondary to above without hypoxia -Continue Tamiflu 75 mg every 12 hours SOT 08/05 -Tylenol 650 every 6 hours as needed for fever more than 100.5 -Continue breathing treatment with DuoNebs 4 times daily -Received IV Solu-Medrol 125 once, will continue with oral prednisone 40 mg for 5 days given severity of her symptoms -PT OT -Heart healthy diet -Very gentle IV hydration with normal saline at 75 cc/h for 12 hours, encourage oral intake Elevated troponin, chronically Chronic systolic HFrEF not in exacerbation Paroxysmal A-fib on Eliquis Sinus bradycardia status post pacemaker Hypertension -Will trend troponins -Continue home cardiac medications: Farxiga 5 daily, rosuvastatin 10 mg nightly, valsartan 80 twice daily, Eliquis 5 mg twice daily CKD stage IIIb: At baseline, continue to monitor BMP daily, continue home sodium bicarb 325 daily History of TIA MERE on CPAP: Continue CPAP, will bring her own machine GERD: Continue Pepcid 20 mg daily Hypothyroidism continue home levothyroxine 125 mcg daily History of small bowel obstruction The patient is admitted with an anticipated [greater] than 2 midnight stay as [inpatient] status for evaluation of generalized weakness, influenza A with fever , CODE STATUS full code, will think about it later, considering DNR/DNI DVT prophylaxis: Eliquis Anticipated discharge date: Pending clinical course Anticipated discharge place: [facility] A total of 40 minutes was spent on the care of this complex patient more than 50% of the time was spent in counseling and care coordination. Past Medical History Past Medical History: CVA/TIA, Eye Disorder, GERD/Reflux, Hyperlipidemia, Hypertension, Renal Disease, Sleep Apnea/CPAP/BIPAP, Thyroid Disorder Additional Past Medical History / Comment(s): Hx of TIA's, POTS syndrome, dysotonia, CKD stage 3b, sleep apnea uses cpap at night but not daily, macular degeneration left eye, original pacemaker placed by dr vargas 2020, 3 weeks ago 2023 patient had another procedure related to pacemaker at [facility] History of Any Multi-Drug Resistant Organisms: None Reported Past Surgical History: Appendectomy, Bowel Resection, Hysterectomy, Pacemaker Additional Past Surgical History / Comment(s): cataract surgery Past Anesthesia/Blood Transfusion Reactions: No Reported Reaction Type of Cardiac Device: Permanent Pacemaker Device Placement Date:: 2023 Past Psychological History: Anxiety, Depression Smoking Status: Never smoker Past Alcohol Use History: None Reported Past Drug Use History: None Reported - Past Family History Mother Family Medical History: No Reported History Additional Family Medical History / Comment(s): of heart disease "hole in the heart" at age 29 Father Family Medical History: Myocardial Infarction ([place]) Additional Family Medical History / Comment(s): at age 67 of heart attack Medications and Allergies Home Medications Medication Instructions Recorded Confirmed Type Famotidine [Pepcid] 20 mg PO DAILY 04/25/19 08/05/24 History Apixaban [Eliquis] 5 mg PO BID 08/28/22 08/05/24 History Levothyroxine Sodium [Synthroid] 125 mcg PO DAILY 08/18/23 08/05/24 History Sodium Bicarbonate Tab 325 mg PO DAILY 08/18/23 08/05/24 History Cholecalciferol [Vitamin D3 (25 50 mcg PO DAILY 08/05/24 08/05/24 History Mcg = 1000 Iu)] Dapagliflozin Propanediol [Farxiga] 5 mg PO DAILY 08/05/24 08/05/24 History Hydrocortisone Suppository 25 mg RECTAL HS 08/05/24 08/05/24 History [Anusol-Hc] Rosuvastatin [Crestor] 10 mg PO HS 08/05/24 08/05/24 History Valsartan [Diovan] 80 mg PO BID 08/05/24 08/05/24 History Allergies Allergy/AdvReac Type Severity Reaction Status Date / Time nitroglycerin Allergy Unknown Verified 08/05/24 18:17 Iodinated Contrast Media AdvReac Severe kidney Verified 08/05/24 18:17 [Iodinated Contrast Media - failure IV Dye] omeprazole [From Prilosec] AdvReac Severe kidney Verified 08/05/24 18:17 failure omeprazole magnesium AdvReac Severe kidney Verified 08/05/24 18:17 [From Prilosec] failure ciprofloxacin [From Cipro] AdvReac Kidney Verified 08/05/24 18:17 Failure fludrocortisone AdvReac KIDNEY Verified 08/05/24 18:17 [From Florinef] ISSUES Iodine and Iodide Containing AdvReac kidney Verified 08/05/24 18:17 Produc issues sodium phosphate AdvReac Unknown Verified 08/05/24 18:17 [From Fleet Enema] Physical Exam Vitals: Vital Signs Temp Pulse Resp BP Pulse Ox 08/05/24 17:25 87 19 148/66 94 L 08/05/24 16:49 98.4 F 08/05/24 16:47 82 08/05/24 16:39 75 08/05/24 14:54 101.6 F H 88 20 188/70 94 L Intake and Output 08/05/24 08/05/24 08/05/24 06:59 14:59 22:59 Other: Weight 68.039 kg Results CBC & Chem 7: 08/05/24 15:20 08/05/24 15:20 Labs: Abnormal Lab Results - Last 24 Hours (Table) 08/05/24 08/05/24 08/05/24 Range/Units 15:20 15:20 15:20 Plt Count 126 L (150-450) k/uL Lymphocytes # 0.5 L (1.0-4.8) k/uL Sodium 136 L (137-145) mmol/L Carbon Dioxide 18 L (22-30) mmol/L BUN 28 H (7-17) mg/dL Creatinine 1.18 H (0.52-1.04) mg/dL Glucose 113 H (74-99) mg/dL Troponin I 0.120 H* (0.000-0.034) ng/mL Influenza Type A (PCR) (Not Detectd) 08/05/24 Range/Units 15:40 Plt Count (150-450) k/uL Lymphocytes # (1.0-4.8) k/uL Sodium (137-145) mmol/L Carbon Dioxide (22-30) mmol/L BUN (7-17) mg/dL Creatinine (0.52-1.04) mg/dL Glucose (74-99) mg/dL Troponin I (0.000-0.034) ng/mL Influenza Type A (PCR) Detected A (Not Detectd)
[2024-08-05 20:55] LABS: Appearance,Urine Clear (Clear); Bilirubin,Urine Negative (Negative); Blood,Urine Negative (Negative); Color,Urine Yellow; Glucose,Urine (UA) 4+ (Negative); Ketones,Urine 1+ (Negative); Leukocyte Esterase,Urine Negative (Negative); Nitrite,Urine Negative (Negative); PH, Urine 5.5 (5.0-8.0); Protein,Urine Trace (Negative); Specific Gravity,Urine 1.037 (1.001-1.035)
[2024-08-05] MEDS: IPRATROPIUM-ALBUTEROL 3 ML NEB INHALATION SCH (21:10)
[2024-08-05] MEDS: OSELTAMIVIR 75 MG CAP PO SCH (21:27)
[2024-08-05] MEDS: ATORVASTATIN 20 MG TAB PO SCH (21:29)
[2024-08-05] MEDS: ACETAMINOPHEN TAB 325 MG TAB PO PRN (21:29)
[2024-08-05] MEDS: APIXABAN 5 MG TAB PO SCH (21:29)
[2024-08-05] MEDS: VALSARTAN 80 MG TAB PO SCH (23:45)
[2024-08-06] MEDS ORDERED: ALBUTEROL NEBULIZED 2.5 MG/3 ML INHALATION PRN (08:50)
[2024-08-06] MEDS: SODIUM BICARBONATE TAB 650 MG TAB PO SCH (09:15)
[2024-08-06] MEDS: FAMOTIDINE 20 MG TAB PO SCH (09:15)
[2024-08-06] MEDS: LEVOTHYROXINE 125 MCG TAB PO SCH (09:16)
[2024-08-06] MEDS: predniSONE 20 MG TAB PO SCH (09:16)
[2024-08-06] MEDS: DAPAGLIFLOZIN PROPANEDIOL 5 MG TABLET PO SCH (09:16)
[2024-08-06] MEDS: CHOLECALCIFEROL 25 MCG (1000 IU) TABLET PO SCH (09:16)
[2024-08-06 09:18] LABS: BUN/Creat Ratio 22.79 Ratio (12.00-20.00); Blood Urea Nitrogen 31.9 mg/dL (9.0-27.0); Calcium 8.5 mg/dL (8.7-10.3); Carbon Dioxide 19.5 mmol/L (21.6-31.8); Chloride 111 mmol/L (96-109); Glucose 125 mg/dL (70-110); Magnesium 2.2 mg/dL (1.5-2.4); Sodium 143 mmol/L (135-145)
[2024-08-06 09:24] LABS: Basophils # (A) 0.02 X 10*3/uL (0.00-0.10); Basophils % (A) 0.4 %; Eosinophils # (A) 0 X 10*3/uL (0.04-0.35); Eosinophils % (A) 0 %; HCT 40.6 % (37.2-46.3); HGB 13.2 g/dL (12.0-15.0); Lymphocytes # (A) 0.42 X 10*3/uL (0.90-5.00); Lymphocytes % (A) 8.9 %; MCH 30.5 pg (27.0-32.0); MCHC 32.5 g/dL (32.0-37.0); MCV 93.8 FL (80.0-97.0); Mean Platelet Volume 11.1 FL (9.5-12.2); Monocytes # (A) 0.34 X 10*3/uL (0.20-1.00); Monocytes % (A) 7.2 %; NRBC Per 100 WBC 0 X 10*3/uL (0.00-0.01); Neutrophils # (A) 3.92 X 10*3/uL (1.80-7.70); Neutrophils % (A) 83.3 %; Platelet Count 126 X 10*3/uL (140-440); RBC 4.33 X 10*6/uL (4.10-5.20); RDW 14.9 % (11.5-14.5); WBC 4.71 X 10*3/uL (4.50-10.00)
[2024-08-06] MEDS: METOPROLOL SUCCINATE (ER) 50 MG TAB.ER.24H PO SCH (11:28)
--- NOTE | 2024-08-06 11:29 | P.PN ---
Subjective Progress Note Date: 08/06/24 Hospital Course: Patient is a 88-year-old female with past medical history of CAD, nonischemic cardiomyopathy, sinus bradycardia status post pacemaker placement, HFrEF EF 25 to 30%, history of chronically elevated troponins, paroxysmal A-fib on Eliquis, HTN, HLD, hypothyroidism, history of TIA, GERD, stage IIIb CKD, MERE on CPAP, history of bowel obstruction s/p resection, who presented to the ER with shortness of breath, generalized weakness, fever, cough, symptoms started several days ago, her is also sick at home. Patient reports chronically decreased appetite, no changes in bowel habits, no dysuria. Her cough is nonproductive, she gets short of breath with exertion, she does have chronic lower extremity edema left more than right, which is unchanged, denies PND, orthopnea. On arrival febrile with temperature of 101.6, heart rate in 80s, BP 148/66, satting at 94% on room air. Lab work showed no leukocytosis, normal hemoglobin, platelet count decreased 126, previously normal 1 year ago, coagulation panel normal, sodium 136, potassium 3.9, bicarb 18, creatinine 1.18, at baseline, glucose 113, troponin 0.120, previously was at around 0.105, BNP 3420, lower than in 2022 -4211. Tested positive for influenza A. EKG independently reviewed, showed paced rhythm, chest x-ray reviewed independently with no evidence of acute process, signs of COPD Patient shortness of breath improved but not resolved after breathing treatment, she will be admitted for further management of acute influenza A infection accompanied by generalized weakness and shortness of breath, PT OT evaluation, continue Tamiflu. 08/06: Feeling somewhat better today, still gets very short of breath with minimal exertion, noted bilateral lower extremity weakness, troponins kept rising up to 0.133, previous bina was 0.105 on 08/18/2023, probably related to her active infection in the settings of underlying poor cardiac function, I did consult cardiology. Patient was started on Toprol-XL 50 daily Subjective: States that she is feeling somewhat better today, continues to cough, shortness of breath is improved but persist with exertion like going to the bathroom, noted bilateral lower extremity weakness Pertinent positives and negatives as discussed above, a complete review of systems was performed and all other systems are negative. Vitals Signs Reviewed. General: nontoxic, no distress, appears at stated age, hard of hearing Derm: warm, dry Head: atraumatic, normocephalic, symmetric Eyes: EOMI, no lid lag, anicteric sclera, pupils equal round reactive to light ENT: Nose and ears atraumatic Neck: No thyromegaly, supple Mouth: no lip lesion, mucus membranes moist Cardiovascular: S1S2 reg, no murmur, no edema Lungs: clear to auscultation bilateral, no rhonchi, no rales, no wheeze, no accessory muscle use Abdominal: soft, nontender to palpation, no guarding, no appreciable o rganomegaly Ext: no gross muscle atrophy, muscle strength muscle strength 5 out of 5 in all 4 extremities, no contractures, bilateral lower extremity edema left more than right, chronic per patient and her family Neuro: CN II-XII grossly intact Psych: Alert, oriented, appropriate affect Data Reviewed Today: Pertinent Labs: Unremarkable CBC except for thrombocytopenia 126, sodium and potassium normal, bicarb 19.5, creatinine 1.4, magnesium 2.2, troponin 0.133, UA with glucosuria and ketonuria Assessment and Plan: Acute influenza A infection Generalized weakness secondary to above Shortness of breath limiting activity secondary to above without hypoxia -Continue Tamiflu 75 mg every 12 hours SOT 08/05 -Tylenol 650 every 6 hours as needed for fever more than 100.5 -Continue breathing treatment with DuoNebs 4 times daily -Received IV Solu-Medrol 125 once, will continue with oral prednisone 40 mg for 5 days given severity of her symptoms -PT OT -Heart healthy diet Elevated troponin Chronic systolic HFrEF not in exacerbation Paroxysmal A-fib on Eliquis Sinus bradycardia status post pacemaker Hypertension -Will trend troponins -Continue home cardiac medications: Farxiga 5 daily, rosuvastatin 10 mg nightly, valsartan 80 twice daily, Eliquis 5 mg twice daily -Cardiology consulted, added Toprol-XL 50 daily CKD stage IIIb: At baseline, continue to monitor BMP daily, continue home sodium bicarb 325 daily History of TIA MERE on CPAP: Continue CPAP, with her own machine GERD: Continue Pepcid 20 mg daily Hypothyroidism continue home levothyroxine 125 mcg daily History of small bowel obstruction CODE STATUS full code, will think about it later, considering DNR/DNI, wants to talk to her children DVT prophylaxis: Eliquis Anticipated discharge date: Pending clinical course Anticipated discharge place: TBD Objective - Vital Signs Vital signs: Vital Signs Temp 97.8 F 08/06/24 06:59 Pulse 73 08/06/24 11:25 Resp 18 08/06/24 11:25 BP 139/80 08/06/24 11:25 Pulse Ox 97 08/06/24 11:25 FiO2 Intake & Output 08/05/24 08/06/24 08/06/24 18:59 06:59 18:59 Weight 68.039 kg - Labs CBC & Chem 7: 08/06/24 05:49 08/06/24 05:49 Labs: Abnormal Lab Results - Last 24 Hours (Table) 08/05/24 08/05/24 08/05/24 Range/Units 15:20 15:20 15:20 RDW (11.5-14.5) % Plt Count 126 L (150-450) k/uL Lymphocytes # 0.5 L (1.0-4.8) k/uL Eosinophils # (0.04-0.35) X 10*3/uL Sodium 136 L (137-145) mmol/L Chloride (96-109) mmol/L Carbon Dioxide 18 L (22-30) mmol/L Anion Gap (4.00-12.00) mmol/L BUN 28 H (7-17) mg/dL Creatinine 1.18 H (0.52-1.04) mg/dL Est GFR (CKD-EPI) (>=60) BUN/Creatinine Ratio (12.00-20.00) Ratio Glucose 113 H (74-99) mg/dL Calcium (8.7-10.3) mg/dL Troponin I 0.120 H* (0.000-0.034) ng/mL Ur Specific [place] (1.001-1.035) Urine Protein (Negative) Urine Glucose (UA) (Negative) Urine Ketones (Negative) Influenza Type A (PCR) (Not Detectd) 08/05/24 08/05/24 08/05/24 Range/Units 15:40 19:05 20:08 RDW (11.5-14.5) % Plt Count (150-450) k/uL Lymphocytes # (1.0-4.8) k/uL Eosinophils # (0.04-0.35) X 10*3/uL Sodium (137-145) mmol/L Chloride (96-109) mmol/L Carbon Dioxide (22-30) mmol/L Anion Gap (4.00-12.00) mmol/L BUN (7-17) mg/dL Creatinine (0.52-1.04) mg/dL Est GFR (CKD-EPI) (>=60) BUN/Creatinine Ratio (12.00-20.00) Ratio Glucose (74-99) mg/dL Calcium (8.7-10.3) mg/dL Troponin I 0.125 H* (0.000-0.034) ng/mL Ur Specific [place] 1.037 H (1.001-1.035) Urine Protein Trace H (Negative) Urine Glucose (UA) 4+ H (Negative) Urine Ketones 1+ H (Negative) Influenza Type A (PCR) Detected A (Not Detectd) 08/05/24 08/06/24 08/06/24 Range/Units 21:54 05:49 05:49 RDW 14.9 H (11.5-14.5) % Plt Count 126 L (150-450) k/uL Lymphocytes # 0.42 L (1.0-4.8) k/uL Eosinophils # 0 L (0.04-0.35) X 10*3/uL Sodium (137-145) mmol/L Chloride 111 H (96-109) mmol/L Carbon Dioxide 19.5 L (22-30) mmol/L Anion Gap 12.50 H (4.00-12.00) mmol/L BUN 31.9 H (7-17) mg/dL Creatinine (0.52-1.04) mg/dL Est GFR (CKD-EPI) 36 L (>=60) BUN/Creatinine Ratio 22.79 H (12.00-20.00) Ratio Glucose 125 H (74-99) mg/dL Calcium 8.5 L (8.7-10.3) mg/dL Troponin I 0.133 H* (0.000-0.034) ng/mL Ur Specific [place] (1.001-1.035) Urine Protein (Negative) Urine Glucose (UA) (Negative) Urine Ketones (Negative) Influenza Type A (PCR) (Not Detectd)
--- NOTE | 2024-08-06 12:47 | P.CRDCN ---
History of Present Illness Consult date: 08/06/24 Reason for Consult (text): Elevated troponin History of present illness: This is an 88-year-old female patient of Dr. Moreno with past medical history of nonischemic cardiomyopathy with EF of 20%, hypertension, chronic systolic heart failure, asymmetric septal hypertrophy, paroxysmal atrial fibrillation on Eliquis, sinus bradycardia status post permanent pacemaker, chronic kidney disease, obstructive sleep apnea on CPAP. We have been asked to evaluate the patient for elevated troponins. Patient presented to the hospital due to shortness of breath. Patient also had generalized weakness, fever and cough that been going on for several days. Her was also ill. Patient came into the hospital was found to have influenza A. Blood pressure 161/90, heart rate 69, pulse ox 95% on room air. Patient is seen today in the emergency center waiting for a bed on the cardiac stepdown unit. Patient has been started on Tamiflu, nebulizer treatments and prednisone. -EKG: Paced rhythm -Chest x-ray: No acute process. -Laboratory studies: WBC 4.7, hemoglobin 13.2, BUN 31 creatinine 1.4, CO2 19. Troponins 0.125, 0.13, 0.20. proBNP 3420. Influenza A detected. -Home cardiac medications: Eliquis 5 mg twice daily, Farxiga 5 mg daily, rosuvastatin 10 mg at bedtime, valsartan 80 mg twice daily, also on levothyroxine. -Echocardiogram performed 08/21/2023 at [facility]: EF 55 to 60%, moderate LVH, mild aortic regurgitation, no pericardial effusion. -Cardiac catheterization performed 03/11/[address] Paulino revealed calcified coronary arteries, mild disease in the mid LAD with no progression compared to 2012. Right dominance. Normal LVEDP. Review Of Systems: At the time of my exam: CONSTITUTIONAL: Denies fever or chills. Reports fevers and chills. HEENT: Denies blurred vision, vision changes, or eye pain. Denies hemoptysis CARDIOVASCULAR: Denies chest pain. Denies orthopnea. Denies PND. Denies palpitations RESPIRATORY: Reports dyspnea on exertion, reports cough, reports shortness of breath. GASTROINTESTINAL: Denies abdominal pain. Denies nausea or vomiting. HEMATOLOGIC: Denies bleeding disorders. GENITOURINARY: Denies any blood in urine. SKIN: Denies puritis. Denies rash. Physical examination: Gen: This is a 88-year-old female in no acute respiratory distress. VS: reviewed HEENT: Head is atraumatic, normocephalic. Pupils equal, round. Sclerae is anicteric. NECK: Supple. No JVD. LUNGS: Clear to auscultation. No wheezes or rhonchi. No intercostal retractions. HEART: Regular rate and rhythm. No murmur. ABDOMEN: Soft No tenderness. EXTREMITIES: No pedal edema. No calf tenderness. NEUROLOGICAL: Patient is awake, alert and oriented x3. Assessment: Influenza A Generalized weakness, cough, fever Elevated troponin flat pattern most likely due to influenza A Nonischemic cardiomyopathy with EF 20% and recovered Hypertension Chronic systolic heart failure Paroxysmal atrial fibrillation on Eliquis Sinus bradycardia status post permanent pacemaker Chronic kidney disease Obstructive sleep apnea on CPAP Plan: Resume patient's home cardiac medications Add metoprolol succinate 50 mg daily Obtain 2-D echocardiogram and Doppler study to assess cardiac structure and function Continue treatment for influenza A Further recommendations to follow based upon clinical course Thank you kindly for this consultation. Nurse practitioner note has been reviewed, I agree with documented findings and plan of care. Patient was seen and examined. Past Medical History Past Medical History: CVA/TIA, Eye Disorder, GERD/Reflux, Hyperlipidemia, Hypertension, Renal Disease, Sleep Apnea/CPAP/BIPAP, Thyroid Disorder Additional Past Medical History / Comment(s): Hx of TIA's, POTS syndrome, dysotonia, CKD stage 3b, sleep apnea uses cpap at night but not daily, macular degeneration left eye, original pacemaker placed by dr moreno 2020, 3 weeks ago 2023 patient had another procedure related to pacemaker at [facility] History of Any Multi-Drug Resistant Organisms: None Reported Past Surgical History: Appendectomy, Bowel Resection, Hysterectomy, Pacemaker Additional Past Surgical History / Comment(s): cataract surgery Past Anesthesia/Blood Transfusion Reactions: No Reported Reaction Type of Cardiac Device: Permanent Pacemaker Device Placement Date:: 2023 Past Psychological History: Anxiety, Depression Smoking Status: Never smoker Past Alcohol Use History: None Reported Past Drug Use History: None Reported - Past Family History Mother Family Medical History: No Reported History Additional Family Medical History / Comment(s): of heart disease "hole in the heart" at age 29 Father Family Medical History: Myocardial Infarction ([place]) Additional Family Medical History / Comment(s): at age 67 of heart attack Medications and Allergies Home Medications Medication Instructions Recorded Confirmed Type Famotidine [Pepcid] 20 mg PO DAILY 04/25/19 08/05/24 History Apixaban [Eliquis] 5 mg PO BID 08/28/22 08/05/24 History Levothyroxine Sodium [Synthroid] 125 mcg PO DAILY 08/18/23 08/05/24 History Sodium Bicarbonate Tab 325 mg PO DAILY 08/18/23 08/05/24 History Cholecalciferol [Vitamin D3 (25 50 mcg PO DAILY 08/05/24 08/05/24 History Mcg = 1000 Iu)] Dapagliflozin Propanediol [Farxiga] 5 mg PO DAILY 08/05/24 08/05/24 History Hydrocortisone Suppository 25 mg RECTAL HS 08/05/24 08/05/24 History [Anusol-Hc] Rosuvastatin [Crestor] 10 mg PO HS 08/05/24 08/05/24 History Valsartan [Diovan] 80 mg PO BID 08/05/24 08/05/24 History Allergies Allergy/AdvReac Type Severity Reaction Status Date / Time nitroglycerin Allergy Unknown Verified 08/05/24 18:17 Iodinated Contrast Media AdvReac Severe kidney Verified 08/05/24 18:17 [Iodinated Contrast Media - failure IV Dye] omeprazole [From Prilosec] AdvReac Severe kidney Verified 08/05/24 18:17 failure omeprazole magnesium AdvReac Severe kidney Verified 08/05/24 18:17 [From Prilosec] failure ciprofloxacin [From Cipro] AdvReac Kidney Verified 08/05/24 18:17 Failure fludrocortisone AdvReac KIDNEY Verified 08/05/24 18:17 [From Florinef] ISSUES Iodine and Iodide Containing AdvReac kidney Verified 08/05/24 18:17 Produc issues sodium phosphate AdvReac Unknown Verified 08/05/24 18:17 [From Fleet Enema] Physical Exam Vitals: Vital Signs Temp Pulse Resp BP Pulse Ox 08/06/24 09:11 69 22 161/90 95 08/06/24 08:46 82 18 08/06/24 08:36 84 18 08/06/24 06:59 97.8 F 77 18 150/93 96 08/06/24 04:30 122/65 94 L 08/06/24 03:00 98.1 F 78 18 135/75 93 L 08/05/24 23:47 98.8 F 96 20 108/60 96 08/05/24 21:18 86 08/05/24 21:10 86 08/05/24 21:06 99.3 F 77 17 144/77 93 L 08/05/24 17:25 87 19 148/66 94 L 08/05/24 16:49 98.4 F 08/05/24 16:47 82 08/05/24 16:39 75 08/05/24 14:54 101.6 F H 88 20 188/70 94 L Results 08/06/24 05:49 08/06/24 05:49 Cardiac Enzymes 08/05/24 08/05/24 08/05/24 Range/Units 15:20 15:20 19:05 AST 29 (14-36) U/L Troponin I 0.120 H* 0.125 H* (0.000-0.034) ng/mL 08/05/24 Range/Units 21:54 AST (14-36) U/L Troponin I 0.133 H* (0.000-0.034) ng/mL Coagulation 08/05/24 Range/Units 15:20 PT 11.2 (10.0-12.5) sec APTT 27.1 (22.0-30.0) sec CBC 08/05/24 08/06/24 Range/Units 15:20 05:49 WBC 6.6 4.71 (3.8-10.6) k/uL RBC 4.62 4.33 (3.80-5.40) m/uL Hgb 14.0 13.2 (11.4-16.0) gm/dL Hct 44.3 40.6 (34.0-46.0) % Plt Count 126 L 126 L (150-450) k/uL Comprehensive Metabolic Panel 08/05/24 08/06/24 Range/Units 15:20 05:49 Sodium 136 L 143 (137-145) mmol/L Potassium 3.9 4.0 (3.5-5.1) mmol/L Chloride 107 111 H (98-107) mmol/L Carbon Dioxide 18 L 19.5 L (22-30) mmol/L BUN 28 H 31.9 H (7-17) mg/dL Creatinine 1.18 H 1.4 (0.52-1.04) mg/dL Glucose 113 H 125 H (74-99) mg/dL Calcium 8.8 8.5 L (8.4-10.2) mg/dL AST 29 (14-36) U/L ALT 14 (4-34) U/L Alkaline Phosphatase 44 (38-126) U/L Total Protein 6.4 (6.3-8.2) g/dL Albumin 3.7 (3.5-5.0) g/dL Current Medications Generic Name Dose Route Start Last Admin Trade Name Freq PRN Reason Stop Dose Admin Acetaminophen 650 mg 08/05/24 17:24 08/05/24 21:29 Acetaminophen Tab 325 Mg Tab PO 650 mg Q6HR PRN Administration Mild Pain or Fever > 100.5 Albuterol Sulfate 2.5 mg 08/06/24 08:50 Albuterol Nebulized 2.5 Mg/3 Ml INHALATION RT-Q2H PRN Shortness Of Breath Or Wheezing Apixaban 5 mg 08/05/24 21:00 08/06/24 09:15 Apixaban 5 Mg Tab PO 5 mg BID UZMA Administration Protocol Atorvastatin Calcium 20 mg 08/05/24 21:00 08/05/24 21:29 Atorvastatin 20 Mg Tab PO 20 mg HS UZMA Administration Bisacodyl 5 mg 08/05/24 18:23 Bisacodyl 5 Mg Tablet.Dr PO DAILY PRN Constipation Cholecalciferol 50 mcg 08/06/24 09:00 08/06/24 09:16 Cholecalciferol 25 Mcg (1000 Iu) Tablet PO 50 mcg DAILY UZMA Administration Dapagliflozin 5 mg 08/06/24 09:00 08/06/24 09:16 Dapagliflozin Propanediol 5 Mg Tablet PO 5 mg DAILY UZMA Administration Famotidine 20 mg 08/06/24 09:00 08/06/24 09:15 Famotidine 20 Mg Tab PO 20 mg DAILY UZMA Administration Levothyroxine Sodium 125 mcg 08/06/24 09:00 08/06/24 09:16 Levothyroxine 125 Mcg Tab PO 125 mcg DAILY UZMA Administration Naloxone HCl 0.2 mg 08/05/24 17:24 Naloxone 0.4 Mg/Ml 1 Ml Vial IV Q2M PRN Opioid Reversal Oseltamivir Phosphate 75 mg 08/05/24 21:00 08/06/24 09:15 Oseltamivir 75 Mg Cap PO 08/10/24 09:01 75 mg Q12HR UZMA Administration Protocol Prednisone 40 mg 08/06/24 09:00 08/06/24 09:16 Prednisone 20 Mg Tab PO 08/11/24 08:59 40 mg DAILY UZMA Administration Sodium Bicarbonate 325 mg 08/06/24 09:00 08/06/24 09:15 Sodium Bicarbonate Tab 650 Mg Tab PO 325 mg DAILY UZMA Administration Valsartan 80 mg 08/05/24 21:00 08/06/24 09:16 Valsartan 80 Mg Tab PO 80 mg BID UZMA Administration 08/06/24 05:49 08/06/24 05:49
--- NOTE | 2024-08-07 10:34 | P.PN ---
Progress Note - Text No further inpatient recommendations from cardiac standpoint per Dr. Moreno. We will sign off. Please reconsult if needed.
--- NOTE | 2024-08-07 16:57 | P.PN ---
Subjective Progress Note Date: 08/07/24 Patient was seen and examined. Feeling better. BP 128/61, HR 60, RR 16, T 97.8F, 96% on RA. Echo is pending. General: non toxic, no distress, appears at stated age Derm: warm, dry Head: atraumatic, normocephalic, symmetric Mouth: no lip lesion, mucus membranes moist Cardiovascular: S1S2 reg, no murmur Lungs: Decreased BS BL, no rales , no accessory muscle use Ext: no gross muscle atrophy, no edema, no contractures Neuro: no focal neuro deficits Psych: Alert and oriented. Based on my assessment of this patient, this patient meets a high complexity level of care. Influenza A: Continue Tamiflu 75 mg PO BID. Prednisone 40 mg PO QD. Albuterol neb Q2H PRN. Dyspnea: Echo is pending. Elevated Troponin: Flat. ACS ruled out. Cardiology has signed out. Anion gap metabolic acidosis with CKD stage IIIb: Sodium bicarb 325 mg PO QD. Repeat BMP and Mag in the AM. Systolic HFrEF: Not in acute exacerbation. Echo is pending. Farxiga 5 mg PO QD. Metoprolol 50 mg PO QD. Valsartan 80 mg PO BID. Would benefit from K sparing diuretic, will defer to Cardiology. Paroxysmal A-fib: Eliquis 5 mg PO BID. Sinus bradycardia status post pacemaker Hypertension: Metoprolol and Valsartan as above. History of TIA: Eliquis as above. Lipitor 20 mg PO QHS. MERE on CPAP: Continue CPAP QHS. GERD: Pepcid 20 mg PO QD. Hypothyroidism: Levothyroxine 125 mcg PO QD. History of small bowel obstruction Anticipate discharge home tomorrow if symptoms improved. Echo is still pending. CODE STATUS: FULL CODE. DVT Prophylaxis: Eliquis. GI Prophylaxis: Designated medical POA if patient is not able to make medical decisions for themselves: I have reviewed the following mergers and acquisitions consultant notes: Cardiology. I have reviewed the results of the following tests: I have ordered the following tests: I have discussed the care of this patient with the following independent historian: I have independently interpreted the following test below: I have discussed the management of this patient with the following physician: Objective - Vital Signs Vital signs: Vital Signs Temp 97.8 F 08/07/24 11:45 Pulse 60 03/17/25 16:00 Resp 16 08/07/24 16:00 BP 128/61 08/07/24 16:00 Pulse Ox 96 08/07/24 16:00 FiO2 Intake & Output 08/06/24 08/07/24 08/07/24 18:59 06:59 18:59 Other: # Voids 2 - Labs CBC & Chem 7: 08/06/24 05:49 08/06/24 05:49
[2024-08-08 01:26] VITALS: PULSE 66
[2024-08-08 06:21] LABS: HCT 48.8 % (34.0-46.0); HGB 15.5 gm/dL (11.4-16.0); MCH 30.9 pg (25.0-35.0); MCHC 31.8 g/dL (31.0-37.0); MCV 97.2 fL (80.0-100.0); Platelet Count 158 k/uL (150-450); RBC 5.02 m/uL (3.80-5.40); RDW 14.6 % (11.5-15.5); WBC 7.7 k/uL (3.8-10.6)
[2024-08-08 06:35] LABS: African American GFR (CKD) 39 (>60 ml/min/1.73 sqM); Anion Gap 8 mmol/L; Blood Urea Nitrogen 43 mg/dL (7-17); Carbon Dioxide 18 mmol/L (22-30); Chloride 109 mmol/L (98-107); Glucose 97 mg/dL (74-99); Magnesium 2.4 mg/dL (1.6-2.3); Non-African American GFR(CKD) 34 (>60 ml/min/1.73 sqM); Sodium 135 mmol/L (137-145)
--- NOTE | 2024-08-08 07:54 | CA ---
Transthoracic Echo Report Name: Lissa Ma Age: 88 Gender: F : 1935 Exam Date: 08/07/2024 14:55 Exam Location: [place] [facility] Ht (in): 65 Wt (lb): 150 Ordering Physician: Eladia Nickerson Attending/Referring Phys: [id number], Krishan Breaker Up Karyna Berger RDCS Procedure CPT: Indications: LVF Cardiac Hx: Technical Quality: Technically difficult study Contrast 1: Definity Total Dose (mL): 4 Contrast 2: Total Dose (mL): MEASUREMENTS (Male / Female) Normal Values 2D ECHO LV Diastolic Diameter PLAX 4.8 cm 4.2 - 5.9 / 3.9 - 5.3 cm LV Systolic Diameter PLAX 3.7 cm IVS Diastolic Thickness 1.1 cm 0.6 - 1.0 / 0.6 - 0.9 cm LVPW Diastolic Thickness 1.2 cm 0.6 - 1.0 / 0.6 - 0.9 cm LV Relative Wall Thickness 0.5 LVOT Diameter 2.0 cm LV Diastolic Volume MOD BP 104.2 cm??? 67 - 155 / 56 - 104 cm??? LV Systolic Volume MOD BP 55.3 cm??? 22 - 58 / 19 - 49 cm??? LV Ejection Fraction MOD BP 46.9 % >= 55 % LV Cardiac Index MOD BP 2257.8 cm???/min???m??? LV Diastolic Volume MOD 4C 112.7 cm??? LV Systolic Volume MOD 4C 73.6 cm??? LV Ejection Fraction MOD 4C 34.7 % LV Cardiac Index MOD 4C 1805.7 cm???/min???m??? LV Diastolic Length 4C 8.9 cm LV Systolic Length 4C 8.5 cm LV Diastolic Volume MOD 2C 95.1 cm??? LV Systolic Volume MOD 2C 35.0 cm??? LV Ejection Fraction MOD 2C 63.2 % LV Cardiac Index MOD 2C 2771.5 cm???/min???m??? LV Diastolic Length 2C 9.0 cm LV Systolic Length 2C 7.1 cm LA Volume 62.8 cm??? 18 - 58 / 22 - 52 cm??? LA Volume Index 35.3 cm???/m??? 16 - 28 cm???/m??? DOPPLER AV Peak Velocity 140.7 cm/s AV Peak Gradient 7.9 mmHg AV Mean Velocity 106.8 cm/s AV Mean Gradient 4.8 mmHg AV Velocity Time Integral 25.2 cm LVOT Peak Velocity 103.5 cm/s LVOT Peak Gradient 4.3 mmHg LVOT Velocity Time Integral 20.0 cm LVOT Stroke Volume 65.7 cm??? LVOT Stroke Volume Index 37.5 ml/m??? LVOT Cardiac Index 3031.0 cm???/min???m??? AV Area Cont Eq vti 2.6 cm??? AV Area Cont Eq pk 2.4 cm??? MV Area PHT 4.4 cm??? Mitral E Point Velocity 57.4 cm/s Mitral A Point Velocity 78.3 cm/s Mitral E to A Ratio 0.7 MV Deceleration Time 172.9 ms PV Peak Velocity 77.9 cm/s PV Peak Gradient 2.4 mmHg FINDINGS Left Ventricle Left ventricular ejection fraction is estimated at 55 %. Mildly increased septal wall thickness. Mildly increased posterior wall thickness. Mildly increased left ventricular systolic volume. Right Ventricle Right ventricle not well visualized. Normal right ventricular global systolic function. Unable to estimate the right ventricular systolic pressure. Right Atrium Right atrium not well visualized. Catheter/pacemaker wire in the right atrial cavity. Left Atrium Mildly increased left atrial volume. Mitral Valve Mitral valve thickened. Mitral annular calcification. No evidence for mitral valve prolapse. No mitral stenosis. Trace mitral regurgitation. Aortic Valve Trileaflet aortic valve. Focal thickening of the aortic valve cusps. No aortic stenosis. Mild aortic regurgitation. Tricuspid Valve Structurally normal tricuspid valve. No tricuspid stenosis. Trace tricuspid regurgitation. Pulmonic Valve Pulmonic valve not well visualized. No pulmonic stenosis. Trace pulmonic regurgitation. Pericardium No pericardial effusion. Aorta Aortic annulus normal. Moderately dilated proximal ascending aorta (tube). CONCLUSIONS LV size and systolic function is in the normal range with concentric LVH. There is mitral annular calcification and aortic valve sclerosis without restriction. Mild mitral tricuspid and aortic insufficiency. No significant pulmonary hypertension although right-sided pressures are not well quantified. No pericardial effusion Previewed by: Dr. Paul Borden MD (Electronically Signed) Final Date: 08 August 2024 07:54
[2024-08-08] MEDS: OSELTAMIVIR 30 MG CAP PO SCH (08:17)
[2024-08-08 10:12] VITALS: BP 163/81; RESP 16; TEMP 98.2
--- NOTE | 2024-08-08 11:48 | P.DS ---
Providers Date of admission: 08/05/24 17:12 Expected date of discharge: 08/08/24 Attending physician: Sandra Muller MD Primary care physician: Josh Sifuentes [facility] Course: Discharge Diagnosis: Influenza A: Continue Tamiflu 30 mg every 24 hours renal dosing. Prednisone 40 mg PO QD. Dyspnea: Likely secondary to above and resolved. Elevated Troponin: Flat. ACS ruled out. Cardiology evaluated and signing off clearing patient from cardiac perspective. Anion gap metabolic acidosis with CKD stage IIIb: Continue Sodium bicarb 325 mg PO QD. renal function stable and discharged with BUN 43, creatinine 1.39, GFR of 34. Systolic HFrEF: Not in acute exacerbation. Echo showing improved EF of 55%. Continue cardiac medication regimen with Farxiga 5 mg PO QD. Metoprolol 50 mg PO QD. Valsartan 80 mg PO BID. Paroxysmal A-fib: Eliquis 5 mg PO BID. Sinus bradycardia status post pacemaker Hypertension: Metoprolol and Valsartan as above. History of TIA: Eliquis as above. Lipitor 20 mg PO QHS. MERE on CPAP: Continue CPAP QHS. GERD: Pepcid 20 mg PO QD. Hypothyroidism: Levothyroxine 125 mcg PO QD. History of small bowel obstruction Hospital Course: Patient is an 88 y/o male with a past medical history of CAD, nonischemic cardiomyopathy, sinus bradycardia status post permanent pacemaker placement, HFrEF EF 25 to 30%, history of chronically elevated troponins, paroxysmal A-fib on Eliquis, HTN, HLD, hypothyroidism, history of TIA, GERD, stage IIIb CKD, MERE on CPAP, and history of bowel obstruction s/p resection. She presented to the emergency department on 08/05/2024 secondary to reports of shortness of breath, generalized weakness, fever, and cough. Upon arrival to our facility, patient underwent evaluation in the emergency department. Vital signs upon arrival show blood pressure 188/70, heart rate 88, respiratory rate 20, temp 101.6 F, and SpO2 of 94% on room air. EKG was completed showing a ventricular paced rhythm with 87 bpm. X-ray completed negative for acute cardiopulmonary process showing scattered senescent parenchymal changes with hyperinflation compatible with COPD. Labs completed and reviewed. CBC showing thrombocytopenia with platelet count of 126. Coagulation profile normal findings. BMP showing sodium 136, bicarb 18, and slightly elevated renal function with BUN of 28, creatinine of 1.18, GFR 41. Blood glucose was 113. Magnesium was 2.0. Liver profile unremarkable. Troponin was elevated at 0.120 and proBNP 3420. Influenza A was positive. Influenza B, RSV, and COVID PCR were negative. Urinalysis positive for protein, glucose, and ketones but negative for infection. Patient was admitted under our services at this time with consultation to cardiology. Troponins were trended resulting at 0.120, 0.125, 0.133, 0.201, 0.207. Echocardiogram was completed showing a preserved EF of 55% with mitral annular calcifications and aortic valve sclerosis without restriction, mild mitral/tricuspid/aortic insufficiency with no significant pulmonary hypertension and no pericardial effusion. Cardiology evaluated and clearing patient from cardiac perspective for discharge. Patient medically optimized and currently reports feeling great states feeling much better than she did when she got here. Patient to complete course of Tamiflu and 5-day course of prednisone. Recommend outpatient follow-up with PCP in 1 to 2 days and with makeup artist in 1 week. Physical exam: Vital signs reviewed and stable. General: Nontoxic, no distress and appears stated age. Derm: Skin warm and dry, normal coloration for ethnicity. Head: Atraumatic, normocephalic and symmetric. Eyes: EOM's intact, no lid lag, and anicteric sclera Mouth: no lip lesions, mucus membranes moist Cardiovascular: regular rate and rhythm with normal S1S2, no murmur, positive posterior tibial pulses bilaterally, and cap refill < 2 seconds. Lungs: Respirations even, regular, and unlabored on room air. Lungs CTA bilaterally, no rhonchi, no rales, no wheezing, and no accessory muscle usage. Abdominal: soft, nontender to palpation, no guarding, no appreciable organomegaly Ext: ROM intact. No gross muscle atrophy, no edema, no contractures Neuro: Speech clear, face symmetrical and CN II-XII grossly intact with no noted focal neuro deficits Psych: Alert and oriented to person, place, time, and situation. Appropriate and pleasant affect. A total of 32 minutes of time were spent preparing this complex discharge summary. Pt was discharged on 08/08/2024 at 11:48 AM. Patient was seen independently by Nurse Practitioner. This document was prepared using [employer] dictation software. Please allow for errors in visual presentation manager while rare they do occur. Agustín Zelalem, TECHNICAL TRAINING SPECIALIST rendered care for this patient independently, reviewed the findings and plan as documented in the note above. I did not physically speak with or examine the patient on this date. Patient Condition at Discharge: Stable Plan - Discharge Summary Discharge Rx Participant: No New Discharge Prescriptions: New predniSONE [Deltasone] 40 mg PO DAILY 2 Days #4 tab Oseltamivir [Tamiflu] 30 mg PO Q24HR 1 Days #1 cap Metoprolol Succinate (ER) [Toprol XL] 50 mg PO DAILY 30 Days #30 tab Continue Famotidine [Pepcid] 20 mg PO DAILY Levothyroxine Sodium [Synthroid] 125 mcg PO DAILY Dapagliflozin Propanediol [Farxiga] 5 mg PO DAILY Cholecalciferol [Vitamin D3 (25 Mcg = 1000 Iu)] 50 mcg PO DAILY Hydrocortisone Suppository [Anusol-Hc] 25 mg RECTAL HS Apixaban [Eliquis] 5 mg PO BID Sodium Bicarbonate Tab 325 mg PO DAILY Valsartan [Diovan] 80 mg PO BID Rosuvastatin [Crestor] 10 mg PO HS Discharge Medication List Famotidine [Pepcid] 20 mg PO DAILY 04/25/19 [History] Apixaban [Eliquis] 5 mg PO BID 08/28/22 [History] Levothyroxine Sodium [Synthroid] 125 mcg PO DAILY 08/18/23 [History] Sodium Bicarbonate Tab 325 mg PO DAILY 08/18/23 [History] Cholecalciferol [Vitamin D3 (25 Mcg = 1000 Iu)] 50 mcg PO DAILY 08/05/24 [Histo ry] Dapagliflozin Propanediol [Farxiga] 5 mg PO DAILY 08/05/24 [History] Hydrocortisone Suppository [Anusol-Hc] 25 mg RECTAL HS 08/05/24 [History] Rosuvastatin [Crestor] 10 mg PO HS 08/05/24 [History] Valsartan [Diovan] 80 mg PO BID 08/05/24 [History] Metoprolol Succinate (ER) [Toprol XL] 50 mg PO DAILY 30 Days #30 tab 08/08/24 [Rx] Oseltamivir [Tamiflu] 30 mg PO Q24HR 1 Days #1 cap 08/08/24 [Rx] predniSONE [Deltasone] 40 mg PO DAILY 2 Days #4 tab 08/08/24 [Rx] Follow up Appointment(s)/Referral(s): Josh Don MD [Primary Care Provider] - 1-2 days Colt Moreno MD [STAFF PHYSICIAN] - 1 Week Patient Instructions/Handouts: Influenza (DC) Activity/Diet/Wound Care/Special Instructions: Activity: As tolerated. Take breaks as needed. Diet: Heart healthy and carb consistent diet. Avoid salts, or foods with hidden salts such as canned or boxed foods and frozen dinners. Extra salt makes your heart work harder and traps the fluid in your body for longer. Special Instructions: Take all of your medications as directed and remember to keep all of your doctor's appointments and follow-up as needed. Thank you for allowing us to participate in your care, it was truly a pleasure having you for our patient!!! Discharge Disposition: HOME SELF-CARE
== END 2024-08-08 14:48 | disposition home health service (06) | DRG 194 ==
LOC: EC 14:35 → 4SSUR 17:12 → 3SCARD 21:21 → 4SSUR 08-07 17:09 → 1SOBS 08-07 19:22
PROVIDERS: ADMIT Student in an Organized Health Care Education/Training Program; ATTEND Student in an Organized Health Care Education/Training Program
DX: J10.1 Influenza due to other identified influenza virus with other respiratory manifestations (principal); E87.20 Acidosis, unspecified; D69.6 Thrombocytopenia, unspecified; I42.8 Other cardiomyopathies; G90.A Postural orthostatic tachycardia syndrome [POTS]; I13.0 Hypertensive heart and chronic kidney disease with heart failure and stage 1 through stage 4 chronic kidney disease, or unspecified chronic kidney disease; I50.22 Chronic systolic (congestive) heart failure; N18.32 Chronic kidney disease, stage 3b; I48.0 Paroxysmal atrial fibrillation; E03.9 Hypothyroidism, unspecified; F32.A Depression, unspecified; I08.3 Combined rheumatic disorders of mitral, aortic and tricuspid valves; E78.5 Hyperlipidemia, unspecified; F41.9 Anxiety disorder, unspecified; G47.33 Obstructive sleep apnea (adult) (pediatric); I25.10 Atherosclerotic heart disease of native coronary artery without angina pectoris; K21.9 Gastro-esophageal reflux disease without esophagitis; R79.89 Other specified abnormal findings of blood chemistry; Z79.01 Long term (current) use of anticoagulants; Z79.84 Long term (current) use of oral hypoglycemic drugs; Z79.890 Hormone replacement therapy; Z79.899 Other long term (current) drug therapy; Z95.0 Presence of cardiac pacemaker; Z87.891 Personal history of nicotine dependence; Z86.73 Personal history of transient ischemic attack (TIA), and cerebral infarction without residual deficits; Z88.8 Allergy status to other drugs, medicaments and biological substances; Z88.1 Allergy status to other antibiotic agents; Z91.041 Radiographic dye allergy status
CPT/HCPCS: 36415; 71046; 80048; 80053; 81003; 83735; 83880; 84484; 85025; 85027; 85610; 85730; 87636; 93005; 93306; 94640; 96361; 96374; 99285

== ENCOUNTER → 2024-08-11 | Outpatient (CLI) | payer MEDICARE, BC ==
[2024-08-12 02:07] LABS: Basophils # (A) 0.02 X 10*3/uL (0.00-0.10); Basophils % (A) 0.3 %; Eosinophils # (A) 0.01 X 10*3/uL (0.04-0.35); Eosinophils % (A) 0.1 %; HCT 46.9 % (37.2-46.3); HGB 15.2 g/dL (12.0-15.0); Lymphocytes # (A) 2.09 X 10*3/uL (0.90-5.00); Lymphocytes % (A) 27.6 %; MCHC 32.4 g/dL (32.0-37.0); MCV 95.7 FL (80.0-97.0); Mean Platelet Volume 10.9 FL (9.5-12.2); Monocytes # (A) 0.89 X 10*3/uL (0.20-1.00); Monocytes % (A) 11.7 %; NRBC Per 100 WBC 0 X 10*3/uL (0.00-0.01); Neutrophils # (A) 4.46 X 10*3/uL (1.80-7.70); Neutrophils % (A) 58.8 %; Platelet Count 164 X 10*3/uL (140-440); RDW 14.8 % (11.5-14.5); WBC 7.58 X 10*3/uL (4.50-10.00)
[2024-08-12 02:47] LABS: % Iron Saturation 23.37 (12.00-45.00); ALT 32 U/L (8-44); AST 47 U/L (13-35); Albumin 3.7 g/dL (3.8-4.9); Albumin/Globulin Ratio 1.61 Ratio (1.60-3.17); Alkaline Phosphatase 58 U/L (41-126); BUN/Creat Ratio 25.38 Ratio (12.00-20.00); Calcium 8.7 mg/dL (8.7-10.3); Chloride 109 mmol/L (96-109); Globulin 2.3 g/dL (1.6-3.3); Glucose 109 mg/dL (70-110); Iron 68 UG/DL (50-170); Potassium 3.8 mmol/L (3.5-5.5); Sodium 142 mmol/L (135-145); T4, Free (Free Thyroxine) 1.68 ng/dL (0.80-1.80); Total Bilirubin 0.4 mg/dL (0.3-1.2); Total Iron Binding Capacity 291 UG/DL (228-460)
== END | disposition home or self-care (01) ==
LOC: LABWHC1 14:46
PROVIDERS: ATTEND Family Medicine
DX: I25.10 Atherosclerotic heart disease of native coronary artery without angina pectoris (principal); N18.30 Chronic kidney disease, stage 3 unspecified
CPT/HCPCS: 36415; 80053; 82728; 83540; 83550; 84439; 84443; 85025